=== PATIENT | female | born 1965 | race Caucasian/White ===

== ENCOUNTER 2024-08-06 11:26 | Outpatient (OUT) | payer MEDICARE, SELFPAY ==
--- NOTE | 2024-08-06 11:42 | MM_ITS ---
Patient Name: KATALINA ONTIVEROS MR#: [id number] : 1965 Exam Date: 08/06/2024 Ordering Doctor: NICK RAMIREZ FORM PRESSER-C RADIOLOGY REPORT PROCEDURE: MM TOMOSYNTHESIS SCREENING BI COMPARISON: None. INDICATIONS: Screening Calculator Name NCI Breast Cancer Risk Assessment Tool 5 Year Breast Cancer Risk 0.90% Lifetime Breast Cancer Risk 5.70% Personal Breast Cancer No Personal Ovarian Cancer No Treatments None Family Cancers None LOCATION: [facility] BREAST COMPOSITION: The breasts are almost entirely fatty. FINDINGS: DIAGNOSTIC CATEGORY 1--NEGATIVE. RIGHT BREAST: No significant suspicious finding. LEFT BREAST: No significant suspicious finding. RECOMMENDATIONS: ROUTINE MAMMOGRAM AND CLINICAL EVALUATION IN 12 MONTHS. PLEASE NOTE: A NORMAL MAMMOGRAM DOES NOT EXCLUDE THE POSSIBILITY OF BREAST CANCER. A CLINICALLY SUSPICIOUS PALPABLE LUMP SHOULD BE BIOPSIED. Dictated by: Jw Wood DO on 08/09/2024 at 15:43 Approved by: Jw Wood DO on 08/09/2024 at 15:45
[2024-08-06 12:14] LABS: Basophils Absolute Auto 0.1 10^3/uL (0.0-0.1); Basophils Percent Auto 1.7 % (0.2-2.0); Eosinophils Absolute Auto 0.4 10^3/uL (0.0-0.7); Eosinophils Percent Auto 5.2 % (0.9-7.0); Hematocrit 40.8 % (36.0-48.0); Hemoglobin 13.3 g/dL (12.0-16.0); Immature Granulocytes Abs Auto 0.01 10^3/uL (0.00-0.03); Immature Granulocytes Pct Auto 0.1 % (0.0-0.5); Lymphocytes Absolute Auto 2.1 10^3/uL (1.2-3.8); Lymphocytes Percent Auto 29.7 % (20.5-60.0); Mean Corpuscular HGB Conc 32.6 g/dL (29.9-35.2); Mean Corpuscular Hemoglobin 28.4 pg (26.7-34.0); Mean Corpuscular Volume 87.2 fL (81.0-99.0); Mean Platelet Volume 9.2 fL (9.5-13.5); Monocytes Absolute Auto 0.5 10^3/uL (0.3-0.8); Monocytes Percent Auto 6.9 % (1.7-12.0); Neutrophils Percent Auto 56.4 % (43.0-75.0); Platelet Count 318 10^3/uL (150-450); Red Blood Count 4.68 10^6/uL (4.20-5.40); Red Cell Distribution Width 13.1 % (11.0-15.0); White Blood Count 7.1 10^3/uL (4.0-11.0)
[2024-08-06 12:49] LABS: Alanine Aminotransferase 16 U/L (14-59); Albumin Globulin Ratio 1.3; Albumin Level 3.8 g/dL (3.4-5.0); Alkaline Phosphatase 88 U/L (46-116); Aspartate Amino Transferase 21 U/L (15-37); BUN Creatinine Ratio 15.5; Bilirubin Total 0.4 mg/dL (0.2-1.0); Calcium 9.1 mg/dL (8.5-10.1); Carbon Dioxide 29.4 mmol/L (21.0-32.0); Chloride 104 mmol/L (98-107); Cholesterol 222 mg/dL (<=200); Estimated GFR (African America >60 (>=60 mL/min/1.73m^2); Estimated GFR (Non-African Ame >60 (>=60 mL/min/1.73m^2); Globulin 2.9 g/dL; Glucose 92 mg/dL (74-106); HDL Cholesterol 74 mg/dL (40-60); Potassium 4.4 mmol/L (3.5-5.1); Sodium 139 mmol/L (136-145); Total Protein 6.7 g/dL (6.4-8.2); Triglycerides 59 mg/dL (<=150); VLDL CHOLESTEROL 11.8 mg/dL
== END 2024-08-06 11:27 | disposition home or self-care (01) ==
PROVIDERS: Visit Provider Nurse Practitioner Family
DX: Z12.31 Encounter for screening mammogram for malignant neoplasm of breast (principal); Z13.6 Encounter for screening for cardiovascular disorders; D86.0 Sarcoidosis of lung; Z51.81 Encounter for therapeutic drug level monitoring; Z98.84 Bariatric surgery status
CPT/HCPCS: 36415; 77063; 77067; 80053; 80061; 85025

== ENCOUNTER 2024-12-13 11:44 | Outpatient (OUT) | payer MEDICARE, SELFPAY ==
--- NOTE | 2024-12-13 | XR_ITS ---
The [place] [id number] Patient Name: KATALINA ONTIVEROS MRN: [id number] date: 1965 Sex: F Assigned Patient Location: [facility] Current Patient Location: [facility] Accession/Order Number: [id number] Exam Date: 12/13/2024 12:50 Report Date: 12/13/2024 12:51 At the request of: TERRA MARTIN DO Procedure: XR hand JAIR min 3v 3 views both hands HISTORY: Bilateral carpal tunnel syndrome Minor bilateral hand degeneration. Adequate alignment. No acute bony findings. Unremarkable soft tissues. XR/XR hand JAIR min 3v IMPRESSION: Mild bilateral hand degeneration Impression dictated by: Deni Poole M.D. 12/13/2024 12:51 PM Dictation Location: [place] [address] Electronically authenticated by: [id number] Y Date: 12/13/2024 12:51
--- OUTSIDE RECORDS SUMMARY | 2024-12-13 11:50 | XMS_ITS | CCD ---
Author Organization [facility] Care Team Providers Care Cable Swager Name Role Phone FRANKLIN CEE Admitting Unavailable JONAH ABIGAIL Referring Unavailable MIMI SMITH Primary Care Unavailable DHAVAL THOMPSON Unavailable NM Procedure Practitioner Unavailab le UNKNOWN, PROVIDER Surgeon Unavailable NM Procedure Practitioner Unavailab FRANKLIN Morrison Surgeon Unavailable Todd Rothman Unavailable Unavailable Mimi Smith Unavailable Unavailable Mimi Smith Primary Care Provider Mimi Smith MD Primary Care Provider [phone] Mimi Smith MD Primary Care Provider [phone] Mimi Smith MD Primary Care Provider [phone] REQUEST, DR NONE LISTED Primary Care Unavaila ble ABIGAIL MCKENZIE Attending Unavailable SAMSA, ABIGAIL Consulting Unavailable JONAH, ABIGAIL Admitting Unavailable Hadley Teague Attending Unavailab le Hadley Teague Admitting Unavailab Dhaval Barros Primary Care Unavailable Dhaval Farr MD Primary Care Provider Hadley Teague MD Attending Provider [phone] Sondra Salgado APRN Primary Care Provider Sondra Salgado APRN Attending Provider Keke Maria DO Attending Provider Allergies Allergy Classification Reported Allergen(s) Allergy Type Date of Onset Reaction(s) Facility Angiotensin Converting Enzyme (MAIKOL) Inhibitors (5 sources) Lisinopril Drug Allergy 8 Cough [facility] Benzodiazepines (5 sources) Midazolam Drug Allergy 1 Aggressive Behavior [facility] cow milk allergenic extract (5 sources) cow milk allergenic extract Drug Allergy 9 [facility] (6 sources) Amino Acids Drug Allergy 9 Unknown Reaction [facility] Repository (1 source) egg extract Drug Allergy 9 [facility] Repository (3 sources) Milk Drug allergy (disorder) 9 Unknown Reaction [facility] Repository Comment on above: NECK/THROAT SWELLING (9 sources) cow milk allergenic extract Drug Allergy 9 [facility] (9 sources) Lisinopril Drug Allergy 8 Cough [facility] (9 sources) Midazolam Drug Allergy 1 Aggressive Behavior [facility] (14 sources) Eggs Or Egg-Derived Products Propensity to adverse reactions to drug 9 Diarrhea [facility] (3 sources) egg extract Drug Allergy 4 Unknown Reaction [facility] Repository Comment on above: NECK/THROAT SWELLING (3 sources) egg extract Drug Allergy 4 Anaphylaxis [facility] Repository (1 source) Lisinopril Drug Allergy 4 [facility] Repository (1 source) Milk Drug allergy (disorder) 4 [facility] Repository Medications Current Medications Medication Drug Class(es) Dates Sig (Normalized) Sig (Original) albuterol 108 (90 Base) MCG/ACT Aero Soln inhaler (6 sources) take 2 puff(s) by inhalation every six hours as needed albuterol 108 (90 Base) MCG/ACT Aero Soln inhaler Inhale 2 puffs Every 6 hours as needed. 0 Active B Complex Vitamins (VITAMIN B COMPLEX PO) (13 sources) take 1 tablet by mouth once daily B Complex Vitamins (VITAMIN B COMPLEX PO) Take 1 tablet by mouth daily. 0 Active bisacodyl 5 mg delayed release oral tablet (1 source) Stimulant Laxative Start: 06-27-2020 End: 06-27-2020 take 4 tablets by mouth once bisacodyl (Dulcolax) [address] Take 4 tablets by mouth once for 1 dose. 4 tablet 0 06/27/2020 06/27/2020 Active 60 actuat budesonide 0.16 mg/actuat / formoterol fumarate 0.0045 mg/actuat metered dose inhaler (17 sources) Corticosteroid, beta2-Adrenergic Agonist Start: 05-22-2020 budesonide-formot vishnu 160-4.5 mcg/puff Aerosol inhaler INHALE 2 PUFFS TWICE DAILY*RINSE AFTER USE* 0 05/22/2020 Active Start: 09-24-2018 End: 10-03-2018 take 1 puff(s) by inhalation twice daily Budesonide-Formoterol (Symbicort) 160-4.5 mcg/actuation Hfa Aerosol Inhaler Discontinued 2 PUFF INHALATION Twice daily September 24, 2018 12:00am October 03, 2018 12:07pm Symbicort 160-4. 5 MCG/ACT Inhalation Aerosol Refills: 0 DO Active cholecalciferol 1.25 mg oral capsule (1 source) Vitamin D Start: 09-11-2020 take 1 capsule by mouth every week Cholecalciferol 1.25 MG (01690 UT) capsule Take 1 capsule by mouth once a week. 4 capsule 0 09/11/2020 Active 24 hr desvenlafaxine succinate 50 mg extended release oral tablet (2 sources) Serotonin and Norepinephrine Reuptake Inhibitor Start: 04-16-2024 take 1 tablet by mouth once daily HERBAL PRODUCT (11 sources) take 2 drop(s) by mouth once daily HERBAL PRODUCT Take 2 drops by mouth daily. Lanie Liver. A liquid added to water for liver support and function. 0 Active hydrOXYzine hydrochloride 25 mg oral tablet (20 sources) Antihistamine Start: 06-15-2020 End: 12-12-2020 take 1 tablet by mouth once daily at bedtime hydrOXYzine HCl 25 MG tablet TAKE 1 TABLET BY MOUTH EVERYDAY AT BEDTIME 0 06/15/2020 Active Start: 10-03-2018 take 1 capsule by mo [facility] three times daily Start: 10-03-2018 End: 04-16-2024 take 1 capsule by mouth once daily at bedtime Hydroxyzine Pamoate 50 mg Capsule Discontinued 50 MG PO Daily at bedtime October 03, 2018 12:00am April 16, 2024 11:36am Start: 09-24-2018 End: 10-03-2018 take 1 tablet by mouth three times daily Hydroxyzine Hcl 25 mg Tablet Discontinued 25 MG PO TID@08,14,1700 September 24, 2018 12:00am October 03, 2018 12:07pm Start: 09-24-2018 End: 10-03-2018 take 1 tablet by mouth once daily at bedtime Hydroxyzine Hcl 50 mg Tablet Discontinued 50 MG PO Daily at bedtime September 24, 2018 12:00am October 03, 2018 12:07pm hydrOXYzine HCl - 25 MG Oral Tablet Refills: 0 DO Active lamoTRIgine 200 mg oral tablet (2 sources) Mood Stabilizer, Anti-epileptic Agent Start: 04-16-2024 take 1 tablet by mouth once daily lumateperone 42 mg oral capsule (2 sources) Start: 04-16-2024 magnesium citrate 58.2 mg/ml oral solution (1 source) Start: 06-27-2020 End: 06-27-2020 magnesium citrate Solution Take 296 mL by mouth once for 1 dose. Drink one bottle in the morning on the day before your colonoscopy and follow with a glass of water. 1 Bottle 0 06/27/2020 06/27/2020 Active magnesium sulfate 0.0277 meq/ml / potassium sulfate 0.0374 meq/ml / sodium sulfate 0.257 meq/ml oral solution (1 source) Start: 06-27-2020 End: 06-29-2020 sodium sulfate-potassium sulfate (Suprep Bowel Prep Kit) 17.5-3.13-1.6 GM/177ML Solution oral solution Take 177 mL by mouth once as directed for up to 2 days. Use as directed 2 Bottle 0 06/27/2020 06/29/2020 Active Multiple Vitamins-Minerals (Multi For Her 50+) tablet (2 sources) Multiple Vitamins-Minerals (Multi For Her 50+) tablet 1 tablet 0 Active omeprazole 20 mg delayed release oral capsule (4 sources) Proton Pump Inhibitor Start: 10-03-2018 take 1 capsule by mouth once daily Completed/Discontinued Medications Medication Drug Class(es) Dates Sig (Normalized) Sig (Original) acetaminophen 32 mg/ml oral solution (9 sources) Start: 12-11-2020 End: 12-12-2020 take 650 mg by mouth every six hours 650 mg, Oral, EVERY 6 HOURS NON-STANDARD, First dose on Fri12/11/20 at 1300, Until Discontinued Post-op/Post-Proc Start: 12-11-2020 acetaminophen (OFIRMEV) IVPB 1,000 mg Start: 12-11-2020 acetaminophen (TYLENOL) tablet 1,000 mg Start: 11-17-2020 take 640 mg by mouth every six hours as needed acetaminophen 160 MG/5ML Suspension Take 20 mL by mouth every 6 hours as needed for Pain. 500 mL 1 11/17/2020 Active Start: 10-03-2018 End: 04-16-2024 take 2 tablets by mouth every four hours as needed for pain Acetaminophen 325 mg Tablet Discontinued 650 MG PO Q4H as needed for Pain 0 October 03, 2018 12:00am April 16, 2024 11:35am Start: 10-03-2018 End: 04-16-2024 take 1 tablet by mouth every four hours as needed for pain Acetaminophen 325 mg Tablet Discontinued 325 MG PO Q4H as needed for Pain 100 October 03, 2018 12:00am April 16, 2024 11:35am [id number] 200 actuat albuterol 0.09 mg/actuat metered dose inhaler (10 sources) beta2-Adrenergic Agonist Start: 12-11-2020 End: 12-12-2020 take 2 puff(s) by inhalation every six hours as needed for wheezing 2 puff, Inhalation, EVERY 6 HOURS NEEDED, Starting on Fri12/11/20 at 1221, Until Fri12/12/20 at 1750, Shortness of Breath, Wheezing Wait at least one(1) full minute between inhalations Post-op/Post-Proc Start: 10-03-2018 take 2.5 mg by inhal ation three times daily as needed for congestion albuterol 0.833 mg/ml / ipratropium bromide 0.167 mg/ml inhalation solution (2 sources) Anticholinergic, beta2-Adrenergic Agonist Start: 09-24-2018 End: 10-03-2018 take 1 mL by inhalation every six hours Ipratropium-Albuterol 0.5 mg-3 mg(2.5 mg base)/3 mL Solution For Nebulization Discontinued 3 ML INHALATION Q6H September 24, 2018 12:00am October 03, 2018 12:07pm [place] ALPRAZolam 0.25 mg oral tablet (4 sources) Benzodiazepine Start: 10-03-2018 End: 04-16-2024 take 1 tablet by mouth three times daily as needed for anxiety Alprazolam 0.25 mg Tablet Discontinued 0.25 MG PO Three times daily as needed for Anxiety 30 15 October 03, 2018 12:00am April 16, 2024 11:35am Start: 09-24-2018 End: 10-03-2018 take 1 tablet by mouth once daily as needed for anxiety Alprazolam (Xanax) 0.25 mg Tablet Discontinued 0.25 MG PO Daily as needed for Anxiety September 24, 2018 12:00am October 03, 2018 12:07pm aspirin 81 mg delayed release oral tablet (2 sources) Platelet Aggregation Inhibitor, Nonsteroidal Anti-inflammatory Drug Start: 10-03-2018 End: 04-16-2024 take 1 tablet by mouth once daily Aspirin 81 mg Tablet,Delayed Release (Dr/Ec) Discontinued 81 MG PO Daily October 03, 2018 12:00am April 16, 2024 11:35am bupivacaine (MARCAINE) 30 mL, bupivacaine LIPOSOME (EXPAREL) 20 mL in sodium chloride 0.9% 200 mL (1 source) Start: 12-11-2020 End: 12-11-2020 bupivacaine (MARCAINE) 30 mL, bupivacaine LIPOSOME (EXPAREL) 20 mL in sodium chloride 0.9% 200 mL busPIRone hydrochloride 5 mg oral tablet (20 sources) Start: 12-12-2020 End: 12-12-2020 take 30 mg by mouth twice daily 30 mg, Oral, 2 TIMES DAILY, First dose on Fri12/12/20 at 0900, Until Discontinued Start: 06-10-2020 take 1 tablet by jorge th twice daily busPIRone HCl 30 MG tablet Take 30 mg by mouth 2 times daily. 0 06/10/2020 Active Start: 09-24-2018 End: 10-03-2018 take 1 tablet by mouth twice daily BuSpar TABS Refi lls: 0 DO Active BuSpar TABS Refi lls: 0 Active calcium chloride 0.0014 meq/ ml / potassium chloride 0.004 meq/ml / sodium chloride 0.103 meq/ml / sodium lactate 0.028 meq/ml injectable solution (2 sources) Start: 12-11-2020 End: 12-11-2020 lactated ringers IV solution Start: 08-14-2020 End: 08-14-2020 lactated ringers IV solution celecoxib 200 mg oral capsule (1 source) Nonsteroidal Anti-inflammatory Drug Start: 12-11-2020 End: 12-11-2020 celecoxib (CELEBREX) capsule 400 mg 2 ml enalaprilat 1.25 mg/ml injection (1 source) Angiotensin Converting Enzyme Inhibitor Start: 12-11-2020 End: 12-12-2020 1.25 mg, Intravenous, EVERY 6 HOURS NEEDED, Starting on Fri12/11/20 at 1221, Until Fri12/12/20 at 1750, for SBP greater than 150 mm/Hg, Post-op/Post-Pr oc 0.4 ml enoxaparin sodium 100 mg/ml prefilled syringe (1 source) Low Molecular Weight Heparin Start: 12-11-2020 End: 12-12-2020 inject 40 mg by subcutaneous injection every twelve hours 40 mg, Subcutaneous, EVERY 12 HOURS NON-STANDARD, First dose on Fri12/11/20 at 1800, Until Discontinued, Indications: DVT/PE prophylaxis, Post-op/Post-Pr oc fentaNYL (2 sources) Opioid Agonist fentaNYL PT72 Refills: 0 DO Active fentaNYL PT72 Re fills: 0 Active FLUoxetine 20 mg oral capsule (4 sources) Serotonin Reuptake Inhibitor Start: 10-03-2018 End: 04-16-2024 take 3 capsules by mouth once daily Fluoxetine 20 mg Capsule Discontinued 60 MG PO Daily October 03, 2018 12:00am April 16, 2024 11:36am Start: 09-24-2018 End: 10-03-2018 Fluoxetine (Prozac) 40 mg Ca psule Discontinued 60 MG PO Daily September 24, 2018 12:00am October 03, 2018 12:07pm 120 actuat fluticasone propionate 0.115 mg/actuat / salmeterol 0.021 mg/actuat metered dose inhaler (3 sources) Corticosteroid, beta2-Adrenergic Agonist Start: 12-11-2020 End: 12-12-2020 take 2 puff(s) by inhalation twice daily 2 puff, Inhalation, 2 TIMES DAILY, First dose on Fri12/11/20 at 1700, Until Discontinued, Post-op/Post-Proc Start: 10-03-2018 take 1 puff(s) by in halation twice daily Start: 10-03-2018 take 1 puff(s) by in halation twice daily Fluticasone Propion-Salmeterol (Advair Hfa) 115-21 mcg/actuation Hfa Aerosol Inhaler Active 2 PUFF INHALATION Twice daily October 03, 2018 12:00am Complies with drug therapy gabapentin 300 mg oral capsule (1 source) Anti-epileptic Agent Start: 12-11-2020 End: 12-11-2020 gabapentin (NEURONTIN) capsule 600 mg 1 ml heparin sodium, porcine 5000 unt/ml prefilled syringe (1 source) Unfractionated Heparin, Anti-coagulant Start: 12-11-2020 End: 12-11-2020 heparin injection 5,000 Units 1 ml HYDROmorphone hydrochloride 1 mg/ml cartridge (1 source) Opioid Agonist Start: 12-11-2020 End: 12-12-2020 0.5 mg, Intravenous, EVERY 4 HOURS NEEDED, Starting on Fri12/11/20 at 1044, Until Fri12/12/20 at 1750, Other, Increase in reported pain to moderate or severe between available doses of PO oxycodone, Post-op/Post-Proc ibuprofen 600 mg oral tablet (12 sources) Nonsteroidal Anti-inflammatory Drug End: 12-12-2020 take 1 tablet by mouth every six hours as needed ibuprofen 600 MG tablet Take 600 mg by mouth Every 6 hours as needed. 0 12/12/2020 Discontinued (Stop Taking at Discharge) ipratropium bromide 0.2 mg/ml inhalation solution (2 sources) Anticholinergic Start: 10-03-2018 End: 04-16-2024 take 0.5 mg by inhalation three times daily as needed for congestion Ipratropium Vidal 0.02 % Solution Discontinued 0.5 MG INHALATION Three times daily as needed for lung congestion October 03, 2018 12:00am April 16, 2024 11:36am 1 ml ketorolac tromethamine 15 mg/ml cartridge (1 source) Nonsteroidal Anti-inflammatory Drug, Cyclooxygenase Inhibitor Start: 12-11-2020 End: 12-12-2020 15 mg, Intravenous, EVERY 6 HOURS, 8 doses, First dose on Fri12/11/20 at 1900, Last dose on Fri12/13/20 at 1200, Post-op/Post-Proc lactated ringers 1,000 mL with potassium chloride 20 mEq IV solution (1 source) Start: 12-11-2020 End: 12-12-2020 Intravenous, CONTINUOUS, Starting on Fri12/11/20 at 1230, Until Fri12/12/20 at 0828, Post-op/Post-Proc magnesium oxide 400 mg oral tablet (1 source) Start: 12-12-2020 End: 12-12-2020 magnesium oxide (MAX-OX) tablet 800 mg 2 ml ondansetron 2 mg/ml injection (3 sources) Serotonin-3 Receptor Antagonist Start: 12-11-2020 End: 12-12-2020 4 mg, Intravenous, EVERY 6 HOURS NON-STANDARD, First dose on Fri12/11/20 at 1530, Until Discontinued, Post-op/Post-Proc Start: 11-17-2020 take 1 tablet by jorge th every six hours as needed ondansetron 4 MG Tab Dispersible tablet Take 1 tablet by mouth every 6 hours as needed. 15 tablet 1 11/17/2020 Active oxyCODONE hydrochloride 1 mg/ml oral solution (4 sources) Opioid Agonist Start: 12-11-2020 End: 12-12-2020 take 10 mg by mouth every four hours as needed for pain 10 mg, Oral, EVERY 4 HOURS NEEDED, Starting on Fri12/11/20 at 1221, Until Fri12/12/20 at 1750, Severe Pain, Post-op/Post-Proc Start: 12-11-2020 End: 12-12-2020 take 5 mg by mouth every four hours as needed for pain 5 mg, Oral, EVERY 4 HOURS NEEDED, Starting on Fri12/11/20 at 1221, Until Fri12/12/20 at 1750, Moderate Pain, Post-op/Post-Proc Start: 11-17-2020 take 5 mL by mouth e very six hours as needed for pain oxyCODONE 5 MG/5ML Solution oral solution Indications: S/P laparoscopic sleeve gastrectomy Take 5 mL by mouth every 6 hours as needed for Moderate Pain or Severe Pain for up to 6 days. 120 mL 0 11/17/2020 Active pantoprazole 40 mg injection (1 source) Proton Pump Inhibitor Start: 12-11-2020 End: 12-12-2020 40 mg, Intravenous, DAILY, First dose on Fri12/11/20 at 1230, Until Discontinued Dilute each 40 mg vial with 10 mL of NS. All bolus doses, whether 40 mg or 80 mg, should be administered over at least two minutes. Indications: Inpt Stress Ulcer Prophylaxis, Post-op/Post-Proc predniSONE 10 mg oral tablet (2 sources) Start: 10-03-2018 End: 04-16-2024 take 3 tablets by mouth once daily Prednisone 10 mg Tablet Discontinued 30 MG PO Daily Taper: Start: September 25, 2018 9:00am End: September 27, 2018 8:59am Frequency: DAILY Days: 2 Hours: 0 Dose: 40 Start: September 27, 2018 9:00am End: October 04, 2018 8:59am Frequency: DAILY Days: 7 Hours: 0 Dose: 30 Start: October 04, 2018 9:00am End: October 11, 2018 8:59am Frequency: DAILY Days: 7 Hours: 0 Dose: 20 Start: October 11, 2018 9:00am End: October 18, 2018 8:59am Frequency: DAILY Days: 7 Hours: 0 Dose: 10 0 October 03, 2018 12:00am April 16, 2024 11:36am Please contact the information source for Taper Schedule details. promethazine (PHENERGAN) 12.5 mg in sodium chloride 0.9%, with overfill 60.5 mL (total volume) IVPB (1 source) Start: 12-11-2020 End: 12-12-2020 12.5 mg, Intravenous, at 121-242 mL/hr, Administer over 15-30 Minutes, EVERY 6 HOURS NEEDED, Starting on Fri12/11/20 at 1044, Until Fri12/12/20 at 1750, Other, Nausea/Vomiting (2nd Line) Extravasation Risk Post-op/Post-Proc 72 hr scopolamine 0.0139 mg/hr transdermal system (1 source) Anticholinergic Start: 12-11-2020 End: 12-11-2020 scopolamine (TRANSDERM-SCOP) patch 1 patch sertraline 50 mg oral tablet (16 sources) Serotonin Reuptake Inhibitor Start: 12-12-2020 End: 12-12-2020 take 100 mg by mouth once daily 100 mg, Oral, DAILY, First dose on Fri12/12/20 at 0900, Until Discontinued, Post-op/Post-Proc Start: 06-15-2020 take 1 tablet by jorge th once daily sertraline 100 MG tablet Take 100 mg by mouth daily. 0 06/15/2020 Active Sertraline HCl - 20 MG/ML Oral Concentrate Refills: 0 DO Active simethicone 80 mg chewable tablet (1 source) Start: 12-11-2020 End: 12-12-2020 80 mg, Oral, EVERY 4 HOURS A S NEEDED, Starting on Fri12/11/20 at 1221, Until Fri12/12/20 at 1750, Gas, Post-op/Post-Proc 1000 ml sodium chloride 9 mg/ml injection (2 sources) Start: 12-12-2020 End: 12-12-2020 sodium chloride 0.9% IV solu tion Start: 08-14-2020 End: 08-14-2020 sodium chloride (PF) 0.9 % i njection 5 mL Problems Active Problems Problem Classification Problem Date Documented Da te Episodic/Chronic Administrative/social admission (9 sources) Patient encounter status; Translations: [Dietary counseling and surveillance] Episodic Anxiety disorders (20 sources) Mixed anxiety and depressive disorder; Translations: [Generalized anxiety disorder] Onset: 1 06-27-2020 Chronic Asthma (20 sources) Uncomplicated moderate persistent asthma; Translations: [Moderate persistent asthma, uncomplicated] Onset: 1 06-27-2020 Chronic Deficiency and other anemia (1 source) Anemia; Translations: [Anemia, unspecified type] Episodic Esophageal disorders (19 sources) Gastroesophageal reflux disease; Translations: [Gastro-esophageal reflux disease without esophagitis] Onset: 1 06-27-2020 Chronic Immunity disorders (20 sources) Sarcoidosis; Translations: [Sarcoidosis, unspecified] Onset: 1 06-27-2020 Chronic Malaise and fatigue (4 sources) Asthenia; Translations: [Weakness] 09-25-2018 Episodic Miscellaneous mental health disorders (2 sources) Binge eating disorder; Translations: [Binge eating disorder] Chronic Mood disorders (4 sources) Recurrent major depression in partial remission; Translations: [Recurrent major depression in full remission] Chronic Nutritional deficiencies (1 source) Vitamin D deficiency; Translations: [Vitamin D deficiency] Chronic Other circulatory disease (2 sources) Orthostatic hypotension; Translations: [Orthostatic hypotension] 10-01-2018 Episodic Other connective tissue disease (2 sources) Pain of bilateral hands; Translations: [Pain in right hand] 11-11-2024 Episodic Other connective tissue disease (2 sources) Ganglion cyst of left volar wrist; Translations: [Ganglion, left wrist] 11-11-2024 Episodic Other eye disorders (4 sources) Drusen of optic disc, bilateral; Translations: [Drusen of optic disc, bilateral] Chronic Other gastrointestinal disorders (1 source) Malabsorption syndrome; Translations: [Other intestinal malabsorption] Chronic Other lower respiratory disease (1 source) Wheezing; Translations: [WHEEZING] Onset: 2 Episodic Other nervous system disorders (2 sources) Paresthesia of skin; Translations: [Paresthesia of both hands] 11-11-2024 Episodic Other nutritional; endocrine; and metabolic disorders (20 sources) Morbid obesity; Translations: [Morbid (severe) obesity due to excess calories] Onset: 1 06-27-2020 Chronic Other screening for suspected conditions (not mental disorders or infectious disease) (12 sources) Viral screening status; Translations: [Patient encounter status] Onset: 1 Episodic Pneumonia (except that caused by tuberculosis or sexually transmitted disease) (2 sources) Pneumonia; Translations: [Pneumonia, unspecified organism] 09-25-2018 Episodic Residual codes; unclassified (18 sources) Obstructive sleep apnea syndrome; Translations: [Obstructive sleep apnea (adult) (pediatric)] Onset: 1 06-27-2020 Chronic Respiratory failure; insufficiency; arrest (adult) (2 sources) Respiratory failure; Translations: [Respiratory failure, unspecified, unspecified whether with hypoxia or hypercapnia] 09-25-2018 Episodic Spondylosis; intervertebral disc disorders; other back problems (2 sources) Low back pain; Translations: [Radiculopathy, lumbar region] 04-16-2024 Episodic Unclassified (10 sources) Patient encounter status; Translations: [Nutritional counseling] Onset: 1 07-03-2020 Unclassified (3 sources) CONTACT W/AND (SUSP) EXPOS COVID-19; Translations: [CONTACT W/AND (SUSP) EXPOS COVID-19] Onset: 2 Unclassified (1 source) M79.641 - Pain in right hand,M79.642 - Pain in left hand,R20.2 - Paresthesia of skin Unclassified (1 source) M67.432 - Ganglion, left wrist,R20.2 - Paresthesia of skin,M79.641 - Pain in right hand,M79.642 - Pain in left hand Unclassified (1 source) D86.0 - Sarcoidosis of lung Past or Other Problems Problem Classification Problem Date Documented Da te Episodic/Chronic Cardiac dysrhythmias (17 sources) Palpitations; Translations: [Palpitations] Onset: 06-27-2020 06-27-2020 Episodic Essential hypertension (16 sources) Essential hypertension; Translations: [Essential (primary) hypertension] Onset: 06-27-2020 Resolved: 08-09-2020 06-27-2020 Chronic Other gastrointestinal disorders (2 sources) History of sleeve gastrectomy; Translations: [Bariatric surgery status] Episodic Other lower respiratory disease (2 sources) H/O: asthma; Translations: [History of asthma] Episodic Other skin disorders (4 sources) Swelling of structure of eye; Translations: [Optic nerve edema] Episodic Residual codes; unclassified (2 sources) H/O: Disorder; Translations: [History of sarcoidosis] Episodic Screening and history of mental health and substance abuse codes (2 sources) H/O: depression; Translations: [History of depression] Episodic Unclassified (1 source) CONTACT W/AND (SUSP) EXPOS COVID-19; Translations: [CONTACT W/AND (SUSP) EXPOS COVID-19] Onset: 12-25-2021 NEGATED: Highlighted row has not occurred!Residual codes; unclassified (2 sources) Disease Episodic Results Test Name Value Interpretation Reference Range Facility Covid-19 PCR (CVDTB)on 11-28 SARS-CoV-2 (COVID-19) RNA BOZENA+probe Ql (Unsp spec) Not detected Normal NOT DETECTED [facility] Comment on above: Result Comment: This test is not yet approved or cleared by the [place] FDA. When there are no FDA-approved or cleared tests available, and other criteria are met, FDA can make tests available under an emergency access mechanism called an Emergency Use Authorization (EUA). The EUA for this test is supported by the [place] of Health and Human Service's (HHS's) declaration that circumstances exist to justify the emergency use of in vitro diagnostics for the detection and/or diagnosis of the virus that causes COVID-19. This EUA will remain in effect (meaning this test can be used) for the duration of the COVID-19 declaration justifying emergency of IVDs, unless it is terminated or revoked by FDA (after which the test may no longer be used). When diagnostic testing is negative, the possibility of a false negative should be considered in the context of a patient's recent exposures and the presence of clinical signs and symptoms consistent with SARS-CoV-2. Performed By: #### C [facility] #### [facility] [address] [address] [address] Emory Mason BASIC METABOLIC PANELon 11-26 Anion gap [Moles/Vol] 8 mmol/L [facility] Calcium [Mass/Vol] 9.3 mg/dL [facility] Chloride [Moles/Vol] 102 mmol/L [facility] Comment on above: Please note: Triglyc eride levels of 600mg/dL or higher may positively bias chloride results by approximately 2.1 mmol CO2 [Moles/Vol] 27 mmol/L [facility] Creatinine [Mass/Vol] 0.71 mg/dL [facility] GFR COMMENT Average GFR for 50-59 years old = 93. [facility] Comment on above: Chronic Kidney disea se, GFR = <60. Kidney failure, GFR = <15. The GFR estimate is not adjusted for extreme body surface area or acute process, nor has it been validated for women or ethnic groups other than and . GFR/1.73 sq M.predicted among blacks MDRD (S/P/Bld) [Vol rate/Area] mL/min/{1.73_m2} ml/min/1.73sq. m [facility] GFR/1.73 sq M.predicted among non-blacks MDRD (S/P/Bld) [Vol rate/Area] mL/min/{1.73_m2} ml/min/1.73sq. m [facility] Glucose post fast [Mass/Vol] 135 mg/dL High [facility] Comment on above: NORMAL <100 mg/dL PREDIABETES 101-126 mg/dL DIABETES 126 mg/dL or higher Interpretation and review of laboratory results Abnormal [facility] Potassium [Moles/Vol] 4.5 mmol/L [facility] Sodium [Moles/Vol] 137 mmol/L [facility] Urea nitrogen [Mass/Vol] 9 mg/dL [facility] BMP FASTINGon 12-12-2020 Anion gap [Moles/Vol] 8 mmol/L Normal 8-16 [facility] Calcium [Mass/Vol] 9.3 mg/dL Normal 8.4-10.2 [facility] Chloride [Moles/Vol] 102 mmol/L Normal 98-107 [facility] Comment on above: Result Comment: Lucio luong note: Triglyceride levels of 600mg/dL or higher may positively bias chloride results by approximately 2.1 mmol CO2 [Moles/Vol] 27 mmol/L Normal 22-30 [facility] Creatinine [Mass/Vol] 0.71 mg/dL Normal 0.7-1.2 [facility] EST. GFR, >60 Normal [facility] EST. GFR,Non >60 Normal [facility] GFR Information Average GFR for 50-59 years old = 93. Normal [facility] Comment on above: Result Comment: [employer] chris Kidney disease, GFR = <60. Kidney failure, GFR = <15. The GFR estimate is not adjusted for extreme body surface area or acute process, nor has it been validated for women or ethnic groups other than and . Glucose [Mass/Vol] 135 mg/dL High 70-100 [facility] Comment on above: Result Comment: NORMAL <100 mg/dL PREDIABETES 101-126 mg/dL DIABETES 126 mg/dL or higher Potassium [Moles/Vol] 4.5 mmol/L Normal 3.5-5.1 [facility] Sodium [Moles/Vol] 137 mmol/L Normal 137-145 [facility] Urea nitrogen [Mass/Vol] 9 mg/dL Normal 7-20 [facility] CBC(NO DIFF)on 12-12-2020 Erythrocyte distribution width (RBC) [Ratio] 14.7 % High 11.5-14.5 [facility] Hematocrit (Bld) [Volume fraction] 39.2 % Normal 36.0-48.0 [facility] Hemoglobin (Bld) [Mass/Vol] 13.1 g/dL Normal 12.0-16.0 [facility] MCH (RBC) [Entitic mass] 28.7 pg Normal 26.0-35.0 [facility] MCHC (RBC) [Mass/Vol] 33.4 g/dL Normal 27.0-37.0 [facility] MCV (RBC) [Entitic vol] 86.0 fL Normal 80.0-100.0 [facility] Platelet mean volume (Bld) [Entitic vol] 8.1 fL Normal 7.4-11.0 [facility] Platelets (Bld) [#/Vol] 335 10*3/uL Normal 130.0-400.0 [facility] RBC (Bld) [#/Vol] 4.56 10*6/uL Normal 4.0-5.4 [facility] WBC (Bld) [#/Vol] 16.6 10*3/uL High 3.6-11.0 [facility] CBC,PLATELETSon 12-12-2020 Erythrocyte distribution width (RBC) [Ratio] 14.7 % High 11.5 - 14.5 % [facility] Hematocrit (Bld) [Volume fraction] 39.2 % 36.0 - 48.0 % [facility] Hemoglobin (Bld) [Mass/Vol] 13.1 g/dL [facility] Interpretation and review of laboratory results Abnormal [facility] MCH (RBC) [Entitic mass] 28.7 pg 26.0 - 35.0 PG [facility] MCHC (RBC) [Mass/Vol] 33.4 g/dL [facility] MCV (RBC) [Entitic vol] 86.0 fL [facility] Platelet mean volume (Bld) [Entitic vol] 8.1 fL [facility] Platelets (Bld) [#/Vol] 335 10*3/uL 130.0 - 400.0 10*3/uL [facility] RBC (Bld) [#/Vol] 4.56 10*6/uL 4.0 - 5.4 10*6/uL [facility] WBC (Bld) [#/Vol] 16.6 10*3/uL High 3.6 - 11.0 10*3/uL [facility] MAGNESIUMon 12-12-2020 Magnesium [Mass/Vol] 1.8 mg/dL Normal 1.6-2.3 [facility] Magnesium [Mass/Vol] 1.8 mg/dL [facility] MRSA SCREENon 12-12-2020 MRSA DNA BOZENA+probe Ql (Unsp spec) Not detected Normal NOT DETECTED [facility] Comment on above: Performed By: #### M RSAST #### Testing performed at [facility] [address] [place] [address] STAPH AUREUS SCREEN Not detected Normal NOT DETECTED [facility] Comment on above: Result Comment: Test ing performed at [address] [address] Performed By: #### M RSAST #### Testing performed at [facility] [address] [place] [address] No Panel Informationon 12-12 [facility] PHOSPHATE, INORGANICon 12-12 Phosphate [Mass/Vol] 4.2 mg/dL [facility] PHOSPHOROUSon 12-12-2020 PHOSPHOROUS 4.2 MG/DL Normal 2.5-4.5 [facility] GLUCOSE RANDOMon 12-11-2020 Glucose [Mass/Vol] 225 mg/dL High 65-200 [facility] GLUCOSE (POC DEVICE)on 12-11 [facility] GLUCOSE, POINT OF CARE 225 High [facility] Interpretation and review of laboratory results Abnormal [facility] Operator [id number] [facility] GLUCOSE RANDOMon 12-11-2020 Glucose [Mass/Vol] 225 mg/dL High [facility] Interpretation and review of laboratory results Abnormal [facility] HCG ( test) Ql (U)o n 12-11-2020 [facility] HCG QUALITATIVE, URINEon HCG ( test) Ql (U) Negative [facility] POCT GLUCOSEon 12-11-2020 Glucose [Mass/Vol] 225 mg/dL High 70-100 [facility] EARTH BURNER [id number] Normal [facility] REPEAT ABO/RHon 12-11-2020 REPEAT ABO/RH Positive Normal [facility] REPEAT ABO/RH (D) TYPINGon 0 12-11-2020 ABO and Rh group Nom (Bld ) Positive [facility] SCREEN: MRSA ONLY, NARES (IS OLATION SCREEN)on 12-11-2020 MRSA isol Org specific cx Ql (Nose) Not detected NOT DETECTED [facility] STAPHYOCOCCUS AUREUS BY PCR Not detected NOT DETECTED [facility] Comment on above: Testing performed at [place], [place] [address] [facility] URINE HCG QUALon 12-11-2020 Beta HCG ( test) Ql (U) Negative Normal [facility] NOVEL CORONAVIRUSon 12-09-19 21 NARRATIVE This test was performed using isothermal BOZENA and has been approved as Emergency Use Authorization (EUA) for the qualitative detection [id number] nucleic acid. Normal [facility] Comment on above: Performed By: #### C OVID #### Testing performed at [address] [address] SARS-CoV-2 (COVID-19) RNA BOZENA+probe Ql (Unsp spec) Not detected Normal NOT DETECTED [facility] Comment on above: Result Comment: Nega tive results do not preclude SARS-CoV-2 infection and should not be used as the sole basis for treatment or other patient management decisions. Optimum specimen types and timing for peak viral levels during infections caused by SARS-CoV-2 has not been determined. The possibility of a false negative result should especially be considered if the patient's recent exposures or clinical presentation suggest that SARS-CoV-2 infection is probable, and diagnostic tests for other causes of illness (e.g., other respiratory illness) are negative. Collection of a new specimen and re-testing may be necessary if the patient is critically ill or clinically deteriorating. Performed By: #### C OVID #### Testing performed at [address] [address] TYPE AND SCREEN CROSSMATCH C ONVERTIBLEon 11-18-2020 TYPE AND SCREEN CROSSMATCH CONVERTIBLE WORKUP EXPIRES 12/14/2020,2359 ABO/RH(D) O POSITIVE ANTIBODY SCREEN NEGATIVE ARM BAND NUMBER [id number] [facility] Comment on above: Performed By: #### T SCC ####Testing performed at [address] [address] BMP FASTINGon 11-17-2020 Anion gap [Moles/Vol] 10 mmol/L Normal 8-16 [facility] Comment on above: Performed By: #### P TT, PT, HEMOG, BMPF #### Testing performed at [address] [address] Calcium [Mass/Vol] 9.7 mg/dL Normal 8.4-10.2 [facility] Comment on above: Performed By: #### P TT, PT, HEMOG, BMPF #### Testing performed at [place] [id number] Chloride [Moles/Vol] 100 mmol/L Normal 98-107 [facility] Comment on above: Performed By: #### P TT, PT, HEMOG, BMPF #### [place] [address] CO2 [Moles/Vol] 26 mmol/L Normal 22-30 [facility] Comment on above: Performed By: #### P TT, PT, HEMOG, BMPF #### Testing performed at [address] [place] [id number] Creatinine [Mass/Vol] 0.69 mg/dL Normal 0.52-1.04 [facility] Comment on above: Performed By: #### P TT, PT, HEMOG, BMPF #### Testing performed at [address] [address] EST. GFR, >60 Normal [facility] Comment on above: Performed By: #### P TT, PT, HEMOG, BMPF #### Testing performed at [address] [address] EST. GFR,Non >60 Normal [facility] Comment on above: Performed By: #### P TT, PT, HEMOG, BMPF #### [place] [address] GFR Information Average GFR for 50-59 years old = 93. Normal [facility] Comment on above: Result Comment: [employer] Cle[employer] Agent chris Kidney disease, GFR = <60. Kidney failure, GFR = <15. The GFR estimate is not adjusted for extreme body surface area or acute process, nor has it been validated for women or ethnic groups other than and . Performed By: #### P TT, PT, HEMOG, BMPF #### Testing performed at [address] [address] Glucose [Mass/Vol] 120 mg/dL High 70-100 [facility] Comment on above: Result Comment: NORMAL <100 mg/dL PREDIABETES 101-126 mg/dL DIABETES 126 mg/dL or higher Performed By: #### P TT, PT, HEMOG, BMPF #### Testing performed at [address] [address] Potassium [Moles/Vol] 4.3 mmol/L Normal 3.5-5.1 [facility] Comment on above: Performed By: #### P TT, PT, HEMOG, BMPF #### Testing performed at [address] [address] Sodium [Moles/Vol] 136 mmol/L Normal 136-145 [facility] Comment on above: Performed By: #### P TT, PT, HEMOG, BMPF #### Testing performed at [address] [address] Urea nitrogen [Mass/Vol] 9 mg/dL Normal 7-20 [facility] Comment on above: Performed By: #### P TT, PT, HEMOG, BMPF #### Testing performed at [address] [address] CBC(NO DIFF)on 11-17-2020 Erythrocyte distribution width (RBC) [Ratio] 14.4 % Normal 11.5-14.5 [facility] Comment on above: Performed By: #### P TT, PT, HEMOG, BMPF #### Testing performed at [address] [address] Hematocrit (Bld) [Volume fraction] 45.9 % Normal 36.0-48.0 [facility] Comment on above: Performed By: #### P TT, PT, HEMOG, BMPF #### Testing performed at [address] [address] Hemoglobin (Bld) [Mass/Vol] 15.3 g/dL Normal 12.0-16.0 [facility] Comment on above: Performed By: #### P TT, PT, HEMOG, BMPF #### Testing performed at [address] [address] MCH (RBC) [Entitic mass] 28.2 pg Normal 26.0-35.0 [facility] Comment on above: Performed By: #### P TT, PT, HEMOG, BMPF #### Testing performed at [address] [address] MCHC (RBC) [Mass/Vol] 33.3 g/dL Normal 27.0-37.0 [facility] Comment on above: Performed By: #### P TT, PT, HEMOG, BMPF #### Testing performed at [address] [address] MCV (RBC) [Entitic vol] 84.6 fL Normal 80.0-100.0 [facility] Comment on above: Performed By: #### P TT, PT, HEMOG, BMPF #### Testing performed at [address] [address] Platelet mean volume (Bld) [Entitic vol] 8.1 fL Normal 7.4-11.0 [facility] Comment on above: Performed By: #### P TT, PT, HEMOG, BMPF #### Testing performed at [address] [address] Platelets (Bld) [#/Vol] 339 10*3/uL Normal 130.0-400.0 [facility] Comment on above: Performed By: #### P TT, PT, HEMOG, BMPF #### Testing performed at [address] [address] RBC (Bld) [#/Vol] 5.42 10*6/uL High 4.0-5.4 [facility] Comment on above: Performed By: #### P TT, PT, HEMOG, BMPF #### Testing performed at [address] [address] WBC (Bld) [#/Vol] 11.1 10*3/uL High 3.6-11.0 [facility] Comment on above: Performed By: #### P TT, PT, HEMOG, BMPF #### Testing performed at [address] [address] PROTIMEon 11-17-2020 INR Coag (PPP) [Relative time] 0.97 {INR} Normal 0.85-1.10 [facility] Comment on above: Result Comment: 2.0-3.0 THERAPEUTIC RANGE 2.5-3.5 MECHANICAL VALVE RANGE Performed By: #### P TT, PT, HEMOG, BMPF #### Testing performed at [address] [address] PT Coag (PPP) [Time] 13.1 s Normal 11.8-14.4 [facility] Comment on above: Performed By: #### P TT, PT, HEMOG, BMPF #### Testing performed at [address] [address] PTTon 11-17-2020 aPTT Coag (Bld) [Time] 29.8 s Normal 22.4-34.7 [facility] Comment on above: Result Comment: CARDIAC AND PE/DVT THERAPUTIC RANGE 69-97 SEC VASCULAR/THREATENED LIMB THERAPUTIC RANGE 80-112 SEC Performed By: #### P TT, PT, HEMOG, BMPF #### Testing performed at [address] [address] NICOTINE QUANT, SERUMon 09-26 COTININE 4.3 Normal [facility] Comment on above: Result Comment: Unit : ng/mL (NOTE) This test was developed and its performance characteristics determined by [facility]. It has not been cleared or approved by the Food and Drug Administration. Cotinine levels greater than 20.0 are consistent with the use of tobacco or tobacco cessation products. PERFORMED AT [facility] Performed By: #### L NICB #### Testing performed at [facility] NICOTINE <1.0 Normal [facility] Comment on above: Result Comment: Unit : ng/mL (NOTE) This test was developed and its performance characteristics determined by [facility] It has not been cleared or approved by the Food and Drug Administration. Nicotine levels greater than 2.0 are consistent with the use of tobacco or tobacco cessation products. Performed By: #### L NICB #### Testing performed at [facility] RAPID TOX SCREEN,URINEon AMPHETAMINE Negative Normal NEGATIVE [facility] Comment on above: Result Comment: <500 ng/ml CUTOFF Performed By: #### C OVID #### Testing performed at [address] [place] [address] BARBITURATES Negative Normal NEGATIVE [facility] Comment on above: Result Comment: <200 ng/ml CUTOFF Performed By: #### C OVID #### Testing performed at [address] [place] [address] BENZODIAZEPINES Negative Normal NEGATIVE [facility] Comment on above: Result Comment: <150 ng/ml CUTOFF Performed By: #### C OVID #### Testing performed at [address] [place] [address] BUPRENORPHINE Negative Normal NEGATIVE [facility] Comment on above: Result Comment: <10 ng/ml CUTOFF Performed By: #### C OVID #### Testing performed at [address] [place] [address] CANNABINOIDS Negative Normal NEGATIVE [facility] Comment on above: Result Comment: <50 ng/ml CUTOFF Performed By: #### C OVID #### Testing performed at [address] [place] [address] COCAINE Negative Normal NEGATIVE [facility] Comment on above: Result Comment: <150 ng/ml CUTOFF Performed By: #### C OVID #### Testing performed at [address] [place] [address] METHADONE Negative Normal NEGATIVE [facility] Comment on above: Result Comment: <200 ng/ml CUTOFF Performed By: #### C OVID #### Testing performed at [address] [place] [address] METHAMPHETAMINE Negative Normal NEGATIVE [facility] Comment on above: Result Comment: <500 ng/ml CUTOFF Performed By: #### C OVID #### Testing performed at [address] [place] [address] OPIATES Negative Normal NEGATIVE [facility] Comment on above: Result Comment: <100 ng/ml CUTOFF Performed By: #### C OVID #### Testing performed at [address] [place] [address] OXYCODONE Negative Normal NEGATIVE [facility] Comment on above: Result Comment: <100 ng/ml CUTOFF Performed By: #### C OVID #### Testing performed at [address] [address] PHENCYCLIDINE Negative Normal NEGATIVE [facility] Comment on above: Result Comment: <25 ng/ml CUTOFF Performed By: #### C OVID #### Testing performed at [address] [address] PROPOXYPHENE Negative Normal NEGATIVE [facility] Comment on above: Result Comment: <300 ng/ml CUTOFF Performed By: #### C OVID #### Testing performed at [address] [address] TRICYCLIC ANTIDEPRESSANTS Negative Normal NEGATIVE [facility] Comment on above: Result Comment: <300 ng/ml CUTOFF Performed By: #### C OVID #### Testing performed at [address] [address] VIT.B1 THIAMINE-BLDon 2020 VIT.B1 THIAMINE-BLD 211.2 High [facility] Comment on above: Result Comment: Refe rence range: 66.5 to 200.0 Unit: nmol/L (NOTE) This test was developed and its performance characteristics determined by [facility]. It has not been cleared or approved by the Food and Drug Administration. PERFORMED AT [facility] Performed By: #### L VB1 #### Testing performed at [facility] [place] PLASMA ZINCon 09-13-2020 PLASMA ZINC 89 Normal [facility] Comment on above: Result Comment: Refe rence range: 44 to 115 Unit: ug/dL (NOTE) This test was developed and its performance characteristics determined by [facility] It has not been cleared or approved by the Food and Drug Administration. Detection Limit = 5 Please note reference interval change PERFORMED AT [facility] Performed By: #### C OVID #### Testing performed at [address] [address] 25 0H VITAMIN D LEVELon 05- 25 0H VITAMIN D LEVEL 27.1 NG/ML Low >30 [facility] Comment on above: Result Comment: DEFICIENT <20 NG/ML INSUFFICIENT 20-<30 NG/ML SUFFICIENT 30-100 NG/ML POTENTIAL TOXICITY >100 NG/ML Performed By: #### C OVID #### [place] [address] B12 FOLATEon 09-11-2020 Cobalamin (Vitamin B12) [Mass/Vol] 542 pg/mL Normal 180-914 [facility] Comment on above: Performed By: #### C OVID #### [place] [address] FOLATE 12.1 NG/ML Normal >5.9 [facility] Comment on above: Performed By: #### C OVID #### [place] [address] CBCon 09-11-2020 ABSOLUTE BAS 0.1 10*3/uL Normal 0.0-0.2 [facility] Comment on above: Performed By: #### A CBC, LIP2, FEPRO, CMPF #### [place] [address] #### LZN #### Testing performed at [facility] [place] ABSOLUTE EOS 0.50 10*3/uL Normal 0.0-0.7 [facility] Comment on above: Performed By: #### A CBC, LIP2, FEPRO, CMPF #### [place] [address] #### LZN #### Testing performed at [facility] ABSOLUTE NEUTROPHIL COUNT 6.5 10*3/uL Normal 1.4-6.5 [facility] Comment on above: Performed By: #### A CBC, LIP2, FEPRO, CMPF #### [place] [address] #### LZN #### Testing performed at [facility] Basophils/100 WBC (Bld) 1.0 % Normal 0.0-2.0 [facility] Comment on above: Performed By: #### A CBC, LIP2, FEPRO, CMPF #### [place] [address] #### LZN #### Testing performed at [facility] DTYPE AUTO DIFF Normal [facility] Comment on above: Performed By: #### A CBC, LIP2, FEPRO, CMPF #### [place] [address] #### LZN #### Testing performed at [facility] Eosinophils/100 WBC (Bld) 5.1 % Normal 0.0-11.0 [facility] Comment on above: Performed By: #### A CBC, LIP2, FEPRO, CMPF #### [place] [address] #### LZN #### Testing performed at [facility] Lymphocytes (Bld) [#/Vol] 2.50 10*3/uL Normal 1.2-3.4 [facility] Comment on above: Performed By: #### A CBC, LIP2, FEPRO, CMPF #### [place] [address] #### LZN #### Testing performed at [facility] Lymphocytes/100 WBC (Bld) 23.6 % Normal 20.0-55.0 [facility] Comment on above: Performed By: #### A CBC, LIP2, FEPRO, CMPF #### [place] [address] #### LZN #### Testing performed at [facility] [place] Monocytes (Bld) [#/Vol] 0.9 10*3/uL High 0.0-0.7 [facility] Comment on above: Performed By: #### A CBC, LIP2, FEPRO, CMPF #### [place] [address] #### LZN #### Testing performed at [facility] Monocytes/100 WBC (Bld) 8.2 % Normal 0.0-10.0 [facility] Comment on above: Performed By: #### A CBC, LIP2, FEPRO, CMPF #### [place] [address] #### LZN #### Testing performed at [facility] Neutrophils/100 WBC (Bld) 62.1 % Normal 37.0-75.0 [facility] Comment on above: Performed By: #### A CBC, LIP2, FEPRO, CMPF #### [place] [address] #### LZN #### Testing performed at [facility] Erythrocyte distribution width (RBC) [Ratio] 14.3 % Normal 11.5-14.5 [facility] Comment on above: Performed By: #### A CBC, LIP2, FEPRO, CMPF #### [place] [address] #### LZN #### Testing performed at [facility] Hematocrit (Bld) [Volume fraction] 45.2 % Normal 36.0-48.0 [facility] Comment on above: Performed By: #### A CBC, LIP2, FEPRO, CMPF #### [place] [address] #### LZN #### Testing performed at [facility] Hemoglobin (Bld) [Mass/Vol] 15.0 g/dL Normal 12.0-16.0 [facility] Comment on above: Performed By: #### A CBC, LIP2, FEPRO, CMPF #### [place] [address] #### LZN #### Testing performed at [facility] MCH (RBC) [Entitic mass] 28.6 pg Normal 26.0-35.0 [facility] Comment on above: Performed By: #### A CBC, LIP2, FEPRO, CMPF #### [place] [address] #### LZN #### Testing performed at [facility] MCHC (RBC) [Mass/Vol] 33.1 g/dL Normal 27.0-37.0 [facility] Comment on above: Performed By: #### A CBC, LIP2, FEPRO, CMPF #### [place] [address] #### LZN #### Testing performed at [facility] [place] MCV (RBC) [Entitic vol] 86.3 fL Normal 80.0-100.0 [facility] Comment on above: Performed By: #### A CBC, LIP2, FEPRO, CMPF #### [place] [address] #### LZN #### Testing performed at [facility] [place] Platelet mean volume (Bld) [Entitic vol] 8.2 fL Normal 7.4-11.0 [facility] Comment on above: Performed By: #### A CBC, LIP2, FEPRO, CMPF #### [place] [address] #### LZN #### Testing performed at [facility] [place] Platelets (Bld) [#/Vol] 334 10*3/uL Normal 130.0-400.0 [facility] Comment on above: Performed By: #### A CBC, LIP2, FEPRO, CMPF #### [place] [address] #### LZN #### Testing performed at [facility] [place] RBC (Bld) [#/Vol] 5.23 10*6/uL Normal 4.0-5.4 [facility] Comment on above: Performed By: #### A CBC, LIP2, FEPRO, CMPF #### [place] [address] #### LZN #### Testing performed at [facility] [place] WBC (Bld) [#/Vol] 10.5 10*3/uL Normal 3.6-11.0 [facility] Comment on above: Performed By: #### A CBC, LIP2, FEPRO, CMPF #### [place] [address] #### LZN #### Testing performed at [facility] FASTINGon 09-11-2020 A:G RATIO 1.3 RATIO Normal 1.3-2.2 [facility] Comment on above: Performed By: #### C OVID #### Testing performed at [address] [address] ALBUMIN 4.5 G/dl Normal 3.5-5.0 [facility] Comment on above: Performed By: #### C OVID #### Testing performed at [address] [address] ALP [Catalytic activity/Vol] 82 U/L Normal 38-126 [facility] Comment on above: Performed By: #### C OVID #### Testing performed at [address] [address] ALT [Catalytic activity/Vol] 39 U/L Normal 14-54 [facility] Comment on above: Performed By: #### C OVID #### Testing performed at [address] [address] AST [Catalytic activity/Vol] 27 U/L Normal 15-41 [facility] Comment on above: Performed By: #### C OVID #### Testing performed at [address] [address] Bilirubin [Mass/Vol] 0.5 mg/dL Normal 0.2-1.2 [facility] Comment on above: Performed By: #### C OVID #### Testing performed at [address] [address] Creatinine [Mass/Vol] 0.66 mg/dL Normal 0.52-1.04 [facility] Comment on above: Performed By: #### C OVID #### Testing performed at [address] [address] EST. GFR, >60 Normal [facility] Comment on above: Performed By: #### C OVID #### Testing performed at [address] [address] EST. GFR,Non >60 Normal [facility] Comment on above: Performed By: #### C OVID #### Testing performed at [address] [address] GFR Information Average GFR for 50-59 years old = 93. Normal [facility] Comment on above: Result Comment: [employer] Clearing Agent chris Kidney disease, GFR = <60. Kidney failure, GFR = <15. The GFR estimate is not adjusted for extreme body surface area or acute process, nor has it been validated for women or ethnic groups other than and . Performed By: #### C OVID #### Testing performed at [address] [address] Protein [Mass/Vol] 7.9 g/dL Normal 6.3-8.2 [facility] Comment on above: Performed By: #### C OVID #### Testing performed at [address] [address] Urea nitrogen [Mass/Vol] 10 mg/dL Normal 7-20 [facility] Comment on above: Performed By: #### C OVID #### Testing performed at [address] [address] Calcium [Mass/Vol] 9.7 mg/dL Normal 8.4-10.2 [facility] Comment on above: Performed By: #### C OVID #### Testing performed at [address] [address] Chloride [Moles/Vol] 100 mmol/L Normal 98-107 [facility] Comment on above: Performed By: #### C OVID #### Testing performed at [address] [address] CO2 [Moles/Vol] 23 mmol/L Normal 22-30 [facility] Comment on above: Performed By: #### C OVID #### Testing performed at [address] [place] [address] Glucose [Mass/Vol] 148 mg/dL High 70-100 [facility] Comment on above: Result Comment: NORMAL <100 mg/dL PREDIABETES 101-126 mg/dL DIABETES 126 mg/dL or higher Performed By: #### C OVID #### Testing performed at [address] [address] Potassium [Moles/Vol] 4.2 mmol/L Normal 3.5-5.1 [facility] Comment on above: Performed By: #### C OVID #### Testing performed at [address] [place] [address] Sodium [Moles/Vol] 135 mmol/L Low 136-145 [facility] Comment on above: Performed By: #### C OVID #### Testing performed at [address] [place] [address] IRON PROFILEon 09-11-2020 Iron [Mass/Vol] 65 ug/dL Normal 37-170 [facility] Comment on above: Performed By: #### C OVID #### Testing performed at [address] [place] [address] IRON BINDING 449 UG/DL Normal 250-450 [facility] Comment on above: Performed By: #### C OVID #### Testing performed at [address] [address] TRANSFERRIN SATURATION,CALCULATED 14 % Normal [facility] Comment on above: Performed By: #### C OVID #### Testing performed at [address] [address] LIPID PROFILEon 09-11-2020 Cholesterol [Mass/Vol] 238 mg/dL High 100-199 [facility] Comment on above: Performed By: #### C OVID #### Testing performed at [address] [address] Cholesterol in HDL [Mass/Vol] 49 mg/dL Normal 40-60 [facility] Comment on above: Performed By: #### C OVID #### Testing performed at [address] [address] Cholesterol in LDL [Mass/Vol] 161 mg/dL High 0-100 [facility] Comment on above: Performed By: #### C OVID #### Testing performed at [address] [address] Cholesterol in VLDL [Mass/Vol] 28 mg/dL High 5.0-25.0 [facility] Comment on above: Performed By: #### C OVID #### Testing performed at [address] [address] Cholesterol.total/Chol esterol in HDL [Mass ratio] 4.86 {ratio} Normal [facility] Comment on above: Result Comment: RISK TOTAL/HDL RATIO MEN WOMEN 1/2 AVERAGE 3.43 3.27 AVERAGE 4.97 4.44 2X AVERAGE 9.55 7.05 3X AVERAGE 23.99 11.04 Performed By: #### C OVID #### Testing performed at [address] [address] Triglyceride [Mass/Vol] 139 mg/dL Normal <150 [facility] Comment on above: Performed By: #### C OVID #### Testing performed at [address] [address] TSHon 09-11-2020 TSH 5.267 uIU/ML Normal 0.45-5.33 [facility] Comment on above: Performed By: #### C OVID #### Testing performed at [address] [address] XR CHEST PA AND LATERALon XR CHEST PA AND LATERAL EXAMINATION: XR CHEST PA AND LATERAL HISTORY: preop COMPARISON: Chest CT 08/01/2020, chest x-ray 07/03/2019. FINDINGS: Two views are submitted. The lungs and pleural spaces are clear. Pulmonary vascular markings are normal. The cardiomediastinal silhouette is within normal limits. No bony lesions are shown. IMPRESSION: No acute cardiopulmonary abnormality. Normal [facility] XR CHEST PA AND LATERALOrder ed By: Emmett Montero on 09-11-2020 IMPRESSION: No acute cardiopulmonary abnormality. [facility] EXAMINATION: XR CHEST PA AND LATERAL HISTORY: preop COMPARISON: Chest CT 08/01/2020, chest x-ray 07/03/2019. FINDINGS: Two views are submitted. The lungs and pleural spaces are clear. Pulmonary vascular markings are normal. The cardiomediastinal silhouette is within normal limits. No bony lesions are shown. [facility] User, Interfaces - 09/11/2020 12:31 PM EDT EXAMINATION: XR CHEST PA AND LATERAL HISTORY: preop COMPARISON: Chest CT 08/01/2020, chest x-ray 07/03/2019. FINDINGS: Two views are submitted. The lungs and pleural spaces are clear. Pulmonary vascular markings are normal. The cardiomediastinal silhouette is within normal limits. No bony lesions are shown. IMPRESSION IMPRESSION: No acute cardiopulmonary abnormality. [facility] VIT.B1 THIAMINE-BLDon 2020 VIT.B1 THIAMINE-BLD 221.4 High [facility] Comment on above: Result Comment: Refchioma canas range: 66.5 to 200.0 Unit: nmol/L (NOTE) This test was developed and its performance characteristics determined by [facility]. It has not been cleared or approved by the Food and Drug Administration. PERFORMED AT [facility] Performed By: #### L VB1 #### Testing performed at [facility] [place] POCT GLUCOSEon 08-15-2020 Glucose [Mass/Vol] 153 mg/dL High 70-100 [facility] E[place]TH [employer]URNER [id number] Normal [facility] 25 0H VITAMIN D LEVELon 07-27 25 0H VITAMIN D LEVEL 28.3 NG/ML Normal [facility] Comment on above: Result Comment: DEFICIENT <20 NG/ML INSUFFICIENT 20-<30 NG/ML SUFFICIENT 30-100 NG/ML POTENTIAL TOXICITY >100 NG/ML CBCon 08-14-2020 ABSOLUTE BAS 0.1 10*3/uL Normal 0.0-0.2 [facility] ABSOLUTE EOS 0.40 10*3/uL Normal 0.0-0.7 [facility] ABSOLUTE NEUTROPHIL COUNT 9.8 10*3/uL High 1.4-6.5 [facility] Basophils/100 WBC (Bld) 0.4 % Normal 0.0-2.0 [facility] DTYPE AUTO DIFF Normal [facility] Eosinophils/100 WBC (Bld) 3.2 % Normal 0.0-11.0 [facility] Lymphocytes (Bld) [#/Vol] 2.60 10*3/uL Normal 1.2-3.4 [facility] Lymphocytes/100 WBC (Bld) 19.0 % Low 20.0-55.0 [facility] Monocytes (Bld) [#/Vol] 0.9 10*3/uL High 0.0-0.7 [facility] Monocytes/100 WBC (Bld) 6.3 % Normal 0.0-10.0 [facility] Neutrophils/100 WBC (Bld) 71.1 % Normal 37.0-75.0 [facility] Erythrocyte distribution width (RBC) [Ratio] 14.6 % High 11.5-14.5 [facility] Hematocrit (Bld) [Volume fraction] 48.4 % High 36.0-48.0 [facility] Hemoglobin (Bld) [Mass/Vol] 16.6 g/dL High 12.0-16.0 [facility] MCH (RBC) [Entitic mass] 29.1 pg Normal 26.0-35.0 [facility] MCHC (RBC) [Mass/Vol] 34.4 g/dL Normal 27.0-37.0 [facility] MCV (RBC) [Entitic vol] 84.7 fL Normal 80.0-100.0 [facility] Platelet mean volume (Bld) [Entitic vol] 7.7 fL Normal 7.4-11.0 [facility] Platelets (Bld) [#/Vol] 384 10*3/uL Normal 130.0-400.0 [facility] RBC (Bld) [#/Vol] 5.71 10*6/uL High 4.0-5.4 [facility] WBC (Bld) [#/Vol] 13.8 10*3/uL High 3.6-11.0 [facility] CBC, EDIF, PLATELETOrdered B y: Emmett Montero on 08-14-2020 ABSOLUTE BASOPHIL COUNT 0.1 10*3/uL 0.0 - 0.2 10*3/uL [facility] Basophils/100 WBC (Bld) 0.4 % 0.0 - 2.0 % [facility] Differential cell count method Nom (Bld) AUTO DIFF % [facility] Eosinophils (Bld) [#/Vol] 0.40 10*3/uL 0.0 - 0.7 10*3/uL [facility] Eosinophils/100 WBC (Bld) 3.2 % 0.0 - 11.0 % [facility] Erythrocyte distribution width (RBC) [Ratio] 14.6 % High 11.5 - 14.5 % [facility] Hematocrit (Bld) [Volume fraction] 48.4 % High 36.0 - 48.0 % [facility] Hemoglobin (Bld) [Mass/Vol] 16.6 g/dL High [facility] Interpretation and review of laboratory results Abnormal [facility] Lymphocytes (Bld) [#/Vol] 2.60 10*3/uL 1.2 - 3.4 10*3/uL [facility] Lymphocytes/100 WBC (Bld) 19.0 % Low 20.0 - 55.0 % [facility] MCH (RBC) [Entitic mass] 29.1 pg 26.0 - 35.0 PG [facility] MCHC (RBC) [Mass/Vol] 34.4 g/dL [facility] MCV (RBC) [Entitic vol] 84.7 fL [facility] Monocytes (Bld) [#/Vol] 0.9 10*3/uL High 0.0 - 0.7 10*3/uL [facility] Monocytes/100 WBC (Bld) 6.3 % 0.0 - 10.0 % [facility] Neutrophils (Bld) [#/Vol] 9.8 10*3/uL High 1.4 - 6.5 10*3/uL [facility] Neutrophils/100 WBC (Bld) 71.1 % 37.0 - 75.0 % [facility] Platelet mean volume (Bld) [Entitic vol] 7.7 fL [facility] Platelets (Bld) [#/Vol] 384 10*3/uL 130.0 - 400.0 10*3/uL [facility] RBC (Bld) [#/Vol] 5.71 10*6/uL High 4.0 - 5.4 10*6/uL [facility] WBC (Bld) [#/Vol] 13.8 10*3/uL High 3.6 - 11.0 10*3/uL [facility] ColonoscopyOrdered By: Yovana Montero on 08-14-2020 [facility] Patient Name: Katalina Tapia Procedure Date: 08/14/2020 8:46 AM Date of : 1965 Admit Type: Outpatient Age: 55 Room: OR3 Gender: Female Note Status: Finalized Attending MD: EMMETT MONTERO MD Instrument Name: [id number] Procedure: Colonoscopy Indications: Screening for colorectal malignant neoplasm Providers: EMMETT MONTERO MD, Justo James RN, Tam Gonzalez, Group Contract Analyst, Kwasi Otero CRNA (Anesthesia Staff) Complications: No immediate complications. Estimated blood loss: Minimal. Procedure: After I obtained informed consent, the scope was passed under direct vision. Throughout the procedure, the patient's blood pressure, pulse, and oxygen saturations were monitored continuously. The [id number] S/N [id number] colonoscope was introduced through the anus and advanced to the cecum, identified by the appendiceal orifice. The colonoscopy was performed with ease. The patient tolerated the procedure well. The quality of the bowel preparation was good. Findings: The perianal and digital rectal examinations were normal. Pertinent negatives include no palpable rectal lesions. Five semi-pedunculated polyps were found in the rectum, transverse colon and hepatic flexure. The polyps were small in size. These polyps were removed with a cold snare. Resection and retrieval were complete. Estimated blood loss was minimal. The exam was otherwise without abnormality on direct and retroflexion views. Impression: - Five small polyps in the rectum, in the transverse colon and at the hepatic flexure, removed with a cold snare. Resected and retrieved. - The examination was otherwise normal on direct and retroflexion views. Recommendation: - Discharge patient to home (ambulatory). - Patient has a contact number available for emergencies. The signs and symptoms of potential delayed complications were discussed with the patient. Return to normal activities tomorrow. Written discharge instructions were provided to the patient. - Resume previous diet. - Continue present medications. - Await pathology results. - Repeat colonoscopy date to be determined after pending pathology results are reviewed for screening purposes. Procedure Code(s): --- Professional --- 74750, Colonoscopy, flexible; with removal of tumor(s), polyp(s), or other lesion(s) by snare technique Diagnosis Code(s): --- Professional --- Z12.11, Encounter for screening for malignant neoplasm of colon K62.1, Rectal polyp K63.5, Polyp of colon CPT copyright 2020 [employer]. All rights reserved. The codes documented in this report are preliminary and upon assembler 1st shift review may be revised to meet current compliance requirements. MD EMMETT Burr MD 08/14/2020 9:55:55 AM This report has been signed electronically. Number of Addenda: 0 Note Initiated On: 08/14/2020 8:46 AM [facility] LIPID PANEL W CALCULATED LDL Ordered By: Emmett Montero on 08-14-2020 Cholesterol [Mass/Vol] 234 mg/dL High [facility] Cholesterol in HDL [Mass/Vol] 44 mg/dL [facility] Cholesterol in LDL [Mass/Vol] 154 mg/dL MG/DL [facility] Cholesterol in VLDL [Mass/Vol] 36 mg/dL High [facility] Cholesterol.total/Chol esterol in HDL [Mass ratio] 5.32 {ratio} RATIO [facility] Comment on above: RISK TOTAL/HDL RATIO MEN WOMEN 1/2 AVERAGE 3.43 3.27 AVERAGE 4.97 4.44 2X AVERAGE 9.55 7.05 3X AVERAGE 23.99 11.04 Interpretation and review of laboratory results Abnormal [facility] Triglyceride [Mass/Vol] 180 mg/dL High [facility] LIPID PROFILEon 08-14-2020 Cholesterol [Mass/Vol] 234 mg/dL High 107-217 [facility] Cholesterol in HDL [Mass/Vol] 44 mg/dL Normal 33-75 [facility] Cholesterol in LDL [Mass/Vol] 154 mg/dL Normal [facility] Cholesterol in VLDL [Mass/Vol] 36 mg/dL High 5.0-25 [facility] Cholesterol.total/Chol esterol in HDL [Mass ratio] 5.32 {ratio} Normal [facility] Comment on above: Result Comment: RISK TOTAL/HDL RATIO MEN WOMEN 1/2 AVERAGE 3.43 3.27 AVERAGE 4.97 4.44 2X AVERAGE 9.55 7.05 3X AVERAGE 23.99 11.04 Triglyceride [Mass/Vol] 180 mg/dL High 0-150 [facility] UPPER ENDOSCOPYOrdered By: Carmelo Montero on 08-14-2020 [facility] Patient Name: Katalina Tapia Procedure Date: 08/14/2020 8:46 AM Date of : 1965 Admit Type: Outpatient Age: 55 Room: OR3 Gender: Female Note Status: Finalized Attending MD: EMMETT MONTERO MD Instrument Name: [id number] Procedure: Upper GI endoscopy Indications: Gastro-esophageal reflux disease Providers: EMMETT MONTERO MD, Justo James RN, Tam Gonzalez, Group Contract Analyst, Kwasi Otero CRNA (Anesthesia Staff) Complications: No immediate complications. Estimated blood loss: Minimal. Procedure: After obtaining informed consent, the endoscope was passed under direct vision. Throughout the procedure, the patient's blood pressure, pulse, and oxygen saturations were monitored continuously. The [id number] S/N [id number] endscope was introduced through the mouth, and advanced to the second part of duodenum. The upper GI endoscopy was accomplished with ease. The patient tolerated the procedure well. Findings: The examined esophagus was normal. The entire examined stomach was normal. Biopsies were taken with a cold forceps for Helicobacter pylori testing. Estimated blood loss was minimal. The examined duodenum was normal. The cardia and gastric fundus were normal on retroflexion. Impression: - Normal esophagus. - Normal stomach. Biopsied. - Normal examined duodenum. Recommendation: - Discharge patient to home (ambulatory). - Patient has a contact number available for emergencies. The signs and symptoms of potential delayed complications were discussed with the patient. Return to normal activities tomorrow. Written discharge instructions were provided to the patient. - Resume previous diet. - Continue present medications. - Await pathology results. - Repeat upper endoscopy is not recommended. Procedure Code(s): --- Professional --- 29627, Esophagogastroduoden oscopy, flexible, transoral; with biopsy, single or multiple Diagnosis Code(s): --- Professional --- K21.9, Gastro-esophageal reflux disease without esophagitis CPT copyright 2020 [employer]. All rights reserved. The codes documented in this report are preliminary and upon assembler 1st shift review may be revised to meet current compliance requirements. MD EMMETT Burr MD 08/14/2020 9:51:55 AM This report has been signed electronically. Number of Addenda: 0 Note Initiated On: 08/14/2020 8:46 AM [facility] VITAMIN D (25-HYDROXY,TOTAL) Ordered By: Emmett Montero on 08-14-2020 25-hydroxyvitamin D [Mass/Vol] 28.3 NG/ML [facility] Comment on above: DEFICIENT <20 NG/ML INSUFFICIENT 20-<30 NG/ML SUFFICIENT 30-100 NG/ML POTENTIAL TOXICITY >100 NG/ML [facility] NOVEL CORONAVIRUSon 08-12-19 21 NARRATIVE This test was performed using isothermal OBZENA and has been approved as Emergency Use Authorization (EUA) for the qualitative detection mdEVQA-YnH-0 nucleic acid. Normal [facility] Comment on above: Performed By: #### C OVID #### Testing performed at [address] [address] SARS-CoV-2 (COVID-19) RNA BOZENA+probe Ql (Unsp spec) Not detected Normal NOT DETECTED [facility] Comment on above: Result Comment: Nega tive results do not preclude SARS-CoV-2 infection and should not be used as the sole basis for treatment or other patient management decisions. Optimum specimen types and timing for peak viral levels during infections caused by SARS-CoV-2 has not been determined. The possibility of a false negative result should especially be considered if the patient's recent exposures or clinical presentation suggest that SARS-CoV-2 infection is probable, and diagnostic tests for other causes of illness (e.g., other respiratory illness) are negative. Collection of a new specimen and re-testing may be necessary if the patient is critically ill or clinically deteriorating. Performed By: #### C OVID #### Testing performed at [address] [address] Ophthalmic Eye [place] 2019 Ophthalmic Eye Exam DOCUMENT REVIEWED BY: Todd Rothman MD DOCUMENT SIGNED ELECTRONICALLY BY Todd Rothman MD ON 02/15/2020 04:59:31 PM [place] [address] [place], [address] [phone] THIS DOCUMENT WAS CREATED ON: 02/15/2020 04:59:25 PM BY: Todd Kerr performed [id number] Exam Date: Saturday, February 15, 2020 PATIENT NAME: KATALINA TAPIA DATE: 1965 AGE: 54 GENDER: Female RACE: REFERRING DOCTOR: mat PRIMARY CARE PHYSICIAN: Mimi Smith History Chief Complaint/Reason For Visit: fEP 3 months FV (Optic nerve edema/ optic nerve drusen/ Uvieitis)- Problem-Pt is here for FV. Pt states that she has not had any changes in her vision. Pt feels HUSAIN`s is about the same as well, has not had any more then usual. Denies any diplopia., -- Attending history below -- This 54 year old woman with a history of multiple episodes of uveitis, possible sarcoidosis, cataract extraction status post YAG OU, status post pars plana vitrectomy OS, asthma, acid reflux, depression / anxiety presents in follow up for evaluation of bilateral decreased vision. 09/19/[address] Savana Joe reported bilateral diffuse uveitis consistent with sarcoidosis with consideration of high intraocular pressure after Kenalog injection and consideration of evaluation for granulomatous inflammation ow CT chest and possible treatment with immunosuppression. She had multiple kenalog injections from 06/17/1999 to 10/18/2006. She also had pulsed PO prednisone at some points. Dr. George Carrillo 05/20/2006 dictated for PPV, membrane stripping and retinal cryotherapy along with fluid gas exchange and sub-Tenon injection. She notes great flucutations in vision, but overall, vision has not been much different. Headaches are all the time. The patient reports the following regarding associated symptoms: headaches: yes, pulsatile tinnitus: no, transient visual obscurations: no, AND diplopia: no. HISTORY OF PRESENT ILLNESS: PROBLEM: Pt is here for FV. Pt states that she has not had any changes in her vision. Pt feels HUSAIN's is about the same as well, has not had any more then usual. Denies any diplopia. HPI was performed by Dr. 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 PROCEDURES : Cataract extraction OU Intravitrous injections OCULAR SIGNIFICANT: Hypertension,Sarcoid osis ILLNESSES: History of sarcoidosis; History of asthma; History of depression; Drusen of optic disc, bilateral; Optic nerve edema SURGERIES: History of Cataract surgery; History of Vitrectomy; History of Intravitreal injection; HEAD/OCULAR TRAUMA: No ocular trauma SOCIAL HISTORY: SMOKING: Former smoker (V15.82 Z87.891); FAMILY HISTORY: Brother:Family history of retinal detachment CURRENT MEDICATIONS: BuSpar TABS (No longer available) - Tablet, [Reported] fentaNYL PT72 - Patch 72 Hour, [Reported] hydrOXYzine HCl - 25 MG Oral Tablet - Tablet, [Reported] Sertraline HCl - 20 MG/ML Oral Concentrate - Concentrate, [Reported] Symbicort 160-4.5 MCG/ACT Inhalation Aerosol - Aerosol, [Reported] ALLERGIES: lisinopril REVIEW OF SYSTEMS: All other Review Of Systems negative Exam ORIENTATION, MOOD AND AFFECT: Alert AND oriented x3 RIGHT EYE LEFT EYE UNCORRECTED VA 20/500 20/500 PINHOLE No improvement No improvement PRESSURE METHOD: Goldmann Goldmann PRESSURES: 20 21 DATE-TIME: 03:42 PM 03:42 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: jose a naranjo CONFRONTATION VF full to count fingers, see full to count fingers, see HVF HVF EXTERNAL EYE EXAM: LID: Good Position Good Position PUPIL: 4 to 2 mm, no RAPD 4 to 2 mm, no RAPD ADNEXA: Normal Normal MUSCLE BALANCE: Ortho OCULAR MOTILITY: Full COLOR VA ISHIHARA OUT OF 11 OD: 01 COLOR VA ISHIHARA OUT OF 11 OS: 01 ANTERIOR SEGMENT EXAM: TEARFILM: Good Good CONJUNCTIVA: White and quiet White and quiet CORNEA: Clear Clear ANTERIOR CHAMBER: Deep and quiet Deep and quiet IRIS: Round and reactive Round and reactive LENS: PCIOL, open capsule PCIOL, open capsule ANTERIOR VITREOUS: Clear Clear FUNDUS EXAM: CUP TO DISC: 0.1 .15 OPTIC DISC: nasal elevation Pateros and sharp VITREOUS: Clear Clear MACULA: Normal reflex, mottled RPE Normal reflex VESSELS: Normal Normal PERIPHERY: atrophic AND spiculated areas atrophic AND spiculated areas nasal, inferior AND temporal inferior Impression 1 H47.323 Drusen of optic disc, bilateral-Stable Discussion Letter prepared by:Todd Rothman MD Plan TODAY (OU) - OCT RNFL By:Todd Rothman MD TODAY (OU) - Visual Field 24-2 ANAMARIA STD By:Todd Rothman MD 07/13/2019 ultrasound B scan, which I performed, shows hyperechoic bodies at the optic nerve heads consistent with optic nerve drusen. 11/12/2019 MRI orbits with contrast, by report, shows changes of cataract extraction. 10/02/2018 MRI brain without contrast, which I personally reviewed, shows minimal bihemispheric non-specific white matter changes on FLAIR. 10/01/2018 CT head without contrast, which I personally reviewed, shows no lesion. 10/02/2018 MRI brain without contrast, which I personally reviewed previously, shows mild scattered bihemispheric white matter changes on FLAIR that are non-specific. 10/01/2018 CT head without contrast, which I personally reviewed previously, shows no lesion. 11/02/2019 B12 552. Folate, thiamine, syphilis antibody, T-SPOT AND MAIKOL negative/wnl. 09/03/1999 RA, toxoplasma abs, KEYON, FTA negative/NR. MAIKOL wnl. 02/15/2020 OCT RNFL OD 124 AND OS 104. (stable) 11/02/2019 OCT RNFL OD 129 (inferior thickening) AND OS 104. (stable) 07/13/2019 OCT RNFL OD 124 (inferior thickening) AND OS 106. OCT OD normal foveal contour, outer RPE AND ellipsoid disruptiogn 181 AND OS normal foveal contour 02/15/2020 HVF 24-2 OD fovea 23, generalized MD -28.03 AND OS fovea 6, generalized depression MD -27.82. 11/02/2019 HVF 24-2 OD fovea 25, generalized MD -24.89 AND OS fovea 8, generalized depression MD -26.95. 07/13/2019 HVF 24-2 OD fovea 19, FL 1/15, FP 3%, FN 0%, generalized depression MD -21.90 AND OS fovea 6, FL 1/15, FP 0%, FN N/A, generalized depression MD -24.44. 02/03/2019 HVF 24-2 OD generalized depression MD -16.89 AND OS generalized depression MD illegible. (best interpretation given not completely legible) 06/04/2016 HVF 24-2 OD generalize depression MD -17.00 AND OS generalized depression MD illegible. (best interpretation given not completely legible) This 54 year old woman with a history of multiple episodes of uveitis, possible sarcoidosis, cataract extraction status post YAG OU, status post pars plana vitrectomy OS, asthma, acid reflux, depression / anxiety presents in follow up for evaluation of bilateral decreased vision. She continues to have poor vision with optic nerve elevation that I think are attributable to optic disc drusen given the stability over time. I do NOT think there is optic disc edema. I think she has drusen in addition to the known long history of uveitis, including posterior and intermediate uveitis. Plan Obtain images from MRI brain and orbits with and without contrast. Follow up in 1 year with HVF AND OCT with physician dilation. created by:Todd Rothman MD Todd Rothman MD DOCUMENT CREATE DATE: 02/15/2020 04:59:25 PM Received for:Todd Rothman MD,PhD Feb 15 2020 4:59PM Eastern Standard Time Normal Touchworks Ophthalmic Letteron 02-15-20 Ophthalmic Letter DOCUMENT REVIEWED BY: Todd Rothman MD DOCUMENT SIGNED ELECTRONICALLY BY Todd Rothman MD ON 02/15/2020 04:59:18 PM 02/15/2020 Patient Name: KATALINA TAPIA Birthdate: 1965 Gender: female Dear Dr. Abhay Everett: I am writing to share my findings regarding our mutual patient KATALINA TAPIA from her visit with me 02/15/2020. The full visit note with complete findings follows on subsequent pages. History of Present Illness fEP 3 months FV (Optic nerve edema/ optic nerve drusen/ Uvieitis)- Problem-Pt is here for FV. Pt states that she has not had any changes in her vision. Pt feels HUSAIN`s is about the same as well, has not had any more then usual. Denies any diplopia., -- Attending history below -- This 54 year old woman with a history of multiple episodes of uveitis, possible sarcoidosis, cataract extraction status post YAG OU, status post pars plana vitrectomy OS, asthma, acid reflux, depression / anxiety presents in follow up for evaluation of bilateral decreased vision. 09/19/[address] Savana Joe reported bilateral diffuse uveitis consistent with sarcoidosis with consideration of high intraocular pressure after Kenalog injection and consideration of evaluation for granulomatous inflammation ow CT chest and possible treatment with immunosuppression. She had multiple kenalog injections from 06/17/1999 to 10/18/2006. She also had pulsed PO prednisone at some points. Dr. George Carrillo 05/20/2006 dictated for PPV, membrane stripping and retinal cryotherapy along with fluid gas exchange and sub-Tenon injection. She notes great flucutations in vision, but overall, vision has not been much different. Headaches are all the time. The patient reports the following regarding associated symptoms: headaches: yes, pulsatile tinnitus: no, transient visual obscurations: no, AND diplopia: no. Diagnoses 01 377.21 Drusen of optic disc, bilateral Impression AND Plan 07/13/2019 ultrasound B scan, which I performed, shows hyperechoic bodies at the optic nerve heads consistent with optic nerve drusen. 11/12/2019 MRI orbits with contrast, by report, shows changes of cataract extraction. 10/02/2018 MRI brain without contrast, which I personally reviewed, shows minimal bihemispheric non-specific white matter changes on FLAIR. 10/01/2018 CT head without contrast, which I personally reviewed, shows no lesion. 10/02/2018 MRI brain without contrast, which I personally reviewed previously, shows mild scattered bihemispheric white matter changes on FLAIR that are non-specific. 10/01/2018 CT head without contrast, which I personally reviewed previously, shows no lesion. 11/02/2019 B12 552. Folate, thiamine, syphilis antibody, T-SPOT AND MAIKOL negative/wnl. 09/03/1999 RA, toxoplasma abs, KEYON, FTA negative/NR. MAIKOL wnl. 02/15/2020 OCT RNFL OD 124 AND OS 104. (stable) 11/02/2019 OCT RNFL OD 129 (inferior thickening) AND OS 104. (stable) 07/13/2019 OCT RNFL OD 124 (inferior thickening) AND OS 106. OCT OD normal foveal contour, outer RPE AND ellipsoid disruptiogn 181 AND OS normal foveal contour 02/15/2020 HVF 24-2 OD fovea 23, generalized MD -28.03 AND OS fovea 6, generalized depression MD -27.82. 11/02/2019 HVF 24-2 OD fovea 25, generalized MD -24.89 AND OS fovea 8, generalized depression MD -26.95. 07/13/2019 HVF 24-2 OD fovea 19, FL /, FP 3%, FN 0%, generalized depression MD -21.90 AND OS fovea 6, FL /, FP 0%, FN N/A, generalized depression MD -24.44. 02/03/2019 HVF 24-2 OD generalized depression MD -16.89 AND OS generalized depression MD illegible. (best interpretation given not completely legible) 06/04/2016 HVF 24-2 OD generalize depression MD -17.00 AND OS generalized depression MD illegible. (best interpretation given not completely legible) This 54 year old woman with a history of multiple episodes of uveitis, possible sarcoidosis, cataract extraction status post YAG OU, status post pars plana vitrectomy OS, asthma, acid reflux, depression / anxiety presents in follow up for evaluation of bilateral decreased vision. She continues to have poor vision with optic nerve elevation that I think are attributable to optic disc drusen given the stability over time. I do NOT think there is optic disc edema. I think she has drusen in addition to the known long history of uveitis, including posterior and intermediate uveitis. Plan Obtain images from MRI brain and orbits with and without contrast. Follow up in 1 year with HVF AND OCT with physician dilation. I appreciate the opportunity to see KATALINA TAPIA today and to share in her care with you. Please do not hesitate to contact me with any questions regarding this patient, nor to consult me whenever I can be of help to another of your patients with neuro-ophthalmologic al problems. Sincerely, Todd Rothman M.D., Ph.D. Neuro-Ophthalmology Service [facility] [place] [address] Email: [email or web address] Received for:Todd Rothman MD,PhD Feb 15 2020 4:59PM Eastern Standard Time Normal Touchworks VIT B1-THIAMINE WHOLE BLDon 11-06-2019 VIT B1-THIAMINE WHOLE BLD 294 nmol/L High 70-180 [facility] Comment on above: Result Comment: INTE RPRETIVE INFORMATION: Vitamin B1, Whole Blood This assay measures the concentration of thiamine diphosphate (TDP), the primary active form of vitamin B1. Approximately 90 percent of vitamin B1 present in whole blood is TDP. Thiamine and thiamine monophosphate, which comprise the remaining 10 percent, are not measured. Test developed and characteristics determined by [facility]. See Compliance Statement B: [email or web address] Performed By: [facility] [address] [place] [address] Demolitionist: Rodolfo Slaazar MD, MS Performed By: #### V TB1W #### [facility] [address] [place] [address] ANGIOTENSIN CONV ENZYMEon ANGIOTENSIN CONV ENZYME 54 U/L Normal 14-82 [facility] Comment on above: Performed By: #### A CE #### [facility] [address] [place], [place] [id number] T-SPOT TBon 11-04-2019 NIL[NEG]CONTROL SPOT COUNT Passed Normal [facility] Comment on above: Performed By: #### T SPOT #### [facility] [address] [place] [address] PANEL A SPOT COUNT [address] [facility] Comment on above: Performed By: #### T SPOT #### [facility] [address] [place] [address] PANEL B SPOT COUNT [address] [facility] Comment on above: Performed By: #### T SPOT #### [facility] [address] [place] [address] POS CONTROL SPOT COUNT Passed Normal [facility] Comment on above: Performed By: #### T SPOT #### [facility] [address] [place] [address] T-SPOT.TB INTERP Negative Normal Normal Valu e: Negative [facility] Comment on above: Result Comment: A ne gative test result does not exclude the possibility of exposure to or infection with Mycobacterium tuberculosis (M. tuberculosis). Patients with recent exposure to TB infected individuals exhibiting a negative T-SPOT.TB result should be considered for retesting within 6 weeks or if other relevant clinical symptoms indicate. Results from T-SPOT.TB testing must be used in conjunction with each individual's epidemiological history, current medical status, and results of other diagnostic evaluations. The T-SPOT.TB test is qualitative and results are reported as positive, borderline or negative, given that the test controls perform as expected. In line with the Centers for Disease Control and Prevention's 2010 recommendation to report quantitative measurements alongside the qualitative result, the laboratory provides spot counts for informational purposes only. The T-SPOT.TB test should not be interpreted as a quantitative test. Performed By: #### T SPOT #### [facility] [address] [place] [address] CREATININEon 11-03-2019 Creatinine [Mass/Vol] mg/dL Normal >60 [facility] Comment on above: Performed By: #### C REAT #### [facility] [address] [place] [address] Result Comment: CALC ULATIONS OF ESTIMATED GFR ARE PERFORMED USING THE MDRD STUDY EQUATION FOR THE IDMS-TRACEABLE CREATININE METHODS. CLIN CHEM 2007;53:766-72 Creatinine [Mass/Vol] 0.72 mg/dL Normal 0.50 - 1.05 [facility] Comment on above: Performed By: #### C REAT #### [facility] [address] [place], [place] FOLATE, SERUMon 11-03-2019 Folate [Mass/Vol] 15.2 ng/mL Normal >5.0 [facility] [place] Comment on above: Result Comment: Low <3.4 Borderline 3.4-5.0 Normal >5.0 . Biotin interference may cause falsely elevated results. Patients taking a Biotin dose of up to 5 mg/day should refrain from taking Biotin for 24 hours before sample collection. Providers may contact their local laboratory for further information. Performed By: #### F OLA2 #### [facility] [address] [place], [place] SYPHILIS SCREENING WITH REFL EXon 11-03-2019 SYPHILIS TOTAL AB NONREACTIVE Normal NONREACTIVE [facility] Comment on above: Result Comment: No s ignificant level of Treponema pallidum antibody detected. Repeat testing in 2 to 4 weeks may be considered if early infection or incubating syphilis infection is suspected. Performed By: #### S YPHR #### [facility] [address] [place], [place] UREA NITROGENon 11-03-2019 Urea nitrogen [Mass/Vol] 8 mg/dL Normal 6 - 23 [facility] Comment on above: Performed By: #### U VERA #### [facility] [address] [place], [place] VITAMIN B12on 11-03-2019 Cobalamin (Vitamin B12) [Mass/Vol] 552 pg/mL Normal 211 - 911 [facility] Comment on above: Performed By: #### V TB12 #### [facility] [address] [place], [place] Blood Urea Nitrogen, Serumon 11-02-2019 Urea nitrogen [Mass/Vol] 8 mg/dL 6 - 23 [facility] [place] Work Phone: Creatinine, Serumon 11-02-19 20 Creatinine [Mass/Vol] 0.72 mg/dL See Below [facility] [place] Work Phone: Comment on above: Reference Range: 0.5 0 - 1.05 Creatinine [Mass/Vol] mg/dL >60 [facility] [place] Work Phone: Comment on above: CALCULATIONS OF ARUN MATED GFR ARE PERFORMED USING THE MDRD STUDY EQUATION FOR THE IDMS-TRACEABLE CREATININE METHODS. CLIN CHEM 2007;53:766-72 Folate, Serumon 11-02-2019 Folate [Mass/Vol] 15.2 ng/mL >5.0 [facility] Work Phone: Comment on above: Low <3.4Borderline 3 .4-5.0Normal >5.0. Biotin interference may cause falsely elevated results. Patients taking a Biotin dose of up to 5 mg/day should refrain from taking Biotin for 24 hours before sample collection. Providers may contact their local laboratory for further information. Ophthalmic Eye Examon 2019 Ophthalmic Eye Exam DOCUMENT REVIEWED BY: Todd Rothman MD DOCUMENT SIGNED ELECTRONICALLY BY Todd Rothman MD ON 11/02/2019 04:27:56 PM [place] [facility] [address] [place], [address] [phone] THIS DOCUMENT WAS CREATED ON: 11/02/2019 04:27:50 PM BY: Todd Alva performed CTIKY-Bfks-ut VIKTOR Sanabria performed [facility] Exam Date: Saturday, November 02, 2019 PATIENT NAME: KATALINA TAPIA DATE: 1965 AGE: 54 GENDER: Female RACE: REFERRING DOCTOR: mat PRIMARY CARE PHYSICIAN: george Carrillo History Chief Complaint/Reason For Visit: Here for FUV ( Optic nerve edema/ optic nerve drusen/ Uvieitis ) Pt sts vision has been decreased x 20 years and has received many retinal injections OU and 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 She reports that vision continues to fluctuate from day to day. She had a black spot in her vision this morning. She brought notes from [facility] retina specialist Dr. George Carrillo. 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 Other notes over the years were similar. HISTORY OF PRESENT ILLNESS: HPI was performed by Dr. 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 PROCEDURES : Cataract extraction OU Intravitrous injections OCULAR SIGNIFICANT: Hypertension,Sarcoid osis ILLNESSES: History of sarcoidosis; History of asthma; History of depression SURGERIES: History of Cataract surgery; History of Vitrectomy; History of Intravitreal injection HEAD/OCULAR TRAUMA: No ocular trauma FAMILY HISTORY: Brother:Family history of retinal detachment CURRENT MEDICATIONS: BuSpar TABS (No longer available) - Tablet, [Reported] fentaNYL PT72 - Patch 72 Hour, [Reported] hydrOXYzine HCl - 25 MG Oral Tablet - Tablet, [Reported] Sertraline HCl - 20 MG/ML Oral Concentrate - Concentrate, [Reported] Symbicort 160-4.5 MCG/ACT Inhalation Aerosol - Aerosol, [Reported] ALLERGIES: lisinopril Exam ORIENTATION, MOOD AND AFFECT: Appropriate for age RIGHT EYE LEFT EYE UNCORRECTED VA 20/300 20/400 PRESSURES: 19 19 DATE-TIME: 03:07 PM 03:07 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: Agustin Velez CONFRONTATION VF Full to count fingers Full to count fingers EXTERNAL EYE EXAM: LID: Good Position Good Position PUPIL: 4 to 2 mm, no RAPD 4 to 2 mm, no RAPD ADNEXA: Normal Normal MUSCLE BALANCE: Ortho OCULAR MOTILITY: Full COLOR VA ISHIHARA OUT OF 11 OD: 0 COLOR VA ISHIHARA OUT OF 11 OS: 0 ANTERIOR SEGMENT EXAM: TEARFILM: Good Good CONJUNCTIVA: White and quiet White and quiet CORNEA: Clear Clear ANTERIOR CHAMBER: Deep and quiet Deep and quiet IRIS: Round and reactive Round and reactive LENS: PCIOL, open capsule PCIOL, open capsule ANTERIOR VITREOUS: Clear Clear FUNDUS EXAM: DILATION and NUMBING DROPS: Mydriacyl 1% AND Scooby 2 1/2% OU 11/02/2019 04:17:44 PM CUP TO DISC: 0.1 .15 OPTIC DISC: nasal elevation Pateros and sharp VITREOUS: Clear Clear MACULA: Normal reflex, mottled RPE Normal reflex VESSELS: Normal Normal PERIPHERY: atrophic AND spiculated areas atrophic AND spiculated areas nasal, inferior AND temporal inferior Impression 1 H47.323 Drusen of optic disc, bilateral-Stable 2 H47.10 Optic nerve edema-Stable Discussion Letter prepared by:Todd Rothman MD Plan TODAY (OU) - OCT RNFL By:Todd Rothman MD TODAY (OU) - Visual Field 24-2 ANAMARIA STD By:Todd Rothman MD 07/13/2019 ultrasound B scan, which I performed, shows hyperechoic bodies at the optic nerve heads consistent with optic nerve drusen. 10/02/2018 MRI brain without contrast, which I personally reviewed, shows mild scattered bihemispheric white matter changes on FLAIR that are non-specific. 10/01/2018 CT head without contrast, which I personally reviewed, shows no lesion. 11/02/2019 OCT RNFL OD 129 (inferior thickening) AND OS 104. (stable) 07/13/2019 OCT RNFL OD 124 (inferior thickening) AND OS 106. OCT OD normal foveal contour, outer RPE AND ellipsoid disruptiogn 181 AND OS normal foveal contour 11/02/2019 HVF 24-2 OD fovea 25, generalized MD -24.89 AND OS fovea 8, generalized depression MD -26.95. 07/13/2019 HVF 24-2 OD fovea 19, FL 1/15, FP 3%, FN 0%, generalized depression MD -21.90 AND OS fovea 6, FL 1/15, FP 0%, FN N/A, generalized depression MD -24.44. 02/03/2019 HVF 24-2 OD generalized depression MD -16.89 AND OS generalized depression MD illegible. (best interpretation given not completely legible) 06/04/2016 HVF 24-2 OD generalize depression MD -17.00 AND OS generalized depression MD illegible. (best interpretation given not completely legible) This 54 year old woman with a history of multiple episodes of uveitis, possible sarcoidosis, cataract extraction status post YAG OU, status post pars plana vitrectomy OS, asthma, acid reflux, depression / anxiety presents in follow up for evaluation of bilateral decreased vision. Examination shows stable poor vision and optic nerve elevation with drusen, but possibly also optic disc edema. As before, there is a possibilty of other optic disc edema with concern for a retrobulbar compressive or inflammatory lesion given her history of possible sarcoidosis, and neuro-imaging will help determine. Prior uveitis and retina damage are the main alternative. Plan Check MRI brain AND orbits with contrast if not done. Check B12, folate, thiamine, syphilis antibody, T-SPOT AND MAIKOL. Obtain records from landfill gas collection operator. Follow up in 3 months with HVF AND OCT. created by:Todd Rothman MD Todd Rothman MD DOCUMENT CREATE DATE: 11/02/2019 04:27:50 PM Received for:Todd Rothman Nov 02 2019 4:27PM [place] Standard Time Normal [facility] Ophthalmic Letteron 11-02-19 Ophthalmic Letter DOCUMENT REVIEWED BY: Todd Rothman MD DOCUMENT SIGNED ELECTRONICALLY BY Todd Rothman MD ON 11/02/2019 04:27:44 PM 11/02/2019 Patient Name: KATALINA TAPIA Birthdate: 1965 Gender: female Dear Dr. Abhay Everett: I am writing to share my findings regarding our mutual patient KATALINA TAPIA from her visit with me 11/02/2019. The full visit note with complete findings follows on subsequent pages. 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 She reports that vision continues to fluctuate from day to day. She had a black spot in her vision this morning. She brought notes from [facility] retina specialist Dr. George Carrillo. 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 Other notes over the years were similar. 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 10/02/2018 MRI brain without contrast, which I personally reviewed, shows mild scattered bihemispheric white matter changes on FLAIR that are non-specific. 10/01/2018 CT head without contrast, which I personally reviewed, shows no lesion. 11/02/2019 OCT RNFL OD 129 (inferior thickening) AND OS 104. (stable) 07/13/2019 OCT RNFL OD 124 (inferior thickening) AND OS 106. OCT OD normal foveal contour, outer RPE AND ellipsoid disruptiogn 181 AND OS normal foveal contour 11/02/2019 HVF 24-2 OD fovea 25, generalized MD -24.89 AND OS fovea 8, generalized depression MD -26.95. 07/13/2019 HVF 24-2 OD fovea 19, FL 1/15, FP 3%, FN 0%, generalized depression MD -21.90 AND OS fovea 6, FL 1/15, FP 0%, FN N/A, generalized depression MD -24.44. 02/03/2019 HVF 24-2 OD generalized depression MD -16.89 AND OS generalized depression MD illegible. (best interpretation given not completely legible) 06/04/2016 HVF 24-2 OD generalize depression MD -17.00 AND OS generalized depression MD illegible. (best interpretation given not completely legible) This 54 year old woman with a history of multiple episodes of uveitis, possible sarcoidosis, cataract extraction status post YAG OU, status post pars plana vitrectomy OS, asthma, acid reflux, depression / anxiety presents in follow up for evaluation of bilateral decreased vision. Examination shows stable poor vision and optic nerve elevation with drusen, but possibly also optic disc edema. As before, there is a possibilty of other optic disc edema with concern for a retrobulbar compressive or inflammatory lesion given her history of possible sarcoidosis, and neuro-imaging will help determine. Prior uveitis and retina damage are the main alternative. Plan Check MRI brain AND orbits with contrast if not done. Check B12, folate, thiamine, syphilis antibody, T-SPOT AND MAIKOL. Obtain records from landfill gas collection operator. Follow up in 3 months with HVF AND OCT. I appreciate the opportunity to see KATALINA TAPIA today and to share in her care with you. Please do not hesitate to contact me with any questions regarding this patient, nor to consult me whenever I can be of help to another of your patients with neuro-ophthalmologic al problems. Sincerely, Todd Rothman M.D., Ph.D. Neuro-Ophthalmology Service [facility] [address], [place] [address] Email: [email or web address] Received for:Todd Rothman Nov 02 2019 4:27PM Eastern Standard Time Normal Touchworks SYPHILIS SCREENING WITH REFL EXon 11-02-2019 Lab Specimen Source Normal [facility] Comment on above: Performed By: #### S YPHR #### [address] [place] [address] T. pallidum IgG+IgM IA Ql (S) NONREACTIVE See Below MG-Ophthalmol ogy-Admin [employer] Work Phone: Comment on above: SOURCE: Reference Ra nge: NONREACTIVENo significant level of Treponema pallidum antibody detected. Repeat testing in 2 to 4 weeks may be considered if early infection or incubating syphilis infection is suspected. Vitamin B12, Serumon 020 Cobalamin (Vitamin B12) [Mass/Vol] 552 pg/mL 211 - 911 MG-Ophthalmol ogy-Admin [place] Work Phone: Ophthalmic Eye [facility] 2019 Ophthalmic Eye Exam DOCUMENT SIGNED ELECTRONICALLY BY Todd Rothman MD ON 07/13/2019 10:25:36 [place] [id number] [address] [place], [address] [phone] THIS DOCUMENT WAS CREATED ON: 07/13/2019 10:25:30 AM BY: VIKTOR Nevarez MD [id number] Exam Date: Saturday, July 13, 2019 PATIENT NAME: KATALINA TAPIA DATE: 1965 AGE: 54 GENDER: Female RACE: REFERRING DOCTOR: mat PRIMARY CARE PHYSICIAN: marcie History Chief Complaint/Reason For Visit: Problem-Referring doctor requests examination Pt sts vision has been decreased x 20 years and has received many retinal injections OU and pt sts Kenalog and Uveitis Pt sts here for optic nerve evaluation for 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 In 1998, she had bright red eyes with decreased vision and pain worse at night. After 9 months, she sought care that she reports was diagnosed with uveitis with referral to Dr. Everett and then to retina Dr. George Carrillo. SHe reports some control by 2002. She had kenalog injections and topical treatments. She reports at last evaluation with Dr. Carrillo that her eyes were quite. The last change was in the last few years. She reports that the vision has worsened. There are pixels in her vision. She also reports seeing flashlights turning on and off with her eyes closed, and then it began happening about a year ago even with her eyes open. She does not know which eye has the flashing. She denies any time of sudden decline in her vision. She reports some left eye stinging. She reports last August with severe pneumonia requiring a ventilator. She reports biopsies in the past with conflicting opinions on whether she has sarcoidosis. SHe reports a few days of corticosteroids. She denies any prolonged treatment with corticosteroids. She denies prior rheumatolotgy evaluation. She has been seeing a landfill gas collection operator Dr. Abigail Mckenzie. 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 Savana Joe. 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 Todd Rothman MD and scribed by Sachi Rothman MD PAST MEDICAL HISTORY: OCULAR: Pseudophakia Retinal Swelling OU uvieits PROCEDURES : Cataract extraction OU Intravitrous injections OCULAR SIGNIFICANT: Hypertension,Sarcoid osis ILLNESSES: History of sarcoidosis; History of asthma; History of depression SURGERIES: History of Cataract surgery; History of Vitrectomy; History of Intravitreal injection HEAD/OCULAR TRAUMA: No ocular trauma SOCIAL HISTORY: SMOKING: Former smoker (V15.82 Z87.891) CURRENT MEDICATIONS: BuSpar TABS (No longer av Tablet, [Reported] fentaNYL PT72 Patch 72 Hour, [Reported] hydrOXYzine HCl - 25 MG O Tablet, [Reported] Sertraline HCl - 20 MG/ML Concentrate, [Reported] Symbicort 160-4.5 MCG/ACT Aerosol, [Reported] ALLERGIES: lisinopril REVIEW OF SYSTEMS: All other Review Of Systems negative Exam ORIENTATION, MOOD AND AFFECT: Appropriate for age RIGHT EYE LEFT EYE UNCORRECTED VA 20/400 20/400 PRESSURE METHOD: Goldmann Goldmann PRESSURES: 18 19 DATE-TIME: 09:04 AM 09:04 AM MILL ATTENDANT: Agustin Velez CONFRONTATION VF see HVF, superior temporal see HVF, full to restriction to confrontation confrontation EXTERNAL EYE EXAM: LID: Good Position Good Position PUPIL: 4 to 2 mm, no RAPD 4 to 2 mm, no RAPD ADNEXA: Normal Normal MUSCLE BALANCE: Ortho OCULAR MOTILITY: Full STEREO ONE-THIRD METER: +Fly 0/3 0/9 COLOR VA ISHIHARA OUT OF 11 OD: 1 COLOR VA ISHIHARA OUT OF 11 OS: 1 ANTERIOR SEGMENT EXAM: TEARFILM: Good Good CONJUNCTIVA: White and quiet White and quiet CORNEA: Clear Clear ANTERIOR CHAMBER: Deep and quiet Deep and quiet IRIS: Round and reactive Round and reactive LENS: PCIOL, open capsule PCIOL, open capsule ANTERIOR VITREOUS: Clear Clear FUNDUS EXAM: DILATION and NUMBING DROPS: Mydriacyl 1% AND Scooby 2 1/2% OU 07/13/2019 09:49:37 AM CUP TO DISC: 0.1 .15 OPTIC DISC: nasal elevation Pateros and sharp VITREOUS: Clear Clear MACULA: Normal reflex, mottled RPE Normal reflex VESSELS: Normal Normal PERIPHERY: atrophic AND spiculated areas atrophic AND spiculated areas nasal, inferior AND temporal inferior Impression 01 H47.323 Drusen of optic disc, bilateral-New 02 H47.10 Optic nerve edema-New Discussion Letter prepared for by:Todd Rothman MD Letter prepared for by:Todd Rothman MD Letter prepared for by:Todd Rothman MD Plan TODAY (OU) - OCT RNFL By:Todd Rothman MD TODAY (OU) - OCT Macula By:Todd Rothman MD TODAY (OU) - Visual Field 24-2 ANAMARIA STD By:Todd Rothman MD 07/13/2019 ultrasound B scan, which I performed, shows hyperechoic bodies at the optic nerve heads consistent with optic nerve drusen. 07/13/2019 OCT RNFL OD 124 (inferior thickening) AND OS 106. OCT OD normal foveal contour, outer RPE AND ellipsoid disruption 181 AND OS normal foveal contour 07/13/2019 HVF 24-2 OD fovea 19, FL 1/15, FP 3%, FN 0%, generalized depression MD -21.90 AND OS fovea 6, FL 1/15, FP 0%, FN N/A, generalized depression MD -24.44. 02/03/2019 HVF 24-2 OD generalized depression MD -16.89 AND OS generalized depression MD illegible. (best interpretation given not completely legible) 06/04/2016 HVF 24-2 OD generalize depression MD -17.00 AND OS generalized depression MD illegible. (best interpretation given not completely legible) This 54 year old woman with a history of multiple episodes of uveitis, possible sarcoidosis, cataract extraction status post YAG OU, status post pars plana vitrectomy OS, asthma, acid reflux, depression / anxiety presents for evaluation of bilateral decreased vision. Examination shows poor vision bilaterally along with some optic nerve elevation with some evidence of druse, but with poor vision and elevation, there is a possibilty of other optic disc edema with concern for a retrobulbar compressive or inflammatory lesion given her history of possible sarcoidosis. Neuro-imaging will help determine. The other main possibility is that all findings are related to prior uveitis and retina damage. Records will be helpful in determining her history of possible sarocoidosis. Obtain prior head imaging. Check MRI brain AND orbits with contrast if not done. Obtain records from retina specialist and landfill gas collection operator. Follow up in 2-3 months with HVF AND OCT. created by:Todd Rothman MD Todd Rothman MD DOCUMENT CREATE DATE: 07/13/2019 10:25:32 AM Received for:Todd Rothman Jul 13 2019 10:25AM Eastern Standard Time Normal [facility] Ophthalmic Letteron 07-13-19 Ophthalmic Letter DOCUMENT SIGNED ELECTRONICALLY BY Todd Rothman MD ON 07/13/2019 10:24:38 07/13/2019 Patient Name: KATALINA TAPIA Birthdate: 1965 Gender: female Dear Dr. Abigail Mckenzie: I am writing to share my findings regarding our mutual patient KATALINA TAPIA from her visit with id 07/13/2019. The full visit note with complete findings follows on subsequent pages. History of Present Illness Problem-Referring doctor requests examination Pt sts vision has been decreased x 20 years and has received many retinal injections OU and pt sts Kenalog and Uveitis Pt sts here for optic nerve evaluation for 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 In 1998, she had bright red eyes with decreased vision and pain worse at night. After 9 months, she sought care that she reports was diagnosed with uveitis with referral to Dr. Everett and then to retina Dr. George Carrillo. SHe reports some control by 2002. She had kenalog injections and topical treatments. She reports at last evaluation with Dr. Carrillo that her eyes were quite. The last change was in the last few years. She reports that the vision has worsened. There are pixels in her vision. She also reports seeing flashlights turning on and off with her eyes closed, and then it began happening about a year ago even with her eyes open. She does not know which eye has the flashing. She denies any time of sudden decline in her vision. She reports some left eye stinging. She reports last August with severe pneumonia requiring a ventilator. She reports biopsies in the past with conflicting opinions on whether she has sarcoidosis. SHe reports a few days of corticosteroids. She denies any prolonged treatment with corticosteroids. She denies prior rheumatolotgy evaluation. She has been seeing a landfill gas collection operator Dr. Abigail Mckenzie. 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 Savana Joe. Diagnoses 377.21 Drusen of optic disc, bilateral 02 377.00 Optic nerve edema Impression AND Plan 07/13/2019 ultrasound B scan, which I performed, shows hyperechoic bodies at the optic nerve heads consistent with optic nerve drusen. 07/13/2019 OCT RNFL OD 124 (inferior thickening) AND OS 106. OCT OD normal foveal contour, outer RPE AND ellipsoid disruption 181 AND OS normal foveal contour 07/13/2019 HVF 24-2 OD fovea 19, FL 1/15, FP 3%, FN 0%, generalized depression MD -21.90 AND OS fovea 6, FL 1/15, FP 0%, FN N/A, generalized depression MD -24.44. 02/03/2019 HVF 24-2 OD generalized depression MD -16.89 AND OS generalized depression MD illegible. (best interpretation given not completely legible) 06/04/2016 HVF 24-2 OD generalize depression MD -17.00 AND OS generalized depression MD illegible. (best interpretation given not completely legible) This 54 year old woman with a history of multiple episodes of uveitis, possible sarcoidosis, cataract extraction status post YAG OU, status post pars plana vitrectomy OS, asthma, acid reflux, depression / anxiety presents for evaluation of bilateral decreased vision. Examination shows poor vision bilaterally along with some optic nerve elevation with some evidence of druse, but with poor vision and elevation, there is a possibilty of other optic disc edema with concern for a retrobulbar compressive or inflammatory lesion given her history of possible sarcoidosis. Neuro-imaging will help determine. The other main possibility is that all findings are related to prior uveitis and retina damage. Records will be helpful in determining her history of possible sarocoidosis. Obtain prior head imaging. Check MRI brain AND orbits with contrast if not done. Obtain records from retina specialist and landfill gas collection operator. Follow up in 2-3 months with HVF AND OCT. I appreciate the opportunity to see KATALINA TAPIA today and to share in her care with you. Please do not hesitate to contact me with any questions regarding this patient, nor to consult me whenever I can be of help to another of your patients with neuro-ophthalmologic al problems. PLEASE NOTE. I particularly would appreciate information about recent visits with you and the precise nature of this possible sarcoidosis diagnosis and whether there has been tissue confirmation. Sincerely, Todd Rothman M.D., Ph.D. Neuro-Ophthalmology Service [facility] [place] [address] Email: [email or web address] Received for:Todd Rothman Jul 13 2019 10:24AM Eastern Standard Time Normal [facility]works Ophthalmic Letter DOCUMENT SIGNED ELECTRONICALLY BY Todd Rothman MD ON 07/13/2019 10:23:42 07/13/2019 Patient Name: KATALINA TAPIA Birthdate: 1965 Gender: female Dear Dr. Abhay Everett: I am writing to share my findings regarding our mutual patient KATALINA TAPIA from her visit with me 07/13/2019. The full visit note with complete findings follows on subsequent pages. History of Present Illness Problem-Referring doctor requests examination Pt sts vision has been decreased x 20 years and has received many retinal injections OU and pt sts Kenalog and Uveitis Pt sts here for optic nerve evaluation for 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 In 1998, she had bright red eyes with decreased vision and pain worse at night. After 9 months, she sought care that she reports was diagnosed with uveitis with referral to Dr. Everett and then to retina Dr. George Carrillo. SHe reports some control by 2002. She had kenalog injections and topical treatments. She reports at last evaluation with Dr. Carrillo that her eyes were quite. The last change was in the last few years. She reports that the vision has worsened. There are pixels in her vision. She also reports seeing flashlights turning on and off with her eyes closed, and then it began happening about a year ago even with her eyes open. She does not know which eye has the flashing. She denies any time of sudden decline in her vision. She reports some left eye stinging. She reports last August with severe pneumonia requiring a ventilator. She reports biopsies in the past with conflicting opinions on whether she has sarcoidosis. SHe reports a few days of corticosteroids. She denies any prolonged treatment with corticosteroids. She denies prior rheumatolotgy evaluation. She has been seeing a landfill gas collection operator Dr. Abigail Mckenzie. 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 Savana Joe. 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 07/13/2019 OCT RNFL OD 124 (inferior thickening) AND OS 106. OCT OD normal foveal contour, outer RPE AND ellipsoid disruption 181 AND OS normal foveal contour 07/13/2019 HVF 24-2 OD fovea 19, FL 1/15, FP 3%, FN 0%, generalized depression MD -21.90 AND OS fovea 6, FL 1/15, FP 0%, FN N/A, generalized depression MD -24.44. 02/03/2019 HVF 24-2 OD generalized depression MD -16.89 AND OS generalized depression MD illegible. (best interpretation given not completely legible) 06/04/2016 HVF 24-2 OD generalize depression MD -17.00 AND OS generalized depression MD illegible. (best interpretation given not completely legible) This 54 year old woman with a history of multiple episodes of uveitis, possible sarcoidosis, cataract extraction status post YAG OU, status post pars plana vitrectomy OS, asthma, acid reflux, depression / anxiety presents for evaluation of bilateral decreased vision. Examination shows poor vision bilaterally along with some optic nerve elevation with some evidence of druse, but with poor vision and elevation, there is a possibilty of other optic disc edema with concern for a retrobulbar compressive or inflammatory lesion given her history of possible sarcoidosis. Neuro-imaging will help determine. The other main possibility is that all findings are related to prior uveitis and retina damage. Records will be helpful in determining her history of possible sarocoidosis. Obtain prior head imaging. Check MRI brain AND orbits with contrast if not done. Obtain records from retina specialist and landfill gas collection operator. Follow up in 2-3 months with HVF AND OCT. I appreciate the opportunity to see KATALINA TAPIA today and to share in her care with you. Please do not hesitate to contact me with any questions regarding this patient, nor to consult me whenever I can be of help to another of your patients with neuro-ophthalmologic al problems. Sincerely, Todd Rothman M.D., Ph.D. Neuro-Ophthalmology Service [facility] [place] [address] [place] [address] Email: [email or web address] Received for:Todd Rothman Jul 13 2019 10:23AM Eastern Standard Time Normal [facility] Ophthalmic Letter DOCUMENT SIGNED ELECTRONICALLY BY Todd Rothman MD ON 07/13/2019 10:25:22 07/13/2019 Patient Name: KATALINA TAPIA Birthdate: 1965 Gender: female Dear Dr. George Carrillo: I am writing to share my findings regarding our mutual patient KATALINA TAPIA from her visit with me 07/13/2019. The full visit note with complete findings follows on subsequent pages. History of Present Illness Problem-Referring doctor requests examination Pt sts vision has been decreased x 20 years and has received many retinal injections OU and pt sts Kenalog and Uveitis Pt sts here for optic nerve evaluation for 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 In 1998, she had bright red eyes with decreased vision and pain worse at night. After 9 months, she sought care that she reports was diagnosed with uveitis with referral to Dr. Everett and then to retina Dr. George Carrillo. SHe reports some control by 2002. She had kenalog injections and topical treatments. She reports at last evaluation with Dr. Carrillo that her eyes were quite. The last change was in the last few years. She reports that the vision has worsened. There are pixels in her vision. She also reports seeing flashlights turning on and off with her eyes closed, and then it began happening about a year ago even with her eyes open. She does not know which eye has the flashing. She denies any time of sudden decline in her vision. She reports some left eye stinging. She reports last August with severe pneumonia requiring a ventilator. She reports biopsies in the past with conflicting opinions on whether she has sarcoidosis. SHe reports a few days of corticosteroids. She denies any prolonged treatment with corticosteroids. She denies prior rheumatolotgy evaluation. She has been seeing a landfill gas collection operator Dr. Abigail Mckenzie. 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 Savana Joe. 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 07/13/2019 OCT RNFL OD 124 (inferior thickening) AND OS 106. OCT OD normal foveal contour, outer RPE AND ellipsoid disruption 181 AND OS normal foveal contour 07/13/2019 HVF 24-2 OD fovea 19, FL 1/15, FP 3%, FN 0%, generalized depression MD -21.90 AND OS fovea 6, FL 1/15, FP 0%, FN N/A, generalized depression MD -24.44. 02/03/2019 HVF 24-2 OD generalized depression MD -16.89 AND OS generalized depression MD illegible. (best interpretation given not completely legible) 06/04/2016 HVF 24-2 OD generalize depression MD -17.00 AND OS generalized depression MD illegible. (best interpretation given not completely legible) This 54 year old woman with a history of multiple episodes of uveitis, possible sarcoidosis, cataract extraction status post YAG OU, status post pars plana vitrectomy OS, asthma, acid reflux, depression / anxiety presents for evaluation of bilateral decreased vision. Examination shows poor vision bilaterally along with some optic nerve elevation with some evidence of druse, but with poor vision and elevation, there is a possibilty of other optic disc edema with concern for a retrobulbar compressive or inflammatory lesion given her history of possible sarcoidosis. Neuro-imaging will help determine. The other main possibility is that all findings are related to prior uveitis and retina damage. Records will be helpful in determining her history of possible sarocoidosis. Obtain prior head imaging. Check MRI brain AND orbits with contrast if not done. Obtain records from retina specialist and landfill gas collection operator. Follow up in 2-3 months with HVF AND OCT. I appreciate the opportunity to see KATALINA TAPIA today and to share in her care with you. Please do not hesitate to contact me with any questions regarding this patient, nor to consult me whenever I can be of help to another of your patients with neuro-ophthalmologic al problems. PLEASE NOTE. I particularly would appreciate information about prior appearance of her optic nerves and whether these findings have been present for a long time as well as the nature of prior uveitis attacks. Sincerely, Todd Rothman M.D., Ph.D. Neuro-Ophthalmology Service [facility] [place] [address] Email: [email or web address] Received for:Todd Rothman Jul 13 2019 10:25AM Eastern Standard Time Normal [employer] BASIC METABOLIC PANELon 05-3 Calcium [Mass/Vol] 8.7 mg/dL Normal 8.6-10.3 [facility] Comment on above: Order Comment: No: D o not add to previous draw Performed By: #### 3 6901, 45042, 79483, 82963, 05383, 80018, 52685, 14437 #### [facility] [address] [place] [address], [place] Chloride [Moles/Vol] 102 mmol/L Normal 98-107 [facility] Comment on above: Order Comment: No: D o not add to previous draw Performed By: #### 3 6901, 42064, 22028, 31553, 77015, 99012, 36489, 39642 #### [facility] [address] [place] [address], [place] CO2 [Moles/Vol] 27 mmol/L Normal 21-31 [facility] Comment on above: Order Comment: No: D o not add to previous draw Performed By: #### 3 6901, 59876, 55936, 49090, 68706, 09203, 63457, 27343 #### [facility] [address] [place] [address], [place] Creatinine [Mass/Vol] 0.49 mg/dL Low 0.60-1.20 [facility] Comment on above: Order Comment: No: D o not add to previous draw Performed By: #### 3 6901, 35954, 07831, 98998, 66554, 23992, 17586, 85926 #### [facility] [address] [place] [address], [place] GFR/1.73 sq M predicted among blacks MDRD (S/P/Bld) [Vol rate/Area] mL/min/{1.73_m2} Normal >60 [facility] Comment on above: Order Comment: No: D o not add to previous draw Performed By: #### 3 6901, 02422, 09372, 04883, 54925, 87652, 06743, 63728 #### [facility] [address] [place] [address], [place] GFR/1.73 sq M predicted among non-blacks MDRD (S/P/Bld) [Vol rate/Area] mL/min/{1.73_m2} Normal >60 [facility] Comment on above: Order Comment: No: D o not add to previous draw Performed By: #### 3 6901, 34425, 90774, 30639, 82130, 40154, 92627, 88974 #### [facility] [address] [place] [address], [facility] Glucose [Mass/Vol] 84 mg/dL Normal 70-100 [facility] Comment on above: Order Comment: No: D o not add to previous draw Performed By: #### 3 6901, 59512, 53046, 77497, 53514, 23042, 88416, 53548 #### [facility] [address] [place] [address], [facility] Potassium [Moles/Vol] 3.4 mmol/L Low 3.5-5.1 [facility] Comment on above: Order Comment: No: D o not add to previous draw Performed By: #### 3 6901, 38576, 15340, 88618, 86420, 90264, 25455, 95506 #### [facility] [address] [place] [address], [facility] Sodium [Moles/Vol] 137 mmol/L Normal 136-145 [facility] Comment on above: Order Comment: No: D o not add to previous draw Performed By: #### 3 6901, 35467, 90345, 79741, 58088, 68329, 51061, 99954 #### [facility] [address] [place] [address], [facility] Urea nitrogen [Mass/Vol] 12 mg/dL Normal 7-25 [facility] Comment on above: Order Comment: No: D o not add to previous draw Performed By: #### 3 6901, 20861, 61321, 03895, 17859, 04555, 29553, 29161 #### [facility] [address] [place] [address], [place] CBC W/DIFFon 09-24-2018 ABS BASOPHILS 0.0 10*3/uL Normal 0.0-0.2 [facility] Comment on above: Order Comment: No: D o not add to previous draw Performed By: #### 3 6901, 57653, 93677, 88542, 57694, 64856, 40942, 62119 #### [facility] [address] [place] [address], [facility] ABS IMM GRANS 0.2 10*3/uL Normal 0.0-0.2 [facility] Comment on above: Order Comment: No: D o not add to previous draw Performed By: #### 3 6901, 70989, 42120, 69394, 60831, 64167, 59512, 15900 #### [facility] [address] [facility] [place] [address], [facility] ABS NEUTROPHILS 5.7 10*3/uL Normal 1.6-7.6 [facility] Comment on above: Order Comment: No: D o not add to previous draw Performed By: #### 3 6901, 92093, 13517, 49998, 39029, 08832, 13989, 41679 #### [facility] [address] [place] [address], [facility] Basophils/100 WBC (Bld) 0.3 % Normal 0.0-1.0 [facility] Comment on above: Order Comment: No: D o not add to previous draw Performed By: #### 3 6901, 00694, 26009, 48670, 99588, 53932, 15874, 32599 #### [facility] [address] [facility] [address], [facility] Eosinophils (Bld) [#/Vol] 0.1 10*3/uL Normal 0.0-0.5 [facility] Comment on above: Order Comment: No: D o not add to previous draw Performed By: #### 3 6901, 15747, 48810, 74895, 49825, 11506, 58267, 49071 #### [facility] [address] [facility] [address], [facility] Eosinophils/100 WBC (Bld) 1.1 % Normal 0.0-6.0 [facility] Comment on above: Order Comment: No: D o not add to previous draw Performed By: #### 3 6901, 92731, 48296, 25742, 61231, 72445, 31918, 24926 #### [facility] [address] [place] [address], [facility] Erythrocyte distribution width (RBC) [Ratio] 14.3 % Normal 11.5-15.0 [facility] Comment on above: Order Comment: No: D o not add to previous draw Performed By: #### 3 6901, 66609, 05015, 07812, 04029, 06382, 28140, 68595 #### [facility] [address] [place] [address], [facility] Hematocrit (Bld) [Volume fraction] 39.0 % Normal 36.0-45.0 [facility] Comment on above: Order Comment: No: D o not add to previous draw Performed By: #### 3 6901, 29572, 83009, 50809, 44809, 07657, 65789, 94092 #### [facility] [address] [facility] [place] [address], [facility] Hemoglobin (Bld) [Mass/Vol] 12.4 g/dL Normal 12.0-15.0 [facility] Comment on above: Order Comment: No: D o not add to previous draw Performed By: #### 3 6901, 12038, 57847, 97905, 93256, 03161, 91693, 84933 #### [facility] [address] [place] [address], [facility] IMMATURE GRANS 1.7 % High 0.0-1.0 [facility] Comment on above: Order Comment: No: D o not add to previous draw Performed By: #### 3 6901, 45513, 75032, 84866, 59172, 19142, 73075, 50565 #### [facility] [address] Lymphocytes (Bld) [#/Vol] 2.2 10*3/uL Normal 1.2-4.0 [facility] Comment on above: Order Comment: No: D o not add to previous draw Performed By: #### 3 6901, 77301, 02202, 24103, 25508, 62128, 68479, 54322 #### [facility] [address] [place] [address], [facility] Lymphocytes/100 WBC (Bld) 24.5 % Normal 20.0-45.0 [facility] Comment on above: Order Comment: No: D o not add to previous draw Performed By: #### 3 6901, 69048, 05916, 54572, 72727, 03935, 14395, 39411 #### [facility] [address] [place] [address], [facility] MCH (RBC) [Entitic mass] 27.9 pg Normal 27.0-33.0 [facility] Comment on above: Order Comment: No: D o not add to previous draw Performed By: #### 3 6901, 32979, 15558, 03069, 46421, 12277, 66094, 09822 #### [facility] [address] [place] [address], [facility] MCHC (RBC) [Mass/Vol] 31.8 g/dL Low 32.0-35.0 [facility] Comment on above: Order Comment: No: D o not add to previous draw Performed By: #### 3 6901, 63168, 14856, 45960, 46887, 32216, 96460, 84287 #### [facility] [address] [place] [address], [facility] MCV (RBC) [Entitic vol] 87.6 fL Normal 82.0-98.0 [facility] Comment on above: Order Comment: No: D o not add to previous draw Performed By: #### 3 6901, 17868, 62212, 13854, 15071, 93785, 79659, 30449 #### [facility] [address] [facility] [place] [address], [facility] Monocytes (Bld) [#/Vol] 0.8 10*3/uL Normal 0.1-1.0 [facility] Comment on above: Order Comment: No: D o not add to previous draw Performed By: #### 3 6901, 15404, 82023, 66812, 33111, 82961, 24350, 89743 #### [facility] [address] [place] [address], [facility] MONOS 9.2 % Normal 5.0-12.0 [facility] Comment on above: Order Comment: No: D o not add to previous draw Performed By: #### 3 6901, 99808, 21199, 84416, 92434, 18776, 11326, 43942 #### [facility] [address] [place] [address], [facility] Neutrophils/100 WBC (Bld) 63.2 % Normal 40.0-72.0 [facility] Comment on above: Order Comment: No: D o not add to previous draw Performed By: #### 3 6901, 00011, 29900, 11244, 11846, 21200, 61236, 10003 #### [facility] [address] [place] [address], [facility] Nucleated RBC/100 WBC (Bld) [Ratio] 0 % Normal 0-0 [facility] Comment on above: Order Comment: No: D o not add to previous draw Performed By: #### 3 6901, 79483, 29578, 70185, 47082, 29590, 44271, 29869 #### [facility] [address] [place] [address], [facility] PLAT CNT 165 10*3/uL Normal 150-400 [facility] Comment on above: Order Comment: No: D o not add to previous draw Performed By: #### 3 6901, 96512, 89588, 61145, 86323, 13555, 62500, 46764 #### [facility] [address] [place] [address], [facility] RBC (Bld) [#/Vol] 4.45 10*6/uL Normal 3.80-5.00 [facility] Comment on above: Order Comment: No: D o not add to previous draw Performed By: #### 3 6901, 15760, 71448, 82495, 97134, 40662, 37452, 14901 #### [facility] [address] [place] [address], [facility] WBC (Bld) [#/Vol] 8.94 10*3/uL Normal 4.00-10.60 [facility] Comment on above: Order Comment: No: D o not add to previous draw Performed By: #### 3 6901, 94141, 00793, 36377, 29197, 78409, 20862, 23730 #### [facility] [address] BASIC METABOLIC PANELon 05-2 Calcium [Mass/Vol] 8.8 mg/dL Normal 8.6-10.3 [facility] Comment on above: Order Comment: No: D o not add to previous draw Performed By: #### 3 6901, 47037, 33186, 78965, 53685, 57598, 84213, 88598 #### [facility] [address] [place] [address], [facility] Chloride [Moles/Vol] 102 mmol/L Normal 98-107 [facility] Comment on above: Order Comment: No: D o not add to previous draw Performed By: #### 3 6901, 31243, 51531, 82994, 93663, 63914, 74083, 28648 #### [facility] [address] [place] [address], [facility] CO2 [Moles/Vol] 27 mmol/L Normal 21-31 [facility] Comment on above: Order Comment: No: D o not add to previous draw Performed By: #### 3 6901, 07959, 04892, 11390, 59052, 07190, 93223, 27535 #### [facility] [address] [place] [address], [place] Creatinine [Mass/Vol] 0.54 mg/dL Low 0.60-1.20 [facility] Comment on above: Order Comment: No: D o not add to previous draw Performed By: #### 3 6901, 97638, 64285, 51506, 42850, 22705, 96768, 59401 #### [facility] [address] [place] [address], [place] GFR/1.73 sq M predicted among blacks MDRD (S/P/Bld) [Vol rate/Area] mL/min/{1.73_m2} Normal >60 [facility] Comment on above: Order Comment: No: D o not add to previous draw Performed By: #### 3 6901, 82248, 42462, 75152, 59830, 47883, 02159, 30233 #### [facility] [address] [place] [address], [place] GFR/1.73 sq M predicted among non-blacks MDRD (S/P/Bld) [Vol rate/Area] mL/min/{1.73_m2} Normal >60 [facility] Comment on above: Order Comment: No: D o not add to previous draw Performed By: #### 3 6901, 40397, 58086, 62692, 56661, 07154, 84863, 46693 #### [facility] [address] [place] [address], [place] Glucose [Mass/Vol] 71 mg/dL Normal 70-100 [facility] Comment on above: Order Comment: No: D o not add to previous draw Performed By: #### 3 6901, 44672, 50367, 74237, 64786, 24952, 73740, 51997 #### [facility] [address] [place] [address], [place] Potassium [Moles/Vol] 3.6 mmol/L Normal 3.5-5.1 [facility] Comment on above: Order Comment: No: D o not add to previous draw Performed By: #### 3 6901, 85962, 98052, 86165, 23874, 99326, 33601, 09307 #### [facility] [address] Sodium [Moles/Vol] 137 mmol/L Normal 136-145 [facility] Comment on above: Order Comment: No: D o not add to previous draw Performed By: #### 3 6901, 42256, 93760, 22251, 04098, 14158, 56854, 59266 #### [facility] [address] [facility] Urea nitrogen [Mass/Vol] 14 mg/dL Normal 7-25 [facility] Comment on above: Order Comment: No: D o not add to previous draw Performed By: #### 3 6901, 49196, 93211, 65329, 51313, 32078, 04892, 34087 #### [facility] [address] CBC W/DIFFon 09-23-2018 ABS BASOPHILS 0.1 10*3/uL Normal 0.0-0.2 [facility] Comment on above: Order Comment: No: D o not add to previous draw Performed By: #### 3 6901, 66239, 89066, 54306, 91341, 02811, 42415, 26301 #### [facility] [address] ABS IMM GRANS 0.3 10*3/uL High 0.0-0.2 [facility] Comment on above: Order Comment: No: D o not add to previous draw Performed By: #### 3 6901, 47171, 77414, 68534, 88071, 88378, 47882, 86257 #### [facility] [address] [place] [address], [facility] ABS NEUTROPHILS 8.0 10*3/uL High 1.6-7.6 [facility] Comment on above: Order Comment: No: D o not add to previous draw Performed By: #### 3 6901, 04166, 60260, 51105, 02101, 36071, 43151, 98217 #### [facility] [address] [facility] [place] [address], [facility] Basophils/100 WBC (Bld) 0.5 % Normal 0.0-1.0 [facility] Comment on above: Order Comment: No: D o not add to previous draw Performed By: #### 3 6901, 30965, 65969, 85697, 30858, 51834, 25483, 80083 #### [facility] [address] [place] [address], [facility] Eosinophils (Bld) [#/Vol] 0.1 10*3/uL Normal 0.0-0.5 [facility] Comment on above: Order Comment: No: D o not add to previous draw Performed By: #### 3 6901, 17941, 56586, 71266, 75986, 67759, 77987, 07215 #### [facility] [address] [place] [address], [facility] Eosinophils/100 WBC (Bld) 0.6 % Normal 0.0-6.0 [facility] Comment on above: Order Comment: No: D o not add to previous draw Performed By: #### 3 6901, 33382, 44535, 93967, 32774, 87941, 67715, 22974 #### [facility] [address] [place] [address], [facility] Erythrocyte distribution width (RBC) [Ratio] 14.3 % Normal 11.5-15.0 [facility] Comment on above: Order Comment: No: D o not add to previous draw Performed By: #### 3 6901, 61493, 95822, 74473, 56606, 50942, 84570, 37082 #### [facility] [address] Hematocrit (Bld) [Volume fraction] 39.9 % Normal 36.0-45.0 [facility] Comment on above: Order Comment: No: D o not add to previous draw Performed By: #### 3 6901, 23688, 45864, 79461, 68403, 34595, 99597, 27114 #### [facility] [address] [facility] [place] [address], [facility] Hemoglobin (Bld) [Mass/Vol] 12.7 g/dL Normal 12.0-15.0 [facility] Comment on above: Order Comment: No: D o not add to previous draw Performed By: #### 3 6901, 67629, 63663, 61065, 38458, 84076, 71736, 42313 #### [facility] [address] IMMATURE GRANS 2.8 % High 0.0-1.0 [facility] Comment on above: Order Comment: No: D o not add to previous draw Performed By: #### 3 6901, 67748, 53425, 72090, 88323, 69294, 89680, 02838 #### [facility] [address] [place] [address], [facility] Lymphocytes (Bld) [#/Vol] 2.5 10*3/uL Normal 1.2-4.0 [facility] Comment on above: Order Comment: No: D o not add to previous draw Performed By: #### 3 6901, 80635, 47004, 24973, 52327, 76761, 80355, 00444 #### [facility] [address] [place] [address], [facility] Lymphocytes/100 WBC (Bld) 20.4 % Normal 20.0-45.0 [facility] Comment on above: Order Comment: No: D o not add to previous draw Performed By: #### 3 6901, 76340, 55589, 39550, 67812, 20250, 75882, 60931 #### [facility] [address] [facility] [place] [address], [facility] MCH (RBC) [Entitic mass] 27.4 pg Normal 27.0-33.0 [facility] Comment on above: Order Comment: No: D o not add to previous draw Performed By: #### 3 6901, 18982, 25467, 75430, 45625, 37250, 20780, 64275 #### [facility] [address] MCHC (RBC) [Mass/Vol] 31.8 g/dL Low 32.0-35.0 [facility] Comment on above: Order Comment: No: D o not add to previous draw Performed By: #### 3 6901, 52499, 65128, 33058, 62389, 51973, 03189, 02460 #### [facility] [address] [place] [address], [facility] MCV (RBC) [Entitic vol] 86.0 fL Normal 82.0-98.0 [facility] Comment on above: Order Comment: No: D o not add to previous draw Performed By: #### 3 6901, 23598, 54549, 78627, 62298, 73470, 49070, 04376 #### [facility] [address] Monocytes (Bld) [#/Vol] 1.1 10*3/uL High 0.1-1.0 [facility] Comment on above: Order Comment: No: D o not add to previous draw Performed By: #### 3 6901, 26660, 54926, 17335, 00676, 80496, 22390, 14583 #### [facility] [address] MONOS 9.4 % Normal 5.0-12.0 [facility] Comment on above: Order Comment: No: D o not add to previous draw Performed By: #### 3 6901, 75415, 62833, 60238, 48565, 70307, 88367, 56005 #### [facility] [address] [place] [address], [facility] Neutrophils/100 WBC (Bld) 66.3 % Normal 40.0-72.0 [facility] Comment on above: Order Comment: No: D o not add to previous draw Performed By: #### 3 6901, 72233, 29225, 31071, 31839, 88094, 16092, 09566 #### [facility] [address] [place] [address], [facility] Nucleated RBC/100 WBC (Bld) [Ratio] 0 % Normal 0-0 [facility] Comment on above: Order Comment: No: D o not add to previous draw Performed By: #### 3 6901, 21263, 30229, 36257, 68018, 30383, 38850, 08086 #### [facility] [address] [place] [address], [facility] PLAT CNT 195 10*3/uL Normal 150-400 [facility] Comment on above: Order Comment: No: D o not add to previous draw Performed By: #### 3 6901, 20601, 59055, 70745, 49889, 07663, 72418, 59639 #### [facility] [address] [facility] [address], [facility] RBC (Bld) [#/Vol] 4.64 10*6/uL Normal 3.80-5.00 [facility] Comment on above: Order Comment: No: D o not add to previous draw Performed By: #### 3 6901, 62381, 71797, 93282, 97727, 45843, 24272, 14439 #### [facility] [address] [place] [id number], [facility] WBC (Bld) [#/Vol] 12.12 10*3/uL High 4.00-10.60 [facility] Comment on above: Order Comment: No: D o not add to previous draw Performed By: #### 3 6901, 93094, 53576, 44970, 52953, 97548, 78984, 70317 #### [facility] [address] [place] [address], [facility] BASIC METABOLIC PANELon 05-2 Calcium [Mass/Vol] 8.8 mg/dL Normal 8.6-10.3 [facility] Comment on above: Order Comment: No: D o not add to previous draw Performed By: #### 3 6901, 55432, 67175, 21851, 43528, 62107, 23476, 01639 #### [facility] [address] [place] [address], [facility] Chloride [Moles/Vol] 102 mmol/L Normal 98-107 [facility] Comment on above: Order Comment: No: D o not add to previous draw Performed By: #### 3 6901, 59749, 35044, 80674, 37338, 00493, 69482, 88683 #### [facility] [address] [place] [address], [facility] CO2 [Moles/Vol] 28 mmol/L Normal 21-31 [facility] Comment on above: Order Comment: No: D o not add to previous draw Performed By: #### 3 6901, 03026, 24153, 66224, 28038, 88846, 70511, 35902 #### [facility] [address] [place] [address], [place] Creatinine [Mass/Vol] 0.48 mg/dL Low 0.60-1.20 [facility] Comment on above: Order Comment: No: D o not add to previous draw Performed By: #### 3 6901, 51235, 26773, 78264, 09063, 14479, 39816, 96855 #### [facility] [address] [place] [address], [place] GFR/1.73 sq M predicted among blacks MDRD (S/P/Bld) [Vol rate/Area] mL/min/{1.73_m2} Normal >60 [facility] Comment on above: Order Comment: No: D o not add to previous draw Performed By: #### 3 6901, 89901, 78282, 04720, 47485, 60489, 95048, 19701 #### [facility] [address] [place] [address], [place] GFR/1.73 sq M predicted among non-blacks MDRD (S/P/Bld) [Vol rate/Area] mL/min/{1.73_m2} Normal >60 [facility] Comment on above: Order Comment: No: D o not add to previous draw Performed By: #### 3 6901, 54649, 87692, 85045, 01957, 26829, 14594, 23984 #### [facility] [address] [place] [address], [place] Glucose [Mass/Vol] 85 mg/dL Normal 70-100 [facility] Comment on above: Order Comment: No: D o not add to previous draw Performed By: #### 3 6901, 20372, 23355, 04444, 76740, 44548, 82166, 48301 #### [facility] [address] [place] [address], [place] Potassium [Moles/Vol] 3.6 mmol/L Normal 3.5-5.1 [facility] Comment on above: Order Comment: No: D o not add to previous draw Performed By: #### 3 6901, 09809, 15541, 14757, 81146, 21616, 43232, 66857 #### [facility] [address] [place] [address], [place] Sodium [Moles/Vol] 135 mmol/L Low 136-145 [facility] Comment on above: Order Comment: No: D o not add to previous draw Performed By: #### 3 6901, 55540, 71306, 57654, 82964, 49556, 27725, 15548 #### [facility] [address] Urea nitrogen [Mass/Vol] 16 mg/dL Normal 7-25 [facility] Comment on above: Order Comment: No: D o not add to previous draw Performed By: #### 3 6901, 25465, 10800, 23603, 78003, 79612, 65347, 05910 #### [facility] [address] CBC W/DIFFon 09-22-2018 ABS BASOPHILS 0.0 10*3/uL Normal 0.0-0.2 [facility] Comment on above: Order Comment: No: D o not add to previous draw Performed By: #### 3 6901, 38331, 14214, 82445, 09651, 74637, 23397, 89009 #### [facility] [address] ABS NEUTROPHILS 14.2 10*3/uL High 1.6-7.6 [facility] Comment on above: Order Comment: No: D o not add to previous draw Performed By: #### 3 6901, 23660, 85226, 76731, 72739, 72326, 26776, 16282 #### [facility] [address] Basophils/100 WBC (Bld) 0.0 % Normal 0.0-1.0 [facility] Comment on above: Order Comment: No: D o not add to previous draw Performed By: #### 3 6901, 17407, 70200, 83521, 37521, 90720, 74207, 27026 #### [facility] [address] [place] [address], [facility] Eosinophils (Bld) [#/Vol] 0.3 10*3/uL Normal 0.0-0.5 [facility] Comment on above: Order Comment: No: D o not add to previous draw Performed By: #### 3 6901, 95193, 01207, 53557, 70923, 68625, 08667, 04615 #### [facility] [address] [place] [address], [facility] Eosinophils/100 WBC (Bld) 1.8 % Normal 0.0-6.0 [facility] Comment on above: Order Comment: No: D o not add to previous draw Performed By: #### 3 6901, 24461, 47788, 02334, 14405, 54493, 35172, 20720 #### [facility] [address] [place] [address], [facility] Erythrocyte distribution width (RBC) [Ratio] 14.0 % Normal 11.5-15.0 [facility] Comment on above: Order Comment: No: D o not add to previous draw Performed By: #### 3 6901, 93993, 30606, 28209, 25279, 43694, 03666, 31040 #### [facility] [address] [place] [address], [facility] GIANT PLATELETS Present Normal [facility] Comment on above: Order Comment: No: D o not add to previous draw Performed By: #### 3 6901, 25381, 41560, 25223, 56207, 90569, 21566, 44079 #### [facility] [address] [place] [address], [facility] Hematocrit (Bld) [Volume fraction] 40.5 % Normal 36.0-45.0 [facility] Comment on above: Order Comment: No: D o not add to previous draw Performed By: #### 3 6901, 69392, 49177, 92936, 82235, 50580, 11793, 22179 #### [facility] [address] [place] [id number], [facility] Hemoglobin (Bld) [Mass/Vol] 12.6 g/dL Normal 12.0-15.0 [facility] Comment on above: Order Comment: No: D o not add to previous draw Performed By: #### 3 6901, 07423, 13368, 10263, 41727, 99662, 73015, 70991 #### [facility] [address] [place] [address], [facility] Lymphocytes (Bld) [#/Vol] 3.5 10*3/uL Normal 1.2-4.0 [facility] Comment on above: Order Comment: No: D o not add to previous draw Performed By: #### 3 6901, 02023, 49968, 10894, 45658, 55243, 41428, 36355 #### [facility] [address] [place] [address], [facility] Lymphocytes/100 WBC (Bld) 18.5 % Low 20.0-45.0 [facility] Comment on above: Order Comment: No: D o not add to previous draw Performed By: #### 3 6901, 24287, 71725, 14903, 53973, 68097, 56383, 05739 #### [facility] [address] [place] [address], [facility] MCH (RBC) [Entitic mass] 27.3 pg Normal 27.0-33.0 [facility] Comment on above: Order Comment: No: D o not add to previous draw Performed By: #### 3 6901, 33259, 73244, 66487, 18219, 51818, 90254, 44050 #### [facility] [address] [place] [id number], [facility] MCHC (RBC) [Mass/Vol] 31.1 g/dL Low 32.0-35.0 [facility] Comment on above: Order Comment: No: D o not add to previous draw Performed By: #### 3 6901, 04929, 60793, 04857, 23164, 34947, 82466, 49365 #### [facility] [address] [place] [address], [facility] MCV (RBC) [Entitic vol] 87.7 fL Normal 82.0-98.0 [facility] Comment on above: Order Comment: No: D o not add to previous draw Performed By: #### 3 6901, 80667, 87611, 73911, 93450, 72908, 99258, 86206 #### [facility] [address] [facility] [place] [address], [facility] Monocytes (Bld) [#/Vol] 1.1 10*3/uL High 0.1-1.0 [facility] Comment on above: Order Comment: No: D o not add to previous draw Performed By: #### 3 6901, 57574, 65697, 95923, 92877, 86612, 80599, 21807 #### [facility] [address] [facility] [place] [address], [facility] MONOS 5.6 % Normal 5.0-12.0 [facility] Comment on above: Order Comment: No: D o not add to previous draw Performed By: #### 3 6901, 58772, 37995, 85741, 71863, 03155, 10985, 72868 #### [facility] [address] [facility] [place] [address], [facility] Neutrophils/100 WBC (Bld) 74.1 % High 40.0-72.0 [facility] Comment on above: Order Comment: No: D o not add to previous draw Performed By: #### 3 6901, 32171, 25824, 46592, 42179, 52626, 59495, 47134 #### [facility] [address] [facility] [place] [address], [facility] Nucleated RBC/100 WBC (Bld) [Ratio] 0 % Normal 0-0 [facility] Comment on above: Order Comment: No: D o not add to previous draw Performed By: #### 3 6901, 56356, 66256, 10802, 84112, 13731, 81155, 78337 #### [facility] [address] [facility] [place] [address], [facility] PLAT CNT 195 10*3/uL Normal 150-400 [facility] Comment on above: Order Comment: No: D o not add to previous draw Performed By: #### 3 6901, 20841, 79500, 28690, 77617, 89212, 70787, 01812 #### [facility] [address] [place] [address], [facility] RBC (Bld) [#/Vol] 4.62 10*6/uL Normal 3.80-5.00 [facility] Comment on above: Order Comment: No: D o not add to previous draw Performed By: #### 3 6901, 47063, 49882, 39324, 72412, 56332, 68145, 60665 #### [facility] [address] [place] [address], [facility] WBC (Bld) [#/Vol] 19.16 10*3/uL High 4.00-10.60 [facility] Comment on above: Order Comment: No: D o not add to previous draw Performed By: #### 3 6901, 79336, 69856, 37522, 01107, 22139, 03921, 86409 #### [facility] [address] [facility] [place] [address], [facility] MAGNESIUM BLOODon 09-22-2018 Magnesium [Mass/Vol] 2.1 mg/dL Normal 1.9-2.7 [facility] Comment on above: Order Comment: No: D o not add to previous draw Performed By: #### 3 6901, 74763, 48000, 61192, 70617, 89657, 94198, 37411 #### [facility] [address] [place] [address], [facility] PHOSPHORUS BLOODon 9 Phosphate [Mass/Vol] 3.3 mg/dL Normal 2.5-5.0 [facility] Comment on above: Order Comment: No: D o not add to previous draw Performed By: #### 3 6901, 32851, 43977, 91653, 44810, 30518, 69555, 47024 #### [facility] [address] [place] [address], [facility] CBC W/DIFFon 09-21-2018 ABS BASOPHILS 0.0 10*3/uL Normal 0.0-0.2 [facility] Comment on above: Order Comment: No: D o not add to previous draw Performed By: #### 3 6901, 18273, 12794, 50121, 46982, 49001, 99040, 98679 #### [facility] [address] [place] [address], [facility] ABS NEUTROPHILS 18.5 10*3/uL High 1.6-7.6 [facility] Comment on above: Order Comment: No: D o not add to previous draw Performed By: #### 3 6901, 20517, 11064, 13744, 59056, 95195, 10362, 39252 #### [facility] [address] [facility] [address], [facility] Basophils/100 WBC (Bld) 0.0 % Normal 0.0-1.0 [facility] Comment on above: Order Comment: No: D o not add to previous draw Performed By: #### 3 6901, 03936, 23513, 65562, 88521, 44269, 43068, 90534 #### [facility] [address] [facility] [place] [address], [facility] Eosinophils (Bld) [#/Vol] 0.0 10*3/uL Normal 0.0-0.5 [facility] Comment on above: Order Comment: No: D o not add to previous draw Performed By: #### 3 6901, 89735, 83396, 89072, 67936, 46189, 09605, 16353 #### [facility] [address] [place] [address], [facility] Eosinophils/100 WBC (Bld) 0.0 % Normal 0.0-6.0 [facility] Comment on above: Order Comment: No: D o not add to previous draw Performed By: #### 3 6901, 92015, 30830, 99916, 12168, 74987, 45582, 17243 #### [facility] [address] Erythrocyte distribution width (RBC) [Ratio] 13.7 % Normal 11.5-15.0 [facility] Comment on above: Order Comment: No: D o not add to previous draw Performed By: #### 3 6901, 45539, 99162, 68729, 92154, 21680, 73343, 40608 #### [facility] [address] [place] [address], [facility] GIANT PLATELETS Present Normal [facility] Comment on above: Order Comment: No: D o not add to previous draw Performed By: #### 3 6901, 40554, 35752, 52479, 42473, 90924, 26856, 95383 #### [facility] [address] [place] [address], [facility] Hematocrit (Bld) [Volume fraction] 37.8 % Normal 36.0-45.0 [facility] Comment on above: Order Comment: No: D o not add to previous draw Performed By: #### 3 6901, 28428, 55612, 15573, 98158, 67679, 41533, 73442 #### [facility] [address] [place] [address], [facility] Hemoglobin (Bld) [Mass/Vol] 12.2 g/dL Normal 12.0-15.0 [facility] Comment on above: Order Comment: No: D o not add to previous draw Performed By: #### 3 6901, 96238, 65942, 90831, 64161, 67622, 18900, 62683 #### [facility] [address] [place] [address], [facility] Lymphocytes (Bld) [#/Vol] 0.4 10*3/uL Low 1.2-4.0 [facility] Comment on above: Order Comment: No: D o not add to previous draw Performed By: #### 3 6901, 63730, 96105, 58319, 51431, 66460, 17154, 60375 #### [facility] [address] [place] [address], [facility] Lymphocytes/100 WBC (Bld) 1.8 % Low 20.0-45.0 [facility] Comment on above: Order Comment: No: D o not add to previous draw Performed By: #### 3 6901, 28057, 83391, 19007, 88795, 24107, 76927, 54746 #### [facility] [address] [facility] [place] [place] [id number], [facility] MCH (RBC) [Entitic mass] 27.4 pg Normal 27.0-33.0 [facility] Comment on above: Order Comment: No: D o not add to previous draw Performed By: #### 3 6901, 44112, 11915, 17734, 52292, 49666, 01010, 52280 #### [facility] [address] [place] [address], [facility] MCHC (RBC) [Mass/Vol] 32.3 g/dL Normal 32.0-35.0 [facility] Comment on above: Order Comment: No: D o not add to previous draw Performed By: #### 3 6901, 04737, 93443, 97222, 61064, 89920, 03741, 35248 #### [facility] [address] [place] [address], [facility] MCV (RBC) [Entitic vol] 84.9 fL Normal 82.0-98.0 [facility] Comment on above: Order Comment: No: D o not add to previous draw Performed By: #### 3 6901, 93147, 96227, 41064, 58618, 59783, 15842, 62233 #### [facility] [address] [place] [address], [facility] Monocytes (Bld) [#/Vol] 0.9 10*3/uL Normal 0.1-1.0 [facility] Comment on above: Order Comment: No: D o not add to previous draw Performed By: #### 3 6901, 16530, 40555, 19584, 41524, 49360, 30317, 69017 #### [facility] [address] [place] [address], [facility] MONOS 4.6 % Low 5.0-12.0 [facility] Comment on above: Order Comment: No: D o not add to previous draw Performed By: #### 3 6901, 40105, 13093, 90099, 92786, 02036, 38387, 44590 #### [facility] [address] [place] [address], [facility] MYELOS 1.8 % High .0-.0 [facility] Comment on above: Order Comment: No: D o not add to previous draw Performed By: #### 3 6901, 72413, 60708, 36453, 80873, 71069, 37581, 43751 #### [facility] [address] [place] [address], [facility] Neutrophils/100 WBC (Bld) 91.8 % High 40.0-72.0 [facility] Comment on above: Order Comment: No: D o not add to previous draw Performed By: #### 3 6901, 14724, 62683, 11397, 86295, 86088, 33740, 28395 #### [facility] [address] [place] [address], [facility] Nucleated RBC/100 WBC (Bld) [Ratio] 0 % Normal 0-0 [facility] Comment on above: Order Comment: No: D o not add to previous draw Performed By: #### 3 6901, 73560, 51668, 59139, 93049, 69316, 02530, 26697 #### [facility] [address] [facility] [place] [address], [facility] PLAT CNT 199 10*3/uL Normal 150-400 [facility] Comment on above: Order Comment: No: D o not add to previous draw Performed By: #### 3 6901, 08917, 20537, 02159, 67622, 59510, 95609, 78125 #### [facility] [address] [place] [address], [facility] RBC (Bld) [#/Vol] 4.45 10*6/uL Normal 3.80-5.00 [facility] Comment on above: Order Comment: No: D o not add to previous draw Performed By: #### 3 6901, 07611, 19525, 12095, 35267, 80675, 75997, 17837 #### [facility] [address] [place] [address], [facility] WBC (Bld) [#/Vol] 20.14 10*3/uL High 4.00-10.60 [facility] Comment on above: Order Comment: No: D o not add to previous draw Performed By: #### 3 6901, 30742, 04668, 51594, 38035, 90664, 68804, 88681 #### [facility] [address] COMP METABOLIC PANELon 09-21 Albumin [Mass/Vol] 3.3 g/dL Low 3.5-5.7 [facility] Comment on above: Order Comment: No: D o not add to previous draw Performed By: #### 3 6901, 39620, 56930, 54224, 68164, 15977, 59376, 37624 #### [facility] [address] [place] [address], [facility] ALKALINE PHOSPH 56 IU/L Normal 34-104 [facility] Comment on above: Order Comment: No: D o not add to previous draw Performed By: #### 3 6901, 90270, 63874, 25924, 82467, 91984, 92853, 39528 #### [facility] [address] [place] [address], [facility] ALT [Catalytic activity/Vol] 38 U/L Normal 7-52 [facility] Comment on above: Order Comment: No: D o not add to previous draw Performed By: #### 3 6901, 62994, 83003, 71623, 57007, 43878, 41013, 91820 #### [facility] [address] [place] [address], [place] AST [Catalytic activity/Vol] 17 U/L Normal 13-39 [facility] Comment on above: Order Comment: No: D o not add to previous draw Performed By: #### 3 6901, 85476, 32802, 70389, 21446, 96201, 83717, 92993 #### [facility] [address] [place] [address], [place] Bilirubin [Mass/Vol] 0.5 mg/dL Normal 0.3-1.0 [facility] Comment on above: Order Comment: No: D o not add to previous draw Performed By: #### 3 6901, 92313, 51007, 91019, 34411, 25899, 32329, 41239 #### [facility] [address] [place] [address], [place] Calcium [Mass/Vol] 8.6 mg/dL Normal 8.6-10.3 [facility] Comment on above: Order Comment: No: D o not add to previous draw Performed By: #### 3 6901, 62090, 91885, 44921, 62847, 51690, 49168, 43760 #### [facility] [address] [place] [address], [place] Chloride [Moles/Vol] 102 mmol/L Normal 98-107 [facility] Comment on above: Order Comment: No: D o not add to previous draw Performed By: #### 3 6901, 70940, 93930, 61712, 01253, 72060, 39404, 97634 #### [facility] [address] [place] [address], [place] CO2 [Moles/Vol] 31 mmol/L Normal 21-31 [facility] Comment on above: Order Comment: No: D o not add to previous draw Performed By: #### 3 6901, 44920, 01518, 66359, 35144, 84958, 47531, 08214 #### [facility] [address] [place] [address], [place] Creatinine [Mass/Vol] 0.38 mg/dL Low 0.60-1.20 [facility] Comment on above: Order Comment: No: D o not add to previous draw Performed By: #### 3 6901, 94182, 41386, 54023, 64007, 42530, 63925, 28424 #### [facility] [address] [place] [address], [place] GFR/1.73 sq M predicted among blacks MDRD (S/P/Bld) [Vol rate/Area] mL/min/{1.73_m2} Normal >60 [facility] Comment on above: Order Comment: No: D o not add to previous draw Performed By: #### 3 6901, 65669, 77597, 28688, 66220, 66201, 25447, 37971 #### [facility] [address] [place] [address], [place] GFR/1.73 sq M predicted among non-blacks MDRD (S/P/Bld) [Vol rate/Area] mL/min/{1.73_m2} Normal >60 [facility] Comment on above: Order Comment: No: D o not add to previous draw Performed By: #### 3 6901, 04978, 28925, 83280, 43828, 30155, 84623, 64994 #### [facility] [address] [place] [address], [place] Glucose [Mass/Vol] 126 mg/dL High 70-100 [facility] Comment on above: Order Comment: No: D o not add to previous draw Performed By: #### 3 6901, 50647, 18131, 93501, 78150, 59547, 41217, 29029 #### [facility] [address] [place] [address], [place] Potassium [Moles/Vol] 3.9 mmol/L Normal 3.5-5.1 [facility] Comment on above: Order Comment: No: D o not add to previous draw Performed By: #### 3 6901, 09172, 27794, 53666, 66454, 41416, 71458, 07548 #### [facility] [address] [place] [address], [facility] Protein [Mass/Vol] 5.7 g/dL Low 6.0-8.3 [facility] Comment on above: Order Comment: No: D o not add to previous draw Performed By: #### 3 6901, 28999, 58285, 40852, 22852, 00167, 58703, 02419 #### [facility] [address] [place] [address], [facility] Sodium [Moles/Vol] 136 mmol/L Normal 136-145 [facility] Comment on above: Order Comment: No: D o not add to previous draw Performed By: #### 3 6901, 87719, 71798, 48531, 22991, 31357, 83969, 41685 #### [facility] [address] [place] [address], [place] Urea nitrogen [Mass/Vol] 13 mg/dL Normal 7-25 [facility] Comment on above: Order Comment: No: D o not add to previous draw Performed By: #### 3 6901, 92904, 68716, 31504, 93726, 49827, 72487, 94831 #### [facility] [address] [place] [address], [place] MAGNESIUM BLOODon 09-21-2018 Magnesium [Mass/Vol] 2.1 mg/dL Normal 1.9-2.7 [facility] Comment on above: Order Comment: No: D o not add to previous draw Performed By: #### 3 6901, 21752, 30604, 67709, 25455, 60745, 46485, 34811 #### [facility] [address] [place] [address], [place] PHOSPHORUS BLOODon 9 Phosphate [Mass/Vol] 3.6 mg/dL Normal 2.5-5.0 [facility] Comment on above: Order Comment: No: D o not add to previous draw Performed By: #### 3 6901, 31663, 00535, 95899, 23340, 15948, 37613, 55030 #### [facility] [address] [place] [address], [facility] POC GLUCOSE LABon 09-21-2018 Glucose [Mass/Vol] 193 mg/dL High 70-100 [facility] Comment on above: Performed By: #### 3 6901, 42653, 78525, 16745, 03122, 69833, 97844, 07351 #### [facility] [address] [place] [address], [facility] PORTABLE CHEST 1 VIEWon 08-27 PORTABLE CHEST 1 VIEW [facility] Department of Radiology [address] [place] [id number] Patient Name: KATALINA TAPIA : 1965 Sex: F Age: Race: White Pt. Location: [place] [address] Patient Status: I Ordered Date: 09/21/2018 6:00:00 AM Completed Date: 09/21/2018 08:37 AM Requesting Provider: BIENVENIDO LOZADA Attending Provider: FRANKLIN CEE Report Copy To: Signs & Symptoms: Acute Respiratory Distress History: Patient history not available Comments: R/O Atelectasis Exam: PORTABLE CHEST 1 VIEW PORTABLE CHEST 1 VIEW 09/21/2018 8:37 AM EDT SIGNS AND SYMPTOMS: Acute Respiratory Distress TECHNOLOGIST COMMENTS: shortness of breath QUESTION FOR THE RADIOLOGIST: R/O Atelectasis PROTOCOL: AP(PA) view was obtained. COMPARISON: 09/20/2018. FINDINGS: Right-sided PICC line, unchanged. Trachea is midline. Cardiomegaly as before. Mild perihilar vascular congestion with interstitial pulmonary edema is again seen. Right lower lobe airspace opacity demonstrates improvement. No pleural effusion. No pneumothorax. IMPRESSION: 1. Cardiomegaly with interstitial edema, no significant change and compatible with decompensated CHF. 2. Near-complete resolution of the right lower lobe airspace opacity. Approved by:Bela Limon on 09/21/2018 12:12 PM EDT. I, Duke Holm, have reviewed the images and report and concur with these findings. Electronically signed by:Duke Holm. Transcribed by: [email or web address], User Resident: BELA LIMON Electronically Signed by: DUKE HOLM @ 09/22/2018 07:34 PM I personally read this/these film(s) with this resident Normal [facility] Comment on above: Order Comment: No: D o not add to previous draw AMMONIA BLOODon 09-20-2018 Ammonia (P) [Mass/Vol] 50 umol/L Normal 16-53 [facility] Comment on above: Order Comment: No: D o not add to previous draw Performed By: #### 3 6901, 27762, 46365, 66178, 44858, 92539, 75503, 20039 #### [facility] [address] BASIC METABOLIC PANELon 08-27 Calcium [Mass/Vol] 8.3 mg/dL Low 8.6-10.3 [facility] Comment on above: Order Comment: No: D o not add to previous draw Performed By: #### 3 6901, 97348, 30336, 48828, 74489, 23320, 76601, 85259 #### [facility] [address] [place] [address], [facility] Chloride [Moles/Vol] 104 mmol/L Normal 98-107 [facility] Comment on above: Order Comment: No: D o not add to previous draw Performed By: #### 3 6901, 27827, 34202, 41418, 33404, 10847, 59237, 75166 #### [facility] [address] [place] [address], [facility] CO2 [Moles/Vol] 27 mmol/L Normal 21-31 [facility] Comment on above: Order Comment: No: D o not add to previous draw Performed By: #### 3 6901, 57148, 60359, 93554, 59211, 29517, 63213, 92749 #### [facility] [address] [place] [address], [facility] Creatinine [Mass/Vol] 0.39 mg/dL Low 0.60-1.20 [facility] Comment on above: Order Comment: No: D o not add to previous draw Performed By: #### 3 6901, 04711, 75061, 81575, 65677, 47740, 46185, 19875 #### [facility] [address] [place] [address], [facility] GFR/1.73 sq M predicted among blacks MDRD (S/P/Bld) [Vol rate/Area] mL/min/{1.73_m2} Normal >60 [facility] Comment on above: Order Comment: No: D o not add to previous draw Performed By: #### 3 6901, 34684, 17864, 12850, 33470, 02156, 78106, 16997 #### [facility] [address] [place] [address], [facility] GFR/1.73 sq M predicted among non-blacks MDRD (S/P/Bld) [Vol rate/Area] mL/min/{1.73_m2} Normal >60 [facility] Comment on above: Order Comment: No: D o not add to previous draw Performed By: #### 3 6901, 11323, 25867, 00332, 81182, 25914, 78988, 40363 #### [facility] [address] [place] [address], [facility] Glucose [Mass/Vol] 80 mg/dL Normal 70-100 [facility] Comment on above: Order Comment: No: D o not add to previous draw Performed By: #### 3 6901, 64381, 02403, 55252, 41718, 85384, 39899, 23089 #### [facility] [address] [place] [address], [facility] Potassium [Moles/Vol] 3.5 mmol/L Normal 3.5-5.1 [facility] Comment on above: Order Comment: No: D o not add to previous draw Performed By: #### 3 6901, 21704, 09497, 96526, 29873, 45333, 68194, 61741 #### [facility] [address] [place] [address], [facility] Sodium [Moles/Vol] 137 mmol/L Normal 136-145 [facility] Comment on above: Order Comment: No: D o not add to previous draw Performed By: #### 3 6901, 56876, 23506, 11566, 75502, 66340, 35737, 85777 #### [facility] [address] [place] [address], [facility] Urea nitrogen [Mass/Vol] 15 mg/dL Normal 7-25 [facility] Comment on above: Order Comment: No: D o not add to previous draw Performed By: #### 3 6901, 63437, 04120, 23029, 40365, 14846, 08849, 64663 #### [facility] [address] [place] [address], [facility] CBC W/DIFFon 09-20-2018 ABS BASOPHILS 0.0 10*3/uL Normal 0.0-0.2 [facility] Comment on above: Order Comment: No: D o not add to previous draw Performed By: #### 3 6901, 11423, 43786, 76965, 75847, 43756, 45312, 08713 #### [facility] [address] [place] [address], [facility] ABS NEUTROPHILS 16.2 10*3/uL High 1.6-7.6 [facility] Comment on above: Order Comment: No: D o not add to previous draw Performed By: #### 3 6901, 38359, 81353, 40054, 51476, 63612, 16960, 42383 #### [facility] [address] [place] [address], [facility] Basophils/100 WBC (Bld) 0.0 % Normal 0.0-1.0 [facility] Comment on above: Order Comment: No: D o not add to previous draw Performed By: #### 3 6901, 84501, 09629, 15239, 13438, 71183, 51095, 87685 #### [facility] [address] [place] [address], [facility] Eosinophils (Bld) [#/Vol] 0.0 10*3/uL Normal 0.0-0.5 [facility] Comment on above: Order Comment: No: D o not add to previous draw Performed By: #### 3 6901, 79920, 40106, 14484, 86087, 76935, 56392, 94813 #### [facility] [address] [place] [address], [facility] Eosinophils/100 WBC (Bld) 0.0 % Normal 0.0-6.0 [facility] Comment on above: Order Comment: No: D o not add to previous draw Performed By: #### 3 6901, 40661, 95837, 53849, 16298, 29140, 39280, 54628 #### [facility] [address] [place] [address], [facility] Erythrocyte distribution width (RBC) [Ratio] 13.8 % Normal 11.5-15.0 [facility] Comment on above: Order Comment: No: D o not add to previous draw Performed By: #### 3 6901, 19358, 89684, 93932, 96375, 92944, 47869, 88496 #### [facility] [address] [place] [address], [facility] GIANT PLATELETS Present Normal [facility] Comment on above: Order Comment: No: D o not add to previous draw Performed By: #### 3 6901, 36745, 38741, 46066, 31866, 75137, 50503, 20522 #### [facility] [address] [place] [address], [facility] Hematocrit (Bld) [Volume fraction] 36.9 % Normal 36.0-45.0 [facility] Comment on above: Order Comment: No: D o not add to previous draw Performed By: #### 3 6901, 60603, 75591, 26619, 86431, 03558, 01007, 36590 #### [facility] [address] [place] [address], [facility] Hemoglobin (Bld) [Mass/Vol] 11.9 g/dL Low 12.0-15.0 [facility] Comment on above: Order Comment: No: D o not add to previous draw Performed By: #### 3 6901, 38940, 69125, 54111, 43049, 11200, 42708, 50943 #### [facility] [address] [place] [address], [facility] Lymphocytes (Bld) [#/Vol] 1.8 10*3/uL Normal 1.2-4.0 [facility] Comment on above: Order Comment: No: D o not add to previous draw Performed By: #### 3 6901, 15279, 24463, 52452, 15201, 10268, 73646, 83730 #### [facility] [address] [place] [address], [place] Lymphocytes/100 WBC (Bld) 9.1 % Low 20.0-45.0 [facility] Comment on above: Order Comment: No: D o not add to previous draw Performed By: #### 3 6901, 58681, 47867, 06671, 48720, 67708, 82084, 52734 #### [facility] [address] [place] [address], [facility] MCH (RBC) [Entitic mass] 27.7 pg Normal 27.0-33.0 [facility] Comment on above: Order Comment: No: D o not add to previous draw Performed By: #### 3 6901, 27692, 91961, 93292, 66279, 24402, 70213, 63353 #### [facility] [address] [place] [address], [facility] MCHC (RBC) [Mass/Vol] 32.2 g/dL Normal 32.0-35.0 [facility] Comment on above: Order Comment: No: D o not add to previous draw Performed By: #### 3 6901, 48435, 10441, 88318, 11295, 92402, 96894, 66869 #### [facility] [address] [place] [address], [facility] MCV (RBC) [Entitic vol] 85.8 fL Normal 82.0-98.0 [facility] Comment on above: Order Comment: No: D o not add to previous draw Performed By: #### 3 6901, 26560, 38339, 84888, 93203, 89760, 73709, 99368 #### [facility] [address] [place] [address], [facility] METAMYELO 1.8 % High 0.0-0.0 [facility] Comment on above: Order Comment: No: D o not add to previous draw Performed By: #### 3 6901, 67969, 05702, 15764, 99283, 69008, 65649, 78156 #### [facility] [address] [place] [id number], [facility] Monocytes (Bld) [#/Vol] 0.7 10*3/uL Normal 0.1-1.0 [facility] Comment on above: Order Comment: No: D o not add to previous draw Performed By: #### 3 6901, 59815, 11213, 94338, 26023, 63541, 33208, 83505 #### [facility] [address] [place] [address], [facility] MONOS 3.6 % Low 5.0-12.0 [facility] Comment on above: Order Comment: No: D o not add to previous draw Performed By: #### 3 6901, 40363, 01187, 07244, 14017, 35611, 86433, 66553 #### [facility] [address] [place] [address], [facility] MYELOS 1.8 % High .0-.0 [facility] Comment on above: Order Comment: No: D o not add to previous draw Performed By: #### 3 6901, 41857, 12877, 23810, 51952, 76673, 11366, 63171 #### [facility] [address] [place] [address], [facility] Neutrophils/100 WBC (Bld) 83.7 % High 40.0-72.0 [facility] Comment on above: Order Comment: No: D o not add to previous draw Performed By: #### 3 6901, 72684, 14644, 59554, 40825, 30299, 34038, 36995 #### [facility] [address] [place] [address], [facility] Nucleated RBC/100 WBC (Bld) [Ratio] 0 % Normal 0-0 [facility] Comment on above: Order Comment: No: D o not add to previous draw Performed By: #### 3 6901, 47804, 72475, 72862, 15682, 68268, 15057, 26339 #### [facility] [address] [place] [address], [facility] PLAT CNT 198 10*3/uL Normal 150-400 [facility] Comment on above: Order Comment: No: D o not add to previous draw Performed By: #### 3 6901, 64403, 54322, 49683, 10749, 09473, 08725, 73891 #### [facility] [address] [place] [address], [facility] RBC (Bld) [#/Vol] 4.30 10*6/uL Normal 3.80-5.00 [facility] Comment on above: Order Comment: No: D o not add to previous draw Performed By: #### 3 6901, 70728, 53777, 22097, 77513, 67045, 09734, 65641 #### [facility] [address] [place] [address], [facility] WBC (Bld) [#/Vol] 19.41 10*3/uL High 4.00-10.60 [facility] Comment on above: Order Comment: No: D o not add to previous draw Performed By: #### 3 6901, 72222, 94991, 11428, 68979, 81586, 26404, 86178 #### [facility] [address] [place] [address], [facility] MAGNESIUM BLOODon 09-20-2018 Magnesium [Mass/Vol] 2.0 mg/dL Normal 1.9-2.7 [facility] Comment on above: Order Comment: No: D o not add to previous draw Performed By: #### 3 6901, 65896, 87790, 65920, 46910, 39246, 07442, 09512 #### [facility] [address] [place] [address], [facility] PHOSPHORUS BLOODon 9 Phosphate [Mass/Vol] 2.6 mg/dL Normal 2.5-5.0 [facility] Comment on above: Order Comment: No: D o not add to previous draw Performed By: #### 3 6901, 23692, 22953, 11895, 74447, 86102, 14060, 98599 #### [facility] [address] [address], [facility] PORTABLE CHEST 1 VIEWon 08-27 PORTABLE CHEST 1 VIEW [facility] Department of Radiology [address] [place] [id number] Patient Name: KATALINA TAPIA : 1965 Sex: F Age: Race: White Pt. Location: [place] [address] Patient Status: I Ordered Date: 09/20/2018 6:00:00 AM Completed Date: 09/20/2018 07:54 AM Requesting Provider: BIENVENIDO LOZADA Attending Provider: FRANKLIN CEE Report Copy To: Signs & Symptoms: Acute Respiratory Distress History: Patient history not available Comments: R/O Aspiration Exam: PORTABLE CHEST 1 VIEW PORTABLE CHEST 1 VIEW 09/20/2018 7:54 AM EDT SIGNS AND SYMPTOMS: Acute Respiratory Distress TECHNOLOGIST COMMENTS: short of breath QUESTION FOR THE RADIOLOGIST: R/O Aspiration PROTOCOL: AP(PA) view was obtained. COMPARISON: Chest x-ray September 18, 2018. FINDINGS: Cardiac silhouette mildly enlarged. Perihilar vascular congestion with interstitial pulmonary edema. Right-sided PICC line in place. Improving patchy airspace consolidations bilaterally. No pleural effusion or pneumothorax. IMPRESSION: 1. Mild improvement of multifocal patchy airspace consolidations. 2. Mild cardiomegaly with pulmonary vascular congestion. Approved by:Dilma Acharya on 09/20/2018 7:59 AM EDT. IDuke, have reviewed the images and report and concur with these findings. Electronically signed by:Duke Holm. Transcribed by: [email or web address], User Resident: DILMA ACHARYA Electronically Signed by: DUKE HOLM @ 09/20/2018 12:42 PM I personally read this/these film(s) with this resident Normal [facility] Comment on above: Order Comment: No: D o not add to previous draw ARTERIAL BLOOD GAS WITH ICAo n 09-19-2018 BASE EXCESS 6 mmol/L High -2-3 [facility] Comment on above: Performed By: #### 3 6901, 93474, 55037, 49346, 10047, 34193, 73096, 22572 #### [facility] [address] [place] [address], [facility] [employer] MV Normal [facility] Comment on above: Performed By: #### 3 6901, 42765, 42591, 61927, 54349, 71037, 85115, 26531 #### [facility] [address] [place] [address], [place] FIO2 40 % Normal [facility] Comment on above: Performed By: #### 3 6901, 37919, 07297, 33677, 27736, 09796, 07624, 92568 #### [facility] [address] [place] [address], [place] HCO3 (Bld) [Moles/Vol] 31 mmol/L Critically high 21-28 [facility] Comment on above: Performed By: #### 3 6901, 20634, 44713, 40327, 55304, 97122, 72621, 21629 #### [facility] [address] [place] [address], [place] IONIZED CALCIUM 1.14 mmol/L Normal 1.13-1.32 [facility] Comment on above: Performed By: #### 3 6901, 47409, 29470, 56950, 07590, 08168, 63473, 81456 #### [facility] [address] [place] [address], [place] MIN VOLUME 9.5 Normal [facility] Comment on above: Performed By: #### 3 6901, 49454, 67058, 44805, 14744, 95151, 07601, 88565 #### [facility] [address] [place] [address], [place] MODALITY AC Normal [facility] Comment on above: Performed By: #### 3 6901, 90608, 59677, 37345, 47696, 36430, 96419, 72302 #### [facility] [address] [place] [address], [place] Oxygen (Bld) [Partial pressure] 142 mm[Hg] Critically high 83-108 [facility] Comment on above: Performed By: #### 3 6901, 44748, 66219, 49828, 84627, 80442, 79884, 03570 #### [facility] [address] [place] [address], [place] Oxygen saturation in Blood 96.0 % Normal 94.0-97.0 [facility] Comment on above: Performed By: #### 3 6901, 54915, 89398, 03354, 23584, 17385, 40868, 27246 #### [facility] [address] [place] [address], [place] PCO2 46 mmHg High 35-45 [facility] Comment on above: Performed By: #### 3 6901, 93731, 45696, 36383, 67415, 99398, 09777, 18677 #### [facility] [address] [place] [address], [place] PEEP 8.0 CMH20 Normal [facility] Comment on above: Performed By: #### 3 6901, 23842, 77072, 65498, 97063, 45911, 45693, 80741 #### [facility] [address] [place] [address], [place] pH (Bld) 7.44 [pH] Normal 7.35-7.45 [facility] Comment on above: Result Comment: LUCIO LUONG NOTE: Effective 06/30/18, reference ranges for Respiratory GEM analyzers running arterial blood have been updated to reflect the redevelopment manager's published reference ranges. Performed By: #### 3 6901, 42760, 36790, 17145, 51707, 04267, 87005, 65178 #### [facility] [address] [place] [address], [place] TIDAL VOLUME (VT) CC 500 cc Normal [facility] Comment on above: Performed By: #### 3 6901, 15529, 59611, 29108, 35594, 99232, 11818, 83641 #### [facility] [address] [place] [address], [place] BASIC METABOLIC PANELon 05-2 Calcium [Mass/Vol] 8.2 mg/dL Low 8.6-10.3 [facility] Comment on above: Order Comment: No: D o not add to previous draw Performed By: #### 3 6901, 39353, 87773, 39162, 24435, 88057, 58285, 62365 #### [facility] [address] [place] [address], [place] Chloride [Moles/Vol] 105 mmol/L Normal 98-107 [facility] Comment on above: Order Comment: No: D o not add to previous draw Performed By: #### 3 6901, 46434, 51072, 05136, 31999, 43307, 60812, 54592 #### [facility] [address] [place] [address], [place] CO2 [Moles/Vol] 28 mmol/L Normal 21-31 [facility] Comment on above: Order Comment: No: D o not add to previous draw Performed By: #### 3 6901, 32108, 51790, 91081, 47129, 24468, 92938, 19489 #### [facility] [address] [place] [address], [place] Creatinine [Mass/Vol] 0.44 mg/dL Low 0.60-1.20 [facility] Comment on above: Order Comment: No: D o not add to previous draw Performed By: #### 3 6901, 31002, 42625, 63890, 74428, 08524, 59980, 07267 #### [facility] [address] [place] [address], [facility] GFR/1.73 sq M predicted among blacks MDRD (S/P/Bld) [Vol rate/Area] mL/min/{1.73_m2} Normal >60 [facility] Comment on above: Order Comment: No: D o not add to previous draw Performed By: #### 3 6901, 40576, 32993, 16349, 62750, 20199, 31807, 40844 #### [facility] [address] [place] [address], [facility] GFR/1.73 sq M predicted among non-blacks MDRD (S/P/Bld) [Vol rate/Area] mL/min/{1.73_m2} Normal >60 [facility] Comment on above: Order Comment: No: D o not add to previous draw Performed By: #### 3 6901, 15167, 56338, 57723, 27206, 31168, 42158, 91408 #### [facility] [address] [place] [address], [facility] Glucose [Mass/Vol] 137 mg/dL High 70-100 [facility] Comment on above: Order Comment: No: D o not add to previous draw Performed By: #### 3 6901, 34626, 02271, 91475, 94308, 84434, 56340, 96176 #### [facility] [address] [place] [address], [place] Potassium [Moles/Vol] 4.0 mmol/L Normal 3.5-5.1 [facility] Comment on above: Order Comment: No: D o not add to previous draw Performed By: #### 3 6901, 18567, 87531, 03493, 05875, 72579, 81668, 11120 #### [facility] [address] Sodium [Moles/Vol] 141 mmol/L Normal 136-145 [facility] Comment on above: Order Comment: No: D o not add to previous draw Performed By: #### 3 6901, 12640, 32832, 95054, 23823, 42038, 03909, 25355 #### [facility] [address] Urea nitrogen [Mass/Vol] 19 mg/dL Normal 7-25 [facility] Comment on above: Order Comment: No: D o not add to previous draw Performed By: #### 3 6901, 14949, 05251, 42765, 12515, 73429, 07558, 43535 #### [facility] [address] [facility]. [address] CBC W/DIFFon 09-19-2018 ABS BASOPHILS 0.0 10*3/uL Normal 0.0-0.2 [facility] Comment on above: Order Comment: No: D o not add to previous draw Performed By: #### 3 6901, 52965, 01848, 73159, 08491, 36988, 64934, 90183 #### [facility] [address] ABS NEUTROPHILS 12.0 10*3/uL High 1.6-7.6 [facility] Comment on above: Order Comment: No: D o not add to previous draw Performed By: #### 3 6901, 43614, 30821, 61905, 42352, 46742, 42941, 68372 #### [facility] [address] Basophils/100 WBC (Bld) 0.0 % Normal 0.0-1.0 [facility] Comment on above: Order Comment: No: D o not add to previous draw Performed By: #### 3 6901, 92268, 02731, 72214, 47276, 16132, 94577, 60060 #### [facility] [address] [place] [address], [facility] Eosinophils (Bld) [#/Vol] 0.1 10*3/uL Normal 0.0-0.5 [facility] Comment on above: Order Comment: No: D o not add to previous draw Performed By: #### 3 6901, 75581, 08693, 14769, 48527, 93603, 99088, 64393 #### [facility] [address] [place] [address], [facility] Eosinophils/100 WBC (Bld) 0.9 % Normal 0.0-6.0 [facility] Comment on above: Order Comment: No: D o not add to previous draw Performed By: #### 3 6901, 68374, 99951, 97896, 34490, 65763, 17939, 61048 #### [facility] [address] [facility] Erythrocyte distribution width (RBC) [Ratio] 14.0 % Normal 11.5-15.0 [facility] Comment on above: Order Comment: No: D o not add to previous draw Performed By: #### 3 6901, 43138, 72324, 95515, 92103, 43802, 82733, 51592 #### [facility] [address] [place] [address], [facility] GIANT PLATELETS Present Normal [facility] Comment on above: Order Comment: No: D o not add to previous draw Performed By: #### 3 6901, 55225, 86705, 13295, 08106, 96646, 72343, 93436 #### [facility] [address] [place] [id number], [facility] Hematocrit (Bld) [Volume fraction] 38.6 % Normal 36.0-45.0 [facility] Comment on above: Order Comment: No: D o not add to previous draw Performed By: #### 3 6901, 15165, 31550, 91984, 86922, 08103, 37621, 32566 #### [facility] [address] [place] [id number], [facility] Hemoglobin (Bld) [Mass/Vol] 11.9 g/dL Low 12.0-15.0 [facility] Comment on above: Order Comment: No: D o not add to previous draw Performed By: #### 3 6901, 64043, 26089, 96722, 74112, 81461, 76618, 81700 #### [facility] [address] [place] [address], [facility] Lymphocytes (Bld) [#/Vol] 0.5 10*3/uL Low 1.2-4.0 [facility] Comment on above: Order Comment: No: D o not add to previous draw Performed By: #### 3 6901, 49502, 81285, 84075, 87782, 31571, 67411, 03200 #### [facility] [address] [place] [id number], [facility] Lymphocytes/100 WBC (Bld) 3.7 % Low 20.0-45.0 [facility] Comment on above: Order Comment: No: D o not add to previous draw Performed By: #### 3 6901, 43826, 73165, 68612, 66330, 54819, 11654, 49256 #### [facility] [address] [place] [address], [facility] MCH (RBC) [Entitic mass] 27.5 pg Normal 27.0-33.0 [facility] Comment on above: Order Comment: No: D o not add to previous draw Performed By: #### 3 6901, 79850, 53062, 35067, 13352, 01181, 42914, 85618 #### [facility] [address] [place] [address], [facility] MCHC (RBC) [Mass/Vol] 30.8 g/dL Low 32.0-35.0 [facility] Comment on above: Order Comment: No: D o not add to previous draw Performed By: #### 3 6901, 94734, 31704, 18104, 01035, 34863, 76383, 88697 #### [facility] [address] [place] [address], [facility] MCV (RBC) [Entitic vol] 89.1 fL Normal 82.0-98.0 [facility] Comment on above: Order Comment: No: D o not add to previous draw Performed By: #### 3 6901, 29568, 37851, 71977, 17292, 24203, 68661, 50888 #### [facility] [address] [place] [address], [facility] METAMYELO 2.7 % High 0.0-0.0 [facility] Comment on above: Order Comment: No: D o not add to previous draw Performed By: #### 3 6901, 95352, 41512, 19798, 17231, 93846, 97209, 49213 #### [facility] [address] [place] [address], [facility] Monocytes (Bld) [#/Vol] 0.7 10*3/uL Normal 0.1-1.0 [facility] Comment on above: Order Comment: No: D o not add to previous draw Performed By: #### 3 6901, 24442, 88502, 59200, 11026, 00272, 87136, 60981 #### [facility] [address] [place] [address], [facility] MONOS 4.6 % Low 5.0-12.0 [facility] Comment on above: Order Comment: No: D o not add to previous draw Performed By: #### 3 6901, 93377, 04293, 25010, 84524, 57134, 93628, 60847 #### [facility] [address] [place] [address], [facility] MYELOS 3.7 % High .0-.0 [facility] Comment on above: Order Comment: No: D o not add to previous draw Performed By: #### 3 6901, 06893, 10993, 80712, 76600, 81253, 40153, 82975 #### [facility] [address] [place] [address], [facility] Neutrophils/100 WBC (Bld) 84.4 % High 40.0-72.0 [facility] Comment on above: Order Comment: No: D o not add to previous draw Performed By: #### 3 6901, 74315, 31127, 09207, 25425, 52760, 63783, 66358 #### [facility] [address] [place] [address], [facility] Nucleated RBC/100 WBC (Bld) [Ratio] 0 % Normal 0-0 [facility] Comment on above: Order Comment: No: D o not add to previous draw Performed By: #### 3 6901, 12352, 98952, 84792, 64037, 34031, 79643, 94150 #### [facility] [address] [place] [address], [place] PLAT CNT 223 10*3/uL Normal 150-400 [facility] Comment on above: Order Comment: No: D o not add to previous draw Performed By: #### 3 6901, 54436, 37875, 13784, 59894, 34178, 76090, 38027 #### [facility] [address] [place] [address], [facility] RBC (Bld) [#/Vol] 4.33 10*6/uL Normal 3.80-5.00 [facility] Comment on above: Order Comment: No: D o not add to previous draw Performed By: #### 3 6901, 35981, 76655, 66086, 47033, 24865, 51703, 43153 #### [facility] [address] [place] [address], [place] WBC (Bld) [#/Vol] 14.24 10*3/uL High 4.00-10.60 [facility] Comment on above: Order Comment: No: D o not add to previous draw Performed By: #### 3 6901, 91353, 31182, 46548, 00730, 61535, 01569, 50565 #### [facility] [address] [place], [place] [id number] [place] [address] HIV COMBO 4Gon 09-19-2018 HIV COMBO Negative Normal NEGATIVE [facility] Comment on above: Performed By: #### 3 6901, 69277, 01755, 80077, 33312, 79672, 06152, 48415 #### [facility] [address] [place] [address], [facility] MAGNESIUM BLOODon 09-19-2018 Magnesium [Mass/Vol] 2.2 mg/dL Normal 1.9-2.7 [facility] Comment on above: Order Comment: No: D o not add to previous draw Performed By: #### 3 6901, 24716, 09728, 17319, 26428, 69260, 48367, 52963 #### [facility] [address] [place] [address], [facility] PHOSPHORUS BLOODon 9 Phosphate [Mass/Vol] 3.9 mg/dL Normal 2.5-5.0 [facility] Comment on above: Order Comment: No: D o not add to previous draw Performed By: #### 3 6901, 93815, 92358, 10423, 34215, 61238, 31879, 28381 #### [facility] [address] [place], [place] [id number] [place] [address] *AFB CULTUREon 09-18-2018 *AFB CULTURE Clinical Report: (D) Specimen/Source: RESPIRATORY/BRONCHEA L ALVEOLAR LAVAGE Collected: 09/18/2018 13:35 Status: Final Last Updated: 11/02/2018 15:55 AFB (Final) No Acid Fast Bacilli Seen CULT RES (Final) No growth after 42 days of incubation Normal [facility] Comment on above: Performed By: #### 3 6901, 14184, 63495, 89807, 24663, 51190, 80550, 37538 #### [facility] [address] [facility] [address] *FUNGAL CULTUREon 09-18-2018 *FUNGAL CULTURE Clinical Report: (D) Specimen/Source: RESPIRATORY/BRONCHEA L ALVEOLAR LAVAGE Collected: 09/18/2018 13:35 Status: Final Last Updated: 10/19/2018 15:09 FS (Final) No Yeast or Fungal Elements Seen CULT RES (Final) Culture negative for fungus Normal [facility] Comment on above: Performed By: #### 3 6901, 07249, 58137, 97594, 36978, 25867, 66971, 43365 #### [facility] [address] [facility]. [address] *RESPIRATORY CULTUREon 09-18 *RESPIRATORY CULTURE Clinical Report: (D ) Specimen/Source: RESPIRATORY/BRONCHEA L ALVEOLAR LAVAGE Collected: 09/18/2018 13:35 Status: Final Last Updated: 09/23/2018 09:07 GRAM (Final) Polys Present No Bacteria Seen CYTOSPUN (Final) This Gram Stain was done on a cytocentrifuged specimen CULT RES (Final) No Growth Day 5 Normal [facility] Comment on above: Performed By: #### 3 6901, 16758, 42028, 91625, 96503, 36846, 38753, 68183 #### [facility] [address] [facility]. [address] AMMONIA BLOODon 09-18-2018 Ammonia (P) [Mass/Vol] 86 umol/L High 16-53 [facility] Comment on above: Order Comment: No: D o not add to previous draw Performed By: #### 3 6901, 28760, 56809, 83002, 54403, 21916, 62392, 34610 #### [facility] [address] [facility] [address] ARTERIAL BLOOD GAS WITH ICAo n 09-18-2018 BASE EXCESS 9 mmol/L High -2-3 [facility] Comment on above: Performed By: #### 3 6901, 76728, 63319, 86545, 27659, 19982, 85601, 41690 #### [facility] [address] DELIVERY SYSTEMS MV Normal [facility] Comment on above: Performed By: #### 3 6901, 47980, 87140, 96340, 44832, 76977, 32148, 32779 #### [facility] [address] [place] [address], [facility] FIO2 40 % Normal [facility] Comment on above: Performed By: #### 3 6901, 54408, 86442, 34504, 69092, 78155, 21066, 49062 #### [facility] [address] HCO3 (Bld) [Moles/Vol] 34 mmol/L Critically high 21-28 [facility] Comment on above: Performed By: #### 3 6901, 43290, 47465, 28867, 72800, 31081, 08509, 35941 #### [facility] [address] IONIZED CALCIUM 1.15 mmol/L Normal 1.13-1.32 [facility] Comment on above: Performed By: #### 3 6901, 38665, 16226, 09529, 69916, 45231, 09743, 46327 #### [facility] [address] [place] [address], [facility] MIN VOLUME 7.2 Normal [facility] Comment on above: Performed By: #### 3 6901, 81046, 43947, 30315, 45138, 67475, 13799, 86381 #### [facility] [address] [facility] [place] [address], [facility] MODALITY AC Normal [facility] Comment on above: Performed By: #### 3 6901, 37460, 30107, 45135, 58025, 35087, 94415, 57205 #### [facility] [address] [place] [address], [place] Oxygen (Bld) [Partial pressure] 116 mm[Hg] Critically high 83-108 [facility] Comment on above: Performed By: #### 3 6901, 23602, 60346, 17223, 44115, 03653, 65688, 83124 #### [facility] [address] [place] [address], [place] Oxygen saturation in Blood 95.5 % Normal 94.0-97.0 [facility] Comment on above: Performed By: #### 3 6901, 58649, 67277, 93220, 16487, 98737, 18661, 54371 #### [facility] [address] [place] [address], [place] PCO2 48 mmHg High 35-45 [facility] Comment on above: Performed By: #### 3 6901, 53786, 53890, 93085, 67546, 58221, 88583, 70115 #### [facility] [address] [place] [address], [place] PEEP 8.0 CMH20 Normal [facility] Comment on above: Performed By: #### 3 6901, 36162, 46356, 60039, 02964, 97020, 08747, 31179 #### [facility] [address] [place] [address], [place] pH (Bld) 7.46 [pH] High 7.35-7.45 [facility] Comment on above: Result Comment: LUCIO LUONG NOTE: Effective 06/30/18, reference ranges for Respiratory GEM analyzers running arterial blood have been updated to reflect the redevelopment manager's published reference ranges. Performed By: #### 3 6901, 88306, 99856, 28574, 76682, 66285, 10823, 42660 #### [facility] [address] [place] [address], [place] TIDAL VOLUME (VT) CC 500 cc Normal [facility] Comment on above: Performed By: #### 3 6901, 80572, 77398, 89417, 78836, 27773, 57593, 11455 #### [facility] [address] [facility] [place] [address], [facility] CBC W/DIFFon 09-18-2018 ABS BASOPHILS 0.0 10*3/uL Normal 0.0-0.2 [facility] Comment on above: Order Comment: No: D o not add to previous draw Performed By: #### 3 6901, 20324, 11115, 60560, 75270, 00763, 84251, 70737 #### [facility] [address] [place] [address], [facility] ABS NEUTROPHILS 9.5 10*3/uL High 1.6-7.6 [facility] Comment on above: Order Comment: No: D o not add to previous draw Performed By: #### 3 6901, 57414, 65488, 28431, 09308, 33335, 20108, 70025 #### [facility] [address] [place] [address], [facility] Basophils/100 WBC (Bld) 0.0 % Normal 0.0-1.0 [facility] Comment on above: Order Comment: No: D o not add to previous draw Performed By: #### 3 6901, 52328, 10294, 85353, 84959, 25460, 27842, 07065 #### [facility] [address] [facility] [place] [address], [facility] Eosinophils (Bld) [#/Vol] 0.1 10*3/uL Normal 0.0-0.5 [facility] Comment on above: Order Comment: No: D o not add to previous draw Performed By: #### 3 6901, 30924, 39900, 50250, 47985, 78864, 91728, 93950 #### [facility] [address] [place] [address], [facility] Eosinophils/100 WBC (Bld) 0.9 % Normal 0.0-6.0 [facility] Comment on above: Order Comment: No: D o not add to previous draw Performed By: #### 3 6901, 27030, 38493, 82895, 29788, 45031, 21054, 52622 #### [facility] [address] [place] [address], [facility] Erythrocyte distribution width (RBC) [Ratio] 14.3 % Normal 11.5-15.0 [facility] Comment on above: Order Comment: No: D o not add to previous draw Performed By: #### 3 6901, 46283, 34761, 13052, 38528, 59477, 82723, 91127 #### [facility] [address] [place] [address], [facility] GIANT PLATELETS Present Normal [facility] Comment on above: Order Comment: No: D o not add to previous draw Performed By: #### 3 6901, 79312, 00012, 57242, 72993, 67532, 98373, 23123 #### [facility] [address] [place] [address], [facility] Hematocrit (Bld) [Volume fraction] 38.5 % Normal 36.0-45.0 [facility] Comment on above: Order Comment: No: D o not add to previous draw Performed By: #### 3 6901, 35510, 30442, 24818, 40854, 59033, 21329, 79458 #### [facility] [address] [place] [address], [facility] Hemoglobin (Bld) [Mass/Vol] 11.9 g/dL Low 12.0-15.0 [facility] Comment on above: Order Comment: No: D o not add to previous draw Performed By: #### 3 6901, 34832, 39531, 02661, 21727, 41558, 93147, 78167 #### [facility] [address] [place] [address], [facility] Lymphocytes (Bld) [#/Vol] 1.8 10*3/uL Normal 1.2-4.0 [facility] Comment on above: Order Comment: No: D o not add to previous draw Performed By: #### 3 6901, 22610, 36840, 89552, 97661, 09981, 75623, 71058 #### [facility] [address] [place] [id number], [facility] Lymphocytes/100 WBC (Bld) 14.0 % Low 20.0-45.0 [facility] Comment on above: Order Comment: No: D o not add to previous draw Performed By: #### 3 6901, 52002, 15483, 73175, 24117, 77999, 05929, 27609 #### [facility] [address] [place] [address], [facility] MCH (RBC) [Entitic mass] 27.3 pg Normal 27.0-33.0 [facility] Comment on above: Order Comment: No: D o not add to previous draw Performed By: #### 3 6901, 14090, 03311, 76899, 65213, 81148, 52770, 98981 #### [facility] [address] [place] [id number], [facility] MCHC (RBC) [Mass/Vol] 30.9 g/dL Low 32.0-35.0 [facility] Comment on above: Order Comment: No: D o not add to previous draw Performed By: #### 3 6901, 60246, 87511, 36263, 30794, 61978, 28133, 74637 #### [facility] [address] [place] [address], [facility] MCV (RBC) [Entitic vol] 88.3 fL Normal 82.0-98.0 [facility] Comment on above: Order Comment: No: D o not add to previous draw Performed By: #### 3 6901, 42929, 13610, 99376, 00148, 46745, 80142, 26199 #### [facility] [address] [place] [address], [facility] METAMYELO 2.8 % High 0.0-0.0 [facility] Comment on above: Order Comment: No: D o not add to previous draw Performed By: #### 3 6901, 61229, 42799, 21202, 09720, 46139, 86434, 50247 #### [facility] [address] [place] [address], [facility] Monocytes (Bld) [#/Vol] 0.9 10*3/uL Normal 0.1-1.0 [facility] Comment on above: Order Comment: No: D o not add to previous draw Performed By: #### 3 6901, 72122, 05159, 07696, 87675, 23916, 08804, 77697 #### [facility] [address] [place] [address], [facility] MONOS 6.6 % Normal 5.0-12.0 [facility] Comment on above: Order Comment: No: D o not add to previous draw Performed By: #### 3 6901, 75446, 60393, 80995, 74921, 93451, 97694, 34101 #### [facility] [address] [facility] [place] [address], [facility] MYELOS 2.8 % High .0-.0 [facility] Comment on above: Order Comment: No: D o not add to previous draw Performed By: #### 3 6901, 01217, 82874, 72460, 37399, 15370, 31132, 00857 #### [facility] [address] [place] [address], [facility] Neutrophils/100 WBC (Bld) 72.9 % High 40.0-72.0 [facility] Comment on above: Order Comment: No: D o not add to previous draw Performed By: #### 3 6901, 95599, 85395, 24213, 65974, 57366, 64394, 71538 #### [facility] [address] [place] [address], [place] NRBC SCAN Present Normal [facility] Comment on above: Order Comment: No: D o not add to previous draw Performed By: #### 3 6901, 13500, 60566, 99585, 29396, 55488, 81397, 03260 #### [facility] [address] [place] [address], [facility] Nucleated RBC/100 WBC (Bld) [Ratio] 0 % Normal 0-0 [facility] Comment on above: Order Comment: No: D o not add to previous draw Performed By: #### 3 6901, 95494, 97377, 28075, 31795, 34342, 91702, 29841 #### [facility] [address] [place] [address], [facility] PLAT ESTIMATE Normal Normal [facility] Comment on above: Order Comment: No: D o not add to previous draw Result Comment: EDTA smear shows platelet clumping, see platelet estimate Performed By: #### 3 6901, 82909, 13990, 99378, 50655, 46581, 11694, 10457 #### [facility] [address] [place] [address], [facility] RBC (Bld) [#/Vol] 4.36 10*6/uL Normal 3.80-5.00 [facility] Comment on above: Order Comment: No: D o not add to previous draw Performed By: #### 3 6901, 39155, 03883, 71011, 62633, 22295, 47718, 18608 #### [facility] [address] [place] [address], [place] WBC (Bld) [#/Vol] 12.97 10*3/uL High 4.00-10.60 [facility] Comment on above: Order Comment: No: D o not add to previous draw Performed By: #### 3 6901, 35052, 26175, 98686, 40998, 23466, 00863, 86079 #### [facility] [address] [place] [address], [place] COMP METABOLIC PANELon 05-24 -2019 Albumin [Mass/Vol] 3.1 g/dL Low 3.5-5.7 [facility] Comment on above: Order Comment: No: D o not add to previous draw Performed By: #### 3 6901, 12454, 06281, 39692, 84892, 68303, 32755, 52825 #### [facility] [address] [place] [address], [facility] ALKALINE PHOSPH 49 IU/L Normal 34-104 [facility] Comment on above: Order Comment: No: D o not add to previous draw Performed By: #### 3 6901, 47533, 27354, 30070, 69110, 04244, 68968, 80256 #### [facility] [address] [place] [address], [facility] ALT [Catalytic activity/Vol] 33 U/L Normal 7-52 [facility] Comment on above: Order Comment: No: D o not add to previous draw Performed By: #### 3 6901, 57024, 41918, 45033, 47045, 10868, 40217, 85877 #### [facility] [address] [place] [address], [facility] AST [Catalytic activity/Vol] 17 U/L Normal 13-39 [facility] Comment on above: Order Comment: No: D o not add to previous draw Performed By: #### 3 6901, 52635, 69305, 08843, 06098, 39048, 59972, 15299 #### [facility] [address] [place] [address], [place] Bilirubin [Mass/Vol] 0.5 mg/dL Normal 0.3-1.0 [facility] Comment on above: Order Comment: No: D o not add to previous draw Performed By: #### 3 6901, 34342, 03222, 64155, 17103, 73263, 42779, 67231 #### [facility] [address] [place] [address], [place] Calcium [Mass/Vol] 8.1 mg/dL Low 8.6-10.3 [facility] Comment on above: Order Comment: No: D o not add to previous draw Performed By: #### 3 6901, 05198, 01511, 00371, 10729, 04996, 61759, 09217 #### [facility] [address] [place] [address], [place] Chloride [Moles/Vol] 108 mmol/L High 98-107 [facility] Comment on above: Order Comment: No: D o not add to previous draw Performed By: #### 3 6901, 32812, 48375, 65703, 17349, 50275, 90187, 32632 #### [facility] [address] [place] [address], [place] CO2 [Moles/Vol] 30 mmol/L Normal 21-31 [facility] Comment on above: Order Comment: No: D o not add to previous draw Performed By: #### 3 6901, 14237, 58319, 88611, 40465, 06726, 74552, 23759 #### [facility] [address] [place] [address], [place] Creatinine [Mass/Vol] 0.44 mg/dL Low 0.60-1.20 [facility] Comment on above: Order Comment: No: D o not add to previous draw Performed By: #### 3 6901, 76905, 45730, 05261, 66215, 51716, 09938, 96608 #### [facility] [address] [place] [address], [place] GFR/1.73 sq M predicted among blacks MDRD (S/P/Bld) [Vol rate/Area] mL/min/{1.73_m2} Normal >60 [facility] Comment on above: Order Comment: No: D o not add to previous draw Performed By: #### 3 6901, 87148, 21509, 92513, 82420, 08196, 34729, 77150 #### [facility] [address] [place] [address], [facility] GFR/1.73 sq M predicted among non-blacks MDRD (S/P/Bld) [Vol rate/Area] mL/min/{1.73_m2} Normal >60 [facility] Comment on above: Order Comment: No: D o not add to previous draw Performed By: #### 3 6901, 09658, 70770, 90809, 98430, 60086, 64905, 73039 #### [facility] [address] [place] [address], [place] Glucose [Mass/Vol] 136 mg/dL High 70-100 [facility] Comment on above: Order Comment: No: D o not add to previous draw Performed By: #### 3 6901, 17814, 79676, 26390, 18131, 24577, 39226, 25699 #### [facility] [address] [place] [address], [place] Potassium [Moles/Vol] 4.2 mmol/L Normal 3.5-5.1 [facility] Comment on above: Order Comment: No: D o not add to previous draw Performed By: #### 3 6901, 69506, 29673, 30459, 74682, 89085, 64395, 52192 #### [facility] [address] [place] [address], [place] Protein [Mass/Vol] 5.4 g/dL Low 6.0-8.3 [facility] Comment on above: Order Comment: No: D o not add to previous draw Performed By: #### 3 6901, 09447, 43209, 82300, 99304, 91563, 26851, 82304 #### [facility] [address] [place] [address], [place] Sodium [Moles/Vol] 144 mmol/L Normal 136-145 [facility] Comment on above: Order Comment: No: D o not add to previous draw Performed By: #### 3 6901, 71608, 41061, 68841, 99449, 47060, 61413, 60061 #### [facility] [address] [place] [address], [facility] Urea nitrogen [Mass/Vol] 19 mg/dL Normal 7-25 [facility] Comment on above: Order Comment: No: D o not add to previous draw Performed By: #### 3 6901, 50039, 32684, 24900, 58581, 83233, 66389, 28243 #### [facility] [address] [place] [address], [facility] FLUID CELL COUNTon 9 Eosinophils/100 WBC (Bld) 23 % Normal [facility] Comment on above: Order Comment: No: D o not add to previous draw Performed By: #### 3 6901, 80640, 67066, 08467, 59527, 45510, 28760, 58244 #### [facility] [address] [place] [address], [facility] Lymphocytes/100 WBC (Bld) 14 % Normal [facility] Comment on above: Order Comment: No: D o not add to previous draw Performed By: #### 3 6901, 74086, 49631, 48241, 39678, 82768, 83601, 47358 #### [facility] [address] [place] [address], [facility] MACROPHAGE 43 % Normal [facility] Comment on above: Order Comment: No: D o not add to previous draw Performed By: #### 3 6901, 54377, 35891, 34091, 73586, 82651, 50599, 12978 #### [facility] [address] [place] [address], [facility] OTHER F1 Diff done by cytospin Normal [facility] Comment on above: Order Comment: No: D o not add to previous draw Performed By: #### 3 6901, 94055, 60037, 61368, 87636, 81899, 21645, 10873 #### [facility] [address] OTHER F2 FINAL REPORT Normal [facility] Comment on above: Order Comment: No: D o not add to previous draw Result Comment: Resu lt changed by OCREEGER on 09/21/2018 13:59. The previous value was Preliminary report; verified report to follow. Performed By: #### 3 6901, 87815, 37954, 09868, 07716, 60819, 84193, 38332 #### [facility] [address] [place] [address], [facility] OTHER F3 Checked by Wilfrido Mary M.D. Normal [facility] Comment on above: Order Comment: No: D o not add to previous draw Performed By: #### 3 6901, 57577, 10490, 25781, 08275, 10387, 64340, 81769 #### [facility] [address] [place] [address], [facility] RBC (Bld) [#/Vol] 492 RBC/uL Normal [facility] Comment on above: Order Comment: No: D o not add to previous draw Performed By: #### 3 6901, 02914, 44043, 76478, 59071, 58744, 44453, 82035 #### [facility] [address] [place] [address], [facility] SEGS 20 % Normal [facility] Comment on above: Order Comment: No: D o not add to previous draw Performed By: #### 3 6901, 36311, 77365, 80845, 08279, 67507, 08371, 49128 #### [facility] [address] [place] [address], [facility] SOURCE BAL Normal [facility] Comment on above: Order Comment: No: D o not add to previous draw Performed By: #### 3 6901, 98835, 17700, 17045, 45777, 02647, 08657, 96525 #### [facility] [address] [place] [id number], [facility] TOTAL VOLUME 15 ml Normal [facility] Comment on above: Order Comment: No: D o not add to previous draw Performed By: #### 3 6901, 74343, 32010, 44974, 63978, 74874, 49642, 19308 #### [facility] [address] [facility] [address], [facility] WBC (Bld) [#/Vol] 697 WBC/uL Normal [facility] Comment on above: Order Comment: No: D o not add to previous draw Result Comment: Some reference interval(s) and other method performance specifications have not been established for analytes on this body fluid. The test result must be integrated into the clinical context for interpretation. Performed By: #### 3 6901, 21956, 49263, 66909, 35540, 84263, 34316, 36541 #### [facility] [address] [facility] [address], [facility] MAGNESIUM BLOODon 09-18-2018 Magnesium [Mass/Vol] 2.3 mg/dL Normal 1.9-2.7 [facility] Comment on above: Order Comment: No: D o not add to previous draw Performed By: #### 3 6901, 74615, 73996, 59218, 30793, 87741, 82034, 08988 #### [facility] [address] [facility] [address], [facility] PHOSPHORUS BLOODon 9 Phosphate [Mass/Vol] 3.7 mg/dL Normal 2.5-5.0 [facility] Comment on above: Order Comment: No: D o not add to previous draw Performed By: #### 3 6901, 98836, 36563, 53720, 50030, 12527, 99344, 03775 #### [facility] [address] [facility] [address], [facility] PORTABLE CHEST 1 VIEWon 08-27 PORTABLE CHEST 1 VIEW [facility] Department of Radiology [address] [place] [id number] Patient Name: KATALINA TAPIA : 1965 Sex: F Age: Race: White Pt. Location: [place] [address] Patient Status: I Ordered Date: 09/18/2018 6:00:00 AM Completed Date: 09/18/2018 06:48 AM Requesting Provider: BIENVENIDO LOZADA Attending Provider: FRANKLIN CEE Report Copy To: Signs & Symptoms: Acute Respiratory Distress History: Patient history not available Comments: R/O Atelectasis Exam: PORTABLE CHEST 1 VIEW PORTABLE CHEST 1 VIEW 09/18/2018 6:48 AM EDT SIGNS AND SYMPTOMS: Acute Respiratory Distress; respiratory distress per ordering physician; R/O Atelectasis PROTOCOL: AP(PA) view was obtained. COMPARISON: CT chest 09/16/2018 FINDINGS: ET tube with tip 3.5 cm from the safia. NG tube and right PICC unchanged in position. The cardiomediastinal silhouette is within normal limits. Bibasilar patchy airspace disease, especially in left lower lobe. This likely represents pneumonia and appears to be improving. No effusion or pneumothorax. No acute osseous abnormality appreciated. IMPRESSION: * Improving bibasilar patchy airspace disease, likely multifocal pneumonia. Approved by:Jesusita Lino on 09/18/2018 10:02 AM EDT. I, Francisco Javier Harding, have reviewed the images and report and concur with these findings. Electronically signed by:Francisco Javier Harding. Transcribed by: [email or web address], User Resident: JESUSITA LINO Electronically Signed by: FRANCISCO JAVIER HARDING @ 09/19/2018 12:06 AM I personally read this/these film(s) with this resident Normal [facility] Comment on above: Order Comment: No: D o not add to previous draw VANCOMYCIN TROUGHon 09-19-19 19 VANCOMYCIN TROU 10.2 mcg/mL Normal 5.0-20.0 [facility] Comment on above: Performed By: #### 3 6901, 43320, 82040, 19352, 20225, 24669, 89420, 51675 #### [facility] [address] t cell subset analysison CD3 % 95.83 % High 65.00-90.00 [facility] Comment on above: Order Comment: No: D o not add to previous draw Performed By: #### 3 6901, 06385, 25580, 74585, 64513, 10713, 71522, 81953 #### [facility] [address] CD3 ABSOLUTE 93 cells/mm3 Low 760-2130 [facility] Comment on above: Order Comment: No: D o not add to previous draw Performed By: #### 3 6901, 17594, 61403, 90887, 81554, 42176, 42635, 04233 #### [facility] [address] CD4 % 36.67 % Low 40.00-70.00 [facility] Comment on above: Order Comment: No: D o not add to previous draw Performed By: #### 3 6901, 45818, 52168, 27097, 05184, 97571, 67830, 65200 #### [facility] [address] CD4 ABSOLUTE 36 cells/mm3 Low 430-1185 [facility] Comment on above: Order Comment: No: D o not add to previous draw Performed By: #### 3 6901, 15389, 91288, 51158, 54607, 44347, 50625, 10467 #### [facility] [address] CD4:CD8 RATIO 0.63 Low 1.00-4.00 [facility] Comment on above: Order Comment: No: D o not add to previous draw Performed By: #### 3 6901, 99850, 54242, 98421, 67163, 41474, 82920, 34510 #### [facility] [address] CD8 % 58.33 % High 15.00-40.00 [facility] Comment on above: Order Comment: No: D o not add to previous draw Performed By: #### 3 6901, 51038, 16414, 93146, 45767, 18460, 79716, 48481 #### [facility] [address] CD8 ABSOLUTE 57 cells/mm3 Low 180-865 [facility] Comment on above: Order Comment: No: D o not add to previous draw Performed By: #### 3 6901, 03190, 59380, 33993, 64990, 61875, 11858, 13882 #### [facility] [address] *MRSA/MSSA DNA NASALon 09-17 *MRSA/MSSA DNA NASAL Clinical Report: (D ) Specimen: NASAL SWAB Collected: 09/17/2018 12:00 Status: Final Last Updated: 09/18/2018 13:07 MSSA DNA (Final) No Methicillin Susceptible Staphylococcus aureus DNA Detected MRSA DNA (Final) No Methicillin Resistant Staphylococcus aureus DNA Detected Normal [facility] Comment on above: Performed By: #### 3 6901, 30358, 63381, 14960, 17121, 82581, 63249, 67958 #### [facility] [address] ARTERIAL BLOOD GAS WITH ICAo n 09-17-2018 BASE EXCESS 10 mmol/L High -2-3 [facility] Comment on above: Performed By: #### 5 6101 #### [facility] [address] [place] [address], [facility] DELIVERY SYSTEMS MV Normal [facility] Comment on above: Performed By: #### 5 6101 #### [facility] [address] [place] [address], [place] FIO2 50 % Normal [facility] Comment on above: Performed By: #### 5 6101 #### [facility] [address] [place] [address], [facility] HCO3 (Bld) [Moles/Vol] 35 mmol/L Critically high 21-28 [facility] Comment on above: Performed By: #### 5 6101 #### [facility] [address] [place] [address], [facility] IONIZED CALCIUM 1.17 mmol/L Normal 1.13-1.32 [facility] Comment on above: Performed By: #### 5 6101 #### [facility] [address] [place] [address], [place] MIN VOLUME 7.1 Normal [facility] Comment on above: Performed By: #### 5 6101 #### [facility] [address] [place] [address], [place] MODALITY AC Normal [facility] Comment on above: Performed By: #### 5 6101 #### [facility] [address] [place] [address], [facility] Oxygen (Bld) [Partial pressure] 143 mm[Hg] Critically high 83-108 [facility] Comment on above: Performed By: #### 5 6101 #### [facility] [address] [place] [address], [facility] Oxygen saturation in Blood 94.9 % Normal 94.0-97.0 [facility] Comment on above: Performed By: #### 5 6101 #### [facility] [address] [place] [address], [facility] PCO2 52 mmHg High 35-45 [facility] Comment on above: Performed By: #### 5 6101 #### [facility] [address] [place] [address], [facility] PEEP 8.0 CMH20 Normal [facility] Comment on above: Performed By: #### 5 6101 #### [facility] [address] [place] [address], [facility] pH (Bld) 7.44 [pH] Normal 7.35-7.45 [facility] Comment on above: Result Comment: LUCIO LUONG NOTE: Effective 06/30/18, reference ranges for Respiratory GEM analyzers running arterial blood have been updated to reflect the redevelopment manager's published reference ranges. Performed By: #### 5 6101 #### [facility] [address] [place] [address], [facility] TIDAL VOLUME (VT) CC 500 cc Normal [facility] Comment on above: Performed By: #### 5 6101 #### [facility] [address] [place] [address], [facility] BASIC METABOLIC PANELon 05-2 Calcium [Mass/Vol] 8.2 mg/dL Low 8.6-10.3 [facility] Comment on above: Order Comment: No: D o not add to previous draw Performed By: #### 1 0054 #### [facility] [address] [place] [address], [facility] Chloride [Moles/Vol] 109 mmol/L High 98-107 [facility] Comment on above: Order Comment: No: D o not add to previous draw Performed By: #### 1 0054 #### [facility] [address] [place] [address], [facility] CO2 [Moles/Vol] 34 mmol/L High 21-31 [facility] Comment on above: Order Comment: No: D o not add to previous draw Performed By: #### 1 0054 #### [facility] [address] [place] [address], [place] Creatinine [Mass/Vol] 0.52 mg/dL Low 0.60-1.20 [facility] Comment on above: Order Comment: No: D o not add to previous draw Performed By: #### 1 0054 #### [facility] [address] [place] [address], [place] GFR/1.73 sq M predicted among blacks MDRD (S/P/Bld) [Vol rate/Area] mL/min/{1.73_m2} Normal >60 [facility] Comment on above: Order Comment: No: D o not add to previous draw Performed By: #### 1 0054 #### [facility] [address] [place] [address], [place] GFR/1.73 sq M predicted among non-blacks MDRD (S/P/Bld) [Vol rate/Area] mL/min/{1.73_m2} Normal >60 [facility] Comment on above: Order Comment: No: D o not add to previous draw Performed By: #### 1 0054 #### [facility] [address] [place] [address], [place] Glucose [Mass/Vol] 168 mg/dL High 70-100 [facility] Comment on above: Order Comment: No: D o not add to previous draw Performed By: #### 1 0054 #### [facility] [address] [place] [address], [place] Potassium [Moles/Vol] 4.1 mmol/L Normal 3.5-5.1 [facility] Comment on above: Order Comment: No: D o not add to previous draw Performed By: #### 1 0054 #### [facility] [address] [place] [address], [place] Sodium [Moles/Vol] 146 mmol/L High 136-145 [facility] Comment on above: Order Comment: No: D o not add to previous draw Performed By: #### 1 0054 #### [facility] [address] [facility] [place] [address], [facility] Urea nitrogen [Mass/Vol] 25 mg/dL Normal 7-25 [facility] Comment on above: Order Comment: No: D o not add to previous draw Performed By: #### 1 0054 #### [facility] [address] [facility] [place] [address], [facility] CALCIUM URINE RANDOMon 09-17 Calcium [Mass/Vol] 9.3 mg/dL Normal [facility] Comment on above: Order Comment: No: D o not add to previous draw Result Comment: Ther e are no established reference values for random urine specimens Performed By: #### 1 0054 #### [facility] [address] [facility] [place] [address], [facility] CBC W/DIFFon 09-17-2018 ABS BASOPHILS 0.0 10*3/uL Normal 0.0-0.2 [facility] Comment on above: Order Comment: No: D o not add to previous draw Performed By: #### 1 0054 #### [facility] [address] [facility]. [address] ABS NEUTROPHILS 11.6 10*3/uL High 1.6-7.6 [facility] Comment on above: Order Comment: No: D o not add to previous draw Performed By: #### 1 0054 #### [facility] [address] [place] [address], [facility] Basophils/100 WBC (Bld) 0.0 % Normal 0.0-1.0 [facility] Comment on above: Order Comment: No: D o not add to previous draw Performed By: #### 1 0054 #### [facility] [address] [place] [address], [facility] Eosinophils (Bld) [#/Vol] 0.0 10*3/uL Normal 0.0-0.5 [facility] Comment on above: Order Comment: No: D o not add to previous draw Performed By: #### 1 0054 #### [facility] [address] [place] [address], [facility] Eosinophils/100 WBC (Bld) 0.0 % Normal 0.0-6.0 [facility] Comment on above: Order Comment: No: D o not add to previous draw Performed By: #### 1 0054 #### [facility] [address] [place] [address], [facility] Erythrocyte distribution width (RBC) [Ratio] 14.7 % Normal 11.5-15.0 [facility] Comment on above: Order Comment: No: D o not add to previous draw Performed By: #### 1 0054 #### [facility] [address] [place] [address], [facility] GIANT PLATELETS Present Normal [facility] Comment on above: Order Comment: No: D o not add to previous draw Performed By: #### 1 0054 #### [facility] [address] [place] [address], [facility] Hematocrit (Bld) [Volume fraction] 38.9 % Normal 36.0-45.0 [facility] Comment on above: Order Comment: No: D o not add to previous draw Performed By: #### 1 0054 #### [facility] [address] [place] [address], [facility] Hemoglobin (Bld) [Mass/Vol] 11.5 g/dL Low 12.0-15.0 [facility] Comment on above: Order Comment: No: D o not add to previous draw Performed By: #### 1 0054 #### [facility] [address] [place] [address], [facility] Lymphocytes (Bld) [#/Vol] 0.4 10*3/uL Low 1.2-4.0 [facility] Comment on above: Order Comment: No: D o not add to previous draw Performed By: #### 1 0054 #### [facility] [address] [place] [address], [facility] Lymphocytes/100 WBC (Bld) 2.8 % Low 20.0-45.0 [facility] Comment on above: Order Comment: No: D o not add to previous draw Performed By: #### 1 0054 #### [facility] [address] [place] [address], [facility] MCH (RBC) [Entitic mass] 27.2 pg Normal 27.0-33.0 [facility] Comment on above: Order Comment: No: D o not add to previous draw Performed By: #### 1 0054 #### [facility] [address] [place] [address], [facility] MCHC (RBC) [Mass/Vol] 29.6 g/dL Low 32.0-35.0 [facility] Comment on above: Order Comment: No: D o not add to previous draw Performed By: #### 1 0054 #### [facility] [address] [place] [address], [facility] MCV (RBC) [Entitic vol] 92.0 fL Normal 82.0-98.0 [facility] Comment on above: Order Comment: No: D o not add to previous draw Performed By: #### 1 0054 #### [facility] [address] [facility] [place] [address], [facility] METAMYELO 1.8 % High 0.0-0.0 [facility] Comment on above: Order Comment: No: D o not add to previous draw Performed By: #### 1 0054 #### [facility] [address] [place] [address], [facility] Monocytes (Bld) [#/Vol] 0.9 10*3/uL Normal 0.1-1.0 [facility] Comment on above: Order Comment: No: D o not add to previous draw Performed By: #### 1 0054 #### [facility] [address] [place] [address], [place] MONOS 6.4 % Normal 5.0-12.0 [facility] Comment on above: Order Comment: No: D o not add to previous draw Performed By: #### 1 0054 #### [facility] [address] [place] [address], [place] MYELOS 5.5 % High .0-.0 [facility] Comment on above: Order Comment: No: D o not add to previous draw Performed By: #### 1 0054 #### [facility] [address] [place] [address], [place] Neutrophils/100 WBC (Bld) 83.5 % High 40.0-72.0 [facility] Comment on above: Order Comment: No: D o not add to previous draw Performed By: #### 1 0054 #### [facility] [address] [place] [address], [place] Nucleated RBC/100 WBC (Bld) [Ratio] 0 % Normal 0-0 [facility] Comment on above: Order Comment: No: D o not add to previous draw Performed By: #### 1 0054 #### [facility] [address] [place] [address], [place] PLAT CNT 274 10*3/uL Normal 150-400 [facility] Comment on above: Order Comment: No: D o not add to previous draw Performed By: #### 1 0054 #### [facility] [address] [place] [address], [place] RBC (Bld) [#/Vol] 4.23 10*6/uL Normal 3.80-5.00 [facility] Comment on above: Order Comment: No: D o not add to previous draw Performed By: #### 1 0054 #### [facility] [address] [place] [address], [place] WBC (Bld) [#/Vol] 13.93 10*3/uL High 4.00-10.60 [facility] Comment on above: Order Comment: No: D o not add to previous draw Performed By: #### 1 0054 #### [facility] [address] [place] [address], [facility] CREATININE URINE RANDOMon Creatinine [Mass/Vol] 84.0 mg/dL Normal [facility] Comment on above: Order Comment: No: D o not add to previous draw Result Comment: Ther e are no established reference values for random urine specimens Performed By: #### 1 0054 #### [facility] [address] [place] [address], [facility] MAGNESIUM BLOODon 09-17-2018 Magnesium [Mass/Vol] 2.4 mg/dL Normal 1.9-2.7 [facility] Comment on above: Order Comment: No: D o not add to previous draw Performed By: #### 1 0054 #### [facility] [address] [place] [address], [facility] PHOSPHORUS BLOODon 9 Phosphate [Mass/Vol] 3.9 mg/dL Normal 2.5-5.0 [facility] Comment on above: Order Comment: No: D o not add to previous draw Performed By: #### 1 0054 #### [facility] [address] [place] [address], [facility] T PROT UR Usha 09-17-2018 Protein [Mass/Vol] 56.0 mg/dL Normal [facility] Comment on above: Order Comment: No: D o not add to previous draw Result Comment: Ther e are no established reference values for random urine specimens Performed By: #### 3 6901, 66226, 40815, 58347, 30836, 59725, 64386, 32708 #### [facility] [address] [place] [address], [facility] US RENALon 09-17-2018 US RENAL [facility] Department of Radiology [address] [place] [id number] Patient Name: KATALINA TAPIA : 1965 Sex: F Age: Race: White Pt. Location: [place] [address] Patient Status: I Ordered Date: 09/17/2018 12:00:00 PM Completed Date: 09/17/2018 02:53 PM Requesting Provider: ADRIENNE KEYS Attending Provider: FRANKLIN CEE Report Copy To: Signs & Symptoms: Hematuria History: Patient history not available Comments: R/O Stones Exam: US RENAL US RENAL 09/17/2018 2:53 PM EDT SIGNS AND SYMPTOMS: Hematuria TECHNOLOGIST COMMENTS: hematuria QUESTION FOR THE RADIOLOGIST: R/O Stones TECHNIQUE: Limited retroperitoneal ultrasound. COMPARISON: none FINDINGS: The right kidney measures 11.1 x 5.5 x 5.2 cm and the left kidney measures 40.3 x 5.9 x 6.0 cm. Echogenic foci without twinkle artifact are noted in both kidneys. No evidence of cyst, mass or hydronephrosis IMPRESSION: Possible renal calculi. Electronically signed by:Ivonne Thurston. Transcribed by: [email or web address], User Resident: Electronically Signed by: IVONNE THURSTON @ 09/17/2018 03:16 PM Normal [facility] Comment on above: Order Comment: No: D o not add to previous draw *BLOOD CULTUREon 09-16-2018 Bacteria identified Cx Nom (Bld) Clinical Report: (D) Specimen: BLOOD CULTURE Collected: 09/16/2018 14:40 Status: Final Last Updated: 09/22/2018 08:10 (1) Left ac 1430 ss CULT RES (Final) No Growth Day 5 Normal [facility] Comment on above: Order Comment: No: D o not add to previous draw Performed By: #### 1 0054 #### [facility] [address] [facility] [address], [facility] Bacteria identified Cx Nom (Bld) Clinical Report: (D) Specimen: BLOOD CULTURE Collected: 09/16/2018 14:40 Status: Final Last Updated: 09/22/2018 08:10 (1) Left forearm 1445 ss Correction.... Left hand 1445 as CULT RES (Final) No Growth Day 5 Normal [facility] Comment on above: Order Comment: No: D o not add to previous draw Performed By: #### 1 0054 #### [facility] [address] *RAPID FLU AANDB BY MOLECULA José Miguel 09-16-2018 *RAPID FLU AANDB BY MOLECULAR Clinical Report: (D) Specimen: NASAL SWAB Collected: 09/16/2018 20:11 Status: Final Last Updated: 09/16/2018 21:13 FLUA RNA (Final) Negative FLUB RNA (Final) Negative Normal [facility] Comment on above: Performed By: #### 5 6101 #### [facility] [address] [facility] [place] [address], [facility] AMMONIA BLOODon 09-16-2018 Ammonia (P) [Mass/Vol] 94 umol/L High 16-53 Th e [facility] Comment on above: Order Comment: No: D o not add to previous draw Performed By: #### 5 6101 #### [facility] [address] [place] [address], [facility] ARTERIAL BLOOD GAS WITH ICAo n 09-16-2018 BASE EXCESS 9 mmol/L High -2-3 [facility] Comment on above: Performed By: #### 8 3361 #### [facility] [address] [place] [address], [facility] DELIVERY SYSTEMS VENTILATOR Normal [facility] Comment on above: Performed By: #### 8 4511 #### [facility] [address] [place] [address], [facility] FIO2 50 % Normal [facility] Comment on above: Performed By: #### 8 4511 #### [facility] [address] [place] [address], [facility] HCO3 (Bld) [Moles/Vol] 32 mmol/L Critically high 21-28 [facility] Comment on above: Performed By: #### 8 4511 #### [facility] [address] [place] [address], [facility] IONIZED CALCIUM 1.15 mmol/L Normal 1.13-1.32 [facility] Comment on above: Performed By: #### 8 4511 #### [facility] [address] [place] [address], [facility] MIN VOLUME 10.3 Normal [facility] Comment on above: Performed By: #### 8 4511 #### [facility] [address] [place] [address], [facility] MODALITY AC-ASSIST CONTROL Normal [facility] Comment on above: Performed By: #### 8 4511 #### [facility] [address] [place] [address], [facility] Oxygen (Bld) [Partial pressure] 109 mm[Hg] Critically high 83-108 [facility] Comment on above: Performed By: #### 8 4511 #### [facility] [address] [place] [address], [facility] Oxygen saturation in Blood 95.2 % Normal 94.0-97.0 [facility] Comment on above: Performed By: #### 8 4511 #### [facility] [address] [place] [address], [facility] PCO2 37 mmHg Normal 35-45 [facility] Comment on above: Performed By: #### 8 4511 #### [facility] [address] [place] [address], [facility] PEEP 5.0 CMH20 Normal [facility] Comment on above: Performed By: #### 8 4511 #### [facility] [address] [place] [address], [place] PF RATIO 218 mmHg Normal [facility] Comment on above: Performed By: #### 8 4511 #### [facility] [address] [place] [address], [place] pH (Bld) 7.55 [pH] High 7.35-7.45 [facility] Comment on above: Result Comment: LUCIO LUONG NOTE: Effective 06/30/18, reference ranges for Respiratory GEM analyzers running arterial blood have been updated to reflect the redevelopment manager's published reference ranges. Performed By: #### 8 4511 #### [facility] [address] [place] [address], [facility] TIDAL VOLUME (VT) CC 500 cc Normal [facility] Comment on above: Performed By: #### 8 4511 #### [facility] [address] [place] [address], [place] BLOOD STOOL GUAIACon 019 BLD STOOL GUAIAC Negative Normal NEGATIVE [facility] Comment on above: Order Comment: No: D o not add to previous draw Performed By: #### 1 0054 #### [facility] [address] [place] [address], [facility] BNP (B-TYPE NATRIURETIC PEPT GONZALO)on 09-16-2018 Natriuretic peptide B (Bld) [Mass/Vol] 78 pg/mL Normal 0-100 [facility] Comment on above: Order Comment: No: D o not add to previous draw Result Comment: Give n the appropriate clinical setting a BNP result of >100 pg/mL indicates congestive heart failure. Performed By: #### 5 6101 #### [facility] [address] [place] [address], [facility] CBC W/DIFFon 09-16-2018 ABS BASOPHILS 0.0 10*3/uL Normal 0.0-0.2 [facility] Comment on above: Order Comment: No: D o not add to previous draw Performed By: #### 5 6101 #### [facility] [address] [facility] [place] [address], [facility] ABS NEUTROPHILS 13.8 10*3/uL High 1.6-7.6 [facility] Comment on above: Order Comment: No: D o not add to previous draw Performed By: #### 5 6101 #### [facility] [address] [facility] [place] [address], [facility] Basophils/100 WBC (Bld) 0.0 % Normal 0.0-1.0 [facility] Comment on above: Order Comment: No: D o not add to previous draw Performed By: #### 5 6101 #### [facility] [address] [place] [address], [facility] Eosinophils (Bld) [#/Vol] 0.0 10*3/uL Normal 0.0-0.5 [facility] Comment on above: Order Comment: No: D o not add to previous draw Performed By: #### 5 6101 #### [facility] [address] [place] [address], [facility] Eosinophils/100 WBC (Bld) 0.0 % Normal 0.0-6.0 [facility] Comment on above: Order Comment: No: D o not add to previous draw Performed By: #### 5 6101 #### [facility] [address] [place] [address], [facility] Erythrocyte distribution width (RBC) [Ratio] 14.6 % Normal 11.5-15.0 [facility] Comment on above: Order Comment: No: D o not add to previous draw Performed By: #### 5 6101 #### [facility] [address] [place] [address], [facility] GIANT PLATELETS Present Normal [facility] Comment on above: Order Comment: No: D o not add to previous draw Performed By: #### 5 6101 #### [facility] [address] [place] [address], [facility] Hematocrit (Bld) [Volume fraction] 38.2 % Normal 36.0-45.0 [facility] Comment on above: Order Comment: No: D o not add to previous draw Performed By: #### 5 6101 #### [facility] [address] [place] [address], [facility] Hemoglobin (Bld) [Mass/Vol] 11.9 g/dL Low 12.0-15.0 [facility] Comment on above: Order Comment: No: D o not add to previous draw Performed By: #### 5 6101 #### [facility] [address] [place] [address], [facility] Lymphocytes (Bld) [#/Vol] 0.7 10*3/uL Low 1.2-4.0 [facility] Comment on above: Order Comment: No: D o not add to previous draw Performed By: #### 5 6101 #### [facility] [address] [place] [address], [facility] Lymphocytes/100 WBC (Bld) 4.6 % Low 20.0-45.0 [facility] Comment on above: Order Comment: No: D o not add to previous draw Performed By: #### 5 6101 #### [facility] [address] [place] [id number], [facility] MCH (RBC) [Entitic mass] 27.5 pg Normal 27.0-33.0 [facility] Comment on above: Order Comment: No: D o not add to previous draw Performed By: #### 5 6101 #### [facility] [address] MCHC (RBC) [Mass/Vol] 31.2 g/dL Low 32.0-35.0 [facility] Comment on above: Order Comment: No: D o not add to previous draw Performed By: #### 5 6101 #### [facility] [address] [place] [id number], [facility] MCV (RBC) [Entitic vol] 88.2 fL Normal 82.0-98.0 [facility] Comment on above: Order Comment: No: D o not add to previous draw Performed By: #### 5 6101 #### [facility] [address] [place] [address], [facility] METAMYELO 0.9 % High 0.0-0.0 [facility] Comment on above: Order Comment: No: D o not add to previous draw Performed By: #### 5 6101 #### [facility] [address] [place] [address], [facility] Monocytes (Bld) [#/Vol] 1.0 10*3/uL Normal 0.1-1.0 [facility] Comment on above: Order Comment: No: D o not add to previous draw Performed By: #### 5 6101 #### [facility] [address] [place] [address], [facility] MONOS 6.4 % Normal 5.0-12.0 [facility] Comment on above: Order Comment: No: D o not add to previous draw Performed By: #### 5 6101 #### [facility] [address] [place] [address], [facility] MYELOS 1.8 % High .0-.0 [facility] Comment on above: Order Comment: No: D o not add to previous draw Performed By: #### 5 6101 #### [facility] [address] [place] [id number], [facility] Neutrophils/100 WBC (Bld) 86.3 % High 40.0-72.0 [facility] Comment on above: Order Comment: No: D o not add to previous draw Performed By: #### 5 6101 #### [facility] [address] [place] [address], [facility] Nucleated RBC/100 WBC (Bld) [Ratio] 0 % Normal 0-0 [facility] Comment on above: Order Comment: No: D o not add to previous draw Performed By: #### 5 6101 #### [facility] [address] [place] [address], [facility] PLAT CNT 282 10*3/uL Normal 150-400 [facility] Comment on above: Order Comment: No: D o not add to previous draw Performed By: #### 5 6101 #### [facility] [address] [facility] [address], [facility] RBC (Bld) [#/Vol] 4.33 10*6/uL Normal 3.80-5.00 [facility] Comment on above: Order Comment: No: D o not add to previous draw Performed By: #### 5 6101 #### [facility] [address] [facility] [place] [address], [facility] WBC (Bld) [#/Vol] 15.95 10*3/uL High 4.00-10.60 [facility] Comment on above: Order Comment: No: D o not add to previous draw Performed By: #### 5 6101 #### [facility] [address] [facility] [address], [facility] COMP METABOLIC PANELon 09-16 Albumin [Mass/Vol] 3.1 g/dL Low 3.5-5.7 [facility] Comment on above: Order Comment: No: D o not add to previous draw Performed By: #### 3 6901, 34236, 10713, 84665, 07878, 73555, 59904, 67850 #### [facility] [address] [facility] [address], [place] ALKALINE PHOSPH 53 IU/L Normal 34-104 [facility] Comment on above: Order Comment: No: D o not add to previous draw Performed By: #### 3 6901, 36560, 28645, 57967, 13750, 61176, 60485, 08291 #### [facility] [address] [place] [address], [place] ALT [Catalytic activity/Vol] 42 U/L Normal 7-52 [facility] Comment on above: Order Comment: No: D o not add to previous draw Performed By: #### 3 6901, 12407, 40257, 41789, 08091, 16528, 79998, 65573 #### [facility] [address] [place] [address], [facility] AST [Catalytic activity/Vol] 20 U/L Normal 13-39 [facility] Comment on above: Order Comment: No: D o not add to previous draw Performed By: #### 3 6901, 64150, 19435, 55828, 42697, 94265, 32494, 78111 #### [facility] [address] [place] [address], [facility] Bilirubin [Mass/Vol] 0.5 mg/dL Normal 0.3-1.0 [facility] Comment on above: Order Comment: No: D o not add to previous draw Performed By: #### 3 6901, 46199, 16771, 62048, 86035, 99550, 87655, 52034 #### [facility] [address] [place] [address], [place] Calcium [Mass/Vol] 8.4 mg/dL Low 8.6-10.3 [facility] Comment on above: Order Comment: No: D o not add to previous draw Performed By: #### 3 6901, 96697, 19813, 88646, 14941, 36459, 04456, 48082 #### [facility] [address] [place] [address], [place] Chloride [Moles/Vol] 109 mmol/L High 98-107 [facility] Comment on above: Order Comment: No: D o not add to previous draw Performed By: #### 3 6901, 85814, 84553, 14263, 07023, 42424, 92985, 60892 #### [facility] [address] [place] [address], [place] CO2 [Moles/Vol] 32 mmol/L High 21-31 [facility] Comment on above: Order Comment: No: D o not add to previous draw Performed By: #### 3 6901, 79914, 35548, 29805, 97052, 17137, 95187, 52123 #### [facility] [address] [place] [address], [facility] Creatinine [Mass/Vol] 0.50 mg/dL Low 0.60-1.20 [facility] Comment on above: Order Comment: No: D o not add to previous draw Performed By: #### 3 6901, 18585, 12773, 93431, 87894, 62016, 16025, 32170 #### [facility] [address] [place] [address], [place] GFR/1.73 sq M predicted among blacks MDRD (S/P/Bld) [Vol rate/Area] mL/min/{1.73_m2} Normal >60 [facility] Comment on above: Order Comment: No: D o not add to previous draw Performed By: #### 3 6901, 79868, 24612, 69718, 41129, 24879, 37380, 37434 #### [facility] [address] [place] [address], [place] GFR/1.73 sq M predicted among non-blacks MDRD (S/P/Bld) [Vol rate/Area] mL/min/{1.73_m2} Normal >60 [facility] Comment on above: Order Comment: No: D o not add to previous draw Performed By: #### 3 6901, 02411, 72645, 68618, 39978, 41058, 63869, 33762 #### [facility] [address] [place] [address], [place] Glucose [Mass/Vol] 134 mg/dL High 70-100 [facility] Comment on above: Order Comment: No: D o not add to previous draw Performed By: #### 3 6901, 79979, 04091, 50302, 31208, 49570, 24652, 25620 #### [facility] [address] [place] [address], [place] Potassium [Moles/Vol] 3.8 mmol/L Normal 3.5-5.1 [facility] Comment on above: Order Comment: No: D o not add to previous draw Performed By: #### 3 6901, 98646, 30754, 87607, 12689, 67008, 17851, 13539 #### [facility] [address] [place] [address], [place] Protein [Mass/Vol] 5.4 g/dL Low 6.0-8.3 [facility] Comment on above: Order Comment: No: D o not add to previous draw Performed By: #### 3 6901, 75026, 35061, 39430, 22403, 00527, 90442, 67791 #### [facility] [address] [place] [address], [place] Sodium [Moles/Vol] 148 mmol/L High 136-145 [facility] Comment on above: Order Comment: No: D o not add to previous draw Performed By: #### 3 6901, 81088, 07025, 80701, 82360, 40772, 86343, 52674 #### [facility] [address] [place] [address], [place] Urea nitrogen [Mass/Vol] 25 mg/dL Normal 7-25 [facility] Comment on above: Order Comment: No: D o not add to previous draw Performed By: #### 3 6901, 77776, 26360, 76989, 63011, 51358, 94992, 02216 #### [place] [address], [facility] CT CHEST WO CONTRASTon 09-16 CT CHEST WO CONTRAST [facility] [place] Department of Radiology [address] [place] [id number] Patient Name: KATALINA TAPIA : 1965 Sex: F Age: Race: White Pt. Location: [place] [address] Patient Status: I Ordered Date: 09/16/2018 2:35:00 PM Completed Date: 09/16/2018 03:41 PM Requesting Provider: ADRIENNE KEYS Attending Provider: FRANKLIN CEE Report Copy To: Signs & Symptoms: Infiltrates History: Patient history not available Comments: R/O Infiltrates Exam: CT CHEST WO CONTRAST CT CHEST WO CONTRAST 09/16/2018 3:41 PM EDT SIGN AND SYMPTOMS: Infiltrates TECHNOLOGIST COMMENTS: Respiratory distress today. QUESTIONS PER RADIOLOGIST: R/O Infiltrates PROTOCOL: Axial CT images of the chest were obtained without IV contrast. TECHNIQUE: Multidetector CT axial slices of the chest were obtained without IV contrast. Multiplanar reformats were performed and viewed on a separate workstation and reviewed to further define anatomy and possible pathology.Appropriat e CT dose lowering techniques were utilized. COMPARISON: None.. FINDINGS: Lower neck: Patient is intubated endotracheal tube tip is above the safia. Nasogastric tube is present tip is in the stomach. Upper mediastinum and thyroid gland unremarkable for noncontrast CT. Vessels: Central line present in the superior vena cava. No aortic aneurysm. No atherosclerotic changes in the aorta. Mild coronary artery calcification. Mediastinum and Lynda: Small middle mediastinal lymph nodes not felt to be significant no definite hilar adenopathy Heart: Mildly enlarged No pericardial effusion. Airways: Within normal limits Lungs: Patchy airspace consolidation in both upper lobes and in the posterior lower lobes most consistent with bilateral pneumonia. Pleura: No effusion Chest Wall: Normal Upper Abdomen: Normal for noncontrast CT Bones: Degenerative changes thoracic spine IMPRESSION: Patchy airspace consolidation in both upper lobes and in the posterior lower lobes bilaterally consistent with bilateral pneumonia. Electronically signed by:Linda Tapia. Transcribed by: [id number], User Resident: Electronically Signed by: LINDA TAPIA @ 09/16/2018 04:32 PM Normal [facility] Comment on above: Order Comment: No: D o not add to previous draw DIRECT BILIon 09-16-2018 Bilirubin.direct [Mass/Vol] 0.2 mg/dL Normal 0.0-0.2 [facility] Comment on above: Order Comment: Liver Battery conflicts with Comprehensive Metabolic Panel. Liver Battery canceled and Direct Bilirubin added. Performed By: #### 3 6901, 08046, 41047, 05155, 76812, 78236, 25022, 84523 #### [facility] [address] [place] [address], [facility] LACTATE BLOODon 09-16-2018 Lactate [Moles/Vol] 0.8 mmol/L Normal 0.5-2.2 [facility] Comment on above: Order Comment: No: D o not add to previous draw Performed By: #### 1 0054 #### [facility] [address] [place] [id number], [facility] LIPASE BLOODon 09-16-2018 Lipase [Catalytic activity/Vol] 10 Units/L Low 11-82 [facility] Comment on above: Order Comment: No: D o not add to previous draw Performed By: #### 3 6901, 17393, 33586, 71331, 32744, 47517, 40412, 36084 #### [facility] [address] [place] [address], [facility] MAGNESIUM BLOODon 09-16-2018 Magnesium [Mass/Vol] 2.5 mg/dL Normal 1.9-2.7 [facility] Comment on above: Order Comment: No: D o not add to previous draw Performed By: #### 3 6901, 00671, 99079, 64918, 81792, 07530, 12882, 88126 #### [facility] [address] [place] [address], [facility] OSMOLALITY BLOODon 9 Osmolality [Osmolality] 313 mOsm/kg High 285-305 [facility] Comment on above: Order Comment: No: D o not add to previous draw Performed By: #### 5 6101 #### [facility] [address] [place] [address], [facility] PHOSPHORUS BLOODon 9 Phosphate [Mass/Vol] 1.9 mg/dL Low 2.5-5.0 [facility] Comment on above: Order Comment: No: D o not add to previous draw Performed By: #### 3 6901, 10704, 89306, 02685, 04731, 63520, 58743, 81219 #### [facility] [address] PROCALCITONINon 09-16-2018 PROCALCITONIN 0.02 ng/mL Normal 0.00-0.10 [facility] Comment on above: Order Comment: No: D o not add to previous draw Result Comment: Susp ected Lower Respiratory Tract Infection: 0.1-0.25ng/mL- Low likelihood for bacterial infection;Antibiotics discouraged.* >0.25ng/mL- Increased likelihood bacterial infection;Antibiotics encouraged. Suspected Sepsis: Strongly consider initiating antibiotics in all unstable patients. 0.1-0.5ng/mL- Low likelihood for sepsis; Antibiotics discouraged.* >0.5ng/mL- Increased likelihood sepsis; Antibiotics encouraged. >2.0ng/mL- High risk of sepsis/septic shock; Antibiotics strongly encouraged. *Recommend retesting PCT within 6-12hours if clinically indicated and initial PCT<0.5ng/mL Performed By: #### 5 6101 #### [facility] [address] [facility] [address], [facility] PROTHROMBIN TIMEon 9 INR Coag (PPP) [Relative time] 1.12 {INR} Normal 0.91-1.16 [facility] Comment on above: Order Comment: No: D o not add to previous draw Result Comment: ACCC P RECOMMENDED INR FOR WARFARIN THERAPY --------- ------- CONDITION INR PROPHYLAXIS OF VENOUS THROMBOSIS 2-3 (HIGH-RISK SURGERY) TREATMENT OF VENOUS THROMBOSIS 2-3 TREATMENT OF PULMONARY EMBOLISM 2-3 PREVENTION OF SYSTEMIC EMBOLISM: 2-3 ACUTE MYOCARDIAL INFARCTION TISSUE HEART VALVES VALVULAR HEART DISEASE ATRIAL FIBRILLATION RECURRENT SYSTEMIC EMBOLISM MECHANICAL HEART VALVE 2.5-3.5 FROM: ORAL ANTICOAGULANTS. MECHANISM OF ACTION, CLINICAL EFFECTIVENESS, AND OPTIMAL THERAPEUTIC RANGE. CHEST 1995;108:[id number]. Performed By: #### 5 6101 #### [facility] [address] PT Coag (PPP) [Time] 14.4 s Normal 12.3-14.8 [facility] Comment on above: Order Comment: No: D o not add to previous draw Result Comment: ALL RESULTS MUST BE INTERPRETED WITH RESPECT TO BLOOD DRAWING ARTIFACT OR DILUTION ERROR OF ANTICOAGULANT AT THE TIME OF SAMPLING. Performed By: #### 5 6101 #### [facility] [address] [facility]. [address] TOX PANEL URINEon 09-16-2018 50 THC Negative Normal NEGATIVE [facility] Comment on above: Order Comment: No: D o not add to previous draw Performed By: #### 5 6101 #### [facility] [address] [facility]. [address] BARBITURATES Negative Normal NEGATIVE [facility] Comment on above: Order Comment: No: D o not add to previous draw Performed By: #### 5 6101 #### [facility] [address] [facility]. [address] Benzodiazepines Ql (U) Positive Abnormal NEGATIVE Th e [facility] Comment on above: Order Comment: No: D o not add to previous draw Performed By: #### 5 6101 #### [facility] [address] [facility] [place] [address], [facility] Cocaine Ql (U) Negative Normal NEGATIVE [facility] Comment on above: Order Comment: No: D o not add to previous draw Performed By: #### 5 6101 #### [facility] [address] [facility] [place] [address], [facility] Methadone Ql (U) Negative Normal NEGATIVE [facility] Comment on above: Order Comment: No: D o not add to previous draw Performed By: #### 5 6101 #### [facility] [address] [place] [address], [facility] MONO AMPHET Negative Normal NEGATIVE [facility] Comment on above: Order Comment: No: D o not add to previous draw Performed By: #### 5 6101 #### [facility] [address] [place] [address], [facility] Opiates Ql (U) Positive Abnormal NEGATIVE [facility] Comment on above: Order Comment: No: D o not add to previous draw Performed By: #### 5 6101 #### [facility] [address] [place] [address], [facility] Phencyclidine Ql (U) Negative Normal NEGATIVE [facility] Comment on above: Order Comment: No: D o not add to previous draw Performed By: #### 5 6101 #### [facility] [address] [place] [address], [facility] PROPOXYPHENE Negative Normal NEGATIVE [facility] Comment on above: Order Comment: No: D o not add to previous draw Performed By: #### 5 6101 #### [facility] [address] [place] [address], [facility] TRICYCLICS Negative Normal NEGATIVE [facility] Comment on above: Order Comment: No: D o not add to previous draw Performed By: #### 5 6101 #### [facility] [address] [place] [address], [facility] TSH3on 09-16-2018 TSH 3RD GENERATION 0.50 uIU/mL Normal 0.34-5.60 [facility] Comment on above: Order Comment: No: D o not add to previous draw Performed By: #### 3 6901, 53852, 53456, 44259, 29355, 47836, 11280, 38563 #### [facility] [address] [place] [address], [facility] URINALYSIS REFLEXon 09-17-19 19 Appearance (U) TURBID Abnormal CLEAR [facility] Comment on above: Order Comment: No: D o not add to previous draw Performed By: #### 5 6101 #### [facility] [address] [place] [address], [facility] Bilirubin [Mass/Vol] Negative Normal NEGATIVE [facility] Comment on above: Order Comment: No: D o not add to previous draw Performed By: #### 5 6101 #### [facility] [address] [place] [address], [place] BLOOD LARGE Abnormal NEGATIVE [facility] Comment on above: Order Comment: No: D o not add to previous draw Performed By: #### 5 6101 #### [facility] [address] [place] [address], [place] Color (U) DK YELLOW Abnormal YELLOW [facility] Comment on above: Order Comment: No: D o not add to previous draw Performed By: #### 5 6101 #### [facility] [address] [place] [address], [place] EPIS NONE SEEN Normal FEW,OCC,NONE SEEN [facility] Comment on above: Order Comment: No: D o not add to previous draw Performed By: #### 5 6101 #### [facility] [address] [place] [address], [place] Glucose [Mass/Vol] Negative Normal NEGATIVE [facility] Comment on above: Order Comment: No: D o not add to previous draw Performed By: #### 5 6101 #### [facility] [address] [place] [address], [place] KETONE TRACE Abnormal NEGATIVE [facility] Comment on above: Order Comment: No: D o not add to previous draw Performed By: #### 5 6101 #### [facility] [address] [place] [address], [place] LEUK SANTO TRACE Abnormal NEGATIVE [facility] Comment on above: Order Comment: No: D o not add to previous draw Performed By: #### 5 6101 #### [facility] [address] [place] [address], [place] Nitrite Ql (U) Positive Abnormal NEGATIVE [facility] Comment on above: Order Comment: No: D o not add to previous draw Performed By: #### 5 6101 #### [facility] [address] [place] [address], [facility] pH (Bld) 7.0 Normal 5.0-8.0 [facility] Comment on above: Order Comment: No: D o not add to previous draw Performed By: #### 5 6101 #### [facility] [address] [place] [address], [facility] Protein (U) [Mass/Vol] 100 mg/dL Abnormal NEGATIVE Th e [facility] Comment on above: Order Comment: No: D o not add to previous draw Performed By: #### 5 6101 #### [facility] [address] [facility] [place] [address], [facility] RBC (U) [#/Vol] /uL Abnormal NONE SEEN [facility] Comment on above: Order Comment: No: D o not add to previous draw Performed By: #### 5 6101 #### [facility] [address] [facility] [place] [address], [facility] SPEC GRAV 1.025 High 1.015-1.020 [facility] Comment on above: Order Comment: No: D o not add to previous draw Performed By: #### 5 6101 #### [facility] [address] [facility] [place] [address], [facility] UA COMMENT 2 MICROSCOPIC UNCENTRIFUGED; LESS THAN 3ML RECEIVED Normal [facility] Comment on above: Order Comment: No: D o not add to previous draw Performed By: #### [id number] #### [facility] [address] [facility] [place] [address], [facility] WBC UA 6-10 Abnormal NONE SEEN [facility] Comment on above: Order Comment: No: D o not add to previous draw Performed By: #### 5 [id number] #### [facility] [address] [place] [address], [facility] VANCOMYCIN TIMEDon 9 VANCOMYCIN TIMED 13.0 mcg/mL Normal [facility] Comment on above: Performed By: #### 3 [id number], [id number], [id number], 73262, 39438, 62032, 31192, 70698 #### [facility] [address] Vital Signs Date Time Vital Sign Value Performing Clinician Facility 11-11-2024 10:26-0400 Body height 157.48 cm Dhaval Farr MD Work Phone: [facility] 11-11-2024 10:26-0400 Body mass index (BMI) [Ratio] 27.1 kg/m2 Dhaval Farr MD Work Phone: [facility] 11-11-2024 10:26-0400 Body temperature 96.8 [degF] Dhaval Farr MD Work Phone: [facility] 11-11-2024 10:26-0400 Body weight 67.13 kg Dhaval Farr MD Work Phone: [facility] 11-11-2024 10:26-0400 Diastolic blood pressure 84 mm[Hg] Dhaval Farr MD Work Phone: [facility] 11-11-2024 10:26-0400 Heart rate 73 /min Dhaval Farr MD Work Phone: [facility] 11-11-2024 10:26-0400 SaO2% (BldA) [Mass fraction] 96 % Dhaval Farr MD Work Phone: [facility] 11-11-2024 10:26-0400 Systolic blood pressure 134 mm[Hg] Dhaval Farr MD Work Phone: [facility] 12-21-2020 08:51-0400 Body height 154.9 cm Tiffany Lopez NETWORK CONTROL OPERATOR Work Phone: [facility] 12-21-2020 08:51-0400 Body mass index (BMI) [Ratio] 46.55 kg/m2 Tiffany Lopez NETWORK CONTROL OPERATOR Work Phone: [facility] 12-21-2020 08:51-0400 Body temperature 97 [degF] Tiffany Lopez NETWORK CONTROL OPERATOR Work Phone: [employer] [facility] 12-21-2020 08:51-0400 Body weight 111.75 kg Tiffany Lopez NETWORK CONTROL OPERATOR Work Phone: [employer] [facility] 12-21-2020 08:51-0400 Diastolic blood pressure 65 mm[Hg] Tiffany Lopez NETWORK CONTROL OPERATOR Work Phone: [employer] [facility] 12-21-2020 08:51-0400 Heart rate 92 /min Tiffany Lopez NETWORK CONTROL OPERATOR Work Phone: [employer] [facility] 12-21-2020 08:51-0400 SaO2% (BldA) [Mass fraction] 94 % Tiffany Lopez NETWORK CONTROL OPERATOR Work Phone: [employer] [facility] 12-21-2020 08:51-0400 Systolic blood pressure 136 mm[Hg] Tiffany Lopez NETWORK CONTROL OPERATOR Work Phone: [employer] [facility] 12-12-2020 11:00-0400 Body temperature 98.49 [degF] Emmett Montero MD Work Phone: [employer] [facility] 12-12-2020 11:00-0400 Diastolic blood pressure 72 mm[Hg] Emmett Montero MD Work Phone: [employer] [facility] 12-12-2020 11:00-0400 Heart rate 78 /min Emmett Montero MD Work Phone: [employer] [facility] 12-12-2020 11:00-0400 Respiratory rate 20 /min Emmett Montero MD Work Phone: [employer] [facility] 12-12-2020 11:00-0400 SaO2% (BldA) [Mass fraction] 95 % Emmett Montero MD Work Phone: [employer] [facility] 12-12-2020 11:00-0400 Systolic blood pressure 111 mm[Hg] Emmett Montero MD Work Phone: [employer] [facility] 12-11-2020 12:14-0400 Body height 154.9 cm Emmett Montero MD Work Phone: [employer] [facility] 12-11-2020 12:14-0400 Body mass index (BMI) [Ratio] 48.75 kg/m2 Emmett Montero MD Work Phone: [employer] [facility] 12-11-2020 12:14-0400 Body weight 117.03 kg Emmett Montero MD Work Phone: [facility] 08-25-2020 16:08-0400 Body mass index (BMI) [Ratio] 48.48 kg/m2 Sowmya Bee RD Work Phone: [employer] [facility] 08-25-2020 16:08-0400 Body weight 116.[address] Work Phone: [facility] [facility] 08-21-2020 14:49-0400 Body mass index (BMI) [Ratio] 48.69 kg/m2 Shelia Sanchez RD Work Phone: [facility] [facility] 08-21-2020 14:49-0400 Body weight 116.[address] Work Phone: [facility] [facility] 08-14-2020 10:54-0400 Diastolic blood pressure 72 mm[Hg] Emmett Montero MD [facility] Phone: [facility] 08-14-2020 10:54-0400 Heart rate 86 /min Emmett Montero MD Work Phone: [employer] [facility] 08-14-2020 10:54-0400 Respiratory rate 18 /min Emmett Montero MD Work Phone: [employer] [facility] 08-14-2020 10:54-0400 SaO2% (BldA) [Mass fraction] 94 % Emmett Montero MD Work Phone: [employer] [facility] 08-14-2020 10:54-0400 Systolic blood pressure 116 mm[Hg] Emmett Montero MD Work Phone: [facility] 08-14-2020 09:51-0400 Body temperature 97 [degF] Emmett Montero MD Work Phone: [facility] 08-14-2020 07:20-0400 Body height 154.9 cm Emmett Montero MD Work Phone: [facility] 08-14-2020 07:20-0400 Body mass index (BMI) [Ratio] 48.56 kg/m2 Emmett Montero MD Work Phone: [facility] 08-14-2020 07:20-0400 Body weight 116.57 kg Emmett Montero MD Work Phone: [facility] 08-07-2020 16:06-0400 BMI (Body Mass Index) 48.92 kg/m2 [facility] 08-07-2020 16:06-0400 Body weight 117.44 kg [facility] 07-28-2020 16:16-0400 BMI (Body Mass Index) 48.92 kg/m2 [facility] 07-28-2020 16:16-0400 Body weight 117.44 kg [facility] 07-21-2020 16:09-0400 BMI (Body Mass Index) 49.39 kg/m2 [facility] 07-21-2020 16:09-0400 Body weight 118.57 kg [facility] 06-27-2020 14:43-0500 BMI (Body Mass Index) 48.6 kg/m2 [facility] 06-27-2020 14:43-0500 Body weight 116.67 kg [facility] 06-27-2020 14:43-0500 Height 154.9 cm [facility] 06-27-2020 13:45-0500 BMI (Body Mass Index) 48.6 kg/m2 Emmett [facility] 06-27-2020 13:45-0500 Body weight 116.67 kg Emmett [facility] 06-27-2020 13:45-0500 BP Diastolic 85 mm[Hg] [facility] 06-27-2020 13:45-0500 BP Systolic 148 mm[Hg] [facility] 06-27-2020 13:45-0500 Height 154.9 cm [facility] 06-27-2020 13:45-0500 Pulse (Heart Rate) 93 /min [facility] 06-27-2020 13:45-0500 Pulse Oximetry 93 % [facility] 09-19-2018 05:55-0400 Respiratory rate 14 /min RAGHEB ASSALY [facility] Comment on above: Performed By: #### [id number], [id number], 78195, 06797, 41517, 22603, 72883, 94561 #### [facility] [address] [place] [address], [facility] 09-18-2018 06:27-0400 Respiratory rate 14 /min RAGHEB ASSALY [facility] Comment on above: Performed By: #### [id number], 27050, 77449, 79730, 13467, 98656, 68416, 80153 #### [facility] [address] [place] [address], [facility] 09-17-2018 06:05-0400 Respiratory rate 14 /min RAGHEB ASSALY [facility] Comment on above: Performed By: #### [id number] #### [facility] [address] [place] [address], [facility] 09-16-2018 16:55-0400 Respiratory rate 20 /min RAGHEB ASSALY [facility] Comment on above: Performed By: #### [id number] #### [facility] [address] [place] [address], [facility] Encounters Encounter Date Encounter Type Care Provider Facility Start: 11-29-2024 End: 11-29-2024 ambulatory Dhaval Farr MD Work Phone: [facility] Work Phone: Start: 11-29-2024 End: 11-29-2024 Patient encounter procedure Keke Maria DO -[facility] Work Phone: Start: 11-11-2024 End: 11-11-2024 ambulatory Dhaval Farr MD Work Phone: [facility] Work Phone: Start: 11-11-2024 End: 11-11-2024 Patient encounter procedure Sondra Naomi MANAGER [employer] NETWORK CONTROL OPERATOR -[facility] Work Phone: Start: 09-07-2024 Registered Recurring Neil Teague MD [facility] Start: 09-07-2024 ambulatory Hadley Prasad acility:[facility] Start: 04-16-2024 Patient encounter status Dhaval Farr MD Work Phone: [facility] Start: 12-25-2021 End: 12-25-[address] NONE LISTED REQUEST Facility: Start: 12-21-2020 End: 12-21-2020 Postop follow up visit related to original px Tiffany Morrissey John NETWORK CONTROL OPERATOR Work Phone: [facility] Comment on above: Other intestinal mal absorption (Primary Dx); S/P laparoscopic sleeve gastrectomy; FARZANEH (obstructive sleep apnea); Uncomplicated asthma, unspecified asthma severity, unspecified whether persistent; Sarcoidosis Start: 12-11-2020 End: 12-12-2020 Evaluation and management of inpatient Emmett Montero MD Work Phone: [facility] Med Surg Comment on above: Obesity, morbid, BMI 40.0-49.9 Start: 09-11-2020 End: 09-11-2020 Subsequent hospital visit by physician Emmett Montero MD Work Phone: [facility] Comment on above: Arrived Start: 09-11-2020 End: 09-11-2020 Patient encounter procedure Clifford Cobian PsyD Work Phone: [facility] Psychology Comment on above: Binge-eating disorde r, in full remission, mild (Primary Dx); Recurrent major depressive disorder, in full remission Start: 08-25-2020 End: 08-25-2020 Subsequent hospital visit by physician Sowmya Bee RD Work Phone: [facility] Comment on above: Arrived Start: 08-21-2020 End: 08-21-2020 Subsequent hospital visit by physician Shelia Sanchez RD Work Phone: [facility] Comment on above: Arrived Start: 08-14-2020 End: 08-14-2020 Subsequent hospital visit by physician Emmett Montero MD Work Phone: [facility] Comment on above: GERD (gastroesophage al reflux disease) Start: 08-09-2020 Patient encounter status Yovana Montero MD Work Phone: [facility] Work Phone: Start: 08-07-2020 End: 08-07-2020 Subsequent hospital visit by physician Sowmya Bee Work Phone: [facility] Comment on above: Arrived Start: 07-31-2020 End: 07-31-2020 Telephone encounter Becca Christensen [facility] Comment on above: Other (Suprep Sample for COLO on 08/14/2020) Start: 07-28-2020 End: 07-28-2020 Subsequent hospital visit by physician Sowmya Bee Work Phone: [facility] Comment on above: Arrived Start: 07-21-2020 End: 07-21-2020 Subsequent hospital visit by physician Sowmya Bee Work Phone: [facility] Comment on above: Arrived Start: 06-27-2020 End: 06-27-2020 Office outpatient new 45 minutes Emmett Montero Work Phone: [facility] Comment on above: body mass index of 4 0.0-49.9 (Primary Dx); FARZANEH (obstructive sleep apnea); Moderate persistent asthma without complication; Essential hypertension; Sarcoidosis; Heart palpitations; Gastroesophageal reflux disease, unspecified whether esophagitis present; Anxiety and depression; Anemia, unspecified type; Vitamin D deficiency; Screening for viral disease Start: 06-27-2020 End: 06-27-2020 Subsequent hospital visit by physician Nasir Hickman Work Phone: [facility] Start: 11-02-2019 Patient encounter procedure Mimi Smith VE-Opgmyffqwglyc-Atjl n [place] Work Phone: Start: 07-13-2019 Patient encounter procedure Mimi Smith RY-Yrgjcesswmtbm-Ueuz n [place] Work Phone: Start: 09-16-2018 End: 09-24-2018 Evaluation and management of inpatient FRANKLIN ASSALY Facility:[facility] Procedures Date Procedure Procedure Detail Performing Clinician Start: 12-12-2020 Basic metabolic panel calcium total Tiffany Lopez NETWORK CONTROL OPERATOR Work Phone: Start: 12-11-2020 Cultyp nuc acid amp prb cult/isolate ea orgnism Emmett Montero MD Work Phone: Start: 12-11-2020 End: 12-11-2020 Laps gstrc rstrictiv px longitudinal gastrectomy Emmett Montero MD Work Phone: Start: 12-11-2020 Blood group typing, RH phenotyping Yovana Montero MD Work Phone: Start: 12-11-2020 End: 12-11-2020 Glucose quantitative blood xcpt reagent strip Emmett Montero MD Work Phone: Start: 12-11-2020 Urine test visual color cmprsn meths Emmett Montero MD Work Phone: Start: 09-11-2020 Radiologic exam chest 2 views Emmett ventura MD Work Phone: Start: 09-11-2020 Lipid 1996 panel - Serum or Plasma Clifford Cobian PsyD Work Phone: Start: 08-14-2020 Esophagogastroduodenoscopy transoral diagnostic Emmett Montero MD Work Phone: Start: 08-14-2020 Colonoscopy Emmett Montero MD Work Phone: Start: 08-14-2020 Assay of thiamine-vitamin b-1 Emmett ventura MD Work Phone: Start: 08-14-2020 Complete blood count with white cell differential, automated Emmett Montero MD Work Phone: Start: 08-14-2020 Lipid panel Emmett Montero MD Work Phone: Start: 08-14-2020 Lipid 1996 panel - Serum or Plasma Yovana Montero MD Work Phone: Start: 07-24-2020 End: 07-24-2020 Psychiatric diagnostic evaluation Binge-eating disorder, mild Clifford Jennings Mango Work Phone: Comment on above: Binge-eating disorder, mild (Primary Dx) ; Recurrent major depressive disorder, in partial remission; SUZANNA (generalized anxiety disorder) Start: 11-02-2019 Angiotensin i-converting enzyme Todd Rothman Start: 11-02-2019 Assay of folic acid serum Todd handy Start: 11-02-2019 Assay of urea nitrogen quantitative Todd Rothman Start: 11-02-2019 Creatinine blood Todd Rothman Start: 11-02-2019 Cyanocobalamin vitamin b-12 Todd guevara Start: 11-02-2019 Mri brain brain stem w/o w/contrast material Todd Rothman Start: 11-02-2019 Mri orbit face & neck w/o & w/contrast matrl Todd Rothman Start: 11-02-2019 Mycobacterium tuberculosis stimulated gamma interferon [Interpretation] in Blood Qualitative Todd Rothman Start: 11-02-2019 SYPHILIS SCREENING WITH REFLEX Todd Rothman Start: 11-02-2019 Vitamin B1 - Thiamine, Whole Blood Sukhjinder odalis Rothman Start: 09-21-2018 TRANSFUSE OF NONAUT GLOBULIN INTO PERIPH VEIN, PERC APPROACH MADY WARNER Start: 09-18-2018 RESPIRATORY VENTILATION, 24-96 CONSECUTIVE HOURS RAGHEB ASSALY Start: 09-18-2018 DRAINAGE OF LEFT UPPER LUNG LOBE, ENDO, DIAGN RAGHEB ASSALY Start: 09-16-2018 MEASURE OF ARTERIAL SATURATION, PERIPHERAL, PERC APPROACH RAGHEB ASSALY Cataract surgery Todd L M organ H/O: surgery History of gastr ic restrictive surgery Dhaval Farr MD Work Phone: Injection of drug into vitreous Todd sandhu Plan of Treatment Date Care Activity Detail Author Start: 09-11-2025 Fasting lipid profile LIPID SCREENIN G [facility] Start: 08-14-2025 Fasting lipid profile LIPID SCREENIN G [facility] Start: 11-11-2024 Patient referral [facility] Work Phone: Start: 08-14-2021 Colonoscopy COLORECTAL CAN CER SCREENING DISCUSSION [facility] Start: 01-16-2021 End: 01-16-2021 Patient encounter procedure 01/16/2021 Office Visit General Surgery Emmett Montero MD [address] [place] [id number] [facility] Start: 01-11-2021 End: 01-11-2021 Patient encounter procedure 01/11/2021 Appointment Nutrition and Dietetics Nasir Hickman, CARISSA [address] [place] [phone] [facility] Start: 12-27-[address] [facility] Start: 12-19-2020 End: 12-19-2020 Patient encounter procedure 12/19/2020 Office Visit General Surgery Tiffany Lopez, NETWORK CONTROL OPERATOR [address] [place] [address] [facility] Start: 09-11-2020 End: 09-11-2020 Office Visit 09/11/2020 Office Visit Psychology Clifford Cobian, PsyD [address] [place] [phone] [facility] Start: 08-30-2020 End: 08-30-2020 Patient encounter procedure 08/30/2020 Appointment Nutrition and Dietetics Sowmya Bee, CARISSA [address] [place] [phone] [facility] Start: 08-25-2020 End: 08-25-2020 Patient encounter procedure 08/25/2020 Appointment Nutrition and Dietetics Sowmya Bee, CARISSA [address] [place] [phone] [facility] Start: 08-21-2020 End: 08-21-2020 Appointment 08/21/2020 Appointment Nutrition and Dietetics Sowmya Bee, CARISSA [address] [place] [phone] [place] [address] [facility] Start: 08-16-2020 End: 08-16-2020 Appointment 08/16/2020 Appointment Nutrition and Dietetics Sowmya Bee, CARISSA [address] [place] [phone] [place] [address] [facility] Start: 08-14-2020 End: 08-14-2020 Hospital Encounter [facility] Comment on above: GERD (gastroesophage al reflux disease) EGD W/ BX Start: 08-09-2020 End: 08-09-2020 Office Visit 08/09/2020 Office Visit Cardiovascular Medicine Jose Max MD [address] [place] [address] [phone] [facility] Start: 08-07-2020 End: 08-07-2020 Appointment 08/07/2020 Appointment Nutrition and Dietetics Sowmya Bee, CARISSA [address] [place] [phone] [facility] Start: 08-04-2020 End: 08-04-2020 Appointment 08/04/2020 Appointment Nutrition and Dietetics Sowmya Bee RD [address] [place] [phone] [facility] Start: 07-28-2020 End: 07-28-2020 Appointment 07/28/2020 Appointment Nutrition and Dietetics Sowmya Bee, RD [address] [place] [phone] [facility] Start: 07-24-2020 End: 07-24-2020 Office Visit 07/24/2020 Office Visit Psychology Clifford Cobian, PsyD [address] [facility] [place] [phone] [facility] Start: 07-21-2020 End: 07-21-2020 Appointment 07/21/2020 Appointment Nutrition and Dietetics Sowmya Bee, CARISSA [address] [place] [phone] [facility] Start: 07-14-2020 End: 07-14-2020 Appointment 07/14/2020 Appointment Nutrition and Dietetics Sowmya Bee, RD [address] [place] [phone] [facility] Start: 06-27-2020 End: 06-27-2021 B12/folate level B12 & FOLATE Lab Routine FARZANEH (obstructive sleep apnea) Moderate persistent asthma without complication Essential hypertension body mass index of 40.0-49.9 Sarcoidosis Heart palpitations Gastroesophageal reflux disease, unspecified whether esophagitis present Anxiety and depression Expected: 06/27/2020, Expires: 06/27/2021 [facility] Comment on above: Expected: 06/27/2020 , Expires: 06/27/2021 Start: 06-27-2020 End: 06-27-2021 Complete blood count with white cell differential, automated CBC, EDIF, PLATELET Lab Routine FARZANEH (obstructive sleep apnea) Moderate persistent asthma without complication Essential hypertension body mass index of 40.0-49.9 Sarcoidosis Heart palpitations Gastroesophageal reflux disease, unspecified whether esophagitis present Anxiety and depression Expected: 06/27/2020, Expires: 06/27/2021 [facility] Comment on above: Expected: 06/27/2020 , Expires: 06/27/2021 Start: 06-27-2020 End: 06-27-2021 Comprehensive metabolic 2000 panel COMPREHENSIVE METABOLIC PANEL Lab Routine FARZANEH (obstructive sleep apnea) Moderate persistent asthma without complication Essential hypertension body mass index of 40.0-49.9 Sarcoidosis Heart palpitations Gastroesophageal reflux disease, unspecified whether esophagitis present Anxiety and depression Expected: 06/27/2020, Expires: 06/27/2021 [facility] Comment on above: Expected: 06/27/2020 , Expires: 06/27/2021 Start: 06-27-2020 End: 06-27-2021 Diagnostic radiography of chest, combined PA and lateral XR CHEST PA AND LATERAL Imaging Routine FARZANEH (obstructive sleep apnea) Moderate persistent asthma without complication Essential hypertension body mass index of 40.0-49.9 Sarcoidosis Heart palpitations Gastroesophageal reflux disease, unspecified whether esophagitis present Anxiety and depression Expected: 06/27/2020, Expires: 06/27/2021 [facility] Comment on above: Expected: 06/27/2020 , Expires: 06/27/2021 Start: 06-27-2020 End: 06-27-2021 IRON/IRON BINDING/TRANSFERRIN IRON/IRON BINDING/TRANSFERRIN Lab Routine FARZANEH (obstructive sleep apnea) Moderate persistent asthma without complication Essential hypertension body mass index of 40.0-49.9 Sarcoidosis Heart palpitations Gastroesophageal reflux disease, unspecified whether esophagitis present Anxiety and depression Anemia, unspecified type Expected: 06/27/2020, Expires: 06/27/2021 [facility] Comment on above: Expected: 06/27/2020 , Expires: 06/27/2021 Start: 06-27-2020 End: 06-27-2021 LIPID PANEL W CALCULATED LDL LIPID PANEL W CALCULATED LDL Lab Routine FARZANEH (obstructive sleep apnea) Moderate persistent asthma without complication Essential hypertension body mass index of 40.0-49.9 Sarcoidosis Heart palpitations Gastroesophageal reflux disease, unspecified whether esophagitis present Anxiety and depression Expected: 06/27/2020, Expires: 06/27/2021 [facility] Comment on above: Expected: 06/27/2020 , Expires: 06/27/2021 Start: 06-27-2020 End: 06-27-2021 NOVEL CORONAVIRUS LAB 1 - NASOPHARYNGEAL NOVEL CORONAVIRUS LAB 1 - NASOPHARYNGEAL Microbiology STAT Screening for viral disease Expected: 06/27/2020, Expires: 06/27/2021 [facility] Comment on above: Expected: 06/27/2020 , Expires: 06/27/2021 Start: 06-27-2020 End: 06-27-2021 Standard ECG ECG ECG Routine FARZANEH (obstructive sleep apnea) Moderate persistent asthma without complication Essential hypertension body mass index of 40.0-49.9 Sarcoidosis Heart palpitations Gastroesophageal reflux disease, unspecified whether esophagitis present Anxiety and depression Expected: 06/27/2020, Expires: 06/27/2021 [facility] Comment on above: Expected: 06/27/2020 , Expires: 06/27/2021 Start: 06-27-2020 End: 06-27-2021 TSH Qn TSH Lab Routine FARZANEH (obstructive sleep apnea) Moderate persistent asthma without complication Essential hypertension body mass index of 40.0-49.9 Sarcoidosis Heart palpitations Gastroesophageal reflux disease, unspecified whether esophagitis present Anxiety and depression Expected: 06/27/2020, Expires: 06/27/2021 [facility] Comment on above: Expected: 06/27/2020 , Expires: 06/27/2021 Start: 06-27-2020 End: 06-27-2021 VITAMIN B1 VITAMIN B1 Lab Routine FARZANEH (obstructive sleep apnea) Moderate persistent asthma without complication Essential hypertension body mass index of 40.0-49.9 Sarcoidosis Heart palpitations Gastroesophageal reflux disease, unspecified whether esophagitis present Anxiety and depression Expected: 06/27/2020, Expires: 06/27/2021 [facility] Comment on above: Expected: 06/27/2020 , Expires: 06/27/2021 Start: 06-27-2020 End: 06-27-2021 VITAMIN D (25-HYDROXY,TOTAL) VITAMIN D (25-HYDROXY,TOTAL) Lab Routine FARZANEH (obstructive sleep apnea) Moderate persistent asthma without complication Essential hypertension body mass index of 40.0-49.9 Sarcoidosis Heart palpitations Gastroesophageal reflux disease, unspecified whether esophagitis present Anxiety and depression Vitamin D deficiency Expected: 06/27/2020, Expires: 06/27/2021 [facility] Comment on above: Expected: 06/27/2020 , Expires: 06/27/2021 Start: 06-27-2020 End: 06-27-2021 ZINC, SERUM ZINC, SERUM Lab Routine FARZANEH (obstructive sleep apnea) Moderate persistent asthma without complication Essential hypertension body mass index of 40.0-49.9 Sarcoidosis Heart palpitations Gastroesophageal reflux disease, unspecified whether esophagitis present Anxiety and depression Expected: 06/27/2020, Expires: 06/27/2021 [facility] Comment on above: Expected: 06/27/2020 , Expires: 06/27/2021 Start: 12-28-2019 Influenza vaccination INFLUENZA VACC INE (#1) [facility] Start: 11-02-2019 Mri brain brain stem w/o w/contrast material MRI Brain w/wo Contrast XH-Jabvoaksadfpi-U [place] [facility] Work Phone: Start: 11-02-2019 Mri orbit face & nec k w/o & w/contrast matrl MRI Orbits w/wo Contrast MJ-Glkoadpllpdnt-W [place] [facility] Work Phone: Start: 2017 Colonoscopy COLORECTAL CAN CER SCREENING DISCUSSION [facility] Start: 2017 Zoster vaccine hzv l sun for subcutaneous use ZOSTER (SHINGLES) VACCINE (1 of 2) [facility] Start: 2007 Fasting lipid profile LIPID SCREENIN G [facility] Start: 2007 Screening mammography MAMMOGRA M SCREENING DISCUSSION [facility] Start: 1988 Screening for malign ant neoplasm of cervix CERVICAL CANCER SCREENING DISCUSSION [facility] Start: 1986 Third diphtheria, tetanus and acellular pertussis (DTaP) vaccination TDAP (ADULT) [facility] Start: 1985 Tetanus vaccination TETANUS [facility] Start: 1983 COVID-19 VACCINE (1) COVID-19 VACCIN E (1) [facility] Start: 1982 HIV screening HIV SCREENING DISCUSSI ON [facility] Start: 1980 HIV screening HIV SCREENING DISCUSSI ON [facility] Start: 1979 COVID-19 VACCINE (1) COVID-19 VACCIN E (1) [facility] Start: 1967 Hepatitis C antibody , confirmatory test HEPATITIS C VIRUS SCREENING [facility] Patient referral [facility] Work Phone: End: 07-21-2020 Standard ECG ECG ECG Routine body mass index of 40.0-49.9 1 Occurrences starting 07/21/2020 until 07/21/2020 [facility] Comment on above: 1 Occurrences starti ng 07/21/2020 until 07/21/2020 SURGICAL PATHOLOGY REQUEST SURGICAL PATHOLOGY REQUEST Surg Path Routine GERD (gastroesophageal reflux disease) Screening for malignant neoplasm of colon Release Upon Ordering for 1 Occurrences starting 08/14/2020 [facility] Comment on above: Release Upon Orderin g for 1 Occurrences starting 08/14/2020 SURGICAL PATHOLOGY REQUEST SURGICAL PATHOLOGY REQUEST Surg Path Routine Morbid obesity FARZANEH (obstructive sleep apnea) Asthma GERD (gastroesophageal reflux disease) Anxiety and depression Release Upon Ordering for 1 Occurrences starting 12/11/2020 [facility] [employer] Work Phone: Comment on above: Release Upon Orderin g for 1 Occurrences starting 12/11/2020 VITAMIN B1 VITAMIN B1 Lab T trell 08/14/2020 7:20 AM EDT [facility] XR Chest 2 Views [facility] ZINC, SERUM ZINC, SERUM Lab Today 08/14/2020 7:20 AM EDT [employer] [facility] MG-Ophthalmolog y-W [place] [facility] Work Phone: [facility] NEGATED: Highlighted row has been ruled out! Planned Goals not documented VY-Fpplhpuahayko-A [place] [facility] Work Phone: Payers Date Payer Category Payer Self-pay 2020 Medicare [id number] 1965 Unknown [id number] 1965 Unknown [id number] 1957 Medicaid [id number] 1957 Medicare [id number] Unknown [id number] Unknown HCAP/HFA/FAP Active [id number] Social History Date Type Detail Facility Start: 06-27-2020 End: 08-15-2020 Tobacco smoking status NHIS Former smoker [facility] End: 07-24-2020 History of tobacco use Current smoker [facility] End: 07-24-2020 History of tobacco use Cigarette Smoker [facility] Start: 06-27-2020 End: 08-15-2020 Tobacco use and exposure Never used [facility] Start: 06-27-2020 End: 12-21-2020 Alcohol intake Ex-drinker (finding) [facility] Start: 06-27-2020 Tobacco Comment Pt will smoke 1-2 cigarettes with extreme stress [facility] Start: 1965 Sex Assigned At Not on file [facility] Exposure to SARS-CoV-2 (event) Not sure [facility] Start: 06-27-2020 Tobacco Comment Pt will smoke 1-2 cigarettes with extreme stress [facility] Start: 04-16-2024 End: 11-12-2024 Tobacco smoking status NHIS Never smoked tobacco (finding) [facility] Sex Female (finding) [facility] Start: 1965 Sex Assigned At Female [facility] NEGATED: Highlighted row - - BC-[facility]olh[facility] [place] Work Phone: Medical Equipment Procedure Code Equipment Code Equipment Origin al Text Equipment Identifier Dates [place] [employer] Staple [id number] Start: 12-11-2020 Functional Status Date Assessment Result Facility NEGATED: Highlighted row Functional performance Functional status health issues are not documented Disease ZL-Vhjjrnzpkxvog-To [place] [facility] Work Phone: Mental Status Date Assessment Result Facility NEGATED: Highlighted row Cognitive function [Interpretation] Cognitive status health issues are not documented Disease TP-Hjnktxpapsylc-Mb [place] [facility] Work Phone: Clinical Notes 08-14-2020 to 11-11-2024 Note Date & Type Note Facility 11-11-2024 Evaluation note Diagnosis Onset Date Resolution Bilateral hand pain acute November 11, 2024 10:24am Ganglion cyst of volar aspect of left wrist acute November 11, 2024 10:24am Paresthesia of hand, bilateral acute November 11, 2024 10:24am Pulmonary sarcoidosis acute Oct 10:24am [facility] Work Phone: [phone] 675-230608-26-2021 History of Present illness Narrative* Tiffany Lopez, NNEKA - 12/21/2020 9:00 AM EDT BARIATRIC SURGERY CLINIC FOLLOW UP NOTE Clinic Date: 12/21/2020 Katalina Tapia, 55 y.o. [address] [place] [address] Index Surgery Date of Surgery: 12/11/2020 Surgeon Attending: Emmett Montero MD Surgical Procedure: LSG Pre-surgical weight: 258 Other Bariatric Surgeries none Time Since Surgery: 1 weeks Extra Procedures: None COMPLICATIONS DURING ADMISSION: None COMPLICATIONS SINCE DISCHARGE?: she is doing well. Not taking any pain meds since Friday night. Sheis feeling pretty good other than she has some allergies that is causing a cough. She states that she suffers from allergies around this time of year every November - Dec. HISTORY: Fever/Chills: Denies Abdominal Pain: none to minimal Back Pain: Denies Increased Heart Rate: Denies Bloating / Hiccups: Denies Shortness of Breath: Denies Cough / Wheezing: Denies Calf/Thigh pain or swelling: Denies Decreased Urine Output: Denies Nausea/Vomiting: none Diarrhea: Yes, she had this before surgery Bowel function: yes Current Diet: Phase II (Full Liquids) Daily approximate Fluid intake: 96 fl oz per 24hrs Protein intake: 69 grams Present Activity level: household activities, walking around house and outside. Have you attended any Support Group? No attendance Current Medications: Current Outpatient Medications Medication Sig Dispense Refill acetaminophen 160 MG/5ML Suspension Take 20 mL by mouth every 6 hours as needed for Pain. 500 mL 1 albuterol 108 (90 Base) MCG/ACT Aero Soln inhaler Inhale 2 puffs Every 6 hours as needed. budesonide-formoterol 160-4.5 mcg/puff Aerosol inhaler INHALE 2 PUFFS TWICE DAILY*RINSE AFTER USE* busPIRone HCl 30 MG tablet Take 30 mg by mouth 2 times daily. hydrOXYzine HCl 25 MG tablet TAKE 1 TABLET BY MOUTH EVERYDAY AT BEDTIME omeprazole [address] capsule Take 1 capsule by mouth daily. 90 capsule 1 ondansetron 4 MG Tab Dispersible tablet Take 1 tablet by mouth every 6 hours as needed. 15 tablet 1 sertraline 100 MG tablet Take 100 mg by mouth daily. B Complex Vitamins (VITAMIN B COMPLEX PO) Take 1 tablet by mouth daily. Multiple Vitamins-Minerals (Multi For Her 50+) tablet 1 tablet (Patient not taking: Reported on 12/21/2020) oxyCODONE 5 MG/5ML Solution oral solution Take 5 mL by mouth every 6 hours as needed for Moderate Pain or Severe Pain for up to 6 days. 120 mL 0 No current facility-administered medications for this visit. Medications with dosage changes this visit: Told to start Vitamins, Omeprazole and Actigall REVIEW OF SYSTEMS: CONSTITUTIONAL: Patient denies fevers, chills, sweats and weight changes. EYES: Patient denies any visual symptoms. EARS, NOSE, AND THROAT: No difficulties with hearing. No symptoms of rhinitis or sore throat. CARDIOVASCULAR: Patient denies chest pains, palpitations, orthopnea and paroxysmal nocturnal dyspnea. RESPIRATORY: No dyspnea on exertion, no wheezing or cough. GI: No nausea, vomiting, diarrhea, constipation, abdominal pain, hematochezia or melena. : No urinary hesitancy or dribbling. No nocturia or urinary frequency. No abnormal urethral discharge. MUSCULOSKELETAL: No myalgias or arthralgias. NEUROLOGIC: No chronic headaches, no seizures. Patient denies numbness, tingling or weakness. PSYCHIATRIC: Patient denies problems with mood disturbance. No problems with anxiety. ENDOCRINE: No excessive urination or excessive thirst. DERMATOLOGIC: Patient denies any rashes or skin changes. PHYSICAL EXAM: PHYSICAL EXAMINATION: Visit Vitals BP 136/65 (BP Location: Left arm, BP Position: Sitting) Pulse 92 Temp 97 F (36.1 C) (Temporal) Ht 1.549 m (5' 1 ) Wt 111.8 kg (246 lb 6 oz) SpO2 94% BMI 46.55 kg/m GENERAL: No apparent distress. Pt is alert and oriented x3. VITAL SIGNS: HR, BP, Temp; Normal HEENT: Head is normocephalic and atraumatic. Extraocular muscles are intact. Pupils are equal, round, and reactive to light and accommodation. Nares appeared normal. Mouth is well hydrated and without lesions. Mucous membranes are moist. Posterior pharynx clear of any exudate or lesions. NECK: Supple. No carotid bruits. No lymphadenopathy or thyromegaly. LUNGS: Clear to auscultation lower lobes. She has some expiratory wheezes that clear with cough. Breathing unlabored. HEART: Regular rate and rhythm without murmur. ABDOMEN: Soft, appropriately mildly tender to palpation, and nondistended. Positive bowel sounds. No hepatosplenomegaly was noted. Incisions CDI. EXTREMITIES: Without any cyanosis, clubbing, rash, lesions or edema. NEUROLOGIC: Cranial nerves II through XII are grossly intact. PSYCHIATRIC: Flat affect, but denies suicidal or homicidal ideations. SKIN: No ulceration or induration present. IMPRESSION: Normal post-OP course PLAN: Activity: OK to start exercise program in next 1-2 weeks. Return to work: N/A Diet: Advance diet per Handbook, Education on Pureed (Phase 3) diet and appropriate diet progression provided. Counseling: Start Vitamins, and Omeprazole if you haven t already. Start exercise program but no heavy lifting (>10 lbs) until next visit. Disposition: Return 1 month to Post-op follow up/ individual office visit Labs on return: No Tiffany Lopez CNP Bariatric and Minimally Invasive General Surgery 15 minutes spent with patient on [id number] interaction, history/documentation, education, and coordination of care. [facility] Miscellaneous Notes* Nursing Notes - Domonique Allen RN - 12/12/2020 3:10 PM EDT Discharge orders reviewed with pt, verbalized understanding. IV removed intact per protocol. Pt escorted to hospital entrance by hospital by hospital employee, discharges home in car with family. * Plan of Care - Domonique Allen RN - 12/12/2020 3:00 PM EDT Adequate for discharge * Nursing Notes - Domonique Allen RN - 12/12/2020 9:46 AM EDT WBC 16.6 [address] am. Reported to Dr. Montero. No orders received. * Certification - Emmett Montero MD - 12/12/2020 8:26 AM EDT I certify that this patient requires inpatient services at this time. I anticipate the expected length of stay will include at least two midnights. Inpatient services are due to the following medicalconcerns morbid obesity. Plans for post hospitalization care will be discharge to home with home health. * Nursing Notes - Khushbu Nixon RN - 12/12/2020 4:30 AM EDT Assessment unchanged from previous. Patient states her pain is being controlled from the scheduled pain medications. Denies any nausea. Sleeping with CPAP in- between care. Denies other needs. * Op Note - Emmett Montero MD - 12/11/2020 12:58 PM EDT Operative Report DATE PERFORMED: 12/11/20 SURGEON: Emmett Montero MD TELEPHONE ANSWERER: Tiffany Lopez CNP PREOPERATIVE DIAGNOSES: Morbid obesity, BMI 48.8, hypertension, obstructive sleep apnea, asthma, sarcoidosis, depression and anxiety. POSTOPERATIVE DIAGNOSES: Morbid obesity, BMI 48.8, hypertension, obstructive sleep apnea, asthma, sarcoidosis, depression and anxiety. PROCEDURES PERFORMED: 1. Laparoscopic sleeve gastrectomy, 2. intraoperative endoscopy, 3. transversus abdominis plane block. COMPLICATIONS: None. ESTIMATED BLOOD LOSS: Minimal. DRAINS: None. ANESTHESIA: General endotracheal. SPECIMENS: Greater curvature of the stomach. BRIEF HISTORY: Katalina Tapia is a 55 y.o. female, morbidly obese with a BMI of 48.8. she has obesity-related comorbidities including hypertension, obstructive sleep apnea, asthma, sarcoidosis, depression and anxiety. she has attempted and failed multiple diet and exercise regimens in the past. she was thoroughly evaluated in a multidisciplinary fashion at the [facility] and found to be an appropriate candidate for laparoscopic sleeve gastrectomy. she was informed of the risks and benefits of the procedure and expressed understanding and consent. PROCEDURE IN DETAIL: On the day of the operation, Katalina Tapia was properly identified in the holding area. she was taken to the operating room, placed in a supine position on the operating room table. she was given appropriate perioperative IV antibiotics and heparin subcu. SCDs were placed. Anesthesia was induced following endotracheal intubation. An appropriate OR time-out was performed. she was prepped and draped in normal sterile fashion. A shahid was made in the left upper quadrant and a Veress needle was inserted. The abdomen was insufflated with CO2 and a 5 mm Optiview trocar was inserted under direct visualization just to the right and above the umbilicus. The upper abdomen was surveilled and no scar tissue was found. A bilateral transversus abdominis plane block was performed with a mixture of Exparel, 0.5% bupivacaine, and saline by myself and the technical services assistant. This mixture was also used to numb the locations of our trocar placements. The following trocars were then placed under direct visualization with the laparoscope by myself and the technical services assistant. A 5 mm trocar was placed in the left upper quadrant anterior axillary line. A 5 mm trocar was placed in the right upper quadrant anterior axillary line. A 5 mm trocar was placed in the right upper quadrant midclavicular line subcostally and finally, a 15 mm trocar was placed in the right upper quadrant midclavicular line above the level of the umbilicus. The camera was controlled by the technical services assistant for the entire case. We then placed the patient in reverse Trendelenburg position and a snake liver retractor was inserted and retracted the left lobe of the liver away from the hiatus. We began the procedure by grasping the greater curvature of the stomach at the level of the incisura and created a defect in the gastrocolic ligament with the Harmonic Scalpel. We then proceeded to excise the omentum off the greater curvature of the stomach using the Harmonic Scalpel, moving proximally until we reached the angle of His. The technical services assistant provided critical retraction during this portion of the procedure. We were careful to dissect away any posterior attachments both to the floppy fundus and we used funmi on some thin attachments on the posterior body of the stomach. The technical services assistant mobilized the distal portion of the greater curvature to a level 5 cm proximal to the pylorus. We then placed a green load Endo stapler with a SeamGuard taking a small bite from the greater curvature of the stomach to begin creating our sleeve. With the help of the technical services assistant, the stomach was tented up and anesthesia placed a 36-Tajik bougie along the lesser curvature of the stomach. The bougie was used as a sizer and we proceeded to fire several more loads of the green load, gold load and blue loads of Endo stapler with a SeamGuard moving proximally, hugging the bougie, to create a tight sleeve. Our final load was a blue load of the stapler, completely transecting off the gastric fundus. The technical services assistant provided necessary retraction during this process. We placed several clips on the distal staple line for hemostasis. We then placed a bowel clamp across the distal stomach and the technical services assistant instilled sterile saline into the upper quadrant around our new sleeve. The endoscope was inserted through the oropharynx into the sleeve. We were able to visualize a straight staple line with no bleeding. Air was instilled into the stomach and submerged underneath the sterile saline in the abdominal cavity. There were no bubbles and thus the leak test was negative. The technical services assistant then suctioned the air out of the stomach, removed the endoscope and suctioned the saline out of the abdominal cavity and removed the bowel clamp. We then placed a patch of omental fat over our newly constructed sleeve using a running 2-0 Stratafix suture. We also tacked the distal portion of the sleeve to the hanging gastrocolic ligament to prevent curling. We removed the gastric remnant through the 15 mm trocar site. The liver retractor was removed. Satisfied with our hemostasis on throughout the Abdomen, the technical services assistant helped to close the 15 mm trocar site with 0 Vicryl sutures using the Lorenzo-Ana device. We then desufflated the abdomen of CO2, removed the camera and the trocars. The 15 mm trocar site was copiously irrigated with sterile saline and then all the skin incisions were closed with 4-0 Monocryl subcuticular sutures and Dermabond by the technical services assistant. The patient tolerated the procedure without difficulty, was extubated immediately postoperatively and was transferred to the PACU in good condition. This operation could not have been safely performed (without compromising the technical results or length of the procedure) without the assistance of a skilled surgical consultant. A surgical consultant was medically necessary for positioning, retraction and instrumentation. Emmett Montero MD * Nursing Notes - Domonique Allen RN - 12/11/2020 12:16 PM EDT Pt to floor from surgery. Pt alert and oriented x4, states that she has some pain in upper stomach area. Reassured pt that is normal will begin to subside with increased ambulation and that there arepain medications if needed. Pt denies nausea, shortness of breath, difficult breathing. Pt family is at bedside. Education given to pt and family regarding oral intake and reporting nausea/increased pain. Pt has some sips of water with no adverse reaction. * Brief Op Note - Emmett Montero MD - 12/11/2020 10:53 AM EDT POST OPERATIVE/PROCEDURE NOTE Katalina Tapia ([id number]) SURGEON Surgeon(s) and Role: * Emmett Montero MD - Primary TELEPHONE ANSWERER Tiffany Lopez CNP ANESTHESIOLOGIST PROSTHETIC AIDE: Francisco Maldonado APRN-PROSTHETIC AIDE SURGICAL STAFF Technology Adoption Manager: Justo James RN Scrub Person: Sondra Tyson PROCEDURE PERFORMED Procedure(s) (LRB): GASTRECTOMY LONGITUDINAL (SLEEVE) LAPAROSCOPIC (N/A) EGD DIAGNOSTIC (N/A) PRIMARY CLOSURE Yes ANESTHESIA (type of) General ESTIMATED BLOOD LOSS Minimal DRAINS None BLOOD PRODUCTS None FLUIDS Intake/Output Summary (Last 24 hours) at 12/11/2020 1053 Last data filed at 12/11/2020 1001 Gross per 24 hour Intake 2125 ml Output Net 2125 ml PRE OPERATIVE DIAGNOSIS Morbid obesity [E66.01] FARZANEH (obstructive sleep apnea) [G47.33] Asthma [J45.909] GERD (gastroesophageal reflux disease) [K21.9] Anxiety and depression [F41.9, F32.9] POST OPERATIVE DIAGNOSIS Post-Op Diagnosis Codes: * Morbid obesity [E66.01] * FARZANEH (obstructive sleep apnea) [G47.33] * Asthma [J45.909] * GERD (gastroesophageal reflux disease) [K21.9] * Anxiety and depression [F41.9, F32.9] FINDINGS 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 Montero * Additional Instructions* Emmett Montero MD - 12/12/2020 Katalina Tapia 1965 Date of admission: 12/11/20 Date of discharge: 12/12/20 DISPOSITION: Home PRINCIPAL DIAGNOSIS: Morbid Obesity OTHER DIAGNOSES: Active Problems: FARZANEH (obstructive sleep apnea) body mass index of 40.0-49.9 GERD (gastroesophageal reflux disease) Anxiety and depression Asthma Morbid obesity Primary Care: Mimi Smith Other Providers: Procedures while hospitalized: Laparoscopic sleeve gastrectomy PENDING RESULTS: Pathology results from surgery. Wound care: You may shower and wash your abdomen with mild soap and water. Pat incisions to dry. Donot soak in a bath or pool for at least 2 weeks. Your incisions are closed with dissolvable stitches and skin glue. The glue will peel off on its own after about 1 week. Activity: You may walk and climb stairs as tolerated. You should not lie or sit down for more than 1 hour at a time except for when sleeping at night. Activity is important to prevent blood clots. Noheavy lifting of objects greater than 10 lbs (or a gallon of milk). No driving or returning to work until you no longer require narcotic pain medications (Roxicodone). Diet: You will be on a Phase 2 diet for the next 7-10 days. This includes sugar- free, non-carbonated clear liquids, thick liquids (like strained cream soups, sugar-free pudding, and protein shakes). After about one week or when cleared by your surgeon, you may begin the Phase 3 pureed diet (as per your Bariatric Guidebook). Remember to drink at least 64 oz of liquids per day and try to take in 40-60 grams of protein. Avoid straws and carbonated beverages. Take small sips every couple of minutes. Your water bottle is your best friend and you shouldn t go anywhere without it! Warning: If you experience severe pain, fever over 101 F, redness or drainage from incisions, nausea/vomiting that lasts more than 12 hours, rapid heart rate or shortness of breath, call your surgeonimmediately. Medication List CONTINUE taking these medications acetaminophen 160 MG/5ML SUSP Commonly known as: TYLENOL Take 20 mL by mouth every 6 hours as needed for Pain. albuterol 108 (90 Base) MCG/ACT AERS inhaler Commonly known as: VENTOLIN HFA budesonide-formoterol 160-4.5 mcg/puff AERO inhaler Commonly known as: SYMBICORT busPIRone HCl 30 MG TABS hydrOXYzine HCl 25 MG TABS Commonly known as: ATARAX Multi For Her 50+ TABS omeprazole [address] capsule Commonly known as: PRILOSEC Take 1 capsule by mouth daily. ondansetron 4 MG ODT tablet Commonly known as: ZOFRAN-ODT Take 1 tablet by mouth every 6 hours as needed. oxyCODONE 5 MG/5ML SOLN oral solution Commonly known as: ROXICODONE Take 5 mL by mouth every 6 hours as needed for Moderate Pain or Severe Pain for up to 6 days. sertraline 100 MG TABS Commonly known as: ZOLOFT VITAMIN B COMPLEX PO STOP taking these medications ibuprofen 600 MG TABS Commonly known as: MOTRIN Do not take ibuprofen after surgery. You do not need to begin taking your vitamins until instructed by your surgeon at your first follow-up visit. Please consult your medical doctor regarding adjusting your medications after surgery (particularlydiabetic and blood pressure medications). Follow up with Tiffany Lopez CNP in her [facility] office on 12/19/20 at 9:30 am. documented in this encounterMem[facility] Hospital course Narrative* Emmett Montero MD - 12/12/2020 1:00 PM EDT Discharge Summary Name: Katalina Tapia Age: 55 y.o. Birthday: 1965 Admit Date: 12/11/2020 6:22 AM Discharge Date: 12/12/20 Discharge Time: 1:00 PM Discharge Unit: Med surg Admission Information Admitting Physician: Emmett Montero MD Discharge Information Discharge Physician: Emmett Montero MD Problem List Active Hospital Problems Diagnosis Morbid obesity Asthma body mass index of 40.0-49.9 FARZANEH (obstructive sleep apnea) GERD (gastroesophageal reflux disease) Anxiety and depression Resolved Hospital Problems No resolved problems to display. Brief Summary of Hospital Course for Discharge Summary: Katalina Tapia underwent an uncomplicated laparoscopic sleeve gastrectomy by Dr Montero on 12/11/20. she recovered on the regular nursing floor. she was started on a clear liquid diet and then advanced to afull liquid diet on POD#1. On discharge, her pain was controlled on oral pain medications, ambulating and voiding without difficulty, and she was tolerating an adequate amount of liquids by mouth. she was discharged in good condition on POD#1. Brief Summary of Consults for Discharge Summary: none Brief Summary of Procedures and Imaging for Discharge Summary: as above Summary of last selected lab results and date obtained: Lab Results Component Value Date WBC 16.6 (H) 12/12/2020 HGB 13.1 12/12/2020 HCT 39.2 12/12/2020 PLATELET 335 12/12/2020 MCV 86.0 12/12/2020 Lab Results Component Value Date SODIUM 137 12/12/2020 POTASSIUM 4.5 12/12/2020 CHLORIDE 102 12/12/2020 CO2 27 12/12/2020 BUN 9 12/12/2020 CREATSERUM 0.71 12/12/2020 GLUCOSE 135 (H) 12/12/2020 Lab Results Component Value Date ALT 39 09/11/2020 AST 27 09/11/2020 ALKPHOS 82 09/11/2020 BILITOTAL 0.5 09/11/2020 Brief Summary of Labs for Discharge Summary: Discharge Orders AMB REFERRAL TO HOME HEALTH - INPATIENT DISCHARGE XAVIER Current Outpatient Meds: Medication List for when you go home CONTINUE taking these medications acetaminophen 160 MG/5ML SUSP Take 20 mL by mouth every 6 hours as needed for Pain. Commonly known as: TYLENOL albuterol 108 (90 Base) MCG/ACT AERS inhaler Inhale 2 puffs Every 6 hours as needed. Commonly known as: VENTOLIN HFA budesonide-formoterol 160-4.5 mcg/puff AERO inhaler INHALE 2 PUFFS TWICE DAILY*RINSE AFTER USE* Commonly known as: SYMBICORT busPIRone HCl 30 MG TABS Take 30 mg by mouth 2 times daily. hydrOXYzine HCl 25 MG TABS TAKE 1 TABLET BY MOUTH EVERYDAY AT BEDTIME Commonly known as: ATARAX Multi For Her 50+ TABS 1 tablet omeprazole [address] capsule Take 1 capsule by mouth daily. Commonly known as: PRILOSEC ondansetron 4 MG ODT tablet Take 1 tablet by mouth every 6 hours as needed. Commonly known as: ZOFRAN-ODT oxyCODONE 5 MG/5ML SOLN oral solution Take 5 mL by mouth every 6 hours as needed for Moderate Pain or Severe Pain for up to 6 days. Commonly known as: ROXICODONE For diagnoses: S/P laparoscopic sleeve gastrectomy sertraline 100 MG TABS Take 100 mg by mouth daily. Commonly known as: ZOLOFT VITAMIN B COMPLEX PO Take 1 tablet by mouth daily. STOP taking these medications ibuprofen 600 MG TABS Commonly known as: MOTRIN Follow-up: No follow-up provider specified. Upcoming Appointments (up to five)-Some appointments for Medical Center outpatient clinics or diagnostic testing locations are not displayed below Provider Department Dept Phone 12/19/2020 9:30 AM Tiffany Lopez [facility] [phone] 01/11/2021 10:00 AM Nasir Hickman [facility] [phone] 01/16/2021 2:30 PM Emmett Montero [facility] [phone] documented in this encounterMemorial [facility] Consult note* Shelia Sanchez RD - 12/12/2020 12:41 PM EDT Consults: Consult for post-op nutrition education INPATIENT POST BARIATRIC SX NUTRITION ASSESSMENT Nutrition Assessment: Anthropometrics: Ht Readings from Last 1 Encounters: 12/11/20 1.549 m (5' 1 ) Wt Readings from Last 3 Encounters: 12/11/20 117 kg (258 lb) 11/17/20 117.1 kg (258 lb 1.6 oz) 08/30/20 116.1 kg (256 lb) [place] body weight: 47.8 kg (105 lb 6.1 oz) Adjusted ideal body weight: 75.5 kg (166 lb 6.8 oz) % IBW: 245.7% Body mass index is 48.75 kg/m . Calorie needs: 1200 kcal/day (25 kcal/kg IBW) Protein needs: 53-72 gm/day (1.1-1.5 gm/kg IBW) Fluid needs: 1968 mL/day Current Diet Orders Procedures DIET BARIATRIC FULL LIQUID Standing Status: Standing Number of Occurrences: 1 Nutrition-Related Hx: Appetite: good Nausea: No Vomiting: No Diarrhea: No Ms. Katalina Tapia is a 55 y.o. female was admitted to [facility] for: 1. FARZANEH (obstructive sleep apnea) 2. Moderate persistent asthma without complication 3. Heart palpitations 4. body mass index of 40.0-49.9 5. Gastroesophageal reflux disease without esophagitis 6. Sarcoidosis 7. Anxiety and depression 8. Morbid obesity 9. Asthma 10. GERD (gastroesophageal reflux disease) Ms. Katalina Tapia is 1 day post-op from bariatric surgery: sleeve gastrectomy. Pt presents as moderately nutritionally compromised. Pt is tolerating Phase 2 of the bariatric diet well. Pt is tracking fluid intake on provided form. Pt has had 47 oz of fluid so far and tolerated well. Pt was advised of what is acceptable on Phases I and II of the bariatric diet. Encouraged fluid intake as tolerated: 1oz q hour initially, then gradually increase to 1-1 1/2 oz q 15 minutes with goal of 64 oz/day. Advised to not drink juice or other sugary drinks. Pt verbalized understanding of fluid recommendations. Provided pt with handout: RYNG and Sleeve Gastrectomy Discharge Nutrition Therapy. PMH: has a past medical history of Asthma, Depression, Essential hypertension, benign, Fatty liver,GERD (gastroesophageal reflux disease), and FARZANEH (obstructive sleep apnea). PSH: has a past surgical history that includes section (1986); breast lumpectomy (Bilateral, 2009); removal cataract (pem) (Bilateral); vitrectomy (2005); lap cholecystectomy (2017); egd w/ bx (2017); egd w/ bx (N/A, 08/14/2020); and colonoscopy for colorectal cancer screening low/average risk individual (N/A, 08/14/2020). Nutrition-Related Labs: Lab Results Component Value Date CHOLESTEROL 238 (H) 09/11/2020 TRIG 139 09/11/2020 HDL 49 09/11/2020 LDLCALC 161 (H) 09/11/2020 No results found for: CRP No results found for: HGBA1C Lab Results Component Value Date ALBUMIN 4.5 09/11/2020 Lab Results Component Value Date CREATSERUM 0.71 12/12/2020 BUN 9 12/12/2020 SODIUM 137 12/12/2020 POTASSIUM 4.5 12/12/2020 CHLORIDE 102 12/12/2020 CO2 27 12/12/2020 BP Readings from Last 3 Encounters: 12/12/20 111/72 11/17/20 146/81 08/14/20 116/72 Nutrition Diagnosis: NI-1.4 Inadequate Energy Intake related to recent bariatric sx as evidenced by bariatric full liquid diet. NC-1.4 Altered GI function related to alteration to structure of GI track as evidenced by recent bariatric sx: sleeve gastrectomy with Dr. Montero on 12/11/20. Nutrition Intervention: 1. Reviewed the all 5 phases of the bariatric diet. 2. Reviewed fluid and protein guidelines. 3. 1 month post-op appointment is scheduled with a RD. Monitoring and Evaluation: 1. Monitor patient weight, labs, PO intake and tolerance to diet. Time spent with pt: 5-10 minutes Shelia Sanchez RDN, LDN Registered Dietitian Senior Abap Developer, Licensed Dietitian Senior Abap Developer 12/12/20 documented in this [facility]08-17-2021 History of Present illness Narrative* Tulio Rascon, PT - 12/12/2020 11:21 AM EDTSummary: PT Eval 12/12/20 1121 Time In/Out Time In 1121 Time Out 1135 Total Visit Time 14 minutes Total Treatment Time 14 minutes Initial Evaluation/Screen Completed? yes General Information Patient Safety Communication Prior to Visit Nursing Existing Precautions/Restrictions abdominal;fall Current brace/orthoses Abdominal binder (PRN; 63 - 74 fit with proper fit achieved with eval) Left Upper Extremity full weight bearing Right Upper Extremity full weight bearing Left Lower Extremity full weight bearing Right Lower Extremity full weight bearing Home Setting Residence House;Other (Comments) (1 story home with basement) Lives With spouse First floor setup bedroom;tub shower;other (see comments) (standard commode; grab bars ) Number of stairs to enter home 2 Number of stairs in home 9 (to basment; pt does not access ) Stair Railings at Home entry - present on left side (ascending);interior - no rail Mobility Equipment Available none used ADL Equipment Available grab bars Previous Level of Function Prior level ADL Overview Independent with all ADLs Bed Mobility/Transfers independent Ambulation status WFL Ambulation Skills independent Assistive Device none used Level of Ambulation community General Pain Documentation (Adult, OB, Peds) Presence of Pain denies pain/discomfort Select Pain Scale DVPRS (Defense and Veterans Pain Rating Scale) (Adult- Cognitively Intact) DVPRS (Defense and Veterans Pain Rating Scale) DVPRS: Rest 0- no pain DVPRS: Activity 0- no pain Cognition Overall Cognitive Status WFL Arousal/Alertness Appropriate responses to stimuli Orientation Level Oriented X4 Following Commands Follows all commands and directions without difficulty Safety Judgment Good awareness of safety precautions Awareness of Errors Good awareness of errors made Deficits Fully aware of deficits Attention Span Appears intact Memory Appears intact Problem Solving Able to problem solve independently Vision Screen Currently wearing corrective lenses No Vision History Reports pressure in eyes which lead to scar development; has limited visions and black spots in depth of field; reports she has to move her eyes constantly to see Clinical Observations nystagmus noted Speech Speech no gross deficits noted Hearing Hearing no gross deficits noted RUE Assessment RUE Assessment WFL LUE Assessment LUE Assessment WFL RLE Assessment RLE Assessment WFL LLE Assessment LLE Assessment WFL Sensation Overall Sensation Intact Sensation Comments Light touch; reports numbness to B hands however this is a chronic issue Proprioception Proprioception intact Skin Integrity Skin integrity impaired Skin Integrity Description Surgical Incision;Other (Comment) (covered with bandage) Edema Edema present Location Abdomen Measures Observation/touch Sitting Balance Static Sitting-Level of Assistance Supervision Dynamic Sitting-Level of Assistance Supervision Standing Balance Static Standing-Level of Assistance Stand-by assist Dynamic Standing-Level of Assistance Stand-by assist Standing Balance Skilled Intervention/Details Gait belt Rolling/Turning Mobility [place] Level: Rolling/Turning not tested (DNT; pt sitting in chair) Scooting Bridging Mobility [place] Level: Scooting/Bridging not tested (DNT; pt sitting in chair) Supine to Sit Mobility [place] Level: Supine->Sit not tested (DNT; pt sitting in chair) Sit to Supine Mobility [place] Level: Sit->Supine not tested (DNT; pt sitting in chair) Sit to Stand Transfer [place] Level: Sit->Stand supervision Physical Assist: Sit->Stand other (see comments) (1 person assist) Assistive Device: Sit->Stand armed chair Stand to Sit Transfer [place] Level: Stand->Sit supervision Physical Assist: Stand->Sit other (see comments) (1 person assist ) Assistive Device: Stand->Sit armed chair Gait Assessment [place] Level: Gait stand-by assist Physical Assist: Gait other (see comments) (1 person assist ) Assistive Device: Gait gait belt Gait Distance (feet) 390' Gait Deviations Identified decreased ken;decreased gait speed Gait Skilled Rationale verbal;increase step length;increase step width Stairs Assessment [place] Level: Stair Negotiation stand-by assist Physical Assist: Stair Negotiation other (see comments) (1 person assist ) Assistive Device: Stair Negotiation left rail (ascending) Number of stairs 2 PRIOR LEVEL AM-PAC Basic Mobility Inpatient Short Form Turning over in bed 4 - No Assistance Sitting/standing from chair 4 - No Assistance Moving from lying on back to sitting 4 - No Assistance Moving to and from bed to chair 4 - No Assistance Walk in hospital room 4 - No Assistance Climbing 3-5 steps with a railing 4 - No Assistance PRIOR LEVEL AM-PAC Mobility Raw Score 24 PRIOR LEVEL [facility] Mobility Functional Limitation/Modifier 0.00% Prior Functional Impairment in Basic Mobility CURRENT [facility] Basic Mobility Inpatient Short Form Turning over in bed 1 - Total Assistance (DNT) Sitting/standing from chair 4 - No Assistance (SUP x 1 ) Moving from lying on back to sitting 1 - Total Assistance (DNT ) Moving to and from bed to chair 4 - No Assistance (SBA x 1 ) Walk in hospital room 4 - No Assistance (SBA x 1 ) Climbing 3-5 steps with a railing 1 - Total Assistance (DNT) CURRENT [facility] Mobility Raw Score 15 CURRENT [facility] Mobility Functional Limitation/Modifier 57.70% Currently Impaired in Basic Mobility - CK Assessment VTE Prevention/Management On - SCD Eval Complexity Assessment History Components Moderate (1-2 personal factors and/or comorbidities) Examination of Body System(s) Components Low (Addressing 1-2 elements) Clinical Presentation Stable - unchanging or predictable (Low) Clinical Decision Making (complexity) Low Plan of Care Interventions Planned Therapy Interventions balance training;bed mobility training;gait training;endurance;neuromuscular re-education;postural re-education;orthotic fitting/training;strengthening;transfer training Clinical Impression Continue care plan yes Co-evaluation/co-treatment performed? No simultaneous treatment performed Criteria for Skilled Therapeutic Interventions Met (PT Eval) yes, treatment indicated Impairments Found (PT Eval) aerobic capacity/endurance;cranial and peripheral nerve integrity;gait,locomotion, and balance;joint integrity and mobility;motor function;muscle performance Global Functional Limitations Decreased ambulation distance/endurance;Difficulty stair climbing/descent;Increased fall risk;Difficulty ambulating on uneven/dynamic surfaces;Limited ability to complete rice farmer/maintenance;Limited standing tolerance;Limited ability to participate in Leisure/hobby pursuits;Difficulty with transfers;Difficulty getting off the floor;Difficulty driving;Decreased functional mobility Barriers to Treatment (Co-Morbidities and/or Personal Factors) Fatigue; deconditioning Rehab Potential (PT Eval) good Therapy Frequency other (see comments) (1x/day x 5-7 days/wk ) Discharge Destination Recommendation Home Discharge Barriers None Anticipated Equipment Needs at Discharge (PT Eval) none Plan Plan for next session Pt to be seen by PT services daily for 5-7 days a week until discharged to address the impairments as found above. Diagnosis: ICD-10-CM 1. S/P laparoscopic sleeve gastrectomy Z98.84 2. FARZANEH (obstructive sleep apnea) G47.33 3. Moderate persistent asthma without complication J45.40 4. Heart palpitations R00.2 5. body mass index of 40.0-49.9 E66.01 6. Gastroesophageal reflux disease without esophagitis K21.9 7. Sarcoidosis D86.9 8. Anxiety and depression F41.9 F32.9 9. Morbid obesity E66.01 10. Asthma J45.909 11. GERD (gastroesophageal reflux disease) K21.9 Surgical Procedure: PERIOPERATIVE SURGICAL HISTORY AND PHYSICAL UPDATE Pre-op Diagnoses: Morbid obesity [E66.01] FARZANEH (obstructive sleep apnea) [G47.33] Asthma [J45.909] GERD (gastroesophageal reflux disease) [K21.9] Anxiety and depression [F41.9, F32.9] Procedure(s): GASTRECTOMY LONGITUDINAL (SLEEVE) LAPAROSCOPIC Surgeon(s): Surgeon(s) and Role: * Emmett Montero MD - Primary PMH: Past Medical History: Diagnosis Date Asthma Depression Essential hypertension, benign Fatty liver GERD (gastroesophageal reflux disease) FARZANEH (obstructive sleep apnea) PSH: Past Surgical History: Procedure Laterality Date GASTRECTOMY LONGITUDINAL (SLEEVE) LAPAROSCOPIC N/A 12/11/2020 Laterality: N/A; Surgeon: Emmett Montero MD; Location: [facility] OR EGD W/ BX N/A 08/14/2020 Laterality: N/A; Surgeon: Emmett Montero MD; Location: [facility] OR COLONOSCOPY FOR COLORECTAL CANCER SCREENING LOW/AVERAGE RISK INDIVIDUAL N/A 08/14/2020 Laterality: N/A; Surgeon: Emmett Montero MD; Location: [facility] OR LAP CHOLECYSTECTOMY 2018 EGD W/ BX 2018 BREAST LUMPECTOMY Bilateral 2010 x 3 VITRECTOMY 2006 SECTION 1987 REMOVAL CATARACT (PEM) Bilateral 2000, 2002 PT Assessment: Pt is a pleasant 55 year old female who presents with signs and symptoms consistent with the diagnosis. Prior to admission pt reports that they resided in a single home with 2 steps to enter. Prior to admission pt reports that they utilized no AD for mobility and reports 0 falls. At home pt reportsthat they were relatively Independent with daily tasks and mobility and denied functional concerns.Currently on examination pt is functional and presents with BLE strength and ROM WFL. Pt was not assessed for bed mobility 2nd to siting in chair, required SUP x 1 for transfers, and SBA x 1 for gait/stairs. Pt demoed good balance overall placing them at a low fall risk with mobility. Sensation found to be intact. Binder was fit and applied with proper fit achieved this date. At this time acute care PT services are warranted to address the above and maximize functional activity tolerance/safetyfor return home. No additional PT services expected at discharge. PT Goals: Patient will demonstrate bed mobility with [place] to maximize independence and minimize caregiver burden for discharge home/ the next level of care. Patient will perform transfers with [place] and use of the LRAD/no AD to minimize risk of falling and maximize independence for return to home/advancing to the next level of care. Patient will ambulate at least 500' with SUP x 1 and use of the LRAD/no AD to promote independence for return to home/the next level of care. Patient will ascend and descend 2 stairs with no HR and assist of 1 for entry/exit into the home/community. Patient will perform car transfer with SUP x 1 and proper form for community re- entry at discharge. Patient will perform written HEP with SUP x 1 and proper form in order to continue the gains of thephysical therapy program this stay. Patient will DON/DOFF abdominal binder with [place] for optimal use at home. Pt will sit in bedside chair at least 1 x a day to improve strength and activity tolerance for return to PLOF. Tulio Rascon, PT, DPT 12/12/2020 * JASON Alvarez - 12/12/2020 10:43 AM EDTSgregory: Home Health Referral for sent to [facility]. Spoke with Rolanda with intake. Reports that they will not be able to accept as they are not comfortable with the HH orders as it does not qualify for home health. Spoke with Radha at [facility]. Out of service area. Call made to Sondra at [facility]. Reports that they will not be able to accept as they are not comfortable with the HH orders as it is not a qualifying diagnosis for home health. Notified Rozina Griffith with Dr. Montero office that HH will not be secured prior to discharge today. * Emmett Montero MD - 12/12/2020 8:26 AM EDT BARIATRIC SURGERY PROGRESS NOTE PATIENT NAME: Katalina Tapia DATE: 12/12/2020 SUMMARY OF CURRENT STATUS - POD # 1 s/p Sleeve Gastrectomy - denies any major abdominal pain, nausea, SOB, chest pain, leg pain TODAY'S ASSESSMENT: - New complications over the past 24 hours: No - No concerns overnight - Pain controlled: Yes - DVT prophylaxis: Yes - Lovenox and SCDs - Midline/PICC present: No - Diet is currently: Phase 1 - Nausea: No - Emesis: No - Pt has sat in the chair / ambulated ON EXAMINATION: BP 128/72 (BP Location: Right arm, BP Position: Lying) Pulse 97 Temp 98.2 F (36.8 C) (Temporal) Resp 19 Ht 1.549 m (5' 1 ) Wt 117 kg (258 lb) SpO2 95% BMI 48.75 kg/m Smoking Status Former Smoker APPEARANCE: NAD, looks well. ABDOMEN: Soft, darryl-incisional tenderness, nondistended WOUND(S): Incisions Clean / Dry / Intact INS/OUTS: Intake/Output Summary (Last 24 hours) at 12/12/2020 0826 Last data filed at 12/12/2020 0800 Gross per 24 hour Intake 5459 ml Output 1250 ml Net 4209 ml Date 12/12/20 0700 - 12/13/20 0659 Shift 0333-4853 8861-9472 9087-0345 24 Hour Total INTAKE P.O. 387 387 Shift Total(mL/kg) 387(3.3) 387(3.3) OUTPUT Shift Total(mL/kg) Weight (kg) 117 117 117 117 BLOOD WORK: CBC, Coags, BMP, Mg, Phos Recent Labs 12/12/20 0535 WBC 16.6* HCT 39.2 CO2 27 BUN 9 IMPRESSION: - Pt is doing well / as expected s/p Bariatric Surgery - No new issues/concerns PLAN POD1: - Bariatric Phase 2 diet, goal 40 oz prior to discharge home, 64 oz daily - change IVF to NSS - replace Mg - Multimodal pain regimen: scheduled tylenol, scheduled toradol, PRN oxycodone - Encourage Ambulation / use of incentive spirometry - VTE prophylaxis - Continue with SCDs and Lovenox - Disposition - Likely home later today versus tomorrow Emmett Montero MD Bariatric and Minimally Invasive General Surgery * Dalton Serra RPh,PharmD - 12/09/2020 1:00 PM EDT AOP Patient Education on Meds to Beds Scripts AOP received prescriptions for Katalina Tapia for bedside delivery at discharge Prescriptions filled and ready Medication Copay Oxycodone 5mg/5ml solution 33.77 Ondansetron ODT 4mg 18.92 APAP 160mg/5ml solution 8.99 Omeprazole 20mg 10 Total $ 71.68 Patient Education Counseled patient on appropriate use and side effects of medications. COUNSELED PT TO TAKE OXYCODONE WITH FOOD, VERIFIED NOT ALLERGIC, COUNSELED TAKE OMEPRAZOLE WHEN VERY HUNGRY FOR MAX EFFECT Dalton Serra RPh, PharmD [facility] [phone] documented in this encounterMemorial [facility]08-16-2021 Nurse Note* Justo James RN - 12/11/2020 10:30 AM EDT Patient transported to PACU per bed. Monitors attached. Report given to Yuliet Lopez RN. * Justo James RN - 12/11/2020 7:54 AM EDT OR 1 room temp 61.5 degrees F and humidity 48.5%. documented in this encounterMemorial [facility]05-17-2021 History of Present illness Narrative* Clifford Cobian, PsyD - 09/11/2020 9:30 AM EDT Bariatric Feedback Session Name: Katalina Tapia Date: 09/11/2020 Time in: 923 Time out: 954 Length of session: 31 minutes This psychological testing feedback session is correlated to DOS 07/24/2020, the date of the original evaluation and testing. Note: Met with Katalina Tapia to discuss psychological testing, the bariatric evaluation and recommendations. Pt has been cleared by nutrition. Pt and daughter are working together on planning, food prep, and packaging. Pt has not had a cigarette since was last in our office. Pt still using coping skills and taking medications as prescribed. Emotions are stable. Feeling good about herself and her future. Pt states she would return to counseling if needed. Denies any additional episodes of binge eating. Plan: Katalina Tapia is cleared for bariatric surgery from a psychological perspective. Clifford Cobian PsyD documented in this [facility]04-30-2021 History of Present illness Narrative* Sowmya Bee, RD - 08/25/2020 4:00 PM EDT OUTPATIENT BARIATRIC NUTRITION: PRE-OP Referring Provider: Emmett Montero MD Nutrition Assessment: Anthropometrics: Ht Readings from Last 1 Encounters: 08/14/20 1.549 m (5' 1 ) Wt Readings from Last 3 Encounters: 08/25/20 116.4 kg (256 lb 9.6 oz) 08/21/20 116.9 kg (257 lb 11.2 oz) 08/14/20 116.6 kg (257 lb) [place] body weight: 47.8 kg (105 lb 6.1 oz) Adjusted ideal body weight: 75.2 kg (165 lb 13.9 oz) Body mass index is 48.48 kg/m . Current exercise: Pt exercising 7 days/week for 1/4 mile ~10-20 minutes. If weather is unable to support walking pt will use hand weights and stabilizer. Diet Recall: Meal What Time Breakfast 1 cup of coffee no sugar with cream 1 hard boiled egg or protein drink 11:00 AM Snack Lunch Arbys 1/2 (chicken salad sandwich) 3:00 PM Snack Dinner [place]bys 1/2 (chicken salad sandwich) 6:00 PM Snack Fluids Water (24-32 oz)or Green Tea (unsweet decaf) 2 24-32 oz (homebrew) Pt usually gets up around 10:30 AM and bed time 1:00 AM. Ms. Katalina Tapia is a 55 y.o. female here in preparation for weight loss surgery, Gastric Sleeve. This is visit # 6. Pt has completed bariatric nutrition education classes 1-4. Today's visit is to evaluate pt's readiness for surgery from a nutrition standpoint, to individualize an 800 calorie meal plan and answer any nutrition related questions the pt may have. Nutrition Goals: 1. Eat breakfast: MET 2. Eat 5-6 small meals/day: NOT MET 3. Consume adequate protein: MET 4. Limit sugar to no more than 10 gm per meal/snack: MET, pt has a vision problem but daughter willhelp read labels for patient. 5. Drink at least 64 ounces of no-calorie fluids daily: MET 6. Eliminate carbonated beverages: MET 7. Eliminate caffeine: MET, pt only drinks 1 cup of caffeine (coffee) 8. Eliminate alcohol: MET 9. Engage in regular physical activity: MET Patient is able to verbalize: Pre-sx low calorie diet protein goals fluid goals exercise goals the 5 phases of the bariatric diet use of protein shakes for meal replacement and for 2-week full liquid diet phase recommendations for vitamin/minerals. The patient has been thoroughly evaluated and educated on good dietary practices. Patient is able to demonstrate post op diet advancement/portion control using food models. Patient is capable of following these guidelines pre- and post-surgically. I do anticipate post op compliance. From a nutrition standpoint, the patient is NOT cleared for weight loss surgery at this time. Pt very knowledgable however pt is not eating 5-6x a day. Pt comfortable with a phone call next week to check in. If pt iseating 5-6x a day RD will clear for surgery otherwise RD will continue to reschedule. PMH: has a past medical history of Asthma, Essential hypertension, benign, GERD (gastroesophageal reflux disease), and FARZANEH (obstructive sleep apnea). PSH: has a past surgical history that includes section (1986); breast lumpectomy (Bilateral, 2009); removal cataract (pem) (Bilateral); vitrectomy (2005); lap cholecystectomy (2017); egd w/ bx (2018); egd w/ bx (N/A, 08/14/2020); and colonoscopy for colorectal cancer screening low/average risk individual (N/A, 08/14/2020). Nutrition-Related Labs: Lab Results Component Value Date CHOLESTEROL 234 (H) 08/14/2020 TRIG 180 (H) 08/14/2020 HDL 44 08/14/2020 LDLCALC 154 08/14/2020 No results found for: CRP No results found for: HGBA1C BP Readings from Last 3 Encounters: 08/14/20 116/72 08/09/20 122/79 06/27/20 148/85 Nutrition Diagnosis: NB-1.1 Food and nutrition-related knowledge deficit related to pre-bariatric sx diet as evidenced by scheduled for bariatric sx. Nutrition Intervention: Nutrition Goals: 1. Eat 5-6 small meals per day, including breakfast 2. Consume adequate protein daily. 3. Limit sugar to 10 grams per meal/snack. 4. Drink at least 64 ounces of no-calorie fluids daily 5. Engage in regular physical activity: Goal is 30 minutes/day, 5x/week. 6. Start 800 calorie diet 2 weeks prior to surgery. Monitoring and Evaluation: 1. 1 month post-op appointment to be scheduled with a Registered Dietitian. 2. Pt is weighed monthly. Time spent with pt: 40 minutes Sowmya Bee RDN, LDN Registered Dietitian Senior Abap Developer, Licensed Dietitian Senior [employer] Developer 08/25/20 documented in this [facility] History of Present illness Narrative* Shelia Sanchez RD - 08/21/2020 2:00 PM EDT OUTPATIENT BARIATRIC NUTRITION EDUCATION: LESSON 4 Referring Provider: Emmett Montero MD Nutrition Assessment: Anthropometrics: Ht Readings from Last 1 Encounters: 08/14/20 1.549 m (5' 1 ) Wt Readings from Last 3 Encounters: 08/21/20 116.9 kg (257 lb 11.2 oz) 08/14/20 116.6 kg (257 lb) 08/09/20 117.8 kg (259 lb 9.6 oz) [place] body weight: 47.8 kg (105 lb 6.1 oz) Adjusted ideal body weight: 75.4 kg (166 lb 4.9 oz) Body mass index is 48.69 kg/m . Ms. Katalina Tapia is a 55 y.o. female here in preparation for weight loss surgery. Diet Recall: (Obtained from questionnaire) Meal Time Food/Drink Breakfast Coffee with cream (no sugar) [place] Protein shake Snack Lunch Green tea (32 oz) caffeine Snack Dinner 1/2 burger (1 slice espinosa, lettuce, onion, pickles, cheese and a burbon ketchup sauce) 6 upper sorbian fries Snack Piece of cheesecake with strawberries on top Current exercise: Pt is exercising walking 7 days/week for 1/4 mile. Water intake: Pt is drinking 32 oz of water/day. Nutrition Goals: 1. Eat breakfast: MET 2. Eat 5-6 small meals/day: not MET 3. Consume adequate protein: not MET 4. Limit sugar to no more than 10 gm per meal/snack: not MET 5. Eating off smaller plates: MET 6. Chew your food 20 times per bite: MET 7. Meals should last 30 minutes: MET 8. Eat in this order: protein first, vegetables and fruit second, whole grains last: MET 9. Put your fork down between bites: MET 10. Begin regular physical activity: MET Today pt attended a group nutrition class for bariatric patients. Pt was educated on the following topics: Post-Surgery Diet and Momence to Successful Weight Loss and Maintenance. Discussed: The 5 phases of the bariatric diet after sx and progression What foods/fluids are appropriate on each phase Factors that play a role in successful weight loss maintenance Sleep requirements How to meet fluid, protein and kcal goals The importance of physical activity to keep weight off Educated pt what to expect for final nutrition appointment and goals needing to be met for nutrition clearance. Nutrition Diagnosis: NB-1.1 Food and nutrition related knowledge deficit related to post-bariatric surgery diet and how to successfully lose and keep weight off as it relates to bariatric surgery as evidenced by pt new to bariatric program. Nutrition Intervention: Nutrition Goals: 1. Eat 5-6x/day. 2. Consume adequate protein per day. 3. Limit sugar to no more than 10 gm per meal/snack. 4. Drink at least 64 ounces of caffeine free fluid/day. 5. Eliminate: carbonation, caffeine, alcohol. 6. Eat in this order: protein first, vegetable and fruit second and whole grain carbohydrates last. 7. Chew your food 20-30x per bite. 8. Meals should last 20-30 minutes. 9. Don t drink 30 minutes after eating. 10. Put your fork down between bites. 11. Stop eating when no longer hungry Monitoring and Evaluation: 1. Pt will complete all 4 nutrition education classes. 2. Progress is tracked via goal questionnaire at each nutrition class. 3. Pt is weighed monthly. 4. Pre-op appointment scheduled with a Registered Dietitian. Time spent with pt: 40 minutes Shelia Sanchez RDN, LDN Registered Dietitian Senior [employer]ap Developer, Licensed Dietitian Senior Abap Developer 08/21/20 documented in this [facility]-19-2021 Miscellaneous Notes* Nursing Notes - Margaret Maravilla RN - 08/14/2020 11:00 AM EDT Pt up and ambulated to bathroom and back to bed. Denies complaints of pain, nausea or other. Discharge instructions reviewed with pt and daughter. documented in this [facility]04-19-2021 History and physical note* Emmett Montero MD - 08/14/2020 9:08 AM EDT Bariatric/General Surgery H&P 08/14/2020 9:08 AM Katalina Tapia [phone] Katalina Tapia is a 55 y.o. year old female with morbid obesity and GERD. she presents today for endoscopic evaluation of GERD in preparation for bariatric surgery. PAST MEDICAL HISTORY: Past Medical History: Diagnosis Date Asthma Essential hypertension, benign GERD (gastroesophageal reflux disease) FARZANEH (obstructive sleep apnea) PAST SURGICAL HISTORY: Past Surgical History: Procedure Laterality Date LAP CHOLECYSTECTOMY 2018 EGD W/ BX 2018 BREAST LUMPECTOMY Bilateral 2010 x 3 VITRECTOMY 2006 SECTION 1987 REMOVAL CATARACT (PEM) Bilateral 2000, 2002 FAMILY HISTORY: History reviewed. No pertinent family history. SOCIAL HISTORY: Social History Tobacco Use Smoking status: Former Smoker Types: Cigarettes Quit date: 07/24/2020 Years since quittin.0 Smokeless tobacco: Never Used Tobacco comment: Pt will smoke 1-2 cigarettes with extreme stress Substance Use Topics Alcohol use: Not Currently Drug use: Never MEDICATIONS: Prior to Admission Medications: Current Outpatient Medications Medication Sig Last Dose Start Date End Date Authorizing Provider albuterol 108 (90 Base) MCG/ACT Aero Soln inhaler 2 puffs, Inhalation, EVERY 6 HOURS PRN 08/14/2020 at 0600 Historical Provider budesonide-formoterol 160-4.5 mcg/puff Aerosol inhaler INHALE 2 PUFFS TWICE DAILY*RINSE AFTER USE* 08/14/2020 at 0600 05/22/20 Historical Provider busPIRone HCl 30 MG tablet 30 mg, Oral, 2 TIMES DAILY 08/13/2020 at Unknown time 06/10/20 Historical Provider hydrOXYzine HCl 25 MG tablet TAKE 1 TABLET BY MOUTH EVERYDAY AT BEDTIME 08/13/2020 at Unknown time 06/15/20 Historical Provider sertraline 100 MG tablet 100 mg, Oral, DAILY 08/13/2020 at Unknown time 06/15/20 Historical Provider B Complex Vitamins (VITAMIN B COMPLEX PO) 1 tablet, Oral, DAILY 08/07/2020 Historical Provider HERBAL PRODUCT 2 drops, Oral, DAILY, Lanie Liver. A liquid added to water for liver support and function. 08/07/2020 Historical Provider ibuprofen 600 MG tablet 600 mg, Oral, EVERY 6 HOURS PRN 07/31/2020 Historical Provider ALLERGIES: Allergies Allergen Reactions Eggs Or Egg-Derived Products Diarrhea Lac Bovis Other reaction(s): Unknown Reaction Lisinopril Cough Other reaction(s): Unknown Reaction Versed [Midazolam] Aggressive Behavior REVIEW OF SYSTEMS: GENERAL: Negative for malaise, significant weight loss and fever NECK: Negative for lumps, goiter, pain and significant neck swelling RESPIRATORY: Negative for cough, wheezing or shortness of breath. CARDIOVASCULAR: Negative for chest pain, leg swelling or palpitations. GI: Negative for abdominal discomfort, blood in stools or black stools or change in bowel habits : No history of dysuria, frequency or incontinence MUSCULOSKELETAL: Negative for joint pain or swelling, back pain or muscle pain. SKIN: Negative for lesions, rash, and itching. PSYCH: Negative for sleep disturbance, mood disorder and recent psychosocial stressors. ENDOCRINE: Negative for cold or heat intolerance, polyuria, polydipsia and goiter. PHYSICAL EXAM: Visit Vitals BP 137/84 (BP Location: Left arm, BP Position: Lying) Pulse 102 Temp 97.1 F (36.2 C) (Temporal) Resp 16 Ht 1.549 m (5' 1 ) Wt 116.6 kg (257 lb) SpO2 95% BMI 48.56 kg/m General appearance: obese Skin: warm, no erythema or rashes Lungs: clear to percussion and auscultation Heart: regular rhythm and S1, S2 normal Abdomen: soft, non-tender, no masses, no organomegaly Extremities: Normal exam of the extremities. No swelling or pain. IMPRESSION: Katalina Tapia is a 55 y.o. female with morbid obesity and GERD. PLAN: Endoscopy, possible biopsy today. Screening colonoscopy. The risks of the procedure including bleeding, perforation, need for further procedure and have been explained to the patient and Katalina Tapia has expressed understanding and acceptance of them. Consent has been signed. Emmett Montero MD Bariatric and Minimally Invasive General Surgery [facility]* Diagnosis Screening for malignant neoplasm of colon Gastroesophageal reflux disease, unspecified whether esophagitis present Screening for colon cancer Special screening for malignant neoplasms, colon [facility]* Diagnosis Nutritional counseling- Primary body mass index of 40.0-49.9 [facility]* Diagnosis Nutritional counseling- Primary body mass index of 40.0-49.9 Follow up [facility]* Diagnosis Binge-eating disorder, in full remission, mild- Primary Recurrent major depressive disorder, in full remission [facility]* Diagnosis FARZANEH (obstructive sleep apnea) Obstructive sleep apnea (adult) (pediatric) Moderate persistent asthma without complication Unspecified asthma Essential hypertension Unspecified essential hypertension body mass index of 40.0-49.9 Sarcoidosis Heart palpitations Palpitations Gastroesophageal reflux disease, unspecified whether esophagitis present Anxiety and depression Dysthymic disorder [facility]* Diagnosis S/P laparoscopic sleeve gastrectomy- Primary FARZANEH (obstructive sleep apnea) Obstructive sleep apnea (adult) (pediatric) Moderate persistent asthma without complication Unspecified asthma Heart palpitations Palpitations body mass index of 40.0-49.9 Gastroesophageal reflux disease without esophagitis Esophageal reflux Sarcoidosis Anxiety and depression Dysthymic disorder Morbid obesity Asthma Unspecified asthma GERD (gastroesophageal reflux disease) Esophageal reflux [facility]* Diagnosis Other intestinal malabsorption- Primary S/P laparoscopic sleeve gastrectomy FARZANEH (obstructive sleep apnea) Obstructive sleep apnea (adult) (pediatric) Uncomplicated asthma, unspecified asthma severity, unspecified whether persistent Sarcoidosis documented in this encounter [facility] noteNo assessment information availableMercy Health Work Phone: [employer] for referral (narrative)No reason for referral information availableMercy Health Work Phone: [employer]ke[employer] for visit Narrative* Auth/Cert Specialty Diagnoses / Procedures Referred By Contac t Referred To Contact Diagnoses Morbid obesity [E66.01] FARZANEH (obstructive sleep apnea) [G47.33] Asthma [J45.909] GERD (gastroesophageal reflux disease) [K21.9] Anxiety and depression [F41.9, F32.9] Emmett Montero MD [address] [id number] Referral ID Status Reason Start Date Expiration Date Visits Re quested Visits Authorized [id number] 11/20/2020 1 1 [facility] Summary Purpose Family History Brother Name Dates Details Family history of retinal de tachment(V19.19, Z83.518) Status:Active Brother Name Dates Details Family history of retinal de tachment(V19.19, Z83.518) Status:Active Relationship Condition Age at Onset Recorded Date/T missy Not Specified [place]'s disease Unknown father Lymphoma Unknown Advance Directives Advance Directive Response Recorded Date/ Time Advance Directives No September 24 9 2:49pm Advance Directive Response Recorded Date/ Time Advance Directives No November 12 12:48pm Hospital Course Note MR#: [id number] [facility] Pt. Name: Katalina Tapia Admitted: 09/16/2018 Discharged: 09/24/2018 Date of : 1965 Physician: Dhaval Thompson MD DISCHARGE SUMMARY PRINCIPAL DISCHARGE DIAGNOSES: 1. Acute hypoxic respiratory failure. 2. Presumed pulmonary sarcoidosis. SECONDARY DISCHARGE DIAGNOSES: 1. Obstructive sleep apnea. 2. Obesity. 3. Eosinophilic asthma. 4. Anxiety disorder. HOSPITAL COURSE: The patient is a 52-year-old year old woman with a past medical history significant for asthma, obstructive sleep apnea, and obesity with concern for pulmonary sarcoidosis, who was transferred from [facility] following presentations there for abrupt onset of dyspnea with fever. At that time, her chest x-ray was concerning for a pneumonia and she was initiated on Rocephin and azithromycin. She was initially treated for an acute asthma exacerbation with steroids and bronchodilators. However, she progressively deteriorated and required intubation. She had (more content not included)... Note MR#: [id number] [facility] Pt. Name: Katalina Tapia Surgery Date: 09/18/2018 Room #: [id number] Date of : 1965 PROCEDURE NOTE ATTENDING: Franklin Cee M.D. SURGEON: Saeed Dai M.D. PROCEDURE PERFORMED: Flexible fiberoptic bronchoscopy with bronchoalveolar lavage. INDICATION FOR PROCEDURE: Bilateral infiltrates, question pneumonia. ANESTHESIA: A 1% lidocaine to the airways. SEDATION: Propofol drip. INFORMED CONSENT: Informed consent was taken from the patient's daughter by telephone prior to the procedure. DESCRIPTION OF THE PROCEDURE: After explaining the risks and benefits of undergoing bronchoscopy to the patient's daughter, verbal consent was obtained via telephone. The patient was then placed in the semirecumbent position and a time-out was called. She was correctly identified using name, date of , and medical record number as corresponding to her wrist bracelet and the medical chart. After reviewing the patient's allergies and indicat (more content not included)... Procedure Findings Note MR#: [id number] [facility] Pt. Name: Katalina Tapia Surgery Date: 09/18/2018 Room #: [id number] Date of : 1965 PROCEDURE NOTE ATTENDING: Franklin Cee M.D. SURGEON: Saeed Dai M.D. PROCEDURE PERFORMED: Flexible fiberoptic bronchoscopy with bronchoalveolar lavage. INDICATION FOR PROCEDURE: Bilateral infiltrates, question pneumonia. ANESTHESIA: A 1% lidocaine to the airways. SEDATION: Propofol drip. INFORMED CONSENT: Informed consent was taken from the patient's daughter by telephone prior to the procedure. DESCRIPTION OF THE PROCEDURE: After explaining the risks and benefits of undergoing bronchoscopy to the patient's daughter, verbal consent was obtained via telephone. The patient was then placed in the semirecumbent position and a time-out was called. She was correctly identified using name, date of , and medical record number as corresponding to her wrist bracelet and the medical chart. After reviewing the patient's allergies and indicat (more content not included)... Reason for Referral Status Reason Specialty Diagnoses / Procedures Re ferred By Contact Referred To Contact New Request Diagnoses FARZANEH (obstructive sleep apnea) Moderate persistent asthma without complication Essential hypertension Obesity, morbid, BMI 40.0-49.9 Sarcoidosis Heart palpitations Gastroesophageal reflux disease, unspecified whether esophagitis present Anxiety and depression Procedures ECG Emmett Montero MD [address] [place] [address] Status Reason Specialty Diagnoses / Procedures Re ferred By Contact Referred To Contact New Request Psychology Diagnoses FARZANEH (obstructive sleep apnea) Moderate persistent asthma without complication Essential hypertension Obesity, morbid, BMI 40.0-49.9 Sarcoidosis Heart palpitations Gastroesophageal reflux disease, unspecified whether esophagitis present Anxiety and depression Emmett Montero MD [address] [place], [place] [id number] Clifford Cobian PsyD [address] [place] [place] [id number] Status Reason Specialty Diagnoses / Procedures Re ferred By Contact Referred To Contact New Request Nutrition and Dietetics Diagnoses FARZANEH (obstructive sleep apnea) Moderate persistent asthma without complication Essential hypertension Obesity, morbid, BMI 40.0-49.9 Sarcoidosis Heart palpitations Gastroesophageal reflux disease, unspecified whether esophagitis present Anxiety and depression Emmett Montero MD [address] [place], [place] [id number] Status Reason Specialty Diagnoses / Procedures Referred By Contact Referred To Contact New Request Cardiovascular Medicine Diagnoses FARZANEH (obstructive sleep apnea) Moderate persistent asthma without complication Essential hypertension Obesity, morbid, BMI 40.0-49.9 Sarcoidosis Heart palpitations Gastroesophageal reflux disease, unspecified whether esophagitis present Anxiety and depression Emmett Montero MD [address] [place] [id number] [facility] [address] [address] Scheduling Instructions . Status Reason Specialty Diagnoses / Procedures Referred By Contact Referred To Contact New Request Diagnoses Obesity, morbid, BMI 40.0-49.9 Procedures ECG Emmett Montero MD [address] [place] [id number] Specialty Diagnoses / Procedures Referred By Contac t Referred To Contact Social Work Diagnoses S/P laparoscopic sleeve gastrectomy Emmett Montero MD [address] [place] [id number] Referral ID Status Reason Start Date Expiration Date V isits Requested Visits Authorized [id number] New Request 12/12/2020 01/06/2022 1 1 Specialty Diagnoses / Procedures Referred By Contac t Referred To Contact Tiffany Lopez CNP [address] [place] [id number] Referral ID Status Reason Start Date Expiration Date Visits Re quested Visits Authorized Assessments Diagnosis body mass index of 40.0-49.9- Primary FARZANEH (obstructive sleep apnea) Obstructive sleep apnea (adult) (pediatric) Moderate persistent asthma without complication Unspecified asthma Essential hypertension Unspecified essential hypertension Sarcoidosis Heart palpitations Palpitations Gastroesophageal reflux disease, unspecified whether esophagitis present Anxiety and depression Dysthymic disorder Anemia, unspecified type Vitamin D deficiency Unspecified vitamin D deficiency Screening for viral disease Special screening examination for unspecified viral disease Diagnosis body mass index of 40.0-49.9- Primary Nutritional counseling Diagnosis Screening for malignant neoplasm of colon GERD (gastroesophageal reflux disease) Esophageal reflux Follow up- Primary body mass index of 40.0-49.9 Diagnosis Screening for malignant neoplasm of colon GERD (gastroesophageal reflux disease) Esophageal reflux Binge-eating disorder, mild- Primary Recurrent major depressive disorder, in partial remission SUZANNA (generalized anxiety disorder) Generalized anxiety disorder Diagnosis Screening for malignant neoplasm of colon GERD (gastroesophageal reflux disease) Esophageal reflux Nutritional counseling- Primary Diagnosis Screening for malignant neoplasm of colon GERD (gastroesophageal reflux disease) Esophageal reflux body mass index of 40.0-49.9- Primary Nutritional counseling Follow up History of Present Illness * Shelia Sanchez, CARISSA - 06/27/2020 1:00 PM EST OUTPATIENT BARIATRIC INITIAL ASSESSMENT Referring Provider: Self, Self Nutrition Assessment: Anthropometrics: Ht Readings from Last 1 Encounters: 06/27/20 1.549 m (5' 1 ) Wt Readings from Last 3 Encounters: 06/27/20 116.7 kg (257 lb 3.2 oz) [place] body weight: 47.8 kg (105 lb 6.1 oz) Adjusted ideal body weight: 75.3 kg (166 lb 1.7 oz) % IBW: 244.7% Body mass index is 48.6 kg/m . Pt. Weight goal: Wants to feel healthy inside and out. Calorie goal for weight loss: 3326-3309 kcals/day (15-20 kcals/kg adj wt) Protein goal: 60-72 gm/day (1.1-1.5 gm/kg IBW) Nutrition-Related Hx: Appetite: good Allergies/Intolerances: Intolerances (milk, egg, potato, wheat, corn) - avoids milk, will eat them sometimes Current Supplements: Yes - B complex; Lanie live,r drops to clean out liver Previous Nutrition Education? No Previous methods used for weight mgmt: Starving myself aka calorie deficit Meals out: 2x/week Social Hx: Occupation: no Hours: Physical Activity: Vibration exercise plates, walks when weather is nice Current exercise regimen: Pt does engage in regularly scheduled physical activity. /Significant other: Yes Children living in the house: Yes How many: one son does (grocery shopping is pt and ) Diet Recall: Usual Intake Meal Time Food/Drink Breakfast Coffee with cream, green tea plain Snack Lunch Two poptarts (strawberry) and green tea Snack Dinner Two eggs, two pieces of thin ham, two big toast (honey oat 7 grain) - feels sick after eating this b/c of the eggs Snack Beverages: coffee (1 cup per day), water (~32 oz), green tea (~32 oz+); diet pop sometimes (1 can every other day). Has tried to stop pop Ms. Katalina Tapia is a 55 y.o. female here in preparation for weight loss surgery, undecided. This is visit 1. Diet recall reveals a consistent meal pattern. Reviewed basic nutrition: food groups and macronutrients. Emphasized intake of plant foods along with protein. Discussed and encouraged the following: ? Eat 3 meals per day, including breakfast ? Eliminate simple sugars ? Drink at least 64 ounces of no-calorie fluids daily ? Begin regular physical activity: Aim for 30 minutes of cardio, 5 days/week ? Eliminate carbonated beverages ? Eliminate caffeine ? Eliminate alcohol ? Put your fork down between bites ? Stop eating when no longer hungry Pt was provided: ? List of high protein foods ? Protein Shake Handout with Coupons ? Low Fat Low Sugar Meal Pattern ? Lets Get Physical 101 ? Goals to work on ? Zoom & Online class instructions Pt is able to verbalize kcal needs, fluid needs, meal/snack frequency, exercise goals. Pt seems motivated to make necessary changes in preparation for bariatric sx. PMH: has a past medical history of Asthma, Essential hypertension, benign, GERD (gastroesophageal reflux disease), and FARZANEH (obstructive sleep apnea). PSH: has a past surgical history that includes section (1986); breast lumpectomy (Bilateral, 2009); removal cataract (pem) (Bilateral); vitrectomy (2005); lap cholecystectomy (2018); and egdw/ bx (2018). Nutrition-Related Labs: No results found for: CHOLESTEROL, TRIG, HDL, LDLCALC, LDLDIRECT No results found for: CRP No results found for: HGBA1C BP Readings from Last 3 Encounters: 06/27/20 148/85 Nutrition Diagnosis: NC-3.3 Obesity related to excessive energy intake and physical inactivity as evidenced by diet hx and Body mass index is 48.6 kg/m . NB-1.1 Food and nutrition-related knowledge deficit related to eating a well balanced diet, knowledge of nutrient dense foods vs. empty calories and specific calorie needs as evidenced by diet recall, interview with pt. NB-2.1 Physical inactivity related to not exercising and sedentary lifestyle as evidenced by pt report. NI-1.5 Excessive Energy Intake related to food-and nutrition-related knowledge deficit concerning energy intake, lack of access to healthful food choices as evidenced by diet recall and pt interview. Nutrition Intervention: Short Term Nutrition Goals: 1. Eat 5-6x/day. 2. Consume 60 - 72 grams of protein per day. 3. Limit sugar to no more than 10 gm per meal/snack. 4. Drink at least 64 ounces of caffeine free fluid/day. Chcf Nutrition Goals: 1. Eliminate: carbonation, caffeine, alcohol. 2. Eat in this order: protein first, vegetable and fruit second and whole grain carbohydrates last. 3. Chew your food 20-30x per bite. 4. Meals should last 20-30 minutes. 5. Don t drink 30 minutes after eating. 6. Put your fork down between bites 7. Stop eating when no longer hungry Monitoring and Evaluation: 1. Follow up appointments scheduled for additional nutrition education. 2. Progress is tracked via questionnaire filled out by pt before each nutrition class. 3. Pt is weighed monthly. Time spent with pt: 40 minutes Shelia Sanchez RDN, LDN Registered Dietitian Senior Abap Developer, Licensed Dietitian Senior Abap Developer 06/27/20 documented in this encounter* Sowmya Bee RD - 07/21/2020 3:00 PM EDT OUTPATIENT BARIATRIC NUTRITION EDUCATION: LESSON 1 Referring Provider: Emmett Montero MD Nutrition Assessment: Anthropometrics: Ht Readings from Last 1 Encounters: 06/27/20 1.549 m (5' 1 ) Wt Readings from Last 3 Encounters: 07/21/20 118.6 kg (261 lb 6.4 oz) 06/27/20 116.7 kg (257 lb 3.2 oz) 06/27/20 116.7 kg (257 lb 3.2 oz) [place] body weight: 47.8 kg (105 lb 6.1 oz) Adjusted ideal body weight: 76.1 kg (167 lb 12.6 oz) Body mass index is 49.39 kg/m . Ms. Katalina Tapia is a 55 y.o. female here in preparation for weight loss surgery. Diet Recall: (Obtained from questionnaire) Meal Time Food/Drink Breakfast 10:30 AM Regular coffee (8 oz) with cream Snack Lunch Snack Dinner 5:00-6:00 PM [place] (deli meat usually ham with cheese and mustard on a flatbread) or leftovers such as a fajita from [employer] Snack 10:00 PM gets home at this time and eats with pt (double cheeseburger monroy and diet pop from [employer]) Current exercise: Pt is exercising using resistance bands with vibrating base plate for stablizing muscles 5-7 days/week for 10 minutes. Water intake: Pt is drinking 64+ oz of water/day. Nutrition Goals: 1. Eat breakfast: NOT MET 2. Eat 5-6 small meals/day: NOT MET 3. Consume adequate protein: NOT MET 4. Limit sugar to no more than 10 gm per meal/snack: MET 5. Eating off smaller plates: SOMETIMES MET 6. Chew your food 20 times per bite: MET 7. Meals should last 30 minutes: MET 8. Eat in this order: protein first, vegetables and fruit second, whole grains last: NOT MET 9. Put your fork down between bites: MET 10. Begin regular physical activity: NOT MET Today pt attended a group nutrition class for bariatric patients. Pt was educated on the following topics: Carbohydrates and Fluid. Discussed and encouraged the following: Eat 3 meals per day, including breakfast Limit snacks/nibbles to 3 per day Eliminate simple sugars Drink at least 64 ounces of no-calorie fluids daily Begin regular physical activity Eliminate carbonate beverages Eliminate caffeine Eliminate alcohol Don t drink with meals Eating protein first, then vegetables and fruit and whole grains last Put your fork down between bites Stop eating when no longer hungry Eating complex carbohydrates. Using small plates, bowls and cups. Using baby spoons an forks to encourage small bites. Nutrition Diagnosis: NB-1.1 Food and nutrition-related knowledge deficit related to carbohydrate and fluid needs after bariatric sx as evidenced by pt new to bariatric program. Nutrition Intervention: Nutrition Goals: 1. Eat 5-6x/day. 2. Limit sugar to no more than 10 gm per meal/snack. 3. Drink at least 64 ounces of caffeine free fluid/day. 4. Eliminate: carbonation, caffeine, alcohol. 5. Chew your food 20-30x per bite. 6. Meals should last 20-30 minutes. Monitoring and Evaluation: 1. Pt will complete all 4 nutrition education classes. 2. Progress is tracked via goal questionnaire at each nutrition class. 3. Pt is weighed monthly. 4. Pre-op appointment scheduled with a Registered Dietitian. Time spent with pt: 60 minutes Sowmya Bee RDN, MERCEDESN Registered Dietitian Senior Abap Developer, Licensed Dietitian Senior Abap Developer 07/21/20 documented in this encounter* Clifford Cobian PsyD - 07/24/2020 1:00 PM EDT Pre-Bariatric Surgery Psychological Evaluation Name: Katalina Tapia : 1965 Age: 55 y.o. Sex: female [address]: [address] [place] [address] Date of Evaluation: 07/24/2020 Examiner: Clifford Cobian PsyD Time of Diagnostic Evaluation: 1400 Psychological Codes Used 73854 Psychological Diagnostic Interview 52695 Test Administration and Scoring (1st 30 minutes) 33521 Test Administration and Scoring (additional 30 minutes) 59651 Psychological Testing Services (1st 60 minutes) 57972 Psychological Testing Services (additional 60 minutes) Psychological Testing Table Code Date Time Spent Units Billed 50777 07/24/2020 NA 1 73930 07/24/2020 30 1 69085 07/24/2020 184 6 94750 07/25/2020 60 1 This pt will be seen for a feedback session at a later date. That service will be billed under the code 82566 which will relate back to this psychological evaluation and testing. Reason for Referral: [facility] and Dr Montero or Dr Ambrosio have referred Katalina Tapia for psychological evaluation to determine suitability for bariatric surgery. Use of this evaluation for other than the stated purpose is not recommended. Katalina Tapia is aware of the purpose of this evaluation and that the results will be sent to Dr Monteroor Dr Ambrosio and the bariatric team. Sources of Information: * Clinical Interview with Katalina Tapia * [place] Multiphasic Personality Inventory - 2 (MMPI-2) * Binge Eating Scale History of Present Illness (Weight and Eating Behavior): Current Height: Ht Readings from Last 3 Encounters: 06/27/20 1.549 m (5' 1 ) 06/27/20 1.549 m (5' 1 ) Last 3 Documented Weights: Wt Readings from Last 3 Encounters: 07/21/20 118.6 kg (261 lb 6.4 oz) 06/27/20 116.7 kg (257 lb 3.2 oz) 06/27/20 116.7 kg (257 lb 3.2 oz) Most Recent BMI: BMI Readings from Last 3 Encounters: 07/21/20 49.39 kg/m 06/27/20 48.60 kg/m 06/27/20 48.60 kg/m Highest Adult Weight: 261 pounds Net Weight Gained or Lost in Last 6 Months: Gained 35 pounds Net Weight Gained or Lost in Last 5 Years: Gained 35 pounds First Attempt at Weight Loss: 12 years of age Percent of Adult Life Spent Dietin % Number of Times Patient Has Lost 20 Lbs. or More: 2 Most Significant Weight Loss: 75 pounds, by aysha self, 2000. Supervised Weight Loss Program at This Time: Seeing a physician for medical weight loss or weight loss medication: Yes, with our nutrition department. No Support for Surgery From Friends and Family: Yes, daughter, going through it too. , rest of her kids. Reasons for Pursuing Bariatric Surgery: To feel better. Bariatric Surgery Knowledge: Pt has met with nutrition 2 times. Pt has met with Dr Montero, 1 times. They are discussing sleeve, smoker. Has lung disease. Procedure: She will take out 75% of stomach and leave banana shaped portion in there. Identify Lifestyle Changes Needed for Success Post Surgery: Yes Eat more protein. Eat protein first. Yes Eat less sugars, bad carbohydrates and the bad fats. Yes Eat 5-6 times per day, small portions. Small plates and utensils. Yes Chew 20-30 times. Yes Drink more water. 64 oz. Yes Do more exercise. Yes Changes have to be forever. Risks: , blood clots, ulcers, infection. Food choices: Sweets in diet currently Excess consumption of starchy carbohydrates Excess consumption of high fatfoods No No No Eating Schedule: Breakfast Snacks Lunch Snacks Supper Snacks No 0 No 0 Yes 0 -eating one time per day, Binge Eating Symptoms (last 6 months): Large volume in discrete period of time Yes Loss of control over amount or choice Yes More rapid consumption than normal Yes Eating until uncomfortably full Yes Eating large amounts when not hungry Yes Embarrassed about size of meal - eats alone No Disgust, depression or guilt after overeating Yes Marked emotional distress associated with binge eating Yes Times per week 3 Most common binge food pizza Most common time of day dinner Binge Eating History Initial onset 35 years old Did dieting precede onset of binge eating? yes Emotional Eating: Sad / lonely No Anxious / stressed No Angry No Happy / celebrating Yes Bored No Estimated times per week Special occasions or holidays. Impact of eating / weight issues on relationships and work: Relationships no Work no Compensatory Behavior: Self Induced Vomitting Laxative Abuse Diuretic Abuse Compulsive Exercise Severe Calorie RestrictionComments Last 6 months never never never never never Past Hx never never never never did this for one year 2000, never since. Importance of weight/body shape with regard to self worth: severe Family history of Binge Eating: pt and daughter Background Information: * Family of Origin Pt was born and raised in [place]. Poor relationship with mom over the years, she was mean to pt father. Father since 2017. Good relationship with 2 sisters, brother not good. * Marital Family/Significiant Relationships 33 years, normal ups and downs. 4 children. All adults. One son lives with her because bipolar and does not hold a job. * Education/Employment Dropped out in 10 th grade, not getting along with other girls. Got GED in 1992. 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 Stopped because of health problems. No considered visually impaired. Is on disability for this. works [email or web address] for last 22 years. * Current Stressors Health and weight. Covid. Son without a job and lives at home. * Coping Strategies Takes medications. Has learned deep breathing. Keep busy and distract self. Try to focus on the positive. Get out and walk. * Leisure Facebook. * Consistent Exercise Not during winter. Plans to walk with daughter. History of Present Illness (Psychological): * Have you ever been diagnosed with any mental health condition? Yes Depression and anxiety diagnosed many years ago. Got bad 2018 after one son deployed. * Have you ever been in counseling or psychotherapy? Yes Most recently at [facility], slowed down with covid when stopped doing face to face. * Have you ever been prescribed any psychotropic medications? Yes * Current psychotropic medications: Buspirone 30 mg bid Sertraline 100 mg every day Hydroxyzine 25 mg hs. This combination works well for her. Prescribed by her psychiatrist at [facility], Dr Carrillo. * Past psychotropic medications: prozac stopped working. * Any known family history of Psychological diagnosis? Yes Son bipolar Mom anxiety and depression * Have you ever been admitted to an Inpatient Psychiatric Unit? No Major Depression Current mood: is good. Last depressive episode about one year ago. Has been stable on meds and previous counseling,. Depressed Mood No Anhedonia No Weight loss, gain, or decreased appetite Yes Insomnia or hypersomnia every day Yes Psychomotor agitation or retardation Yes Fatigue or lost of energy Yes Feelings of worthlessness or inappropriate guilt No Poor concentration or indecisiveness No Recurrent thoughts of No 5 or more symptoms in a 2 week period with either depressed mood or anhedonia No Mdd, rec, partial remission. Anxiety Symptoms: Details Panic Disorder Yes Had one in Nov after uti and diagnosed with covid. None since and none before for a year. Generalized Anxiety Yes Obsessive Compulsive Disorder No Phobia No Panic Disorder: Recurrent abrupt surges of intense fear or intense discomfort that peaks in minutes. No Generalized Anxiety Disorder: Excessive anxiety and worry, occurring more days than not, for at least 6 months, about multiple events or activities Yes It is difficult to control the worry Yes Restlessness or feeling keyed up or on edge Yes Easily fatigued Yes Difficulty concentrating or mind going blank Yes Irritability Yes Muscle tension No Sleep disturbance No 3 or more of the above 6 symptoms are present more days than not for the past 6 months Yes Psychosis Symptoms: Hallucinations No Delusions No Thought disorder No Catatonia No Substance Use: Caffeine One cup of coffee per day. Tobacco Will smoke 1-3 per day, depending on stress level. Alcohol 0 Marijuana 0 Cocaine 0 Heroin / Opioids 0 Other Drugs 0 Have you ever been in drug or alcohol treatment. No Any history of abuse of prescriptions medications. No Clinical Observations and Mental Status: Appearance: appropriate Mood: normal Affect: appropriate Motor Activity: decreased Speech: normal and soft Attention: normal Orientation: person, place, time and situation Eye Contact: fair Thought Process: normal Cognitive Impairment: none Suicidal Ideation: denied by patient Homicidal Ideation:denied by patient Hallucination: none Delusion: none Memory: intact Insight: fair Judgment: poor Impulse Control: poor Interview Behavior: cooperative Test Results: * [place] Multiphasic Personality Inventory - 2 (MMPI-2) Validity Scales T-Scores VRIN 46 KENDELL 58f F 79 FB 58 FP 57 FBS 75 L 52 K 39 S 41 Clinical Scales T-Scores Hs 67 D 81 Hy 51 Pd 76 Mf 50 P 56 Pt 75 Sc 67 Ma 49 Si 79 Valid profile. Pt likely to be impulsive and to have conflicts with family or trouble with the law. Has difficulty delaying gratification of her impulses. Family conflicts likely to have involved alcohol. Is frustrated with her lack of accomplishment and resentful of demands placed on her by other people. If not in trouble may seem energetic, sociable and outgoing. Creates a favorable first impression but tendencies to manipulate others produce feelings of resentment in snf relationships. She is reporting anxiety, tension and may be seen as high strung and jumpy. Tends to anticipate problems before they occur then overreacts to minor stress. Is socially introverted feels uncomfortable in social situations. * Binge Eating Scale Raw Score 13 The patient's responses to this scale are lower than would be expected considering her self report of binge eating behavior. . ICD 10 Diagnosis: ICD-10-CM 1. Binge-eating disorder, mild F50.81 2. Recurrent major depressive disorder, in partial remission F33.41 3. SUZANNA (generalized anxiety disorder) F41.1 Conclusions and Recommendations: aKtalina Tapia was referred by [facility] for psychological evaluation to determine suitability for bariatric surgery. 1. Only eating one time per day, 5pm. Will binge several times per week. Needs to work on implementing diet and behaviors as taught by nutrition. Is doing this at same time as her daughter, who attends nutrition classes with her. She and daughter have plans to meet weekly to meal prep. This pairing of resources and support is likely very important to her success in the program. 2. Pt reports she is still smoking cigarettes. smokes 3 packs per day. Pt needs a referral to smoking cessation. 3. Is able to report healthy coping she has learned in previous counseling. Reports she is taking psychotropic medications as prescribed and sees psychiatrist every three months. 4. Testing result indicative of more significant emotional and psychological distress than reported during clinical interview. I need to review at feedback if symptoms or current or more indicative of past episodes. 5. I will review this patient's progress on the above at feedback. Prognosis for clearance at feedback is fair. Clifford Cobian PsyD documented in this encounter* Sowmya Bee, RD - 07/28/2020 3:00 PM EDT OUTPATIENT BARIATRIC NUTRITION EDUCATION: LESSON 2 Referring Provider: Emmett Montero MD Nutrition Assessment: Anthropometrics: Ht Readings from Last 1 Encounters: 06/27/20 1.549 m (5' 1 ) Wt Readings from Last 3 Encounters: 07/28/20 117.4 kg (258 lb 14.4 oz) 07/21/20 118.6 kg (261 lb 6.4 oz) 06/27/20 116.7 kg (257 lb 3.2 oz) [place] body weight: 47.8 kg (105 lb 6.1 oz) Adjusted ideal body weight: 75.7 kg (166 lb 12.6 oz) Body mass index is 48.92 kg/m . Ms. Katalina Tapia is a 55 y.o. female here in preparation for weight loss surgery. Diet Recall: (Obtained from questionnaire) Meal Time Food/Drink Breakfast Coffee (regular) with protein shake (slimfast) Snack Lunch Snack Dinner 4:00 PM [place] burrito from [employer] with diet hudson pepsi and tortilla chips (10) with salsa Snack 6:00-7:00 PM 1 cup of vegetables with 1-2 pieces/bites of steak Current exercise: Pt is exercising by walking 5-7 days/week for 10-20 minutes. Water intake: Pt is drinking 64 oz of water/day. 60-120 oz of green tea no sugar Nutrition Goals: 1. Eat breakfast: MET 2. Eat 5-6 small meals/day: NOT MET 3. Consume adequate protein: MET 4. Limit sugar to no more than 10 gm per meal/snack: MET 5. Eating off smaller plates: MET 6. Chew your food 20 times per bite: MET 7. Meals should last 30 minutes: MET 8. Eat in this order: protein first, vegetables and fruit second, whole grains last: MET 9. Put your fork down between bites: MET 10. Begin regular physical activity: MET Today pt attended a group nutrition class for bariatric patients. Pt was educated on the following topics: Vitamins, Minerals and Protein. Information discussed: Role of protein in the body. Protein needs for men and women. Adequate well spaced protein. Using protein shakes to ensure adequate protein. Vitamin and mineral needs after sx. Importance engaging in regularly scheduled physical activity: Nutrition Diagnosis: NB-1.1 Food and nutrition related knowledge deficit related to vitamins, minerals, and protein needs post-bariatric surgery as evidenced by pt new to bariatric program. Nutrition Intervention: Nutrition Goals: 1. Eat 5-6x/day. 2. Consume adequate protein per day. 3. Limit sugar to no more than 10 gm per meal/snack. 4. Drink at least 64 ounces of caffeine free fluid/day. 5. Eliminate: carbonation, caffeine, alcohol. 6. Eat in this order: protein first, vegetable and fruit second and whole grain carbohydrates last. 7. Chew your food 20-30x per bite. 8. Meals should last 20-30 minutes. 9. Don t drink 30 minutes after eating. 10. Put your fork down between bites. 11. Stop eating when no longer hungry Monitoring and Evaluation: 1. Pt will complete all 4 nutrition education classes. 2. Progress is tracked via goal questionnaire at each nutrition class. 3. Pt is weighed monthly. 4. Pre-op appointment scheduled with a Registered Dietitian. Time spent with pt: 60 minutes Sowmya Bee RDN, LDN Registered Dietitian Senior Abap Developer, Licensed Dietitian Senior Abap Developer 07/28/20 documented in this encounter* Sowmya Bee RD - 08/07/2020 3:00 PM EDT OUTPATIENT BARIATRIC NUTRITION EDUCATION: LESSON 3 Referring Provider: Emmett Montero MD Nutrition Assessment: Anthropometrics: Ht Readings from Last 1 Encounters: 06/27/20 1.549 m (5' 1 ) Wt Readings from Last 3 Encounters: 08/07/20 117.4 kg (258 lb 14.4 oz) 07/28/20 117.4 kg (258 lb 14.4 oz) 07/21/20 118.6 kg (261 lb 6.4 oz) [place] body weight: 47.8 kg (105 lb 6.1 oz) Adjusted ideal body weight: 75.7 kg (166 lb 12.6 oz) Body mass index is 48.92 kg/m . Ms. Katalina Tapia is a 55 y.o. female here in preparation for weight loss surgery. Diet Recall: (Obtained from questionnaire) Meal Time Food/Drink Breakfast Coffee 8 oz with scoop of protein powder (slimfast) Snack Lunch Snack Dinner 2:00-3:00 PM Cracker barrel chicken strips (3) with honey mustard with 1 cup of mac and cheese 6-7 steak fries Snack 4:00 PM 2 scoops of ice cream Current Exercise: Pt is exercising by walking 5-7 days/week for 10-20 minutes. Water intake: Pt is drinking 32-64 oz of water/day. 32-64 oz of green tea Nutrition Goals: 1. Eat breakfast: MET 2. Eat 5-6 small meals/day: NOT MET 3. Consume adequate protein: ALMOST MET 4. Limit sugar to no more than 10 gm per meal/snack: NOT MET 5. Eating off smaller plates: MET 6. Chew your food 20 times per bite: MET 7. Meals should last 30 minutes: MET 8. Eat in this order: protein first, vegetables and fruit second, whole grains last: MET 9. Put your fork down between bites: SOMETIMES MET 10. Begin regular physical activity: SOMEWHAT MET Today pt attended a group nutrition class for bariatric patients. Pt was educated on the following topics: Fats and Dining Out. Discussed: Types of fat: unsaturated, saturated and trans. Tips on making healthy choices while eating out. Continue with adequate well spaced protein. Continue with eating 5-6x/day. Continue with a inimum 64 oz water intake. Importance engaging in regularly scheduled physical activity: Nutrition Diagnosis: NB-1.1 Food and nutrition related knowledge deficit related to fats and dining out as it relates tobariatric surgery as evidenced by pt new to bariatric program. Nutrition Intervention: Nutrition Goals: 1. Eat 5-6x/day. 2. Consume adequate protein per day. 3. Limit sugar to no more than 10 gm per meal/snack. 4. Drink at least 64 ounces of caffeine free fluid/day. 5. Eliminate: carbonation, caffeine, alcohol. 6. Eat in this order: protein first, vegetable and fruit second and whole grain carbohydrates last. 7. Chew your food 20-30x per bite. 8. Meals should last 20-30 minutes. 9. Don t drink 30 minutes after eating. 10. Put your fork down between bites. 11. Stop eating when no longer hungry Monitoring and Evaluation: 1. Pt will complete all 4 nutrition education classes. 2. Progress is tracked via goal questionnaire at each nutrition class. 3. Pt is weighed monthly. 4. Pre-op appointment scheduled with a Registered Dietitian. Time spent with pt: 45 minutes Sowmya Canada De Los Alamos, RDN, LDN Registered Dietitian Senior Abap Developer, Licensed Dietitian Senior Abap Developer 08/07/20 documented in this encounter Instructions * Patient Instructions* Clifford Cobian PsyD - 07/24/2020 1:00 PM EDT 1. Only eating one time per day, 5pm. Will binge several times per week. Needs to work on implementing diet and behaviors as taught by nutrition. Is doing this with her daughter, who attends nutrition classes with her. She and daughter have plans to meet weekly to meal prep. 2. Pt reports she is still smoking cigarettes. Needs a referral to smoking cessation. documented in this encounter Chief Complaint and Reason for Visit Chief Complaint Admit Date September 07, 2024 9:05a m pain in hands, lump on wrist November 11, 2024 10:24am Chief Complaint Admit Date September 07, 2024 9:05a m pain in hands, lump on wrist November 11, 2024 10:24am EMG BUE per Sondra Salgado [facility] Augu [facility] 2024 3:16pm Reason for Visit Admit Date Bilateral hand pain November 11, 2024 10:2 4am Ganglion cyst of volar aspect of left wr ist November 11, 2024 10:24am Paresthesia of hand, bilateral October 10:24am Pulmonary sarcoidosis November 11, 2024 10 :24am Additional Source Comments INFORMATION SOURCE (unrecogn ized section and content) DATE CREATED AUTHOR 07/27/2019 [facility] DATE CREATED AUTHOR AUTHOR'S ORGANIZ ATION 02/15/2020 [facility] DATE CREATED AUTHOR AUTHOR'S ORGANIZ ATION 02/16/2020 [employer] DATE CREATED AUTHOR AUTHOR'S ORGANIZ ATION 01/17/2021 [facility] DATE CREATED AUTHOR AUTHOR'S ORGANIZ ATION 04/17/2021 [facility] DATE CREATED AUTHOR AUTHOR'S ORGANIZ ATION 02/27/2022 [facility] DATE CREATED AUTHOR AUTHOR'S ORGANIZ ATION 09/08/2024 [facility] Reason for Visit (unrecogniz ed section and content) Reason Comments Consult Patient interested i n bariatric surgery Status Reason Specialty Diagnoses / Procedures Referred By Contact Referred To Contact New Request Registered Dietitian / Nutrition and Dietetics Diagnoses Dr. Montero Initial Consult (medicare) Procedures NEW PATIENT - JASWANT Self, Self Nasir Hickman, RD [address] [place] [address] Reason Comments Nutrition Consultation Status Reason Specialty Diagnoses / Procedures Referred By Contact Referred To Contact New Request Diagnoses Obesity, morbid, BMI 40.0-49.9 Procedures ECG Emmett Montero MD [address] [place], [place] [id number] Reason Comments New Patient Eating Disorder Status Reason Specialty Diagnoses / Procedures Re ferred By Contact Referred To Contact Closed Psychology Diagnoses FARZANEH (obstructive sleep apnea) Moderate persistent asthma without complication Essential hypertension Obesity, morbid, BMI 40.0-49.9 Sarcoidosis Heart palpitations Gastroesophageal reflux disease, unspecified whether esophagitis present Anxiety and depression Emmett Montero MD [address] [place], [place] [id number] Clifford Cobian, PsyD [address] [place] [address] Reason Comments Nutrition Consultation Status Reason Specialty Diagnoses / Procedures Re ferred By Contact Referred To Contact New Request Nutrition and Dietetics Diagnoses FARZANEH (obstructive sleep apnea) Moderate persistent asthma without complication Essential hypertension Obesity, morbid, BMI 40.0-49.9 Sarcoidosis Heart palpitations Gastroesophageal reflux disease, unspecified whether esophagitis present Anxiety and depression Emmett Montero MD [address] [place] [id number] Reason Onset Date Comments Other 07/31/2020 Suprep Sample fo r COLO on 08/14/2020 Status Reason Specialty Diagnoses / Procedures Referre d By Contact Referred To Contact Diagnoses GERD (gastroesophageal reflux disease) Screening for malignant neoplasm of colon GERD (gastroesophageal reflux disease) [K21.9] Screening for malignant neoplasm of colon [Z12.11] Procedures NM EGD TRANSORAL BIOPSY SINGLE/MULTIPLE NM COLON CA SCRN NOT HI RSK IND EGD W/ BX COLONOSCOPY FOR COLORECTAL CANCER SCREENING LOW/AVERAGE RISK INDIVIDUAL Status Reason Specialty Diagnoses / Procedures Re ferred By Contact Referred To Contact New Request Nutrition and Dietetics Diagnoses FARZANEH (obstructive sleep apnea) Moderate persistent asthma without complication Essential hypertension Obesity, morbid, BMI 40.0-49.9 Sarcoidosis Heart palpitations Gastroesophageal reflux disease, unspecified whether esophagitis present Anxiety and depression Emmett Montero MD [address] [place] [address] Reason Comments Follow-up Eating Disorder Reason Comments Post Op Visit one week Emmett Montero MD - 06/27/2020 2:00 PM EST H&P Notes (unrecognized sect ion and content) BARIATRIC SURGERY NEW PATIENT CONSULTATION HISTORY AND PHYSICAL Date: 06/27/2020 Time: 2:17 PM Name: Katalina Tapia This is a 55 y.o. female with morbid obesity (Body mass index is 48.6 kg/m .) who presents to clinic for consideration of bariatric surgery. she has attempted and failed multiple diet and exercise regimens for weight loss. PMH: HTN (she is on an off medications, it is based on her weight), FARZANEH (noncompliant with CPAP, has a sleep study scheduled), asthma on daily inhalers and sarcoidosis (has been hospitalized for asthma and sarcoid exacerbations in the past), heart palpitations, GERD (improved after cholecystectomy, not on regular meds), depression/anxiety (seeing a psychiatrist). PSH: lap ender 2018, cataracts, breast lumpectomies, vitrectomy, . Has never had a colonoscopy. Had an EGD several years ago and had food in her esophagus. She smokes tobacco with stress and her smokes a lot. Denies regular EtOH/drug use. No personal/family hx of VTE. The risks of sleeve gastrectomy, George-en-Y gastric bypass, and duodenal switch surgery including bleeding, leak, wound infection, dehydration, ulcers, internal hernia, DVT/PE, prolonged nausea/vomiting, incomplete resolution of associated medical conditions, reflux, weight regain, vitamin/mineral deficiencies, and have been explained to the patient and Katalina Tapia has expressed understanding and acceptance of them. The increased risk of substance and alcohol abuse following bariatric surgery was discussed with the patient, along with the negative consequences of substance/alcohol use after surgery including addiction, worsening of mental health disorders, and injury to the stomach. The risk of smoking and vaping (tobacco or any other substance) after bariatric surgery was explained to the patient. This includes risk of anastamotic ulcers, gastritis, bleeding, perforation, stricture, and PO intolerance. The patient expressed understanding and acceptance of these risks. The patient was advised not to become within 12-18 months following bariatric surgery. She was educated on the increased risks to mother and fetus associated with within 2 years of bariatric surgery. She is menopausal. The benefits of the above surgeries including weight loss, improvement/resolution of associated medical and mental health conditions, improved mobility, and decreased mortality have been explained the the patient and Katalina Tapia has expressed understanding and acceptance of them. PAST MEDICAL HISTORY: Past Medical History: Diagnosis Date Asthma Essential hypertension, benign GERD (gastroesophageal reflux disease) FARZANEH (obstructive sleep apnea) PAST SURGICAL HISTORY: Past Surgical History: Procedure Laterality Date LAP CHOLECYSTECTOMY 2018 EGD W/ BX 2018 BREAST LUMPECTOMY Bilateral 2010 x 3 VITRECTOMY 2006 SECTION 1987 REMOVAL CATARACT (PEM) Bilateral 2000, 2002 FAMILY HISTORY: History reviewed. No pertinent family history. SOCIAL HISTORY: Social History Tobacco Use Smoking status: Former Smoker Types: Cigarettes Quit date: 2019 Years since quittin.1 Smokeless tobacco: Never Used Tobacco comment: Pt will smoke 1-2 cigarettes with extreme stress Substance Use Topics Alcohol use: Not Currently Drug use: Never MEDICATIONS: Prior to Admission Medications: Current Outpatient Medications Medication Sig Last Dose Start Date End Date Authorizing Provider albuterol 108 (90 Base) MCG/ACT Aero Soln inhaler 2 puffs, Inhalation, EVERY 6 HOURS PRN Taking Historical Provider B Complex Vitamins (VITAMIN B COMPLEX PO) 1 tablet, Oral, DAILY Taking Historical Provider budesonide-formoterol 160-4.5 mcg/puff Aerosol inhaler INHALE 2 PUFFS TWICE DAILY*RINSE AFTER USE* Taking 05/22/20 Historical Provider busPIRone HCl 30 MG tablet 30 mg, Oral, 2 TIMES DAILY Taking 06/10/20 Historical Provider HERBAL PRODUCT 2 drops, Oral, DAILY, Lanie Liver. A liquid added to water for liver support and function. Taking Historical Provider hydrOXYzine HCl 25 MG tablet TAKE 1 TABLET BY MOUTH EVERYDAY AT BEDTIME Taking 06/15/20 Historical Provider ibuprofen 600 MG tablet 600 mg, Oral, EVERY 6 HOURS PRN Taking Historical Provider sertraline 100 MG tablet 100 mg, Oral, DAILY Taking 06/15/20 Historical Provider ALLERGIES: Allergies Allergen Reactions Eggs Or Egg-Derived Products Diarrhea Lac Bovis Other reaction(s): Unknown Reaction Lisinopril Cough Other reaction(s): Unknown Reaction Versed [Midazolam] Aggressive Behavior REVIEW OF SYSTEMS: GENERAL: Negative for malaise, significant weight loss and fever HEAD: Negative for headache, swelling. NECK: Negative for lumps, goiter, pain and significant neck swelling RESPIRATORY: Negative for cough, wheezing or shortness of breath. CARDIOVASCULAR: Negative for chest pain, leg swelling or palpitations. GI: Negative for abdominal discomfort, blood in stools or black stools or change in bowel habits : No history of dysuria, frequency or incontinence MUSCULOSKELETAL: Negative for joint pain or swelling, back pain or muscle pain. SKIN: Negative for lesions, rash, and itching. PSYCH: Negative for sleep disturbance, mood disorder and recent psychosocial stressors. ENDOCRINE: Negative for cold or heat intolerance, polyuria, polydipsia and goiter. PHYSICAL EXAM: Visit Vitals BP 148/85 (BP Location: Left arm, BP Position: Sitting) Pulse 93 Ht 1.549 m (5' 1 ) Wt 116.7 kg (257 lb 3.2 oz) SpO2 93% BMI 48.60 kg/m General appearance: obese, NAD Neuro: AOx3 Head: EOMI; no swelling or lesions of scalp or face ENT: no lumps or lymphadenopathy, thyroid normal to palpation; oropharynx clear, no swelling or erythema Skin: warm, no erythema or rashes Lungs: clear to percussion and auscultation Heart: regular rhythm and S1, S2 normal Abdomen: soft, non-tender, no masses, no organomegaly Extremities: Normal exam of the extremities. No swelling or pain. Psych: no hurried speech, no flight of ideas, normal affect IMPRESSION: Katalina Tapia is a 55 y.o. female with the following diagnosis and co-morbidities: Body mass index is 48.6 kg/m . FARZANEH Asthma HTN Heart palpitations GERD Sarcoidosis Anxiety and depression Diagnosis noted as above, no additional diagnosis at this time. This patient does meet the criteria for a surgical weight loss procedure according to NIH guidelines. PLAN: The plan of treatment for Katalina Tapia is to continue with the consultations and tests ordered today in hopes of qualifying for pre-operative clearance for bariatric surgery. This includes: Consult Nutrition for education and 0 mo SWL Consult Psychology Consult cardiology Consult pulmonology - Dr. Steward Labs/CXR/EKG ordered EGD/colonoscopy PCP for medical optimization Consult sleep medicine - concern for FARZANEH Patient is interested in: sleeve gastrectomy 45 minutes were spent with patient including history, physical exam, and education. Emmett Montero MD Bariatric and Minimally Invasive General Surgery documented in this encounter Telephone Encounter - Becca Christensen - 07/31/2020 11:39 AM EDTTelephone Encounter - Becca Christensen - 07/31/2020 11:32 AM EDT Miscellaneous Notes (unrecog nized section and content) Suprep Lot#[id number] Expires 04/2022 qty 1 Suprep Sample for COLO on 08/14/2020 Patient cannot afford prep. Setting aside a sample of Suprep for patient in the office. Patient can bead picker either 08/10 or 08/11. documented in this encounter Scheduled Active and Recently Administ ered Medications (unrecognized section and content) Medication Order 12/10/2020 12/11/2020 12/12/2020 acetaminophen (OFIRMEV) IVPB 1,000 mg (COMPLETED) 1,000 mg, Intravenous, Administer over 15 Minutes, ONCE, 1 dose, On Fri12/11/20 at 1115 1136 ($$New Bag$$ - Provider: Jadyn Lopez, GEMMA)1145 (Stopped - Provider: Jadyn Lopez RN) acetaminophen (TYLENOL) oral solution 650 mg 650 mg, Oral, EVERY 6 HOURS NON-STANDARD, First dose on Fri12/11/20 at 1300, Until Discontinued, , Post-op/Post-Proc 1351 (Given - Provider: Domonique Allen RN)1939 (Given - Provider: Khushbu Nixon RN) 0107 (Given - Provider: Khushbu Nixon RN)0632 (Given - Provider: Khushbu Nixon RN)1220 (Given - Provider: Domonique Allen RN) acetaminophen (TYLENOL) tablet 1,000 mg (COMPLETED) 1,000 mg, Oral, ONCE, 1 dose, On Fri12/11/20 at 0645, With a sip of water on arrival to holding, Pre-op/Pre-Proc 0701 (Given - Provider: Sandra Sanchez RN) bupivacaine (MARCAINE) 30 mL, bupivacaine LIPOSOME (EXPAREL) 20 mL in sodium chloride 0.9% 200 mL (COMPLETED) Injection, ONCE, 1 dose, On Fri12/11/20 at 0830, 200 mL, Intra-op/Intra-Proc 0854 ($$New Bag$$ - Provider: Emmett Montero MD) busPIRone (BUSPAR) tablet 30 mg 30 mg, Oral, 2 TIMES DAILY, First dose on Fri12/12/20 at 0900, Until Discontinued 0809 (Given - Provid er: Domonique Allen RN) ceFAZolin (ANCEF) 3 g in sodium chloride 0.9%, with overfill 125 mL (total volume) IVPB (COMPLETED) 3 g, Intravenous, Administer over 30 Minutes, ONCE, 1 dose, On Fri12/11/20 at 0645, Administer in surgical area only - do not administer on the floor, Pre-op/Pre-Proc 0818 ($$New Bag$$ - Provider: Francisco Maldonado, MANAGER COMPETITIVE INTELLIGENCE-PROSTHETIC AIDE) celecoxib (CELEBREX) capsule 400 mg (COMPLETED) 400 mg, Oral, ONCE, 1 dose, On Fri12/11/20 at 0645, With a sip of water on arrival to holding, Pre-op/Pre-Proc 0701 (Given - Provider: Sandra Sanchez RN) enOXAParin (LOVENOX) injection 40 mg 40 mg, Subcutaneous, EVERY 12 HOURS NON-STANDARD, First dose on Fri12/11/20 at 1800, Until Discontinued, Indications: DVT/PE prophylaxis, Post-op/Post-Proc 1828 (Given - Provider: Domonique Allen RN) 0520 (Given - Provider: Khushbu Nixon RN) Fluticasone-Salmeterol (ADVAIR HFA) 115-21 MCG/ACT inhaler 2 puff 2 puff, Inhalation, 2 TIMES DAILY, First dose on Fri12/11/20 at 1700, Until Discontinued, Post-op/Post-Proc 2104 (Given - Provider: Yeny Gastelum, BALER - Comment: Therapist catalina.) 0811 (Given - Provider: Vito Shah, BALER) gabapentin (NEURONTIN) capsule 600 mg (COMPLETED) 600 mg, Oral, ONCE, 1 dose, On Fri12/11/20 at 0645, With a sip of water on [facility] to [facility], Pre-op/Pre-Proc 07 (Given - Provider: Sandra Sanchez, GEMMA) heparin injection 5,000 Units (COMPLETED) 5,000 Units, Subcutaneous, ONCE, 1 dose, On Fri12/11/20 at 0645, Day of Surgery, Pre-op/Pre-Proc 700 (Given - Provider: Sandra Sanchez, GEMMA) hydrOXYzine HCl (ATARAX) tablet 25 mg 25 mg, Oral, DAILY AT BEDTIME, First dose on Fri12/11/20 at 2100, Until Discontinued, Post-op/Post-Proc 2056 (Given - Provider: Khushbu Nixon RN) ketorolac (TORADOL) injection 15 mg 15 mg, Intravenous, EVERY 6 HOURS, 8 doses, First dose on Fri12/11/20 at 1900, Last dose on Fri12/13/20 at 1200, Post-op/Post-Proc 1828 (Given - Provider: Domonique Allen RN) 0021 (Given - Provider: Khushbu Nixon RN)0520 (Given - Provider: Khushbu Nixon RN)1218 (Given - Provider: Domonique Allen, GEMMA) magnesium oxide (MAX-OX) tablet 800 mg (COMPLETED) 800 mg, Oral, ONCE, 1 dose, On Fri12/12/20 at 0900 0902 (Given - Provid er: Manuela Pham RN) ondansetron 4mg/2ml (ZOFRAN) injection 4 mg 4 mg, Intravenous, EVERY 6 HOURS NON-STANDARD, First dose on Fri12/11/20 at 1530, Until Discontinued, Post-op/Post-Proc 1547 (Given - Provider: Domonique Allen RN)2055 (Given - Provider: Khushbu Nixon RN) 0236 (Given - Provider: Khushbu Nixon RN)0809 (Given - Provider: Domonique Allen RN)1530 (Canceled Entry - Provider: System Discharge - Comment: Automatically canceled at discontinue of medication order) pantoprazole (PROTONIX) injection 40 mg 40 mg, Intravenous, DAILY, First dose on Fri12/11/20 at 1230, Until Discontinued, Dilute each 40 mg vial with 10 mL of NS. All bolus doses, whether 40 mg or 80 mg, should be administered over at least two minutes., Indications: Inpt Stress Ulcer Prophylaxis, Post-op/Post-Proc 1352 (Given - Provider: Domonique Allen RN) 0809 (Given - Provider: Domonique Allen RN) scopolamine (TRANSDERM-SCOP) patch 1 patch (CANCELED) 1 patch, Transdermal, ONCE, 1 dose, On Fri12/11/20 at 0645, Behind ear upon arrival to [facility], Pre-op/Pre-Proc 0701 (Patch Applied - Provider: Sandra Sanchez RN) sertraline (ZOLOFT) tablet 100 mg 100 mg, Oral, DAILY, First dose on Fri12/12/20 at 0900, Until Discontinued, Post-op/Post-Proc 0809 (Given - Provid er: Domonique Allen RN) Continuous Medication Order 12/10/2020 12/11/2020 12/12/2020 lactated ringers 1,000 mL with potassium chloride 20 mEq IV solution (CANCELED) Intravenous, CONTINUOUS, Starting on Fri12/11/20 at 1230, Until Fri12/12/20 at 0828, Post-op/Post-Proc 1352 ($$New Bag$$ - Provider: Domonique Allen RN) 0023 (Rate/Dose Verify - Provider: Khushbu Nixon RN)0236 ($$New Bag$$ - Provider: Khushbu Nixon RN)0810 (Rate/Dose Verify - Provider: Domonique Allen RN) lactated ringers IV solution (CANCELED) Intravenous, at 75 mL/hr, CONTINUOUS, Starting on Fri12/11/20 at 0645, Until Fri12/11/20 at 1201, Pre-op/Pre-Proc 0724 ($$New Bag$$ - Provider: Sandra Sanchez RN)0845 (Paused - Provider: KENNETH Silva - Comment: Switch to gravity)0846 ($$New Bag$$ - Provider: KENNETH Silva)1001 ($$New Bag$$ - Provider: KENNETH Silva)2052 (Stopped - Provider: Khushbu Nixon RN) sodium chloride 0.9% IV solution Intravenous, at 75 mL/hr, CONTINUOUS, Starting on Fri12/12/20 at 0830, Until Fri12/12/20 at 1750 0902 ($$New Bag$$ - Provider: Manuela Pham RN) PRN Medication Order 12/10/2020 12/11/2020 12/12/2020 albuterol (VENTOLIN HFA) inhaler 2 puff 2 puff, Inhalation, EVERY 6 HOURS NEEDED, Starting on Fri12/11/20 at 1221, Until Fri12/12/20 at 1750, Shortness of Breath, Wheezing, Wait at least one(1) full minute between inhalations, Post-op/Post-Proc enalaprilat (VASOTEC) injection 1.25 mg 1.25 mg, Intravenous, EVERY 6 HOURS NEEDED, Starting on Fri12/11/20 at 1221, Until Fri12/12/20 at 1750, for SBP greater than 150 mm/Hg, Post-op/Post-Proc HYDROmorphone (DILAUDID) injection 0.5 mg 0.5 mg, Intravenous, EVERY 4 HOURS NEEDED, Starting on Fri12/11/20 at 1044, Until Fri12/12/20 at 1750, Other, Increase in reported pain to moderate or severe between available doses of PO oxycodone, Post-op/Post-Proc Oxidized Cellulose (SURGICEL) topical pad (CANCELED) NEEDED, Starting on Fri12/11/20 at 0941, Until Fri12/11/20 at 1201, Intra-op/Intra-Proc 0941 (Given - Provider: Emmett Montero MD) oxyCODONE (ROXICODONE) oral solution 10 mg 10 mg, Oral, EVERY 4 HOURS NEEDED, Starting on Fri12/11/20 at 1221, Until Fri12/12/20 at 1750, Severe Pain, Post-op/Post-Proc oxyCODONE (ROXICODONE) oral solution 5 mg 5 mg, Oral, EVERY 4 HOURS NEEDED, Starting on Fri12/11/20 at 1221, Until Fri12/12/20 at 1750, Moderate Pain, Post-op/Post-Proc 1419 (Given - Provider: Domonique Allen RN)2216 (Given - Provider: Khushbu Nixon RN) 0808 (Given - Provider: Domonique Allen RN) promethazine (PHENERGAN) 12.5 mg in sodium chloride 0.9%, with overfill 60.5 mL (total volume) IVPB 12.5 mg, Intravenous, at 121-242 mL/hr, Administer over 15-30 Minutes, EVERY 6 HOURS NEEDED, Starting on Fri12/11/20 at 1044, Until Fri12/12/20 at 1750, Other, Nausea/Vomiting (2nd Line), Extravasation Risk, Post-op/Post-Proc 1137 ($$New Bag$$ - Provider: Jadyn Lopez, GEMMA)1140 (Stopped - Provider: Jadyn Lopez, RN) simethicone (MYLICON) chewable tablet 80 mg 80 mg, Oral, EVERY 4 HOURS NEEDED, Starting on Fri12/11/20 at 1221, Until Fri12/12/20 at 1750, Gas, Post-op/Post-Proc 1939 (Given - Provider: Khushbu Nixon RN) 0809 (Given - Provider: Domonique Allen RN)1224 (Given - Provider: Domonique Allen RN) sodium chloride 0.9 % irrigation (CANCELED) NEEDED, Starting on Fri12/11/20 at 0851, Until Fri12/11/20 at 1201, Intra-op/Intra-Proc 0851 (Given - Provider: Emmett Montero MD - Comment: on sterile field for use during case)0852 (Given - Provider: Emmett Montero MD - Comment: hanging to sterile for for use during case) sterile water irrigation (CANCELED) NEEDED, Starting on Fri12/11/20 at 0851, Until Fri12/11/20 at 1201, Intra-op/Intra-Proc 0851 (Given - Provider: Emmett Montero MD - Comment: at [facility] for use during case) Care Teams (unrecognized sec tion and content) Cable Swager Relationship Specialty Start Date End Date Mimi Smith MD [address] [place] [address] PCP - General Family [facility] 06/27/20 Cable Swager Relationship Specialty Start Date End Date Mimi Smith MD [address] [place] [address] PCP - General Family Medicine 06/27/20 Team Status: Active Member Role Status Dates Sondra Salgado APRN CREATIVE SERVICES SPECIALIST-C Primary Care Provider Active Team Status: Active Member Role Status Dates Dhaval Farr MD Primary Care Provider Active Start: September 07, 2024 Hadley Teague MD Attending Provider Active Start: September 07, 2024 Team Status: Inactive Member Role Status Dates Sondra Salgado APRN NP-Nora Primary Care Provider Active Start: November 11, 2024 End: November 11, 2024 ROSALIA Alexander Attending Provider Act sun Start: November 11, 2024 End: November 11, 2024 Team Status: Inactive Member Role Status Dates Sondra Salgado APRN CREATIVE SERVICES SPECIALIST-C Primary Care Provider Active Start: November 29, 2024 End: November 29, 2024 Keke Maria DO Attending Provider Active Sta rt: November 29, 2024 End: November 29, 2024 Goals (unrecognized section and content) Goals may be documented in a n alternate sectionGoals may be documented in an alternate section FOR RECORDS PERTAINING TO PATIENTS WHO ARE OR HAVE BEEN ENROLLED IN A CHEMICAL DEPENDENCY/SUBSTANCEABUSE PROGRAM, SOME INFORMATION MAY BE OMITTED. This clinical summary was aggregated from multiple sources. Caution should be exercised in using it in the provision of clinical care. This summary normalizes information from multiple sources, and as a consequence, information in this document may materially change the coding, format and clinical context of patient data. In addition, data may be omitted in some cases. CLINICAL DECISIONS SHOULD BE BASED ON THE PRIMARY CLINICAL RECORDS. [employer] [facility]. provides no warranty or guarantee of the accuracy or completeness of information in this document.
== END 2024-12-13 11:45 | disposition home or self-care (01) ==
LOC: RAD 11:44
PROVIDERS: Visit Provider Orthopaedic Surgery Orthopaedic Trauma
DX: M79.641 Pain in right hand (principal); M79.642 Pain in left hand; G56.03 Carpal tunnel syndrome, bilateral upper limbs
CPT/HCPCS: 73130

== ENCOUNTER 2025-02-21 08:04 | Outpatient (OUT) | payer MEDICARE, SELFPAY ==
--- OUTSIDE RECORDS SUMMARY | 2023-11-19 10:00 | XMS_ITS ---
Author Organization The [facility] in [place] Address [address] [place] [address] Care Team Providers Care Occupational Health And Safety Manager Name Role Phone Josephine AMOS, Primary Care Provider Jacinto Tejada Unavailable [phone] REASON FOR VISIT 1 YEAR-ASTHMA Encounters Encounter Location Date Provider Diagnosis Pulmonary Medicine [place] [address] [place] [address] 11/19/2023 Jacinto Sung Plan Of Treatment No Information Progress Notes * Dorie TAPIAB:1965 ([age] yo F)Acc No.[id number]:11/19/2023 UNLOCKED PROGRESS NOTE Follow Up Patient: Jenn PICKETT :?Jacinto Sung DODOB:1965???Age:58 Y ???Sex:FemaleDate:4Phone:[phone]:[place], [id number]:Shaikh Josephine MD Subjective: * Chief Complaints: * 1 . 1 YEAR-ASTHMA. * Medical History: Objective: * Vitals: Assessment: Plan: * Treatment: * * Electronic signature of Jacinto Sung DO on 02/21/2025 at 08:10 AM EDTSign off status: PendingVisit Status:?R/S (Rescheduled) * Provider: Melissa Sung DO Date: 0 11/19/2023 Generated for Printing/Faxing/eTransmitting on:?02/21/2025 08:10 AM EDT
--- OUTSIDE RECORDS SUMMARY | 2023-12-02 09:00 | XMS_ITS ---
Author Organization The [facility] in [place] Address [address] [place] [address] Care Team Providers Care Senior Contracts Manager Name Role Phone Josephine AMOS, Primary Care Provider Jacinto Tejada Unavailable [phone] REASON FOR VISIT 1 YEAR-ASTHMA Encounters Encounter Location Date Provider Diagnosis Pulmonary Medicine [place] [address] [place] [address] 12/02/2023 Jacinto Sung Plan Of Treatment No Information Progress Notes * Dorie TAPIAB:1965 ([age] yo F)Acc No.[id number]:12/02/2023 UNLOCKED PROGRESS NOTE Follow Up Patient: Jenn PICKETT :?Jacinto Sung DODOB:1965???Age:58 Y ???Sex:FemaleDate:4Phone:[phone]:[place], [place]XV-[id number]:Shaikh Josephine MD Subjective: * Chief Complaints: * 1 . 1 YEAR-ASTHMA. * Medical History: Objective: * Vitals: Assessment: Plan: * Treatment: * * Electronic signature of Jacinto Sung DO on 02/21/2025 at 08:11 AM EDTSign off status: PendingVisit Status:?R/S (Rescheduled) * Provider: Melissa Sung DO Date: 0 12/02/2023 Generated for Printing/Faxing/eTransmitting on:?02/21/2025 08:11 AM EDT
--- OUTSIDE RECORDS SUMMARY | 2024-02-17 05:00 | XMS_ITS ---
Author Organization The [facility] in [place] Address [address] [place] [address] Care Team Providers Care Authorization Nurse Name Role Phone Josephine AMOS, Primary Care Provider Jacinto Tejada Unavailable [phone] REASON FOR VISIT 1 year Asthma Encounters Encounter Location Date Provider Diagnosis Pulmonary Medicine [place] [address] [place] [address] 02/17/2024 Jacinto Sung Plan Of Treatment No Information Progress Notes * Dorie TAPIAB:1965 ([age] yo F)Acc No.[id number]:02/17/2024 UNLOCKED PROGRESS NOTE Follow Up Patient: Jenn PICKETT :?Jacinto Sung DODOB:1965???Age:58 Y ???Sex:FemaleDate:4Phone:[phone]:CHRIS LEON [id number]:Shaikh Josephine MD Subjective: * Chief Complaints: * 1 . 1 year Asthma. * Medical History: Objective: * Vitals: Assessment: Plan: * Treatment: * * Electronic signature of Jacinto Sung DO on 02/21/2025 at 08:09 AM EDTSign off status: PendingVisit Status:?R/S (Rescheduled) * Provider: Melissa Sung DO Date: Generated for Printing/Faxing/eTransmitting on:?02/21/2025 08:09 AM EDT
--- OUTSIDE RECORDS SUMMARY | 2024-05-11 05:00 | XMS_ITS ---
Author Organization The [facility] in [place] Address [address] [place] [address] Care Team Providers Care Drapery Inspector Name Role Phone Josephine AMOS, Primary Care Provider Jacinto Tejada Unavailable [phone] REASON FOR VISIT 1 year Asthma Encounters Encounter Location Date Provider Diagnosis Pulmonary Medicine [place] [address] [place] [address] 05/11/2024 Jacinto Sung Plan Of Treatment No Information Progress Notes * Dorie TAPIAB:1965 ([age] yo F)Acc No.[id number]:05/11/2024 UNLOCKED PROGRESS NOTE Follow Up Patient: Jenn PICKETT :?Jacinto Sung DODOB:1965???Age:59 Y ???Sex:FemaleDate:05/11/2024Phone:[phone]:CHRIS LEON [id number]:Shaikh Josephine MD Subjective: * Chief Complaints: * 1 . 1 year Asthma. * Medical History: Objective: * Vitals: Assessment: Plan: * Treatment: * * Electronic signature of Jacinto Sung DO on 02/21/2025 at 08:10 AM EDTSign off status: PendingVisit Status:?R/S (Rescheduled) * Provider: Melissa Sung DO Date: 0 05/11/2024 Generated for Printing/Faxing/eTransmitting on:?02/21/2025 08:10 AM EDT
--- OUTSIDE RECORDS SUMMARY | 2024-08-25 04:00 | XMS_ITS ---
Author Organization The [facility] in [place] Address [address] [place] [address] Care Team Providers Care Optical Manufacturing Technician Name Role Phone Josephine AMOS, Primary Care Provider Jacinto Tejada Unavailable [phone] REASON FOR VISIT 1 year Asthma Encounters Encounter Location Date Provider Diagnosis Pulmonary Medicine [place] [address] [place] [address] 08/25/2024 Jacinto Sung Plan Of Treatment No Information Progress Notes * Dorie TAPIAB:1965 ([age] yo F)Acc No.[id number]:08/25/2024 UNLOCKED PROGRESS NOTE Follow Up Patient: Jenn PICKETT :?Jacinto Sung DODOB:1965???Age:59 Y ???Sex:FemaleDate:08/25/2024Phone:[phone]:CHRIS LEON [id number]:Shaikh Josephine MD Subjective: * Chief Complaints: * 1 . 1 year Asthma. * Medical History: Objective: * Vitals: Assessment: Plan: * Treatment: * * Electronic signature of Jacinto Sung DO on 02/21/2025 at 08:10 AM EDTSign off status: PendingVisit Status:?CANC (Cancelled) * Provider: Melissa Sung DO Date: 0 08/25/2024 Generated for Printing/Faxing/eTransmitting on:?02/21/2025 08:10 AM EDT
--- OUTSIDE RECORDS SUMMARY | 2025-02-21 08:09 | XMS_ITS | Clinical Summary ---
Author Organization [facility] Address [address] [place] [address] Care Team Providers Care Academic Services Coordinator Name Role Phone Unavailable Primary Care Provider Unavailabl e Source Comments The following information is NOT included in Care Everywhere downloads:Psychiatric notes, ECG results, Cardiac Rehab notes, Pulmonary Function notes, data from SmartForms (includes but not limited toPregnancy data,audiograms, eye exams, pre-surgical evaluation notes, well-child exam data).[facility] Immunizations ImmunizationAdministration DatesNext DueInfluenza, injectable, quadrivalent, preservative (PPX=369)02/16/2019,04/02/2014Influenza, injectable, quadrivalent, preservative free (FZA=842)01/19/2021,03/04/2018,03/03/2017,01/26/2017Influenza, injectable, trivalent, preservative (KYN=730)02/03/2013Influenza, injectable, trivalent, preservative free (GQW=248)02/25/2015Pfizer Monovalent (12+ yrs) SARS-COV-2 (COVID-19) vaccine, mRNA, spike protein, LNP, pres. free, 30mcg/0.3mL dose (CCC=132)08/24/2020,1Pneumococcal conjugate 13 valent (PCV13) (MPE=333)03/04/2018 Social History Tobacco UseTypesPacks/DayYears UsedDateSmoking Tobacco: Never Assessed CommentsUnknownSex and Gender InformationValueDate RecordedSex Assigned at Not on fileLegal TkwCvyfnk97/22/2019 6:09 PM EDTGender IdentityNot on fileSexual OrientationNot on file Plan of Treatment Health MaintenanceDue DateLast NmpzQexlsmqnRivtymrlgiv1967HIV Test 1982Hepatitis C Yqccnjfs25/19/1985Tdap Bmrzhex8404/15/1985Hepatitis A (HAV) Vaccine (optional start 19+ years)1986Hepatitis B (HBV) Vaccine (1 of 3 - 19+ 3-dose series)1986Tetanus (Td or Tdap) Lhupqrx2104/15/1986Pap Smear 04/15/19880580Mopsivcplwg03/19/2007nnual Wellness Visit (G0438)04/28/2007CRC Jxbuwwzrd46/19/7744Dsxvwmxbtnv21/19/2012Cologuard (Stool DNA)2012FIT 2012Shingles (RZV) Vaccine (1 of 2)2017Pneumococcal Vaccine(s) (50+ yrs) (2 of 2 - PPSV23)COVID-19 Vaccine (3 - season) /, 08/03/2020Influenza Vaccine (#1)509/, 02/16/2019, 03/04/2018, Additional history exists Insurance * Guarantor: Jenn Tapia TypeRelation to PatientDate of BirthPhone Billing MvapadfPhjrdixzmgmqdQygp1965 [address] [place] [address]
--- OUTSIDE RECORDS SUMMARY | 2025-02-21 08:10 | XMS_ITS | Patient Health Record ---
Author Organization [facility] in [place] Address [address] [place] [address] Care Team Providers Care Tablet Tester Name Role Phone Josephine AMOS, [facility] Primary Care Provider Jacinto Tejada Unavailable [phone] Allergies Allergen (clinical drug ingredient) Drug/Non Drug Allergy documented on EMR Reaction Allergy Type Onset Date Status lisinopril Lisinopril Cough Drug Allergy Active Reason For Referral No Information Medications Medication SIG (Take, Route, Frequency, Duration) Notes Start Date End Date Status Ventolin HFA 108 (90 Base) MCG/ACT 2 puf f as needed for SOB Inhalation every 4 hrs; Duration: 90 days ActiveSymbicort 160-4.5 MCG/ACT2 puffs Inhalation Twice a day; Duration: 90 days ActivehydrOXYzine HCl 25 MG1 tablet at bedtime as needed Orally Once a dayActive busPIRone HCl 15 MG1 tablet Orally Twice a dayActiveARIPiprazole 5 MGOral; Duration: 30 DaysActiveSertraline HCl 100 MG1 tablet Orally Once a dayActive lamoTRIgine 25 MG1 tablet OrallyActive Immunizations Vaccine Route Administration Date Status Comme nts Flu, Fluzone (41399) 6 mos+, single-dose syringe/vial (3820-0370) Unknown 01/19/2021 Administered Pneumococcal (Prevnar 13)Ybdztih1603/04/20184568EiltwabfkcodTVMW-JOG-4 (COVID 19 Pfizer 30mcg/0.3mL)Kexcyzw3308/24/2020dministered Social History Tobacco Use: Social History Observation Description Date Details (start date - stop date) Former Smoker NA - NA Tobacco Use/Smoking Question Answer Notes Patient is a former smoker Additional Findings: Tobacco Vje-BbghDi-rbdkxbbl cigarette smoker (10-19/day) Problems Problem Type SNOMED Code ICD Code Onset Dates Problem Status W/U Status Risk Notes Problem Sarcoidosis of lung with sarcoidosis of lymph nodes (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) Sarcoidosis of lung with sarcoidosis of lymph nodes (D86.2) ActiveconfirmedProblemObesity (779664232)Obesity, unspecified (E66.9)Active confirmedProblemUncomplicated moderate persistent asthma (598848008)Moderate persistent asthma, uncomplicated (J45.40)ActiveconfirmedProblemLong-term current use of inhaled steroid (476424287)manager long term care (current) use of inhaled steroids (Z79.51)ActiveconfirmedProblemObstructive sleep apnea syndrome (10824955)FARZANEH (obstructive sleep apnea) (G47.33)ActiveconfirmedProblemAllergic rhinitis (92118745)Allergic rhinitis (J30.9)ActiveconfirmedProblemEx-tobacco user (finding) (821915490)History of tobacco abuse (Z87.891)ActiveconfirmedProblem Bruxism (808097598)Bruxism (F45.8)Activeconfirmed Encounters Encounter Location Date Provider Diagnosis Pulmonary [facility] [address] [place] [address] 05/10/2024 Jacinto Sung [facility] [address] [place] [address]/29/2025 Jacinto Sung Plan Of Treatment No Information Insurance Providers Payer Name Payer Address Payer Phone Subscriber Number Group Number Insured Name Patient Relationship to Insured Coverage Start Date Coverage End Date [place] [address] [place] [address] [id number] Gilberto Tapia - patient is the [id number] 2006MEDICAID [facility] [address] [facility] [id number], DanaSelf - patient is the insured Medical (General) History Medical History History ICD Code Moderate persistent asthma, uncomplicate d J45.40 FARZANEH (obstructive sleep apnea) G47.33 Allergic rhinitis J30.9 Sarcoidosis of lung with sarcoidosis of lymph nodes D86.2 manager long term care (current) use of inhaled stero ids Z79.51 Bruxism F45.8 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
--- OUTSIDE RECORDS SUMMARY | 2025-02-21 08:10 | XMS_ITS | Clinical Summary ---
Author Organization [facility] Address [id number] [address] [place] [address] Care Team Providers Care Back Seam Stitcher Name Role Phone Sondra Salgado Primary Care Provid er Allergies Active AllergyReactionsCriticalityNoted AdbaUhrbtpauKsvrtemxuiNwlas94/12/2018 Medications MedicationSigDispense QuantityRefillsLast FilledStart DateEnd DateStatus FLUoxetine (PROzac) 20 mg capsule Take 20 mg by mouth daily.Active FLUoxetine (PROzac) 40 MG capsule Take 40 mg by mouth daily.Active busPIRone (BUSPAR) 15 mg tablet Take 15 mg by mouth 3 (three) times a day.Active fluticasone-vilanterol (BREO ELLIPTA) 100-25 mcg/dose blister with device Inhale 1 puff daily.Active multivitamin (MULTI-DAY ORAL) Take by mouth.Active ALPRAZolam (XANAX) 0.25 mg tablet Take 0.25 mg by mouth nightly as needed for anxiety.Active albuterol (PROVENTIL HFA;VENTOLIN HFA) 90 mcg/actuation inhaler Inhale 2 puffs every 6 (six) hours as needed for wheezing.Active tiotropium (SPIRIVA) 18 mcg per inhalation capsule Place 1 capsule into inhaler and inhale once daily.Active melatonin tablet Take by mouth.Active ibuprofen (ADVIL,MOTRIN) 600 mg tablet Take 600 mg by mouth every 6 (six) hours as needed for pain.Active oxyCODONE-acetaminophen (PERCOCET) 5-325 mg per tablet Indications:Calculus of gallbladder with chronic cholecystitis without obstructionTake 1 tablet by mouth every 6 (six) hours as needed for pain for up to 15 doses. Max Daily Amount:4 tablets 15 tablet 01/20/2018Active Active Problems No known active problems Family History Medical HistoryRelationNameCommentsCancerFatherDiabetesFatherStrokeFatherMental illnessMotherRelationNameStatusCommentsFatherMother Social History Tobacco UseTypesPacks/DayYears UsedDateSmoking Tobacco: Some DaysCigarettes Smokeless Tobacco: Never Tobacco Cessation:Counseling Given: Yes Alcohol UseStandard Drinks/WeekCommentsNo0 (1 standard drink = 0.6 oz pure alcohol)AUDIT-CAnswerDate RecordedFrequency of Alcohol ConsumptionNever 01/07/2018Average Number of DrinksNot on file01/07/2018Frequency of Binge DrinkingNot on file01/07/2018ChildcareAnswerDate RecordedChildcareUnknown 10/07/2018EmploymentAnswerDate VrkwfkwxIayaxxfytbQgmdpni64/12/2019Purpose - Life AnswerDate RecordedPurpose and direction in fycgRonhrli85/11/2021 CommentsNoSex and Gender InformationValueDate RecordedSex Assigned at BirthNot on fileLegal GdeXntncx35/04/2015 11:24 PM EDTGender IdentityNot on fileSexual OrientationNot on file Last Filed Vital Signs Vital SignReadingTime TakenCommentsBlood Favfudxh084/78001/20/2018 11:00 AM EDT Qxfpg165701/20/2018 10:05 AM SDQSudksejsfry20 ??C (96.8 ??F)01/20/2018 9:15 AM EDT Respiratory Wgwq4302 10:05 AM EDTOxygen Rgzvgiogdd67%01/20/2018 11:00 AM EDTInhaled Oxygen Concentration--Aqjefo512.7 kg (233 lb)01/20/2018 6:46 AM EDT Itmifv857.9 cm (5' 0.98 )01/20/2018 6:46 AM EDTBody Mass Index44.05001/20/2018 6:46 AM EDT Plan of Treatment Health MaintenanceDue DateLast DoneCommentsDepression Pcbcchfsp04/19/1979Tobacco Bqnatultp86/19/1979Adult BMI Raoqsfwge15/19/1985DTaP,Tdap and Td Vaccines (1 - Tdap)1986Pap Smear1988Zoster (Shingles) Vaccine (1 of 2)2017 Influenza Rvvxnls7812/27/2024 Medical Devices Not on file Insurance * Guarantor: Jenn Tapia TypeRelation to PatientDate of BirthPhone Billing AddressPersonal/KsvewwOnwd1965 [facility] [place] [address] Care Teams Team MemberRelationshipSpecialtyStart DateEnd Date Sondra Salgado APRN-NP [address] [facility] [place] [address] PCP - GeneralNurse Practitioner12/11/17
--- OUTSIDE RECORDS SUMMARY | 2025-02-21 08:10 | XMS_ITS | Clinical Summary ---
Author Organization [facility] Address [address] [place], [place] [address] Care Team Providers Care Shell Mold Bonding Machine Operator Name Role Phone Unavailable Primary Care Provider Unavailabl e Social History Tobacco UseTypesPacks/DayYears UsedDateSmoking Tobacco: Never Assessed CommentsUnknownSex and Gender InformationValueDate RecordedSex Assigned at Not on fileLegal CjpCefhjn15/02/2012 7:35 AM ESTGender IdentityNot on fileSexual OrientationNot on file Plan of Treatment Not on file Insurance
--- OUTSIDE RECORDS SUMMARY | 2025-02-21 08:10 | XMS_ITS | Clinical Summary ---
Author Organization [facility] Address [address] [place] [address] Care Team Providers Care Product Development Coordinator Name Role Phone Unavailable Primary Care Provider Unavailabl e Social History Tobacco UseTypesPacks/DayYears UsedDateSmoking Tobacco: Never Assessed CommentsUnknownSex and Gender InformationValueDate RecordedSex Assigned at Not on fileLegal XrvMyyjkq88/15/2023 6:46 PM EDTGender IdentityNot on fileSexual OrientationNot on file Last Filed Vital Signs Vital SignReadingTime TakenCommentsBlood Gvwdvbko483/7602 12:00 PM EST Pulse--Temperature--Respiratory Rate--Oxygen Saturation--Inhaled Oxygen Concentration--Gxvzrj247 kg (236 lb)06/02/2018 12:00 PM USTXepvvx988.2 cm (5' 1.5 )06/02/2018 12:00 PM ESTBody Mass Index43.8706/02/2018 12:00 PM EST Plan of Treatment Not on file [place] [address]
--- NOTE | 2025-02-21 08:11 | ECG_ITS ---
[facility] Test Date: 2025-02-21 Pat Name: KATALINA ONTIVEROS Department: Room: - Gender: Female Property Adjuster: : 1965 Requested By: Order Number: [id number] Reading MD: WENDY BRUNNER M.D. Measurements Intervals Morgan Rate: 62 P: 53 AL: 178 QRS: -42 QRSD: 114 T: -3 QT: 405 QTc: 413 Interpretive Statements SINUS RHYTHM MARKED LEFT AXIS DEVIATION [QRS AXIS < -30] MODERATE INTRAVENTRICULAR CONDUCTION DELAY [110+ ms QRS DURATION] MINIMAL VOLTAGE CRITERIA FOR LVH, CONSIDER NORMAL VARIANT [MEETS CRITERIA IN ONE OF: R(aVL), S(V1), R(V5), R(V5/V6)+S(V1)] Compared to ECG 03/17/2020 17:55:29 Left-axis deviation now present Intraventricular conduction delay now present Sinus tachycardia no longer present Right bundle-branch block no longer present Left anterior fascicular block no longer present Myocardial infarct finding no longer present Electronically Signed On 02-21-2025 18:04:24 EDT by WENDY BRUNNER M.D.
--- OUTSIDE RECORDS SUMMARY | 2025-02-21 08:11 | XMS_ITS | Clinical Summary ---
Author Organization [facility] Address [address] [place] [address] Phone Care Team Providers Care Principal Solutions Architect Name Role Phone Hernán Kline MD Primary Care Provider [phone] Social History Tobacco UseTypesPacks/DayYears UsedDateSmoking Tobacco: Never Assessed CommentsUnknownSex and Gender InformationValueDate RecordedSex Assigned at Not on fileLegal AbwDouyel90/26/2022 4:12 AM ESTGender IdentityNot on fileSexual OrientationNot on file Plan of Treatment Not on file Care Teams Team MemberRelationshipSpecialtyStart DateEnd Date Hernán Kline MD [address] [facility] [place] [address] PCP - General07/12/19
--- OUTSIDE RECORDS SUMMARY | 2025-02-21 08:11 | XMS_ITS | Clinical Summary ---
[facility] Organization [facility] Address [address] [place] [address] Care Team Providers Care Machine Shorthand Reporter Name Role Phone Hernán Kline MD Primary Care Provider [phone] Allergies Active AllergyReactionsCriticalityNoted DateCommentsEggs Or Egg-Derived Products Xgjblcml12/22/2019Lac Bovis09/16/2018 MILK ExfxgntzzmWtsxq47/12/2018 Other reaction(s): Unknown Reaction MidazolamAggressive Acrmgzvi00/02/2021 Medications MedicationSigDispense QuantityRefillsLast FilledStart DateEnd DateStatus busPIRone HCl 30 MG tablet Take 30 mg by mouth 2 times daily.06/10/2020ctive sertraline 100 MG tablet Take 100 mg by mouth daily.06/15/2020ctive albuterol 108 (90 Base) MCG/ACT Aero Soln inhaler Inhale 2 puffs Every 6 hours as needed.Active hydrOXYzine HCl 25 MG tablet TAKE 1 TABLET BY MOUTH EVERYDAY AT XGYWSHO6606/15/2020ctive budesonide-formoterol 160-4.5 mcg/puff Aerosol inhaler INHALE 2 PUFFS TWICE DAILY*RINSE AFTER USE*05/22/2020ctive B Complex Vitamins (VITAMIN B COMPLEX PO) Take 1 tablet by mouth daily.Active Multiple Vitamins-Minerals (Multi For Her 50+) tablet 1 tabletActive omeprazole [address] capsule TAKE 1 CAPSULE BY MOUTH EVERY DAY 90 capsule 04/05/2021ctive Active Problems ProblemNoted DateDiagnosed DateMorbid iymemuw0812/11/20208796Woqanc67/23/2021 Overview (11/17/2020): Added automatically from request for surgery [id number] Pre-operative cardiovascular xusenbhcvvp64/14/2021creening for malignant neoplasm of colon03/11/2020 Overview (07/03/2020): Added automatically from request for surgery FARZANEH (obstructive sleep apnea)06/27/2020Moderate persistent asthma without cdxtbyqcpqst00/02/1103Rqflmmjecpo53/02/2021ody mass index of 40.0-49.9 06/27/2020Heart dmztovkiglpd18/02/2021GERD (gastroesophageal reflux disease) 06/27/2020nxiety and xseizttldy69/02/2021 Resolved Problems ProblemNoted DateDiagnosed DateResolved DateEssential unsfqmsigfez34/02/2021 08/09/2020 Social History Tobacco UseTypesPacks/DayYears UsedDateSmoking Tobacco: FormerCigarettesQuit: 07/24/2020mokeless Tobacco: Never Comments:Pt will smoke 1-2 c igarettes with extreme stress Alcohol UseStandard Drinks/WeekCommentsNot Currently0 (1 standard drink = 0.6 oz pure alcohol)CommentsNoSex and Gender InformationValueDate RecordedSex Assigned at BirthNot on fileLegal MtjTfajmq50/02/2021 8:35 AM ESTGender Identity Not on fileSexual OrientationNot on file Last Filed Vital Signs Vital SignReadingTime TakenCommentsBlood Osbxixme352/6609 2:13 PM EDT Xdlzj481301/16/2021 2:13 PM MOEXpqqoimgjms56.4 ??C (97.5 ??F)01/16/2021 2:13 PM EDTRespiratory Ejel144512/12/2020 11:00 AM EDTOxygen Tmhrpxbkzq40%01/16/2021 2:13 PM EDTInhaled Oxygen Concentration--Brxeag295.6 kg (241 lb 9.6 oz)01/16/2021 2:13 PM DADSniveb510.9 cm (5' 1 )01/16/2021 2:13 PM EDTBody Mass Index45.65 01/16/2021 2:13 PM EDT Plan of Treatment Health MaintenanceDue DateLast DoneCommentsHEPATITIS C VIRUS OZJXVZPYB1965 WRTUBSW77 1965HIV SCREENING SEMWRKTFSZ48/19/1982HEP B VACCINE (1 of 3 - 19+ 3-dose series)1986TDAP (ADULT)1986CERVICAL CANCER SCREENING LTEHRLINLF94/19/1988MAMMOGRAM SCREENING EHSLVXLSCK03/19/2007ZOSTER (SHINGLES) VACCINE (1 of 2)2017PNEUMOCOCCAL VACCINE SERIES (2 of 2 - PCV20 or PCV21) COLORECTAL CANCER SCREENING GMSCPVGKXH15/19/202204/ COVID-19 VACCINE (3 - 2024- season)504/, 08/03/2020INFLUENZA VACCINE (#1)/, 02/16/2019, 03/04/2018, Additional history existsLIPID LCFKUBLHG34, 08/14/2020NEUMOCOCCAL VACCINE SERIES Pimmdkasqdkr41/07/2018 Medical Devices ImplantedTypeAreaManufacturerDevice IdentifierShelf Expiration DateModel / Serial / LotGore Seamguard Bioabsorbable Staple Implanted:Qty: 6 on 12/11/2020 by Immanuel Bae MD at [facility] REV LOCN/A: [id number] / / [id number] Procedures Procedure NamePriorityDate/TimeAssociated DiagnosisCommentsLIPID PANEL W CALCULATED KMFMmmsbyr44/17/2021 10:07 AM EDT FARZANEH (obstructive sleep apnea) Moderate persistent asthma without complication Essential hypertension body mass index of 40.0-49.9 Sarcoidosis Heart palpitations Gastroesophageal reflux disease, unspecified whether esophagitis present Anxiety and depression STYOOQWTTAIYsgmebm04/19/2021 8:46 AM EDT from Last 3 Months or Most Recently Relevant to Health Maintenance Results * (ABNORMAL) LIPID PANEL W CALCULATED LDL (09/11/2020 10:07 AM EDT)Component ValueRef RangeTest MethodAnalysis TimePerformed AtPathologist Signature UWIBKYNHUFY432(H)100 - 199 MG/[address]TRIGLYCERIDE139<150 MG/DL[address]ETHDL VQNIEBXAHKD1669 - 60 MG/DL[address]LDL CHOLESTEROL, APETKRDYVN876(H)0 - 100 MG/DL[address]VLDL Cholesterol, Kauodhcfli84 (H)5.0 - 25.0 MG/DL[address] TCHOL/HDL RATIO, MANUAL ENTER4.86RATIOONTARIO [address]Comment: RISK ?TOTAL/HDL RATIO ?MEN ? WOMEN 1/2 AVERAGE ?3.43 ?3.27 AVERAGE ?4.97 ?4.44 2X AVERAGE ? 9.55 ?7.05 3X AVERAGE ?23.99 ? 11.04 Specimen (Source)Anatomical Location / LateralityCollection Method / Volume Collection TimeReceived MfzoWsaqc58/17/2021 10:07 AM EDT09/11/2020 10:08 AM EDT Narrative Authorizing ProviderResult TypeResult StatusImmanuel Bae MDCHEMISTRY ORDERABLES Final ResultPerforming OrganizationAddressCity/State/[facility] CodePhone Number [address] [address] * COLONOSCOPY (08/14/2020 8:46 AM EDT)Anatomical RegionLateralityModalityOther Specimen (Source)Anatomical Location / LateralityCollection Method / Volume Collection TimeReceived Time08/14/2020 8:46 AM EDT Narrative 08/14/2020 9:56 AM EDT [facility] Gastroenterology Patient Name: Jenn Tapia Procedure Date: 08/14/2020 8:46 AM Date of : 1965 Admit Type: Outpatient Age: 55 Room: OR3 Gender: Female Note Status: Finalized Attending MD: IMMANUEL BAE MD Instrument Name: [id number] Procedure: ? Colonoscopy Indications: ? Screening for colorectal malignant neoplasm Providers: ? IMMANUEL BAE MD, Justo James RN, Tam ? Siderin, Privacy Manager, Kwasi Otero, TECHNOLOGY INSTRUCTOR ? (Anesthesia Staff) Complications: ? No immediate complications. Estimated blood loss: ? Minimal. Procedure: ? After I obtained informed consent, the scope was ? passed under direct vision. Throughout the ? procedure, the patient's blood pressure, pulse, ? and oxygen saturations were monitored ? continuously. The [id number] S/N [id number] ? colonoscope was introduced through the anus and ? advanced to the cecum, identified by the ? appendiceal orifice. The colonoscopy was performed ? with ease. The patient tolerated the procedure ? well. The quality of the bowel preparation was ? good. Findings: ? The perianal and digital rectal examinations were normal. Pertinent ? negatives include no palpable rectal lesions. ? Five semi-pedunculated polyps were found in the rectum, transverse ? colon and hepatic flexure. The polyps were small in size. These ? polyps were removed with a cold snare. Resection and retrieval were ? complete. Estimated blood loss was minimal. ? The exam was otherwise without abnormality on direct and ? retroflexion views. Impression: ?- Five small polyps in the rectum, in the ? transverse colon and at the hepatic flexure, ? removed with a cold snare. Resected and retrieved. ? - The examination was otherwise normal on direct ? and retroflexion views. Recommendation: ?- Discharge patient to home (ambulatory). ? - Patient has a contact number available for ? emergencies. The signs and symptoms of potential ? delayed complications were discussed with the ? patient. Return to normal activities tomorrow. ? Written discharge instructions were provided to ? the patient. ? - Resume previous diet. ? - Continue present medications. ? - Await pathology results. ? - Repeat colonoscopy date to be determined after ? pending pathology results are reviewed for ? screening purposes. Procedure Code(s): ? --- Professional --- ? 18698, Colonoscopy, flexible; with removal of ? tumor(s), polyp(s), or other lesion(s) by snare ? technique Diagnosis Code(s): ? --- Professional --- ? Z12.11, Encounter for screening for malignant ? neoplasm of colon ? K62.1, Rectal polyp ? K63.5, Polyp of colon CPT copyright 2020 [employer]. All rights reserved. The codes documented in this report are preliminary and upon tracer lathe set up operator review may be revised to meet current compliance requirements. MD IMMANUEL Burr MD 08/14/2020 9:55:55 AM This report has been signed electronically. Number of Addenda: 0 Note Initiated On: 08/14/2020 8:46 AM Authorizing ProviderResult TypeResult StatusImmanuel Bae MDGI/MOON PROCEDURE ORDERABLESFinal Result from Last 3 Months or Most Recently Relevant to Health Maintenance Insurance Care Teams Team MemberRelationshipSpecialtyStart DateEnd Date Hernán Kline MD [facility] - [facility]20
--- OUTSIDE RECORDS SUMMARY | 2025-02-21 08:12 | XMS_ITS | CCD ---
Author Organization [facility] Team Providers Care Automotive Teacher Name Role Phone JAYE, RAGHEB Admitting Unavailable ABIGAIL MCKENZIE Referring Unavailable MIMI SMITH Primary Care Unavailable DHAVAL THOMPSON Unavailable HI Procedure Practitioner Unavailab le UNKNOWN, PROVIDER Surgeon Unavailable HI Procedure Practitioner Unavailab le JAYE, RAGHEB Surgeon Unavailable Todd Rothman Unavailable Unavailable Mimi Smith Unavailable Unavailable Mimi Smith Primary Care Provider [phone] Mimi Smith MD Primary Care Provider [phone] Mimi Smith MD Primary Care Provider [phone] Mimi Smith MD Primary Care Provider [phone] REQUEST, NONE LISTED Primary Care Unavaila ABIGAIL Verduzco Attending Unavailable ABIGAIL MCKENZIE Consulting Unavailable ABIGAIL MCKENZIE Admitting Unavailable Dhaval Farr MD Primary Care Provider Hadley Teageu MD Attending Provider Sondra Salgado APRN Primary Care Provider Sondra Salgado APRN Attending Provider [phone] Keke Maria DO Attending Provider [phone] Saul Jaquez DO Attending Provider [phone] Hadley Teague Attending Unavailab Hadley Cohen Admitting Unavailab Dhaval Barros Primary Care Unavailable Allergies Allergy ClassificationReported Allergen(s)Allergy TypeDate of OnsetReaction(s) FacilityAngiotensin Converting Enzyme (MAIKOL) Inhibitors (5 sources)LisinoprilDrug Wyuiami65-62-0196BpscfQjnnh [facility] Benzodiazepines (5 sources)MidazolamDrug Xnygsow48-10-5802Zvvgxnzsqn [facility] cow milk allergenic extract (5 sources)cow milk allergenic extractDrug Gjkhccu98-74-3311Vlleb [facility] (7 sources)Amino AcidsDrug Xrzpxzr71-52-0523Anstlqw ReactionThe [facility] Repository (1 source)egg extractDrug Ptdluls84-47-2495Nig [facility] Repository (4 sources)MilkDrug allergy (disorder)30-11-5770Tgvwnmg ReactionThe [facility] RepositoryComment on above:NECK/THROAT SWELLING (9 sources)cow milk allergenic extractDrug Jdhotbu35-66-4431Uzwvs [facility] (9 sources)LisinoprilDrug Cdyazzi85-02-1740EdznbSgnsf Health System (9 sources)MidazolamDrug Zywwckw84-71-3591Fwudgidxyq [facility] (14 sources)Eggs Or Egg-Derived ProductsPropensity to adverse reactions to drug 77-50-8197DmlticneJxlpjCleveland Clinic Foundation (4 sources)egg extract; Translations: [egg]Drug Ykqlycs42-43-2897Qctgdhkaxir [facility] (4 sources)Egg Derived; Translations: [Egg Derived]Allergy to substance 89-30-1870Jdukogc ReactionUniversity Hospitals Parma Medical CenterComment on above: NECK/THROAT SWELLING (1 source)LisinoprilDrug Impdhwd52-37-0629EbxolgqlbUniversity Hospitals [facility] Repository (1 source)MilkDrug allergy (disorder)70-26-9976RwxssdaggUniversity Hospitals [facility] Repository Medications Current Medications MedicationDrug Class(es)DatesSig (Normalized)Sig (Original)albuterol 108 (90 Base) MCG/ACT Aero Soln inhaler (6 sources)take 2 puff(s) by inhalation every six hours as neededalbuterol 108 (90 Base) MCG/ACT Aero Soln inhaler Inhale 2 puffs Every 6 hours as needed. 0 ActiveB Complex Vitamins (VITAMIN B COMPLEX PO) (13 sources)take 1 tablet by mouth once dailyB Complex Vitamins (VITAMIN B COMPLEX PO) Take 1 tablet by mouth daily. 0 Activebisacodyl 5 mg delayed release oral tablet (1 source)Stimulant LaxativeStart: 06-27-2020 End: 48-78-2474iepb 4 tablets by mouth oncebisacodyl (Dulcolax) [address] Take 4 tablets by mouth once for 1 dose. 4 tablet 0 06/27/2020 06/27/2020 Pzxvnf02 actuat budesonide 0.16 mg/actuat / formoterol fumarate 0.0045 mg/actuat metered dose inhaler (18 sources)Corticosteroid, beta2-Adrenergic AgonistStart: 87-72-7086zpuaghckjz- formoterol 160-4.5 mcg/puff Aerosol inhaler INHALE 2 PUFFS TWICE DAILY*RINSE AFTER USE* 0 05/22/2020 ActiveStart: 09-24-2018 End: 18-91-8765oibu 1 puff(s) by inhalation twice dailyBudesonide-Formoterol (Symbicort) 160-4.5 mcg/actuation Hfa Aerosol Inhaler Discontinued 2 PUFF INHA LATION Twice daily September 24, 2018 12:00am October 03, 2018 12:07pmSymbicort 160- 4.5 MCG/ACT Inhalation Aerosol Refills: 0 DO Activecholecalciferol 1.25 mg oral capsule (1 source)Vitamin DStart: 45-42-3902xjcv 1 capsule by mouth every week Cholecalciferol 1.25 MG (39890 UT) capsule Take 1 capsule by mouth once a week. 4 capsule 0 09/11/2020 Nnqhkm31 hr desvenlafaxine succinate 50 mg extended release oral tablet (3 sources)Serotonin and Norepinephrine Reuptake InhibitorStart: 23-35-7301gcak 1 tablet by mouth once dailyDesvenlafaxine Succinate 50 mg tablet extended release 24 hr Active 50 MG PO daily April 16, 2024 1:00am Complies with drug therapyHERBAL PRODUCT (11 sources)take 2 drop(s) by mouth once dailyHERBAL PRODUCT Take 2 drops by mouth daily. Lanie Liver. A liquid added to water for liver support and function. 0 ActivehydrOXYzine hydrochloride 25 mg oral tablet (20 sources)AntihistamineStart: 06-15-2020 End: 41-40-0724hhvq 1 tablet by mouth once daily at bedtimehydrOXYzine HCl 25 MG tablet TAKE 1 TABLET BY MOUTH EVERYDAY AT BEDTIME 0 06/15/2020 ActiveStart: 96-32-5814krwf 1 capsule by mouth three times dailyHydroxyzine Pamoate 25 mg Capsule Active 25 MG PO TID@,,1700 October 03, 2018 12:00am Complieswith drug therapyStart: 10-03-2018 End: 22-72-2088egkl 1 capsule by mouth once daily at bedtimeHydroxyzine Pamoate 50 mg Capsule Discontinued 50 MG PO Daily at bedtime October 03, 2018 12:00am D ec2023 11:36amStart: 09-24-2018 End: 39-40-4316ouqp 1 tablet by mouth three times dailyHydroxyzine Hcl 25 mg Tablet Discontinued 25 MG PO TID@,,1700 September 24, 2018 12:00am October 03 12:07pmStart: 09-24-2018 End: 95-17-9588xdyy 1 tablet by mouth once daily at bedtimeHydroxyzine Hcl 50 mg Tablet Discontinued 50 MG PO Daily at bedtime September 24, 2018 12:00am October 03, 2018 12:07pmhydrOXYzine HCl - 25 MG Oral Tablet Refills: 0 DO ActivelamoTRIgine 200 mg oral tablet (3 sources)Mood Stabilizer, Anti-epileptic AgentStart: 76-53-9823trvb 1 tablet by mouth once dailyLamotrigine 200 mg tablet Active 200 MG PO Daily April 16, 2024 1:00am Complies with drug therapylumateperone 42 mg oral capsule (3 sources)Start: 09-29-5614Hlycsdnxisqo (Caplyta) 42 mg capsule Active MG PO April 16, 2024 1:00am Complies with drug therapymagnesium citrate 58.2 mg/ml oral solution (1 source)Start: 06-27-2020 End: 71-25-8559nbwhxltsy citrate Solution Take 296 mL by mouth once for 1 dose. Drink one bottle in the morning onthe day before your colonoscopy and follow with a glass of water. 1 Bottle 0 06/27/2020 06/27/2020 Activemagnesium sulfate 0.0277 meq/ml / potassium sulfate 0.0374 meq/ml / sodium sulfate 0.257 meq/ml oral solution (1 source)Start: 06-27-2020 End: 97-02-2303fvsjft sulfate-potassium sulfate (Suprep Bowel Prep Kit) 17.5-3.13-1.6 GM/177ML Solution oral solution Take 177 mL by mouth once as directed for up to 2 days. Use as directed 2 Bottle 0 06/27/2020 06/29/2020 ActiveMultiple Vitamins-Minerals (Multi For Her 50+) tablet (2 sources)Multiple Vitamins-Minerals (Multi For Her 50+) tablet 1 tablet 0 Activeomeprazole 20 mg delayed release oral capsule (5 sources)Proton Pump InhibitorStart: 37-89-6484mxtn 1 capsule by mouth once dailyOmeprazole 20 mg Capsule,Delayed Release(Dr/Ec) Active 20 MG PO Daily October 03, 2018 12:00am Complies with drug therapy Completed/Discontinued Medications MedicationDrug Class(es)DatesSig (Normalized)Sig (Original)acetaminophen 32 mg/ml oral solution (11 sources)Start: 12-11-2020 End: 18-09-0908fcss 650 mg by mouth every six eunmv148 mg, Oral, EVERY 6 HOURS NON-STANDARD, First dose on Fri12/11/20 at 1300, Until Discontinued Post -op/Post-ProcStart: 29-97-3498hvfeljyxehauo (OFIRMEV) IVPB 1,000 mgStart: 67-65-8307bvdooktgyskvq (TYLENOL) tablet 1,000 mgStart: 93-33-0547xuqs 640 mg by mouth every six hours as neededacetaminophen 160 MG/5ML Suspension Take 20 mL by mouth every 6 hours as needed for Pain. 500 mL 1 11/17/2020 ActiveStart: 10-03-2018 End: 73-82-7456zfqw 2 tablets by mouth every four hours as needed for pain Acetaminophen 325 mg Tablet Discontinued 650 MG PO Q4H as needed for Pain 0 October 03, 2018 12:00am April 16, 2024 11:35amStart: 10-03-2018 End: 17-02-1751jokx 1 tablet by mouth every four hours as needed for pain Acetaminophen 325 mg Tablet Discontinued 325 MG PO Q4H as needed for Pain 100 October 03, 2018 12:00am April 16, 2024 11:81wiirg376521 200 actuat albuterol 0.09 mg/actuat metered dose inhaler (11 sources)beta2-Adrenergic AgonistStart: 12-11-2020 End: 78-32-5585bovc 2 puff(s) by inhalation every six hours as needed for wheezing2 puff, Inhalation, EVERY 6 HOURS NEEDED, Starting on Fri12/11/20 at 1221, Until Fri12/12/20 at 1750, Shortness of Breath, Wheezing Wait at least one(1) full minute between inhalations Post-op/Post-ProcStart: 48-77-3138ppax 2.5 mg by inhalation three times daily as needed for congestionAlbuterol Sulfate 2.5 mg /3 mL (0.083 %) Solution For Nebulization Active 2.5 MG INHALATION Three times daily as needed for Lung wheezings/congestion October 03, 2018 12:00am Complies with drug therapyalbuterol 0.833 mg/ml / ipratropium bromide 0.167 mg/ml inhalation solution (3 sources)Anticholinergic, beta2-Adrenergic AgonistStart: 09-24-2018 End: 27-78-1151nqep 1 mL by inhalation every six hoursIpratropium-Albuterol 0.5 mg-3 mg(2.5 mg base)/3 mL Solution For Nebulization Discontinued 3 ML INHALATION Q6H September 24, 2018 12:00am October 03, 2018 12:07pm WAALPRAZolam 0.25 mg oral tablet (6 sources)BenzodiazepineStart: 10-03-2018 End: 22-82-4760fgob 1 tablet by mouth three times daily as needed for anxiety Alprazolam 0.25 mg Tablet Discontinued 0.25 MG PO Three times daily as needed for Anxiety 30 October 03, 2018 12:00am April 16, 2024 11:35amStart: 09-24-2018 End: 76-21-1705amrs 1 tablet by mouth once daily as needed for anxietyAlprazolam (Xanax) 0.25 mg Tablet Discontinued 0.25 MG PO Daily as needed for Anxiety September 24, 2018 12:00am October 03, 2018 12:07pmaspirin 81 mg delayed release oral tablet (3 sources)Platelet Aggregation Inhibitor, Nonsteroidal Anti-inflammatory Drug Start: 10-03-2018 End: 59-03-7940ahju 1 tablet by mouth once dailyAspirin 81 mg Tablet,Delayed Release (Dr/Ec) Discontinued 81 MG PO Daily October 03, 2018 12:00am April 16, 2024 11:35ambupivacaine (MARCAINE) 30 mL, bupivacaine LIPOSOME (EXPAREL) 20 mL in sodium chloride 0.9% 200 mL (1 source)Start: 12-11-2020 End: 85-79-0281flmohklbwud (MARCAINE) 30 mL, bupivacaine LIPOSOME (EXPAREL) 20 mL in sodium chloride 0.9% 200 mLbusPIRone hydrochloride 5 mg oral tablet (20 sources)Start: 12-12-2020 End: 18-49-4042ognf 30 mg by mouth twice daily30 mg, Oral, 2 TIMES DAILY, First dose on Fri12/12/20 at 0900, Until DiscontinuedStart: 41-16-3236liln 1 tablet by mouth twice dailybusPIRone HCl 30 MG tablet Take 30 mg by mouth 2 times daily. 0 06/10/2020 ActiveStart: 09-24-2018 End: 18-29-0353jepf 1 tablet by mouth twice dailyBuspirone 15 mg Tablet Active 15 MG PO Twice daily 60 October 03, 2018 12:00am Complies with drug therapyBuSpar TABS Refills: 0 DO ActiveBuSpar TABS Refills: 0 Activecalcium chloride 0.0014 meq/ml / potassium chloride 0.004 meq/ml / sodium chloride 0.103 meq/ml / sodium lactate 0.028 meq/ml injectable solution (2 sources)Start: 12-11-2020 End: 05-69-2672ruozddpk ringers IV solutionStart: 08-14-2020 End: 95-72-5709cdwktyhy ringers IV solutioncelecoxib 200 mg oral capsule (1 source)Nonsteroidal Anti-inflammatory DrugStart: 12-11-2020 End: 19-43-2343flycsmcfs (CELEBREX) capsule 400 mg2 ml enalaprilat 1.25 mg/ml injection (1 source)Angiotensin Converting Enzyme InhibitorStart: 12-11-2020 End: .25 mg, Intravenous, EVERY 6 HOURS NEEDED, Starting on Fri12/11/20 at 1221, Until Fri12/12/20 at 1750, for SBP greater than 150 mm/Hg, Post-op/Post-Proc0.4 ml enoxaparin sodium 100 mg/ml prefilled syringe (1 source)Low Molecular Weight HeparinStart: 12-11-2020 End: 02-76-5514yrxige 40 mg by subcutaneous injection every twelve hours40 mg, Subcutaneous, EVERY 12 HOURS NON-STANDARD, First dose on Fri12/11/20 at 1800, Until Discontinued, Indications: DVT/PE prophylaxis, Post-op/Post-ProcfentaNYL (2 sources)Opioid AgonistfentaNYL PT72 Refills: 0 DO ActivefentaNYL PT72 Refills: 0 ActiveFLUoxetine 20 mg oral capsule (6 sources)Serotonin Reuptake InhibitorStart: 10-03-2018 End: 45-80-4981wqeo 3 capsules by mouth once dailyFluoxetine 20 mg Capsule Discontinued 60 MG PO Daily October 03, 2018 12:00am April 16, 2024 1 1:36amStart: 09-24-2018 End: 36-50-9018Mkfvsvbukp (Prozac) 40 mg Capsule Discontinued 60 MG PO Daily September 24, 2018 12:00am October 03, 201812:86ht466 actuat fluticasone propionate 0.115 mg/actuat / salmeterol 0.021 mg/actuat metered dose inhaler (4 sources)Corticosteroid, beta2-Adrenergic AgonistStart: 12-11-2020 End: 61-50-9864ejta 2 puff(s) by inhalation twice daily2 puff, Inhalation, 2 TIMES DAILY, First dose on Fri12/11/20 at 1700, Until Discontinued, Post-op/Po st-ProcStart: 58-81-4814ornf 1 puff(s) by inhalation twice dailyStart: 83-32-8051sklw 1 puff(s) by inhalation twice dailyFluticasone Propion-Salmeterol (Advair Hfa) 115-21 mcg/actuation Hfa Aerosol Inhaler Active 2 PUFF INHALATION Twice daily October 03, 2018 12:00am Complies with drug therapygabapentin 300 mg oral capsule (1 source)Anti-epileptic AgentStart: 12-11-2020 End: 12-89-9473xnnaicaepw (NEURONTIN) capsule 600 mg1 ml heparin sodium, porcine 5000 unt/ml prefilled syringe (1 source)Unfractionated Heparin, Anti-coagulantStart: 12-11-2020 End: 10-60-5957umgzjod injection 5,000 Units1 ml HYDROmorphone hydrochloride 1 mg/ml cartridge (1 source)Opioid AgonistStart: 12-11-2020 End: .5 mg, Intravenous, EVERY 4 HOURS NEEDED, Starting on Fri12/11/20 at 1044, Until Fri12/12/20 hw0153, Other, Increase in reported pain to moderate or severe between available doses of PO oxycodone, Post-op/Post-Proc ibuprofen 600 mg oral tablet (12 sources)Nonsteroidal Anti-inflammatory Drug End: 33-11-4308xffe 1 tablet by mouth every six hours as neededibuprofen 600 MG tablet Take 600 mg by mouth Every 6 hours as needed. 0 12/12/2020 Discontinued (Stop Taking at Discharge)ipratropium bromide 0.2 mg/ml inhalation solution (3 sources)AnticholinergicStart: 10-03-2018 End: 63-20-2631awiq 0.5 mg by inhalation three times daily as needed for congestionIpratropium Byron 0.02 % Solution Discontinued 0.5 MG INHALATION Three times daily as needed for lung congestion October 03, 2018 12:00am April 16, 2024 11:36am1 ml ketorolac tromethamine 15 mg/ml cartridge (1 source)Nonsteroidal Anti-inflammatory Drug, Cyclooxygenase InhibitorStart: 12-11-2020 End: mg, Intravenous, EVERY 6 HOURS, 8 doses, First dose on Fri12/11/20 at 1900, Last dose on Fri12/13/20 at 1200, Post-op/Post-Proclactated ringers 1,000 mL with potassium chloride 20 mEq IV solution (1 source)Start: 12-11-2020 End: 48-48-9550Cjutjpjhyzc, CONTINUOUS, Starting on Fri12/11/20 at 1230, Until Fri12/12/20 at 0828, Post-op/Post-Procmagnesium oxide 400 mg oral tablet (1 source)Start: 12-12-2020 End: 53-33-9360jvclppedj oxide (MAX-OX) tablet 800 mg2 ml ondansetron 2 mg/ml injection (3 sources)Serotonin-3 Receptor AntagonistStart: 12-11-2020 End: mg, Intravenous, EVERY 6 HOURS NON-STANDARD, First dose on Fri12/11/20 at 1530, Until Discontinued, Post-op/Post-ProcStart: 82-60-2625avhg 1 tablet by mouth every six hours as neededondansetron 4 MG Tab Dispersible tablet Take 1 tablet by mouth every 6 hours as needed. 15 tablet Active oxyCODONE hydrochloride 1 mg/ml oral solution (4 sources)Opioid AgonistStart: 12-11-2020 End: 47-95-2733uzcc 10 mg by mouth every four hours as needed for pain10 mg, Oral, EVERY 4 HOURS NEEDED, Starting on Fri12/11/20 at 1221, Until Fri12/12/20 at 1750, Severe Pain, Post-op/Post-ProcStart: 12-11-2020 End: 94-25-3636klnd 5 mg by mouth every four hours as needed for pain5 mg, Oral, EVERY 4 HOURS NEEDED, Starting on Fri12/11/20 at 1221, Until Fri12/12/20 at 1750, Moderate Pain, Post-op/Post-ProcStart: 07-20-1061azop 5 mL by mouth every six hours as needed for painoxyCODONE 5 MG/5ML Solution oral solution Indications: S/P laparoscopic sleeve gastrectomy Take 5 mL by mouth every 6 hours as needed for Moderate Pain or Severe Pain for up to 6 days. 120 mL 0 11/17/2020 Activepantoprazole 40 mg injection (1 source)Proton Pump InhibitorStart: 12-11-2020 End: 58-29-144149 mg, Intravenous, DAILY, First dose on Fri12/11/20 at 1230, Until Discontinued Dilute each 40 mg vial with 10 mL of NS. All bolus doses, whether 40 mg or 80 mg, should be administered over at least two minutes. Indications: Inpt Stress Ulcer Prophylaxis, Post-op/Post-ProcpredniSONE 10 mg oral tablet (3 sources)Start: 10-03-2018 End: 35-61-6266reml 3 tablets by mouth once dailyPrednisone 10 mg Tablet Discontinued 30 MG PO [...] contact the information source for Taper Schedule details.promethazine (PHENERGAN) 12.5 mg in sodium chloride 0.9%, with overfill 60.5 mL (total volume) IVPB (1 source)Start: 12-11-2020 End: 16-45-338483.5 mg, Intravenous, at 121-242 mL/hr, Administer over 15-30 Minutes, EVERY 6 HOURS NEEDED, Starting on Fri12/11/20 at 1044, Until Fri12/12/20 at 1750, Other, Nausea/Vomiting (2nd Line) Extravasation Risk Post-op/Post-Proc72 hr scopolamine 0.0139 mg/hr transdermal system (1 source)AnticholinergicStart: 12-11-2020 End: 36-47-7377dlchrngeepq (TRANSDERM-SCOP) patch 1 patchsertraline 50 mg oral tablet (16 sources)Serotonin Reuptake InhibitorStart: 12-12-2020 End: 00-71-0165qegn 100 mg by mouth once mg, Oral, DAILY, First dose on Fri12/12/20 at 0900, Until Discontinued, Post-op/Post-ProcStart: 87-23-7263wylp 1 tablet by mouth once dailysertraline 100 MG tablet Take 100 mg by mouth daily. 0 06/15/2020 ActiveSertraline HCl - 20 MG/ML Oral Concentrate Refills: 0 DO Activesimethicone 80 mg chewable tablet (1 source)Start: 12-11-2020 End: 00-61-303372 mg, Oral, EVERY 4 HOURS NEEDED, Starting on Fri12/11/20 at 1221, Until Fri12/12/20 at 1750, Gas, Post-op/Post-Fflr4533 ml sodium chloride 9 mg/ml injection (2 sources)Start: 12-12-2020 End: 09-09-6691elaqjg chloride 0.9% IV solutionStart: 08-14-2020 End: 03-41-7495stzian chloride (PF) 0.9 % injection 5 mL Problems Active Problems Problem ClassificationProblemDateDocumented DateEpisodic/Chronic Administrative/social admission (12 sources)Patient encounter status; Translations: [Dietary counseling and surveillance]EpisodicAnxiety disorders (20 sources)Mixed anxiety and depressive disorder; Translations: [Generalized anxiety disorder]Onset: 198408-73-0552RsgptnjIzjgeg (20 sources)Uncomplicated moderate persistent asthma; Translations: [Moderate persistent asthma, uncomplicated]Onset: 349656-47-2932YcpgpjwGchiqwsfvz and other anemia (1 source)Anemia; Translations: [Anemia, unspecified type]EpisodicEsophageal disorders (19 sources)Gastroesophageal reflux disease; Translations: [Gastro-esophageal reflux disease without esophagitis]Onset: 760748-25-8049HopowbgNvwqwbjh disorders (20 sources)Sarcoidosis; Translations: [Sarcoidosis, unspecified]Onset: 260672-11-4140EaffdnlNstzmka and fatigue (6 sources)Asthenia; Translations: [Weakness]94-11-2847XbtyrnccOzecncipxzsiw mental health disorders (2 sources)Binge eating disorder; Translations: [Binge eating disorder]Chronic Mood disorders (5 sources)Recurrent major depression in partial remission; Translations: [Recurrent major depression in full remission]ChronicNutritional deficiencies (1 source)Vitamin D deficiency; Translations: [Vitamin D deficiency]ChronicOther circulatory disease (3 sources)Orthostatic hypotension; Translations: [Orthostatic hypotension] 15-01-2802QcskixnlZlrol connective tissue disease (6 sources)Pain of bilateral hands; Translations: [Pain in right hand]11-11-2024 EpisodicOther connective tissue disease (5 sources)Ganglion cyst of left volar wrist; Translations: [Ganglion, left wrist]63-33-2617ZwajbndmPliwi eye disorders (4 sources)Drusen of optic disc, bilateral; Translations: [Drusen of optic disc, bilateral]ChronicOther gastrointestinal disorders (1 source)Malabsorption syndrome; Translations: [Other intestinal malabsorption] ChronicOther lower respiratory disease (1 source)Wheezing; Translations: [WHEEZING]Onset: 77-40-2641AewlhwaoLaqnc nervous system disorders (3 sources)Bilateral carpal tunnel syndrome; Translations: [Carpal tunnel syndrome, bilateral upper limbs]54-89-4399KfetquuYqyny nervous system disorders (6 sources)Paresthesia of skin; Translations: [Paresthesia of both hands] 30-37-9738NlsyhwenHlttv nutritional; endocrine; and metabolic disorders (20 sources)Morbid obesity; Translations: [Morbid (severe) obesity due to excess calories]Onset: 032211-71-6178WubmbxxVehbt screening for suspected conditions (not mental disorders or infectious disease) (13 sources)Viral screening status; Translations: [Patient encounter status] Onset: 54-76-8348DupizgqqFtlzlwxbm (except that caused by tuberculosis or sexually transmitted disease) (3 sources)Pneumonia; Translations: [Pneumonia, unspecified organism]09-25-2018 EpisodicResidual codes; unclassified (18 sources)Obstructive sleep apnea syndrome; Translations: [Obstructive sleep apnea (adult) (pediatric)]Onset: 722499-72-7035CmjdpgaCzvnyypcfjz failure; insufficiency; arrest (adult) (3 sources)Respiratory failure; Translations: [Respiratory failure, unspecified, unspecified whether with hypoxia or hypercapnia]02-74-2982ZpvrrxwqVaikvpfwwve; intervertebral disc disorders; other back problems (3 sources)Low back pain; Translations: [Radiculopathy, lumbar region]04-16-2024 EpisodicUnclassified (10 sources)Patient encounter status; Translations: [Nutritional counseling] Onset: 067221-13-9595Monlgjbxnjib (3 sources)CONTACT W/AND (SUSP) EXPOS COVID-19; Translations: [CONTACT W/AND (SUSP) EXPOS COVID-19]Onset: 77-80-7737Vnivrdtjpcmn (1 source)M79.641 - Pain in right hand,M79.642 - Pain in left hand,R20.2 - Paresthesia of skinUnclassified (2 sources)M67.432 - Ganglion, left wrist,R20.2 - Paresthesia of skin,M79.641 - Pain in right hand,M79.642 - Pain in left handUnclassified (2 sources)D86.0 - Sarcoidosis of lung Past or Other Problems Problem ClassificationProblemDateDocumented DateEpisodic/ChronicCardiac dysrhythmias (17 sources)Palpitations; Translations: [Palpitations]Onset: 06-27-2020 35-31-5326QlhlwekdJwiwgzfvo hypertension (16 sources)Essential hypertension; Translations: [Essential (primary) hypertension]Onset: 06-27-2020 Resolved: 837852-24-0441GznqaqwDtifr gastrointestinal disorders (2 sources)History of sleeve gastrectomy; Translations: [Bariatric surgery status]EpisodicOther lower respiratory disease (2 sources)H/O: asthma; Translations: [History of asthma]EpisodicOther skin disorders (4 sources)Swelling of structure of eye; Translations: [Optic nerve edema] EpisodicResidual codes; unclassified (2 sources)H/O: Disorder; Translations: [History of sarcoidosis]Episodic Screening and history of mental health and substance abuse codes (2 sources)H/O: depression; Translations: [History of depression]Episodic Unclassified (1 source)CONTACT W/AND (SUSP) EXPOS COVID-19; Translations: [CONTACT W/AND (SUSP) EXPOS COVID-19]Onset: 82-98-9082VAIVUKM: Highlighted row has not occurred!Residual codes; unclassified (2 sources)DiseaseEpisodic Results Test NameValueInterpretationReference RangeFacilityCovid-19 PCR (CVDTB)on 82-54-9151RPDY-CoV-2 (COVID-19) RNA BOZENA+probe Ql (Unsp spec)Not detectedNormal NOT DETECTEDThe [facility] OhioComment on above:Result Comment: This test is not yet approved or cleared by the [place] FDA. When there are no FDA- approved or cleared tests available, and other criteria are met, FDA can make tests available under an emergency access mechanism called an Emergency Use Authorization (EUA). The EUA for this test is supported by the [place] of Health and Human Service's (HHS's) declaration [...] of clinical signs and symptoms consistent with SARS-CoV-2.Performed By: #### CVDTB #### [facility] [place] [facility] [address] [place] [address] Dr. Emory Rivers METABOLIC PANELon 01-83-5385Tllvg gap [Moles/Vol]8 mmol/L [facility] Parametric SystemCalcium [Mass/Vol]9.3 mg/dLAvita Parametric SystemChloride [Moles/Vol]102 mmol/LAvita Health SystemComment on above:Please note: Triglyceride levels of 600mg/dL or higher may positively bias chloride results by approximately 2.1 mmolCO2 [Moles/Vol]27 mmol/Vibr[facility] Energyita Health SystemCreatinine [Mass/Vol]0.71 mg/dLAvita Parametric SystemGFR COMMENTAverage GFR for 50-59 years old = 93.[facility] Parametric SystemComment on above:Chronic Kidney disease, GFR = <60. Kidney failure, GFR = <15. The GFR estimate is not adjusted for extreme body surface area or acute process, nor has it been validated for women or ethnic groups other than and . GFR/1.73 sq M.predicted among blacks MDRD (S/P/Bld) [Vol rate/Area] mL/min/{1.73_m2}ml/min/1.73sq.mAvita Health SystemGFR/1.73 sq M.predicted among non-blacks MDRD (S/P/Bld) [Vol rate/Area]mL/min/{1.73_m2}ml/min/1.73sq.mAvita Health SystemGlucose post fast [Mass/Vol]135 mg/dLHighConejos County Hospitalta Parametric SystemComment on above: NORMAL <100 mg/dL PREDIABETES 101-126 mg/dL DIABETES 126 mg/dL or higher Interpretation and review of laboratory resultsAbnormalAvita Parametric System Potassium [Moles/Vol]4.5 mmol/LAvita Health SystemSodium [Moles/Vol]137 mmol/L [facility] HospitalUrea nitrogen [Mass/Vol]9 mg/dLOhio State Harding HospitalBMP FASTING on 41-13-8059Dcmna gap [Moles/Vol]8 mmol/LNormal8-16[facility] Calcium [Mass/Vol]9.3 mg/dLNormal8.4-10.2AQuinlan Eye Surgery & Laser CenterChloride [Moles/Vol]102 mmol/ORzqtps00-794VutjlWamego Health CenterComment on above:Result Comment: Please note: Triglyceride levels of 600mg/dL or higher may positively bias chlorideresults by approximately 2.1 mmolCO2 [Moles/Vol]27 mmol/LNormal 22-30[facility] CenterCreatinine [Mass/Vol]0.71 mg/dLNormal0.7-1.2AFlint Hills Community Health Center. GFR,>60NormalAQuinlan Eye Surgery & Laser CenterEST. GFR,Non >60NormMetroHealth Parma Medical CenterGFR InformationAverage GFR for 50-59 years old = 93.NormalWamego Health CenterComment on above:Result Comment: Chronic Kidney disease, GFR = <60. Kidney failure, GFR = <15. The GFR estimate is not adjusted for extreme body surface area or acute process, nor has it been validated for women or ethnic groups other than and .Glucose [Mass/Vol]135 mg/zPPpaj52-270YyzbvWamego Health CenterComment on above:Result Comment: NORMAL <100 mg/dL PREDIABETES 101-126 mg/dL DIABETES 126 mg/dL or higherPotassium [Moles/Vol]4.5 mmol/LNormal3.5-5.1AVirtua Voorhees HospitalSodium [Moles/Vol]137 mmol/YPdqmvc506-110ZporpWamego Health Center Urea nitrogen [Mass/Vol]9 mg/dLNormal7-20[facility] CenterCBC(NO DIFF)on 91-92-8456Mkahqwqmpzz distribution width (RBC) [Ratio]14.7 %High11.5-14.5AQuinlan Eye Surgery & Laser CenterHematocrit (Bld) [Volume fraction]39.2 %Bckmah50.0-48.0[facility] CenterHemoglobin (Bld) [Mass/Vol]13.1 g/fYWwoxad17.0-16.0[facility] (RBC) [Entitic mass]28.7 wpDuwfte35.0-35.0[facility] MCH (RBC) [Mass/Vol]33.4 g/zXDpjxqb72.0-37.0[facility] HospitalV (RBC) [Entitic vol]86.0 gCSekxsp49.0-100.0[facility] CenterPlatelet mean volume (Bld) [Entitic vol]8.1 fLNormal7.4-11.0[facility] CenterPlatelets (Bld) [#/Vol]335 10*3/rBZijfmv004.0-400.0[facility] (Bld) [#/Vol]4.56 10*6/uLNormal4.0-5.4ASmith County Memorial HospitalBC (Bld) [#/Vol]16.6 10*3/uLHigh 3.6-11.0[facility],PLATELETSon 76-38-8336Judcbcpigyt distribution width (RBC) [Ratio]14.7 %High11.5 - 14.5 %[facility] HospitalHematocrit (Bld) [Volume fraction]39.2 %36.0 - 48.0 %[facility] HospitalHemoglobin (Bld) [Mass/Vol]13.1 g/dLOhio State Harding HospitalInterpretation and review of laboratory resultsAbnormalAMemorial Health System [facility] (RBC) [Entitic mass]28.7 pg26.0 - 35.0 PG [facility] FoundationHC (RBC) [Mass/Vol]33.4 g/dLCleveland Clinic FoundationV (RBC) [Entitic vol]86.0 [facility] CenterPlatelet mean volume (Bld) [Entitic vol] 8.1 [facility] CenterPlatelets (Bld) [#/Vol]335 10*3/uL130.0 - 400.0 10*3/uL [facility] (Bld) [#/Vol]4.56 10*6/uL4.0 - 5.4 10*6/[facility] CenterWBC (Bld) [#/Vol]16.6 10*3/uLHigh3.6 - 11.0 10*3/[facility] Elizabeth HospitalMAGNESIUMon 75-59-6721Qjyezjxgb [Mass/Vol]1.8 mg/dLNormal 1.6-2.3AQuinlan Eye Surgery & Laser CenterMagnesium [Mass/Vol]1.8 mg/dLOhio State Harding Hospital MRSA SCREENon 55-16-5314RKXK DNA BOZENA+probe Ql (Unsp spec)Not detectedNormalNOT DETECTEDWamego Health CenterComment on above:Performed By: #### MRSAST #### Testing performed at [address] [address]IDVTL AUREUS SCREENNot detectedNormalNOT DETECTEDWamego Health CenterComment on above:Result Comment: Testing performed at [place] [address]Performed By: #### MRSAST #### Testing performed at [address] [address]Ho Panel Informationon 61-06-0190CynurMercy Health St. Vincent Medical CenterPHOSPHATE, INORGANICon 56-63-4460Adcqlpmof [Mass/Vol]4.2 mg/dLOhio State Harding Hospital PHOSPHOROUSon 83-84-8880NCUDZGMOVMN7.2 MG/DLNormal2.5-4.5AQuinlan Eye Surgery & Laser Center GLUCOSE RANDOMon 07-24-4595Jdqkigs [Mass/Vol]225 mg/uAZywl42-827Izhqg68 Jimenez StreetGLUCOSE (POC DEVICE)on 71-10-4468DqcvjMercy Health St. Vincent Medical CenterGLUCOSE, POINT OF OGHG145CwkqDcarbMiami Valley HospitalInterpretation and review of laboratory results AbnormalOhio State Harding HospitalIyvujlEjpmvanp510243AtawcPike Community Hospital GLUCOSE RANDOMon 20-99-8786Fodbocu [Mass/Vol]225 mg/dLMiami Valley Hospital Interpretation and review of laboratory resultsAbnormalAPike Community HospitalHCG ( test) Ql (U)on 19-02-0372CrhduMercy Health St. Vincent Medical CenterHCG QUALITATIVE, URINEon 23-75-3754UBM ( test) Ql (U)NegativeOhio State Harding HospitalPOCT GLUCOSEon 85-44-7985Rvmuhbz [Mass/Vol]225 mg/lPTqnu84-716JunlpWamego Health CenterDbvnocdnKJDLWRTR158619XwgorkMqzzl [facility] HospitalREPEAT ABO/RHon 65-90-0835JSLZIP ABO/RHPositiveNormEastern Plumas District Hospital HospitalREPEAT ABO/RH (D) TYPINGon 04-58-3455AGA and Rh group Nom (Bld )PositiveMarion HospitalCREEN: MRSA ONLY, NARES (ISOLATION SCREEN)on 55-44-0321MBVC isol Org specific cx Ql (Nose)Not detectedNOT DETECTEDOhio State Harding Hospital STAPHYOCOCCUS AUREUS BY PCRNot detectedNOT [facility] CampusComment on above:Testing performed at [place], [place] [address]IzgtzOhio State Harding HospitalURINE HCG QUALon 49-17-9513Ggxb HCG ( test) Ql (U)Negative NormalSt. Elizabeth Hospital CORONAVIRUSon 35-77-4459KDFMCSJQKPmyf test was performed using isothermal BOZENA and has been approved as Emergency Use Authorization (EUA) for the qualitative detection mtABEH-TtO-8 nucleic acid. [facility] CenterComment on above:Performed By: #### COVID #### Testing performed at [address] [address]UMCP-WwA-0 (COVID-19) RNA BOZENA+probe Ql (Unsp spec)Not detected NormalNOT Christ HospitalComment on above:Result Comment: Negative results do not preclude SARS-CoV-2 infection and should not be used as thesole basis for treatment or other patient management [...] the patient is critically ill or clinically deteriorating.Performed By: #### COVID #### Testing performed at [address] [address]UOEY AND SCREEN CROSSMATCH CONVERTIBLEon 15-79-6290TXOL AND SCREEN CROSSMATCH CONVERTIBLEWORKUP EXPIRES 12/14/2020,2359 ABO/RH(D) O POSITIVE ANTIBODY SCREEN NEGATIVE ARM BAND NUMBER [id number] Jewish HospitalComment on above:Performed By: #### TSCC ####Testing performed at [address] [address]QTV FASTINGon 54-24-1156Ehinn gap [Moles/Vol]10 mmol/L Normal8-16[facility] HospitalComment on above:Performed By: #### PTT, PT, HEMOG, BMPF #### Testing performed at [address] [address]Hcewcfy [Mass/Vol]9.7 mg/dLNormal8.4-10.2AEast Orange General Hospital Comment on above:Performed By: #### PTT, PT, HEMOG, BMPF #### Testing performed at [address] [address]Bftpahsm [Moles/Vol]100 mmol/XOldxxs59-689AbpekEast Mountain HospitalComment on above:Performed By: #### PTT, PT, HEMOG, BMPF #### Testing performed at [address] [address]AY4 [Moles/Vol]26 mmol/VYjasox33-72JtmybEast Mountain Hospital Comment on above:Performed By: #### PTT, PT, HEMOG, BMPF #### Testing performed at [address] [address]Sprusowgkn [Mass/Vol]0.69 mg/dLNormal0.52-1.04[facility] HospitalComment on above:Performed By: #### PTT, PT, HEMOG, BMPF #### Testing performed at [address] [address]WMP. GFR,>60NormDzilth-Na-O-Dith-Hle Health CenterComment on above:Performed By: #### PTT, PT, HEMOG, BMPF #### Testing performed at [address] [address]WGI. GFR,Non >60NormDzilth-Na-O-Dith-Hle Health Center Comment on above:Performed By: #### PTT, PT, HEMOG, BMPF #### Testing performed at [address] [address]PFP InformationAverage GFR for 50-59 years old = 93.[facility] CenterComment on above:Result Comment: Chronic Kidney disease, GFR = <60. Kidney failure, GFR = <15. The GFR estimate is not adjusted for extreme body surface area or acute process, nor has it been validated for women or ethnic groups other than and .Performed By: #### PTT, PT, HEMOG, BMPF #### Testing performed at [address] [address]Dygqipn [Mass/Vol]120 mg/dYCtoh84-022VtgeoEast Mountain Hospital Comment on above:Result Comment: NORMAL <100 mg/dL PREDIABETES 101-126 mg/dL DIABETES 126 mg/dL or higherPerformed By: #### PTT, PT, HEMOG, BMPF #### Testing performed at [address] [address]Rlgpddbyw [Moles/Vol]4.3 mmol/LNormal3.5-5.1AEast Orange General HospitalComment on above:Performed By: #### PTT, PT, HEMOG, BMPF #### Testing performed at [address] [address]Moycus [Moles/Vol]136 mmol/JTafzng988-597BuntvEast Mountain Hospital Comment on above:Performed By: #### PTT, PT, HEMOG, BMPF #### Testing performed at [address] [address]Aqdp nitrogen [Mass/Vol]9 mg/dLNormal7-20[facility] Comment on above:Performed By: #### PTT, PT, HEMOG, BMPF #### Testing performed at [address] [address]RAW(NO DIFF)on 12-64-7800Fbbjktffuie distribution width (RBC) [Ratio]14.4 %Iijtjm54.5-14.5[facility] Saskatchewan HospitalComment on above:Performed By: #### PTT, PT, HEMOG, BMPF #### Testing performed at [address] [address]Mvxswktubm (Bld) [Volume fraction]45.9 %Ockpgv55.0-48.0[facility] HospitalComment on above:Performed By: #### PTT, PT, HEMOG, BMPF #### Testing performed at [address] [address]Zpnftknzzw (Bld) [Mass/Vol]15.3 g/zPZctxup08.0-16.0[facility] HospitalComment on above:Performed By: #### PTT, PT, HEMOG, BMPF #### Testing performed at [address] [address]ICC (RBC) [Entitic mass]28.2 bkTtgrwl64.0-35.0[facility] HospitalComment on above:Performed By: #### PTT, PT, HEMOG, BMPF #### Testing performed at [address] [address]UHEO (RBC) [Mass/Vol]33.3 g/vUZcldur39.0-37.0[facility] HospitalComment on above:Performed By: #### PTT, PT, HEMOG, BMPF #### Testing performed at [address] [address]LNO (RBC) [Entitic vol]84.6 fJTzcgbn30.0-100.0[facility] HospitalComment on above:Performed By: #### PTT, PT, HEMOG, BMPF #### Testing performed at [address] [address]Kbcgdkfn mean volume (Bld) [Entitic vol]8.1 fLNormal7.4-11.0 [facility] HospitalFreeman Health System on above:Performed By: #### PTT, PT, HEMOG, BMPF #### Testing performed at [address] [address]Gyqjymmdz (Bld) [#/Vol]339 10*3/sMAxckyb174.0-400.0[facility] HospitalComment on above:Performed By: #### PTT, PT, HEMOG, BMPF #### Testing performed at [address] [address]VSD (Bld) [#/Vol]5.42 10*6/uLHigh4.0-5.4AEast Orange General Hospital Comment on above:Performed By: #### PTT, PT, HEMOG, BMPF #### Testing performed at [address] [address]CYB (Bld) [#/Vol]11.1 10*3/uLHigh3.6-11.0[facility] Comment on above:Performed By: #### PTT, PT, HEMOG, BMPF #### Testing performed at [address] [address]ULZVUFJhm 77-56-9140XDV Coag (PPP) [Relative time]0.97 {INR} Normal0.85-1.10AEast Orange General HospitalComment on above:Result Comment: 2.0-3.0 THERAPEUTIC RANGE 2.5-3.5 MECHANICAL VALVE RANGEPerformed By: #### PTT, PT, HEMOG, BMPF #### Testing performed at [address] [address]WG Coag (PPP) [Time]13.1 iScmrlw43.8-14.4AEast [facility] Hospital Comment on above:Performed By: #### PTT, PT, HEMOG, BMPF #### Testing performed at [address] [address]YPGih 60-68-1881qGGR Coag (Bld) [Time]29.8 yGdgyjc82.4-34.7 [facility] HospitalComment on above:Result Comment: CARDIAC AND PE/DVT THERAPUTIC RANGE 69-97 SEC VASCULAR/THREATENED LIMB THERAPUTIC RANGE 80-112 SECPerformed By: #### PTT, PT, HEMOG, BMPF #### Testing performed at [address] [address]KMJHUMKA QUANT, SERUMon 61-37-4774HCZMJZTP4.3NormDzilth-Na-O-Dith-Hle Health CenterComment on above:Result Comment: Unit: ng/mL (NOTE) This test was developed and its performance characteristics determined by [facility]. It has not been cleared or approved by the Food and Drug Administration. Cotinine levels greater than 20.0 are consistent with the use of tobacco or tobacco cessation products. [facility] AT [facility]ENTERPerformed By: #### LNICB #### [facility]E<1.0[facility] Comment on above:Result Comment: Unit: ng/mL (NOTE) This test was developed and its performance characteristics determined by [facility]. It has not been cleared or approved by the Food and Drug Administration. Nicotine levels greater than 2.0 are consistent with the use of tobacco or tobacco cessation products.Performed By: #### LNICB #### Testing performed at [facility] TOX SCREEN,URINEon 10-05-2020 AMPHETAMINENegativeNormalNEGATIVEEast Mountain HospitalComment on above:Result Comment: <500 ng/ml CUTOFFPerformed By: #### COVID #### Testing performed at [address] [address]KSECXTXBJBHFVuejcctxBiceqvCXBHCXVFXzels Ontario HospitalComment on above:Result Comment: <200 ng/ml CUTOFFPerformed By: #### COVID #### Testing performed at [address] [address]ZFELYPHROLBFSMOGfpkpsokKiyotrQWWBKPTBUppiw [facility] Comment on above:Result Comment: <150 ng/ml CUTOFFPerformed By: #### COVID #### Testing performed at [address] [address]IYQSFLJZPQZOONuxjypqiWaisfxLDCYSUMJHtztm [facility] Comment on above:Result Comment: <10 ng/ml CUTOFFPerformed By: #### COVID #### Testing performed at [address] [address]KMEOLHMQGJQMXkkbpuiqKtktyyZRLRXEUMGdeci [facility] HospitalComselect specialty hospital on above:Result Comment: <50 ng/ml CUTOFFPerformed By: #### COVID #### Testing performed at [address] [address]XRPZWRWDeenefiyHsyymaPOWEEEVEMgqwl [facility] HospitalComment on above:Result Comment: <150 ng/ml CUTOFFPerformed By: #### COVID #### Testing performed at [address] [place] [address]CRIAAQPCLFkfzkukeRnnjplXGWMAAVGBngzo [facility] HospitalComselect specialty hospital on above:Result Comment: <200 ng/ml CUTOFFPerformed By: #### COVID #### Testing performed at [address] [address]GQKAVLFGXTRFMXYQgfcmhmtXjcigkLEIJRRZBShsbk [facility] Comment on above:Result Comment: <500 ng/ml CUTOFFPerformed By: #### COVID #### Testing performed at [address] [place] [address]SNPJJGOEuthtqvjLtmwgdTOOIUQEDMlpnq [facility] HospitalComment on above:Result Comment: <100 ng/ml CUTOFFPerformed By: #### COVID #### Testing performed at [address] [address]BNNQJKTKXAvktekkwCfljraRNIKGWPNNvnpy [facility] HospitalComment on above:Result Comment: <100 ng/ml CUTOFFPerformed By: #### COVID #### Testing performed at [address] [place] [address]IIFSOVDWIBPZSFtarhncmKfnjseWDGZBFMNUjzsp [facility] Comment on above:Result Comment: <25 ng/ml CUTOFFPerformed By: #### COVID #### Testing performed at [address] [place] [address]LXAUYLJUTIUMDwoacmhjZymwlfQZEPNVTOEjezj [facility] HospitalComselect specialty hospital on above:Result Comment: <300 ng/ml CUTOFFPerformed By: #### COVID #### Testing performed at [address] [place] [address]YWZXBTQAM ANTIDEPRESSANTSNegativeNormalNEGHampton Behavioral Health CenterComselect specialty hospital on above:Result Comment: <300 ng/ml CUTOFFPerformed By: #### COVID #### Testing performed at [address], [place] [address]SCS.B1 THIAMINE-BLDon 19-99-7557MJM.B1 THIAMINE-UKZ524.2HHolyoke Medical CenterComment on above:Result Comment: Reference range: 66.5 to 200.0 Unit: nmol/L (NOTE) This test was developed and its performance characteristics determined by [facility]. It has not been cleared or approved by the Food and Drug Administration. [facility]FORMED AT [facility]ENTERPerformed By: #### LVB1 #### [facility] MilwaukeeVAN ZINCon 02-83-2178YDWINK ZINC89 NormalOhioHealth Grove City Methodist Hospital on above:Result Comment: Reference range: 44 to 115 Unit: ug/dL (NOTE) This test was developed and its performance characteristics determined by [facility]. It has not been cleared or approved by the Food and Drug Administration. Detection Limit = 5 Please note reference interval change PERFORMED AT Doctors Hospitalformed By: #### COVID #### Testing performed at [address] [id number] 0H VITAMIN D LEVELon 38-90-563730 0H VITAMIN D LEVEL27.1 NG/MLLow>30[facility] on above:Result Comment: DEFICIENT <20 NG/ML INSUFFICIENT 20-<30 NG/ML SUFFICIENT 30-100 NG/ML POTENTIAL TOXICITY >100 NG/MLPerformed By: #### COVID #### Testing performed at [address] [address] FOLATEon 51-39-2943Iuheiveas (Vitamin B12) [Mass/Vol]542 pg/mPVmalxk864-402ZkuqdAshtabula County Medical Center on above:Performed By: #### COVID #### Testing performed at [address] [address]ITYBJD41.1 NG/MLNormal>5.9AAshtabula County Medical Center on above:Performed By: #### COVID #### Testing performed at [address] [address]OOKri 33-97-2751YLHJZTJE BAS0.1 10*3/uLNormal0.0-0.2AAshtabula County Medical Center on above:Performed By: #### ACBC, LIP2, FEPRO, CMPF #### Testing performed at [address] [address] #### LZN #### [facility] MilwaukeeABSOLUTE EOS0.50 10*3/uLNormal0.0-0.7 [facility] on above:Performed By: #### ACBC, LIP2, FEPRO, CMPF #### [place] [address] #### LZN #### Testing performed at [facility] NEUTROPHIL COUNT6.5 10*3/uL Normal1.4-6.5AAshtabula County Medical Center on above:Performed By: #### ACBC, LIP2, FEPRO, CMPF #### [place] [address] #### LZN #### [facility] MilwaukeeBasophils/100 WBC (Bld)1.0 %Normal 0.0-2.0[facility] on above:Performed By: #### ACBC, LIP2, FEPRO, CMPF #### [place] [address] #### LZN #### Testing performed [facility] MilwaukeeDTYPEAUTO DIFFNormalAAshtabula County Medical Center on above:Performed By: #### ACBC, LIP2, FEPRO, CMPF #### [place] [address] #### LZN #### Testing performed [facility] MilwaukeeEosinophils/100 WBC (Bld)5.1 %Normal 0.0-11.0[facility] on above:Performed By: #### ACBC, LIP2, FEPRO, CMPF #### [place] [address] #### LZN #### Testing [facility] MilwaukeeLymphocytes (Bld) [#/Vol]2.50 10*3/uL Normal1.2-3.4AAshtabula County Medical Center on above:Performed By: #### ACBC, LIP2, FEPRO, CMPF #### [place] [address] #### LZN #### Testing performed [facility] MilwaukeeLymphocytes/100 WBC (Bld)23.6 %Normal 20.0-55.0[facility] on above:Performed By: #### ACBC, LIP2, FEPRO, CMPF #### [place] [address] #### LZN #### Testing [facility] MilwaukeeMonocytes (Bld) [#/Vol]0.9 10*3/uLHigh 0.0-0.7AAshtabula County Medical Center on above:Performed By: #### ACBC, LIP2, FEPRO, CMPF #### [place] [address] #### LZN #### Testing performed [facility] MilwaukeeMonocytes/100 WBC (Bld)8.2 %Normal 0.0-10.0[facility] on above:Performed By: #### ACBC, LIP2, FEPRO, CMPF #### [place] [address] #### LZN #### Testing performed [facility] MilwaukeeNeutrophils/100 WBC (Bld)62.1 %Normal 37.0-75.0[facility] on above:Performed By: #### ACBC, LIP2, FEPRO, CMPF #### [place] [address] #### LZN #### Testing performed [facility] MilwaukeeErythrocyte distribution width (RBC) [Ratio]14.3 %Tiirdm64.5-14.5AAshtabula County Medical Center on above:Performed By: #### ACBC, LIP2, FEPRO, CMPF #### [place] [address] #### LZN #### [facility] MilwaukeeHematocrit (Bld) [Volume fraction]45.2 % Kvfhgg39.0-48.0[facility] HospitalComment on above:Performed By: #### ACBC, LIP2, FEPRO, CMPF #### [place] [address] #### LZN #### Testing performed [facility] MilwaukeeHemoglobin (Bld) [Mass/Vol]15.0 g/dL Ywvstm01.0-16.0[facility] HospitalComment on above:Performed By: #### ACBC, LIP2, FEPRO, CMPF #### [place] [address] #### LZN #### Testing performed at [facility] (RBC) [Entitic mass]28.6 pgNormal 26.0-35.0[facility] HospitalComment on above:Performed By: #### ACBC, LIP2, FEPRO, CMPF #### [place] [address] #### LZN #### Testing performed at [facility] (RBC) [Mass/Vol]33.1 g/dLNormal 27.0-37.0[facility] HospitalComment on above:Performed By: #### ACBC, LIP2, FEPRO, CMPF #### [place] [address] #### LZN #### Testing performed at [facility] (RBC) [Entitic vol]86.3 fLNormal 80.0-100.0[facility] HospitalFreeman Health System on above:Performed By: #### ACBC, LIP2, FEPRO, CMPF #### [place] [address] #### LZN #### Testing performed at [facility] mean volume (Bld) [Entitic vol] 8.2 fLNormal7.4-11.0[facility] HospitalComment on above:Performed By: #### ACBC, LIP2, FEPRO, CMPF #### Testing performed at [address] [place] [address] #### LZN #### Testing performed at [facility] ([facility]) [#/Vol]334 10*3/uLNormal 130.0-400.0[facility] HospitalComment on above:Performed By: #### ACBC, LIP2, FEPRO, CMPF #### Testing performed at [address] [address] #### LZN #### Testing performed at [facility] ([facility]) [#/Vol]5.23 10*6/uLNormal 4.0-5.4AJefferson Stratford Hospital ([facility]) HospitalComment on above:Performed By: #### ACBC, LIP2, FEPRO, CMPF #### Testing performed at [address] [address] #### LZN #### Testing performed at [facility] ([facility]) [#/Vol]10.5 10*3/uLNormal 3.6-11.0[facility] HospitalComment on above:Performed By: #### ACBC, LIP2, FEPRO, CMPF #### Testing performed at [address] [address] #### LZN #### Testing performed at [facility] FASTINGon 1A:G RATIO1.3 RATIONormal1.3-2.2AJefferson Stratford Hospital ([facility]) HospitalComment on above:Performed By: #### COVID #### Testing performed at [address] [address]CJLAJTW1.5 G/dlNormal3.5-5.0[facility] HospitalComment on above:Performed By: #### COVID #### Testing performed at [address] [address]FCU [Catalytic activity/Vol]82 U/OSeysxg23-054Ymuzr [facility] HospitalComment on above:Performed By: #### COVID #### Testing performed at [address] [address]VJC [Catalytic activity/Vol]39 U/EKpbiut67-97OcsteUniversity Hospitalment on above:Performed By: #### COVID #### Testing performed at [address] [address]SRE [Catalytic activity/Vol]27 U/HUqnbtk85-17YnmzgOhioHealth Grove City Methodist Hospital on above:Performed By: #### COVID #### Testing performed at [address] [address]Mfymhcvwb [Mass/Vol]0.5 mg/dLNormal0.2-1.2AEast Orange General HospitalComment on above:Performed By: #### COVID #### Testing performed at [address] [address]Ewoxckhkzq [Mass/Vol]0.66 mg/dLNormal0.52-1.04[facility] on above:Performed By: #### COVID #### Testing performed at [address] [address]DKP. GFR,>60NormDzilth-Na-O-Dith-Hle Health CenterComment on above:Performed By: #### COVID #### Testing performed at [address] [address]CVA. GFR,Non >60NoNor-Lea General Hospital Comment on above:Performed By: #### COVID #### Testing performed at [address] [address]AQS InformationAverage GFR for 50-59 years old = 93.NormalEast Mountain HospitalComselect specialty hospital on above:Result Comment: Chronic Kidney disease, GFR = <60. Kidney failure, GFR = <15. The GFR estimate is not adjusted for extreme body surface area or acute process, nor has it been validated for women or ethnic groups other than and .Performed By: #### COVID #### Testing performed at [address] [address]Aoymtbu [Mass/Vol]7.9 g/dLNormal6.3-8.2AEast Orange General Hospital Comment on above:Performed By: #### COVID #### Testing performed at [address] [address]Gdny nitrogen [Mass/Vol]10 mg/dLNormal7-20East Mountain HospitalComment on above:Performed By: #### COVID #### Testing performed at [address] [address]Iukmhrh [Mass/Vol]9.7 mg/dLNormal8.4-10.2AEast [facility] General Hospital Comment on above:Performed By: #### COVID #### Testing performed at [address] [address]Hswbafaa [Moles/Vol]100 mmol/ZWmxupl57-633OkbttEast Mountain HospitalComment on above:Performed By: #### COVID #### Testing performed at [address] [address]MH2 [Moles/Vol]23 mmol/DRtislz36-61TwntzEast Mountain Hospital Comment on above:Performed By: #### COVID #### Testing performed at [address] [address]Cyziokz [Mass/Vol]148 mg/bWAunv92-839QywyjEast Mountain Hospital Comment on above:Result Comment: NORMAL <100 mg/dL PREDIABETES 101-126 mg/dL DIABETES 126 mg/dL or higherPerformed By: #### COVID #### Testing performed at [address] [address]Yqwmmkxcu [Moles/Vol]4.2 mmol/LNormal3.5-5.1AEast Orange General HospitalComment on above:Performed By: #### COVID #### Testing performed at [address] [address]Lamxvw [Moles/Vol]135 mmol/RZuw163-403SehokEast Mountain Hospital Comment on above:Performed By: #### COVID #### Testing performed at [address] [address]SXPY PROFILEon 24-05-7469Eacz [Mass/Vol]65 ug/aQWjtwqm10-388 [facility] HospitalComselect specialty hospital on above:Performed By: #### COVID #### Testing performed at [address] [address]CAQO MUAXSRC175 UG/QIBqihpj519-365NoaulEast Mountain HospitalComment on above:Performed By: #### COVID #### Testing performed at [address] [address]ZDFGOXHTKTU SATURATION,LOELUQYFGS83 %[facility] CenterComselect specialty hospital on above:Performed By: #### COVID #### Testing performed at [address] [address]BVZLG PROFILEon 89-12-9020Kahkspikrpg [Mass/Vol]238 mg/dLHigh 100-199East Mountain HospitalComselect specialty hospital on above:Performed By: #### COVID #### Testing performed at [address] [address]Xstottpxepa in HDL [Mass/Vol]49 mg/vPGgyjzq05-18HhajcOhioHealth Grove City Methodist Hospital on above:Performed By: #### COVID #### Testing performed at [address] [address]Nfltdsavfsz in LDL [Mass/Vol]161 mg/dLHigh0-100East [facility] HospitalComselect specialty hospital on above:Performed By: #### COVID #### Testing performed at [address] [address]Uvsjmdjmczb in VLDL [Mass/Vol]28 mg/dLHigh5.0-25.0East Mountain HospitalComselect specialty hospital on above:Performed By: #### COVID #### Testing performed at [address] [address]Pkweosuguzg.total/Cholesterol in HDL [Mass ratio]4.86 {ratio} [facility] on above:Result Comment: RISK TOTAL/HDL RATIO MEN WOMEN 1/2 AVERAGE 3.43 3.27 AVERAGE 4.97 4.44 2X AVERAGE 9.55 7.05 3X AVERAGE 23.99 11.04Performed By: #### COVID #### Testing performed at [address] [address]Utyygfhazmcd [Mass/Vol]139 mg/dLNormal<150East Mountain HospitalComselect specialty hospital on above:Performed By: #### COVID #### Testing performed at [address] [address]YEAhe 26-21-1736EXY6.267 uIU/MLNormal0.45-5.33East Mountain HospitalComment on above:Performed By: #### COVID #### Testing performed at [facility] [address] [place], [place] [address]JB CHEST PA AND LATERALon 88-62-4891LV CHEST PA AND LATERAL EXAMINATION: XR CHEST PA AND LATERAL HISTORY: preop COMPARISON: Chest CT 08/01/2020, chest x-ray 07/03/2019. FINDINGS: Two views are submitted. The lungs and pleural spaces are clear. Pulmonary vascular markings are normal. The cardiomediastinal silhouette is within normal limits. No bony lesions are shown. IMPRESSION: No acute cardiopulmonary abnormality.NormalEast Mountain HospitalXR CHEST PA AND LATERALOrdered By: Emmett Montero on 22-06-3131KZLHVIXHQV: No acute cardiopulmonary abnormality.[facility] HospitalEXAMINATION: XR CHEST PA AND LATERAL HISTORY: preop COMPARISON: Chest CT 08/01/2020, chest x-ray 07/03/2019. FINDINGS: Two views are submitted. The lungs and pleural spaces are clear. Pulmonary vascular markings are normal. The cardiomediastinal silhouette is within normal limits. No bony lesions are shown.[facility] HospitalUser, [facility] - 09/11/2020 12:31 PM EDT EXAMINATION: XR CHEST PA AND LATERAL HISTORY: preop COMPARISON: Chest CT 08/01/2020, chest x-ray 07/03/2019. FINDINGS: Two views are submitted. The lungs and pleural spaces are clear. Pulmonary vascular markings are normal. The cardiomediastinal silhouette is within normal limits. No bony lesions are shown. IMPRESSION IMPRESSION: No acute cardiopulmonary abnormality. [facility] Medical CenterVIT.B1 THIAMINE-BLDon 07-16-6734WWV.B1 THIAMINE-FAC772.4HMercy Health Allen HospitalComment on above:Result Comment: Reference range: 66.5 to 200.0 Unit: nmol/L (NOTE) This test was developed and its performance characteristics determined by [employer]. It has not been cleared or approved by the Food and Drug Administration. PERFORMED AT Tier 1 PerformanceFREEMAN HEALTH SYSTEMPerformed By: #### LVB1 #### Testing performed at [facility] GLUCOSEon 27-38-2759Qxnfzdu [Mass/Vol]153 mg/kIPzqw12-987PdwucWamego Health CenterVqoatuspMOMNYVWK996167DyygzwYihgj [place] Eppmpyfo26 0H VITAMIN D LEVELon 0H VITAMIN D LEVEL28.3 NG/MLNormalWamego Health CenterComment on above:Result Comment: DEFICIENT <20 NG/ML INSUFFICIENT 20-<30 NG/ML SUFFICIENT 30-100 NG/ML POTENTIAL TOXICITY >100 NG/MLCBCon 21-48-9781DLPTTBSZ BAS0.1 10*3/uLNormal 0.0-0.2AQuinlan Eye Surgery & Laser CenterABSOLUTE EOS0.40 10*3/uLNormal0.0-0.7AQuinlan Eye Surgery & Laser CenterABSOLUTE NEUTROPHIL COUNT9.8 10*3/uLHigh1.4-6.5AQuinlan Eye Surgery & Laser Center Basophils/100 WBC (Bld)0.4 %Normal0.0-2.0W[facility] Health CenterDTYPEAUTO DIFF NormalWamego Health CenterEosinophils/100 WBC (Bld)3.2 %Normal0.0-11.0[facility] Health CenterLymphocytes (Bld) [#/Vol]2.60 10*3/uLNormal1.2-3.4AQuinlan Eye Surgery & Laser CenterLymphocytes/100 WBC (Bld)19.0 %Low20.0-55.0[facility] Monocytes (Bld) [#/Vol]0.9 10*3/uLHigh0.0-0.7AQuinlan Eye Surgery & Laser CenterMonocytes/100 WBC (Bld)6.3 %Normal0.0-10.0[facility] CenterNeutrophils/100 WBC (Bld)71.1 %Ynrijz35.0-75.0[facility] CenterErythrocyte distribution width (RBC) [Ratio]14.6 %High11.5-14.5AQuinlan Eye Surgery & Laser CenterHematocrit (Bld) [Volume fraction]48.4 %High36.0-48.0[facility] Health CenterHemoglobin (Bld) [Mass/Vol] 16.6 g/aBSafr97.0-16.0[facility] Psychiatric CenterH (RBC) [Entitic mass]29.1 pg Vsbrey32.0-35.0[facility] HospitalHC (RBC) [Mass/Vol]34.4 g/dLNormal 27.0-37.0[facility] Memorial HospitalV (RBC) [Entitic vol]84.7 lGPemshk75.0-100.0 [facility] CenterPlatelet mean volume (Bld) [Entitic vol]7.7 fLNormal 7.4-11.0[facility] CenterPlatelets (Bld) [#/Vol]384 10*3/uLNormal 130.0-400.0[facility] Health CenterRBC (Bld) [#/Vol]5.71 10*6/uLHigh4.0-5.4AviBrooklyn Hospital CenterWBC (Bld) [#/Vol]13.8 10*3/uLHigh3.6-11.0[facility] CBC, EDIF, PLATELETOrdered By: Emmett Montero on 41-86-6372JWZAIUQI BASOPHIL COUNT 0.1 10*3/uL0.0 - 0.2 10*3/uLOhio State Harding HospitalBasophils/100 WBC (Bld)0.4 %0.0 - 2.0 %[facility] HospitalDifferential cell count method Nom (Bld)AUTO DIFF%[facility] HospitalEosinophils (Bld) [#/Vol]0.40 10*3/uL0.0 - 0.7 10*3/uLOhio State Harding HospitalEosinophils/100 WBC (Bld)3.2 %0.0 - 11.0 %[facility] HospitalErythrocyte distribution width (RBC) [Ratio]14.6 %High11.5 - 14.5 %[facility] Hematocrit (Bld) [Volume fraction]48.4 %High36.0 - 48.0 %[facility] Hemoglobin (Bld) [Mass/Vol]16.6 g/dLMiami Valley HospitalInterpretation and review of laboratory resultsAbnormGenesis HospitalLymphocytes (Bld) [#/Vol] 2.60 10*3/uL1.2 - 3.4 10*3/[facility] CenterLymphocytes/100 WBC (Bld)19.0 % Low20.0 - 55.0 %[facility] HospitalMCH (RBC) [Entitic mass]29.1 pg26.0 - 35.0 PG [facility] HospitalMCHC (RBC) [Mass/Vol]34.4 g/dLOhio State Harding HospitalMCV (RBC) [Entitic vol]84.7 [facility] CenterMonocytes (Bld) [#/Vol]0.9 10*3/uLHigh0.0 - 0.7 10*3/[facility] CenterMonocytes/100 WBC (Bld)6.3 %0.0 - 10.0 %[facility] HospitalNeutrophils (Bld) [#/Vol]9.8 10*3/uLHigh1.4 - 6.5 10*3/[facility] CenterNeutrophils/100 WBC (Bld)71.1 %37.0 - 75.0 %[facility] Platelet mean volume (Bld) [Entitic vol]7.7 [facility] CenterPlatelets (Bld) [#/Vol]384 10*3/uL130.0 - 400.0 10*3/[facility] CenterRBC (Bld) [#/Vol]5.71 10*6/uLHigh4.0 - 5.4 10*6/[facility] CenterWBC (Bld) [#/Vol]13.8 10*3/uLHigh 3.6 - 11.0 10*3/[facility] GeneralColonoscopyOrdered By: Emmett Montero on 15-13-6391HveomtiSt. Mary's Medical Center Gastroenterology Patient Name: Katalina Tapia Procedure Date: 08/14/2020 8:46AM Date of : 1965 Admit Type: Outpatient Age: 55 Room: OR3 Gender: FemaleNote Status: Finalized Attending MD: EMMETT MONTERO MD Instrument Name: [id number] Procedure: Colonoscopy Indications: Screening for colorectal malignant neoplasm Providers: EMMETT MONTERO MD, Justo James RN, Tam Gonzalez, Tour Actor, Kwasi Otero CRNA (Anesthesia Staff) Complications: No immediate complications. Estimated blood loss: Minimal. Procedure: After I obtained informed consent,the scope was passed under direct vision. Throughout the procedure, the patient's blood pressure, pulse, and oxygen saturations were monitored continuously. The [id number] S/N [id number] colonoscope wasintroduced through the anus and advanced to the cecum, identified by the appendiceal orifice. The colonoscopy was performed with ease. The patient tolerated the procedure well. The quality of the bowel preparation was good. Findings: The perianal and digital rectal examinations were normal. Pertinent negatives include no palpable rectal lesions. Five semi- pedunculated polyps were found in the rectum, transverse colon and hepatic flexure. The polyps were small in size. These polyps were removedwith a cold snare. Resection and retrieval were complete. Estimated blood loss was minimal. The exam was otherwise without abnormality on direct and retroflexion views. Impression: - Five small polyps in the rectum, in the transverse colon and at the hepatic flexure, removed with a cold snare. Resected and retrieved. - The examination was otherwise normal on direct and retroflexion views. Recommen dation: - Discharge patient to home (ambulatory). - Patient has a contact number available for emergencies. The signs and symptoms of potential delayed complications were discussed with the patient. Return to normal activities tomorrow. Written discharge instructions were provided to the patient. -Resume previous diet. - Continue present medications. - Await pathology results. - Repeat colonoscopy date to be determined after pending pathology results are reviewed for screening purposes. Procedure Code(s): --- Professional --- 82477, Colonoscopy, flexible; with removal of tumor(s), polyp(s), or other lesion(s) by snare technique Diagnosis Code(s): --- Professional --- Z12.11, Encounter for s creening for malignant neoplasm of colon K62.1, Rectal polyp K63.5, Polyp of colon CPT copyright 2020 [employer]. All rights reserved. The codes documented in this report are preliminary and upon thermodynamicist review may be revised to meet current compliance requirements. DARLING Burr MD 08/14/2020 9:55:55 AM This report has been signed electronically. Number of Addenda: 0 Note Initiated On: 08/14/2020 8:46 AMUniversity Hospitals Beachwood Medical CenterLIPID PANEL W CALCULATED LDLOrdered By: Emmett Montero on 08-14-2020 Cholesterol [Mass/Vol]234 mg/dLMiami Valley HospitalCholesterol in HDL [Mass/Vol]44 mg/dLOhio State Harding HospitalCholesterol in LDL [Mass/Vol]154 mg/dLMG/DL [facility] HospitalCholesterol in VLDL [Mass/Vol]36 mg/dLMiami Valley Hospital Cholesterol.total/Cholesterol in HDL [Mass ratio]5.32 {ratio}RATIOOhio State Harding HospitalComment on above:RISK TOTAL/HDL RATIO MEN WOMEN 1/2 AVERAGE 3.43 3.27 AVERAGE 4.97 4.44 2X AVERAGE 9.55 7.05 3X AVERAGE 23.99 11.04 Interpretation and review of laboratory resultsAbSt. Anthony's Hospital Triglyceride [Mass/Vol]180 mg/dLSCL Health Community Hospital - WestminsterLIPID PROFILEon 07-57-4562Syfhlpblnup [Mass/Vol]234 mg/sPOmsz527-981Oywva [facility]-Presbyterian HospitalCholesterol in HDL [Mass/Vol]44 mg/qIHvukyl44-20OtytsWamego Health Center Cholesterol in LDL [Mass/Vol]154 mg/dLNoAvita Health System Ontario HospitalCholesterol in VLDL [Mass/Vol]36 mg/dLHigh5.0-25[facility] Cholesterol.total/Cholesterol in HDL [Mass ratio]5.32 {ratio}NormalWamego Health CenterComment on above:Result Comment: RISK TOTAL/HDL RATIO MEN WOMEN 1/2 AVERAGE 3.43 3.27 AVERAGE 4.97 4.44 2X AVERAGE 9.55 7.05 3X AVERAGE 23.99 11.04Triglyceride [Mass/Vol]180 mg/dLHigh0-150Wamego Health CenterUPPER ENDOSCOPYOrdered By: Emmett Montero on 90-57-4705WmgsatcSt. Mary's Medical Center Gastroenterology Patient Name: Katalina Tapia Procedure Date: 08/14/2020 8:46AM Date of : 1965 Admit Type: Outpatient Age: 55 Room: OR3 Gender: FemaleNote Status: Finalized Attending MD: EMMETT MONTERO MD Instrument Name: [id number] Procedure: Upper GI endoscopy Indications: Gastro- esophageal reflux disease Providers: EMMETT MONTERO MD, Justo James RN, Tam Gonzalez, Tour Actor, Kwasi Otero CRNA (Anesthesia Staff) Complications: No immediate complications. Estimated blood loss: Minimal. Procedure: After obtaining informed consent, the endoscope was passed under direct vision. Throughout the procedure, the patient's blood pressure, pulse, and oxygen saturations were monitored continuously. The GIF-H180 S/N [id number] endscope was introduced through the mouth, and [...] patient. Return to normal activities tomorrow. Written dischargeinstructions were provided to the patient. - Resume previous diet. - Continue present medications.- Await pathology results. - Repeat upper endoscopy is not recommended. Procedure Code(s): --- Professional --- 52178, Esophagogastroduodenoscopy, flexible, transoral; with biopsy, single or multipleDiagnosis Code(s): --- Professional --- K21.9, Gastro-esophageal reflux disease without esophagitis CPT copyright 2020 [employer]. All rights reserved. The codes documented in thisreport are preliminary and upon thermodynamicist review may be revised to meet current compliance requirements. MD EMMETT Burr MD 08/14/2020 9:51:55 AM This report has been signed electronically. Number of Addenda: 0 Note Initiated On: 08/14/2020 8:46 AMUniversity Hospitals Beachwood Medical CenterVITAMIN D (25-HYDROXY,TOTAL)Ordered By: Emmett Montero on [id number]-hmfyglyrtobvev D [Mass/Vol]28.3NG/MLOhio State Harding HospitalComment on above: DEFICIENT <20 NG/ML INSUFFICIENT 20-<30 NG/ML SUFFICIENT 30-100 NG/ML POTENTIAL TOXICITY >100 NG/ML [facility] CORONAVIRUSon 67-88-1184MLVPCHQZETimt test was performed using isothermal BOZENA and has been approved as Emergency Use Authorization (EUA) for the qualitative detection snOUNR-WaU-6 nucleic acid. NormalEast Mountain HospitalComment on above:Performed By: #### COVID #### Testing performed at [address] [address]QVMN-CfU-0 (COVID-19) RNA BOZENA+probe Ql (Unsp spec)Not detected NormalNOT DETECTEDEast Mountain HospitalComment on above:Result Comment: Negative results do not preclude SARS-CoV-2 infection and should not be used as thesole basis for treatment or other patient management [...] the patient is critically ill or clinically deteriorating.Performed By: #### COVID #### Testing performed at [address] [address]Kirrltymrx Eye [place] 96-75-0361Nxvdybbzkj Eye ExamDOCUMENT REVIEWED BY: Todd Rothman MD DOCUMENT SIGNED ELECTRONICALLY BY Todd Rothman MD ON 02/15/2020 04:59:31 PM [place] [address] [place], [address] [phone] THIS DOCUMENT WAS CREATED ON: 02/15/2020 04:59:25 PM BY: Todd Kerr performed AQOPH-Luhi-oa Exam Date: Saturday, February 15, 2020 PATIENT NAME: KATALINA TAPIA DATE: 1965 AGE: 54 GENDER: Female RACE: REFERRING DOCTOR: mat PRIMARY CARE PHYSICIAN: Mimi Smith History Chief Complaint/Reason For Visit: fEP 3 months FV (Optic nerve edema/ optic nerve drusen/ Uvieitis)- Problem-Pt is here for FV. Pt states that she has not had any changes in her vision. Pt feels HUSAIN`sis about the same as well, has not [...] high intraocular pressure after Kenalog injection and considerationof evaluation for granulomatous inflammation ow CT chest and possible treatment with immunosuppression. She had multiple kenalog injections from 06/17/1999 to 10/18/2006. She also had pulsed PO prednisone at some points. Dr. George Carrillo 05/20/2006 dictated for PPV, membrane stripping and retinal cryotherapy along withfluid gas exchange and sub-Tenon injection. She notes great flucutations in vision, but overall, vision has not been much different. Headaches are all the time. The patient reports the following regarding associated symptoms: headaches: yes,pulsatile tinnitus: no, transient visual obscurations: no, AND diplopia: no. HISTORY OF PRESENT ILLNESS: PROBLEM: Pt is here for FV. Pt states that she has not had any changes in her vision. Pt feels HUSAIN'sis about the same as well, has not had any more then usual. Denies any diplopia. HPI was performed by Dr. 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 PROCEDURES : Cataract extraction OU Intravitrous injections OCULAR SIGNIFICANT: Hypertension,Sarcoidosis ILLNESSES: History of sarcoidosis; History of asthma; [...] PRESSURES: 20 21 DATE-TIME: 03:42 PM 03:42 YOUTH DEVELOPMENT SPECIALIST: jose a naranjo CONFRONTATION VF full to [...] DISC: 0.1 .15 OPTIC DISC: nasal elevation [place] and sharp VITREOUS: Clear Clear MACULA: Normal [...] which I personally reviewed previously, shows mild scatteredbihemispheric white matter changes on FLAIR that are [...] MD -16.89 AND OS generalized depression MD illegible.(best interpretation given not completely legible) 06/04/2016 HVF [...] elevation that I think are attributable to opticdisc drusen given the stability over time. I [...] for:Todd Rothman MD,PhD Feb 15 2020 4:59PM [place] Standard Time NormalUH TouchworksOphthalmic Letteron 20-77-2618Fhkkcsbqas LetterDOCUMENT REVIEWED BY: Todd Rothman MD DOCUMENT SIGNED [...] high intraocular pressure after Kenalog injection and considerationof evaluation for granulomatous inflammation ow CT chest and possible treatment with immunosuppression. She had multiple kenalog injections from 06/17/1999 to 10/18/2006. She also had pulsed PO prednisone at some points. Dr. George Carrillo 05/20/2006 dictated for PPV, membrane stripping and retinal cryotherapy along withfluid gas exchange and sub-Tenon injection. She notes great flucutations in vision, but overall, vision has not been much different. Headaches are all the time. The patient reports the following regarding associated symptoms: headaches: yes,pulsatile tinnitus: no, transient visual obscurations: no, AND [...] which I personally reviewed previously, shows mild scatteredbihemispheric white matter changes on FLAIR that are [...] 07/13/2019 HVF 24-2 OD fovea 19, [place] 05/12, FP 3%, FN 0%, generalized depression MD -21.90 AND OS fovea 6, FL 05/12, FP 0%, FN N/A, generalized depression MD -24.44. 02/03/2019 HVF 24-2 OD generalized depression MD -16.89 AND OS generalized depression MD illegible.(best interpretation given not completely legible) 06/04/2016 HVF [...] elevation that I think are attributable to opticdisc drusen given the stability over time. I [...] share in her care with you. Please donot hesitate to contact me with any questions regarding this patient, nor to consult me whenever I can be of help to another of your patients with neuro-ophthalmological problems. Sincerely, Todd Rothman M.D., Ph.D. Neuro-Ophthalmology Service [facility] [address] [place] [address] Email: [email or web address] Received for:Todd Rothman MD,PhD Feb 15 2020 4:59PM Eastern Standard Time Normal TouchworksVIT B1-THIAMINE WHOLE BLDon 78-76-8338XUM B1-THIAMINE WHOLE YKS766 nmol/PYwtn79-923HAAnn Klein Forensic CenterComment on above:Result Comment: INTERPRETIVE INFORMATION: Vitamin B1, Whole Blood This assay measures the concentration of thiamine diphosphate (TDP), the primary active form of vitamin B1. Approximately 90 percent of vitamin B1 present in whole blood is TDP. Thiamine and thiamine monophosphate, which comprise the remaining 10 percent, are not measured. Test developed and characteristics determined by [employer]. See Compliance Statement B: [employer] Performed By: [employer] [address] [place] [address] It Architecture Consultant: Rodolfo Salazar MD, MSPerformed By: #### VTB1W #### [employer] [address] [place], [place] [address]GNXUKAPDFQD CONV ENZYMEon 07-49-3440LIDIFZDKZYH CONV ZUHZHB82 U/L Twcyqz29-86BOAnn Klein Forensic CenterComment on above:Performed By: #### MAIKOL #### [facility] [address] [place], [place] [id number]-IODU TBon 01-85-8311JDT[NEG]CONTROL SPOT COUNTPassedNormal Ann Klein Forensic CenterComment on above:Performed By: #### TSPOT #### [facility] [address] [place], [place] [address]PANEL A SPOT AIPJU2PsroipVNGood Samaritan Medical CenterComment on above:Performed By: #### TSPOT #### [facility] [address] [place], [place] [address]KJDTI B SPOT XNSIG6MeuzwdABLongmont United HospitalComment on above:Performed By: #### TSPOT #### [employer] [address] [place], [place] [address]POS CONTROL SPOT COUNTPassAustin Hospital and Clinic Comment on above:Performed By: #### TSPOT #### [facility] [address] [place], [place] [address]B-XJYO.TB INTERPNegativeNormalNormal Value: NegativeAnn Klein Forensic CenterComment on above:Result Comment: A negative test result does not exclude the possibility [...] should not be interpreted as a quantitative test.Performed By: #### TSPOT #### [employer] [address] [place], [place] [address]LBKLSUUGYJjh 68-01-2091Yloczztfdy [Mass/Vol]mg/dLNormal>60Ann Klein Forensic CenterComment on above:Performed By: #### CREAT #### [facility] [address] [place], [place] [address]Crkqow Comment: CALCULATIONS OF ESTIMATED GFR ARE PERFORMED USING THE MDRD STUDY EQUATION FOR THE IDMS-TRACEABLE CREATININE METHODS. CLIN CHEM 2007;53:766-72Creatinine [Mass/Vol]0.72 mg/dLNormal0.50 - 1.05Ann Klein Forensic CenterComment on above:Performed By: #### CREAT #### [facility] [address] [place], [place] [address]YRKTLP, SERUMon 23-22-9810Zqfgds [Mass/Vol]15.2 ng/mLNormal >5.0Ann Klein Forensic CenterComment on above:Result Comment: Low <3.4 Borderline 3.4-5.0 Normal >5.0 . Biotin interference may cause falsely elevated results. Patients taking a Biotin dose of up to 5 mg/day should refrain from taking Biotin for 24 hours before sample collection. Providers may contact their local laboratory for further information.Performed By: #### FOLA2 #### [facility] [address] [place], [place] [address]QEMNIDHC SCREENING WITH REFLEXon [id number] TOTAL AB NONREACTIVENormalNONREACTIVEAnn Klein Forensic CenterComment on above:Result Comment: No significant level of Treponema pallidum antibody detected. Repeat testing in 2 to 4 weeks may be considered if early infection or incubating syphilis infection is suspected.Performed By: #### SYPHR #### [facility] [address] [place], [place] [address]VMXG NITROGENon 96-12-3220Makn nitrogen [Mass/Vol]8 mg/dL Normal6 - 23Ann Klein Forensic CenterComment on above:Performed By: #### UREA #### [facility] [address] [place], [place] [address]EEZXMEI B12on 01-63-8071Sxhlpbdvq (Vitamin B12) [Mass/Vol]552 pg/qYSmdvmq200 - 911UH Yu Medical CenterComment on above:Performed By: #### VTB12 #### [facility] [address] [place], [place] [address]Edynz Urea Nitrogen, Serumon 95-62-2076Hqbj nitrogen [Mass/Vol]8 mg/dL6 - 46HK-Zxonytmhdioje-Fscub [place] Work Phone: Creatinine, Serumon 69-49-8503Iezwoqdtdj [Mass/Vol] 0.72 mg/dLSee CyobpAW-Trmoivaddxdzy-Revcl [place] Work Phone: Comment on above:Reference Range: 0.50 - 1.05 Creatinine [Mass/Vol]mg/dL>84UO-Mdulnximefoks-Hwkll [place] Work Phone: Comment on above:CALCULATIONS OF ESTIMATED GFR ARE PERFORMED USING THE MDRD STUDY EQUATION FOR THE IDMS-TRACEABLE CREATININE METHODS. CLIN CHEM 2007;53:766-72Folate, Serumon 26-47-5324Qollxt [Mass/Vol]15.2 ng/mL>5.8US-Bkpgoktqvhgzy-Qbtmq [facility] Work Phone: Comment on above:Low <3.4Borderline 3.4-5.0Normal >5.0. Biotin interference may cause falsely elevated results. Patients taking a Biotin dose of up to 5 mg/day should refrain from taking Biotin for 24 hours before sample collection. Providers may contact their local laboratory for further information.Ophthalmic Eye Examon [id number] Eye ExamDOCUMENT REVIEWED BY: Todd Rothman MD DOCUMENT SIGNED ELECTRONICALLY BY Todd Rothman MD ON 11/02/2019 04:27:56 PM [place] [address], [address] [place], [address] [phone] THIS DOCUMENT WAS CREATED ON: 11/02/2019 04:27:50 PM BY: Todd Alva performed JEJMT-Ytui-tn VIKTOR Sanabria performed START-WORKGATEWAY Exam Date: Saturday, November 02, 2019 PATIENT NAME: KATALINA TAPIA DATE: 1965 AGE: 54 GENDER: Female RACE: REFERRING DOCTOR: mat PRIMARY CARE PHYSICIAN: Marcie, george History Chief Complaint/Reason For Visit: Here for FUV ( Optic nerve edema/ optic nerve drusen/ Uvieitis ) Pt sts vision has been decreased x 20 years and has received many retinal injections OU and 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 Pt sts no further retinal injections Pt sts vision isabout same but flucuates + headaches are about the same wonders if allergy Pt sts headache everydayusing Ibruprofen and relieves Pt sts has records [...] Cataract extraction OU Intravitrous injections OCULAR SIGNIFICANT: Hypertension,Sarcoidosis ILLNESSES: History of sarcoidosis; History of asthma; [...] PRESSURES: 19 19 DATE-TIME: 03:07 PM 03:07 YOUTH DEVELOPMENT SPECIALIST: Agustin Velez CONFRONTATION VF Full to count [...] DISC: 0.1 .15 OPTIC DISC: nasal elevation [place] and sharp VITREOUS: Clear Clear MACULA: Normal [...] MD -16.89 AND OS generalized depression MD illegible.(best interpretation given not completely legible) 06/04/2016 HVF [...] nerve elevation with drusen, but possibly also opticdisc edema. As before, there is a possibilty [...] antibody, T-SPOT AND MAIKOL. Obtain records from experimental electronics developer. Follow up in 3 months with HVF AND OCT. created by:Todd Rothman MD Todd Rothman MD DOCUMENT CREATE DATE: 11/02/2019 04:27:50 PM Received for:Todd Rothman Nov 02 2019 4:27PM [facility]NoPrem[facility] [place] [facility] TouchworksOphthalmic Letteron [id number] LetterDOCUMENT REVIEWED BY: Todd Rothman MD DOCUMENT SIGNED [...] ) Pt sts vision has been decreased x20 years and has received many retinal injections [...] MD -16.89 AND OS generalized depression MD illegible.(best interpretation given not completely legible) 06/04/2016 HVF [...] nerve elevation with drusen, but possibly also opticdisc edema. As before, there is a possibilty [...] antibody, T-SPOT AND MAIKOL. Obtain records from experimental electronics developer. Follow up in 3 months with HVF AND OCT. I appreciate the opportunity to see KATALINA TAPIA today and to share in her care with you. Please donot hesitate to contact me with any questions regarding this patient, nor to consult me whenever I can be of help to another of your patients with neuro-ophthalmological problems. Sincerely, Todd Rothman M.D., Ph.D. Neuro-Ophthalmology Service [address], [place] [address] Email: [email or web address] Received for:Todd Rothman Nov 02 2019 4:27PM Eastern Standard TimeNormCleveland Clinic [facility] TouchworksSYPHILIS SCREENING WITH REFLEXon [id number] Specimen SourceNormalUHudson County Meadowview HospitalComment on above:Performed By: #### SYPHR #### [address] [place], [place] [address]T. pallidum IgG+IgM IA Ql (S)NONREACTIVESee Below WP-Jelzvvdafcnfu-Odyhk [place] Work Phone: Comment on above:SOURCE: Reference Range: NONREACTIVENo significant level of Treponema pallidum antibody detected. Repeat testing in 2 to 4 weeks may be considered if early infection or incubating syphilis infection is suspected.Vitamin B12, Serumon 25-59-5421Rfzmicrlm (Vitamin B12) [Mass/Vol]552 pg/mL211 - 270ZB-Fxcvxbwosrcch-Ainng [place] Work Phone: Ophthalmic Eye Examon [id number] Eye Exam DOCUMENT SIGNED ELECTRONICALLY BY Todd Rothman MD ON 07/13/2019 10:25:36 [place] [address] [place], [address] [phone] THIS DOCUMENT WAS CREATED ON: 07/13/2019 10:25:30 AM BY: VIKTOR Nevarez MD GPJQR-Apet-yj Exam Date: Saturday, July 13, 2019 PATIENT [...] ocular sarcodosis, 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 After 9 months, shesought care that she reports was diagnosed with uveitis with referral to Dr. Everett and then david Carrillo. SHe reports some control by 2002. [...] a ventilator. She reports biopsies in the pastwith conflicting opinions on whether she has sarcoidosis. SHe reports a few days of corticosteroids. She denies any prolonged treatment with corticosteroids. She denies prior rheumatolotgy evaluation. She has been seeing a experimental electronics developer Dr. Abigail Mckenzie. She also reports prior consultation with uveitis specialist oncology coordinator Dr. Savana Joe. HISTORY OF PRESENT ILLNESS: [...] Cataract extraction OU Intravitrous injections OCULAR SIGNIFICANT: Hypertension,Sarcoidosis ILLNESSES: History of sarcoidosis; History of asthma; [...] 18 19 DATE-TIME: 09:04 AM 09:04 AM QUALITY REVIEWER: Agustin Velez CONFRONTATION VF see HVF, superior [...] DISC: 0.1 .15 OPTIC DISC: nasal elevation [place] and sharp VITREOUS: Clear Clear MACULA: Normal [...] MD -16.89 AND OS generalized depression MD illegible.(best interpretation given not completely legible) 06/04/2016 HVF [...] possibility is that all findings are related toprior uveitis and retina damage. Records will be helpful in determining her history of possible sarocoidosis. Obtain prior head imaging. Check MRI brain AND orbits with contrast if not done. Obtain records from retina specialist and experimental electronics developer. Follow up in 2-3 months with HVF AND OCT. created by:Todd Rothman MD Todd Rothman MD DOCUMENT CREATE DATE: 07/13/2019 10:25:32 AM Received for:Todd Rothman Mar 2019 10:25AM [facility] TimeNormCleveland Clinic [facility] TouchworksOphthalmic Letteron [id number] LetterDOCUMENT SIGNED ELECTRONICALLY BY Todd Rothman MD ON [...] pain worse at night. After 9 months, shesought care that she reports was diagnosed with uveitis with referral to Dr. Everett and then toretijayshree Carrillo. SHe reports some control by 2002. [...] a ventilator. She reports biopsies in the pastwith conflicting opinions on whether she has sarcoidosis. SHe reports a few days of corticosteroids. She denies any prolonged treatment with corticosteroids. She denies prior rheumatolotgy evaluation. She has been seeing a experimental electronics developer Dr. Abigail Mckenzie. She also reports prior consultation with uveitis specialist oncology coordinator Dr. Savana Joe. Diagnoses 377.21 Drusen of [...] MD -16.89 AND OS generalized depression MD illegible.(best interpretation given not completely legible) 06/04/2016 HVF [...] possibility is that all findings are related toprior uveitis and retina damage. Records will be helpful in determining her history of possible sarocoidosis. Obtain prior head imaging. Check MRI brain AND orbits with contrast if not done. Obtain records from retina specialist and experimental electronics developer. Follow up in 2-3 months with HVF AND OCT. I appreciate the opportunity to see KATALINA TAPIA today and to share in her care with you. Please donot hesitate to contact me with any questions regarding this patient, nor to consult me whenever I can be of help to another of your patients with neuro-ophthalmological problems. PLEASE NOTE. I particularly would appreciate information about recent visits with you and the precise nature of this possible sarcoidosis diagnosis and whether there has been tissue confirmation. Sincerely, Todd Rothman M.D., Ph.D. Neuro-Ophthalmology Service [facility] [place] [address] Email: [email or web address] Received for:Todd Rothman Jul 13 2019 10:24AM [facility] TimeNormCleveland Clinic [facility] TouchworksOphthalmic LetterDOCUMENT SIGNED ELECTRONICALLY BY Todd Rothman MD ON [...] pain worse at night. After 9 months, shesought care that she reports was diagnosed with uveitis with referral to Dr. Everett and then toretina Dr. George Carrillo. SHe reports some control [...] a ventilator. She reports biopsies in the pastwith conflicting opinions on whether she has sarcoidosis. SHe reports a few days of corticosteroids. She denies any prolonged treatment with corticosteroids. She denies prior rheumatolotgy evaluation. She has been seeing a experimental electronics developer Dr. Abigail Mckenzie. She also reports prior consultation with uveitis specialist oncology coordinator Dr. Savana Joe. Diagnoses 377.21 Drusen of [...] MD -16.89 AND OS generalized depression MD illegible.(best interpretation given not completely legible) 06/04/2016 HVF [...] possibility is that all findings are related toprior uveitis and retina damage. Records will be helpful in determining her history of possible sarocoidosis. Obtain prior head imaging. Check MRI brain AND orbits with contrast if not done. Obtain records from retina specialist and experimental electronics developer. Follow up in 2-3 months with HVF AND OCT. I appreciate the opportunity to see KATALINA TAPIA today and to share in her care with you. Please donot hesitate to contact me with any questions regarding this patient, nor to consult me whenever I can be of help to another of your patients with neuro-ophthalmological problems. Sincerely, Todd Rothman M.D., Ph.D. Neuro-Ophthalmology Service [facility] [place] [address] Email: [email or web address] Received for:Todd Rothman Jul 13 2019 10:23AM [place] Standard TimeNormalUH TouchworksOphthalmic LetterDOCUMENT SIGNED ELECTRONICALLY BY Todd Rothman MD ON 07/13/2019 10:25:22 07/13/2019 Patient Name: KATALINA TAPIA Birthdate: 1965 Gender: female Dear Dr. George Carrlilo: I am writing to share my findings [...] pain worse at night. After 9 months, shesought care that she reports was diagnosed with uveitis with referral to Dr. Everett and then toretina Dr. George Carrillo. SHe reports some control [...] a ventilator. She reports biopsies in the pastwith conflicting opinions on whether she has sarcoidosis. SHe reports a few days of corticosteroids. She denies any prolonged treatment with corticosteroids. She denies prior rheumatolotgy evaluation. She has been seeing a experimental electronics developer Dr. Abigail Mckenzie. She also reports prior consultation with uveitis specialist oncology coordinator Dr. Savana Joe. Diagnoses 377.21 Drusen of [...] MD -21.90 AND OS fovea 6, FL 05/12, FP 0%, FN N/A, generalized depression MD -24.44. 02/03/2019 HVF 24-2 OD generalized depression MD -16.89 AND OS generalized depression MD illegible.(best interpretation given not completely legible) 06/04/2016 HVF [...] possibility is that all findings are related toprior uveitis and retina damage. Records will be helpful in determining her history of possible sarocoidosis. Obtain prior head imaging. Check MRI brain AND orbits with contrast if not done. Obtain records from retina specialist and experimental electronics developer. Follow up in 2-3 months with HVF AND OCT. I appreciate the opportunity to see KATALINA TAPIA today and to share in her care with you. Please donot hesitate to contact me with any questions regarding this patient, nor to consult me whenever I can be of help to another of your patients with neuro-ophthalmological problems. PLEASE NOTE. I particularly would appreciate information about prior appearance of her optic nervesand whether these findings have been present for a long time as well as the nature of prior uveitisattacks. Sincerely, Todd Rothman M.D., Ph.D. Neuro-Ophthalmology Service [facility] [place] [address] Email: [email or web address] Received for:Todd Rothman Jul 13 2019 10:25AM Eastern Standard TimeNormalUH TouchworksBASIC METABOLIC PANELon 22-48-8067Mqppxpu [Mass/Vol]8.7 mg/dLNormal 8.6-10.3The Veterans Health AdministrationComment on above:Order Comment: No: Do not add to previous drawPerformed By: #### 81086, 86284, 33492, 91850, 17463, 56818, 55513, 84079 #### [facility] [address] [place] [address], USAChloride [Moles/Vol]102 mmol/PBbpvue12-187Dxj Veterans Health AdministrationComment on above:Order Comment: No: Do not add to previous drawPerformed By: #### 18102, 14263, 93035, 59973, 50325, 54947, 49816, 02655 #### [facility] [address] [place] [address], USACO2 [Moles/Vol]27 mmol/VArvykm00-70Ucr [facility] Health AdministrationComment on above:Order Comment: No: Do not add to previous draw Performed By: #### 84212, 98330, 29419, 28652, 75695, 90135, 09016, 61894 #### [facility] [address] [place] [address], USACreatinine [Mass/Vol]0.49 mg/dLLow0.60-1.20The Veterans Health AdministrationComment on above:Order Comment: No: Do not add to previous drawPerformed By: #### 06430, 63440, 64416, 56727, 15360, 76973, 74315, 69146 #### [facility] [address] [place] [address], USAGFR/1.73 sq M predicted among blacks MDRD (S/P/Bld) [Vol rate/Area]mL/min/{1.73_m2}Normal>60The [facility] Comment on above:Order Comment: No: Do not add to previous drawPerformed By: #### 69945, 70571, 88960, 83698, 13450, 79477, 83720, 97833 #### [facility] [address] [place] [address], USAGFR/1.73 sq M predicted among non-blacks MDRD (S/P/Bld) [Vol rate/Area]mL/min/{1.73_m2}Normal>60The [facility] Comment on above:Order Comment: No: Do not add to previous drawPerformed By: #### 82480, 44968, 85492, 21904, 17725, 20918, 27663, 56069 #### [facility] [address] [place] [address], USAGlucose [Mass/Vol]84 mg/wJIhmkih52-779Wbh [facility] Health AdministrationComment on above:Order Comment: No: Do not add to previous drawPerformed By: #### 25458, 58638, 96982, 40641, 00198, 11586, 26027, 74119 #### [facility] [address] [place] [address], USAPotassium [Moles/Vol]3.4 mmol/LLow3.5-5.1The Veterans Health AdministrationComment on above:Order Comment: No: Do not add to previous drawPerformed By: #### 33228, 67581, 72868, 09427, 13937, 08436, 12813, 66090 #### [facility] [address] [place] [address], USASodium [Moles/Vol]137 mmol/KIaetbr855-509Rgw [facility] Health AdministrationComment on above:Order Comment: No: Do not add to previous drawPerformed By: #### 39645, 25355, 87213, 49903, 02182, 66882, 70581, 86152 #### [facility] [address] [place] [address], USAUrea nitrogen [Mass/Vol]12 mg/dLNormal7-25The [facility] Health AdministrationComment on above:Order Comment: No: Do not add to previous drawPerformed By: #### 02485, 94242, 14776, 47840, 41474, 04015, 82220, 52169 #### [facility] [address] [facility] [place] [address], [facility] HOSPITALCBC W/DIFFon 15-42-1656MPY BASOPHILS0.0 10*3/uLNormal 0.0-0.2The [facility] Health AdministrationComment on above:Order Comment: No: Do not add to previous drawPerformed By: #### 90882, 52275, 23598, 40988, 32437, 70820, 93864, 17596 #### [facility] [address] [facility] [place] [address], [facility] BAPTIST HOSPITALABS IMM GRANS0.2 10*3/uLNormal0.0-0.2The [facility] Health AdministrationComment on above:Order Comment: No: Do not add to previous drawPerformed By: #### 95836, 55016, 38286, 64105, 39435, 86244, 04581, 86448 #### [facility] [address] [facility] [place] [place] [address], [facility]IST HOSPITALABS NEUTROPHILS5.7 10*3/uLNormal1.6-7.6The Veterans Health AdministrationComment on above:Order Comment: No: Do not add to previous drawPerformed By: #### 98161, 39612, 16463, 28420, 93188, 07115, 05108, 17574 #### [facility] [address] [facility] [place] [address], USABasophils/100 WBC (Bld)0.3 %Normal0.0-1.0The Veterans Health AdministrationComment on above:Order Comment: No: Do not add to previous drawPerformed By: #### 86439, 87561, 07776, 97377, 47359, 75306, 47934, 41297 #### [facility] [address] [facility] [place] [address], USAEosinophils (Bld) [#/Vol]0.1 10*3/uLNormal0.0-0.5The [facility] Health AdministrationComment on above:Order Comment: No: Do not add to previous drawPerformed By: #### 03876, 72984, 88445, 67286, 76819, 80228, 15286, 97147 #### [facility] [address] [place] [address], USAEosinophils/100 WBC (Bld)1.1 %Normal0.0-6.0The [facility] Health AdministrationComment on above:Order Comment: No: Do not add to previous drawPerformed By: #### 94407, 85178, 77141, 98648, 49414, 59505, 10356, 28404 #### [facility] [address] [place] [address], USAErythrocyte distribution width (RBC) [Ratio]14.3 %Normal 11.5-15.0The [facility] Health AdministrationComment on above:Order Comment: No: Do not add to previous drawPerformed By: #### 16739, 48147, 36847, 17019, 13855, 20805, 12299, 69025 #### [facility] [address] [place] [address], USAHematocrit (Bld) [Volume fraction]39.0 %Zjodhw41.0-45.0The Veterans Health AdministrationComment on above:Order Comment: No: Do not add to previous drawPerformed By: #### 02102, 86626, 94888, 43939, 49942, 81042, 98426, 18957 #### [facility] [address] [place] [address], USAHemoglobin (Bld) [Mass/Vol]12.4 g/dUJapjzp27.0-15.0The [facility] Health AdministrationComment on above:Order Comment: No: Do not add to previous drawPerformed By: #### 53346, 13779, 87621, 23028, 82858, 15268, 38057, 43596 #### [facility] [address] [place] [address], USAIMMATURE GRANS1.7 %High0.0-1.0The Veterans Health AdministrationComment on above:Order Comment: No: Do not add to previous draw Performed By: #### 67563, 66003, 75377, 07006, 92737, 95622, 41829, 57915 #### [facility] [address] [place] [address], USALymphocytes (Bld) [#/Vol]2.2 10*3/uLNormal1.2-4.0The [facility] Health AdministrationComment on above:Order Comment: No: Do not add to previous drawPerformed By: #### 17902, 97452, 29243, 76756, 85799, 05413, 77379, 61185 #### [facility] [address] [facility] [place] [address], USALymphocytes/100 WBC (Bld)24.5 %Zrszmy96.0-45.0The [facility] Health AdministrationComment on above:Order Comment: No: Do not add to previous drawPerformed By: #### 72225, 54554, 55261, 88251, 36803, 51701, 25131, 97070 #### [facility] [address] [place] [address], [facility]H (RBC) [Entitic mass]27.9 xxXdnsbt53.0-33.0The [facility] Health AdministrationComment on above:Order Comment: No: Do not add to previous drawPerformed By: #### 47221, 74334, 02811, 04155, 68732, 08060, 78595, 84299 #### [facility] [address] [place] [address], [facility]HC (RBC) [Mass/Vol]31.8 g/dLLow32.0-35.0The [facility] Health AdministrationComment on above:Order Comment: No: Do not add to previous drawPerformed By: #### 54670, 52748, 94681, 18938, 76100, 19706, 90368, 54546 #### [facility] [address] [place] [address], USAMCV (RBC) [Entitic vol]87.6 pEGiwyzk87.0-98.0The [facility] Health AdministrationComment on above:Order Comment: No: Do not add to previous drawPerformed By: #### 58304, 30327, 25901, 07698, 06173, 16556, 09421, 93652 #### [facility] [address] [place] [address], USAMonocytes (Bld) [#/Vol]0.8 10*3/uLNormal0.1-1.0The [facility] Health AdministrationComment on above:Order Comment: No: Do not add to previous drawPerformed By: #### 12478, 51496, 37291, 89130, 62820, 33934, 26616, 93033 #### [facility] [address] [place] [address], USAMONOS9.2 %Normal5.0-12.0The [facility] Health AdministrationComment on above:Order Comment: No: Do not add to previous drawPerformed By: #### 11405, 81842, 43278, 92923, 77046, 14385, 90339, 95423 #### [facility] [address] [place] [address], USANeutrophils/100 WBC (Bld)63.2 %Zpvxad90.0-72.0The Veterans Health AdministrationComment on above:Order Comment: No: Do not add to previous drawPerformed By: #### 73679, 65179, 79229, 33377, 18193, 00505, 82604, 42485 #### [facility] [address] [facility] [place] [address], USANucleated RBC/100 WBC (Bld) [Ratio]0 %Normal0-0The Veterans Health AdministrationComment on above:Order Comment: No: Do not add to previous drawPerformed By: #### 41537, 66999, 08215, 69444, 13454, 77144, 64455, 90503 #### [facility] [address] [place] [address], USAPLAT AXB714 10*3/qKCdiqlz790-800Lop [facility] Health AdministrationComment on above:Order Comment: No: Do not add to previous draw Performed By: #### 95111, 61318, 74322, 75594, 41005, 75318, 99798, 55427 #### [facility] [address] [place] [address], [facility] HOSPITALRBC (Bld) [#/Vol]4.45 10*6/uLNormal3.80-5.00The Veterans Health AdministrationComment on above:Order Comment: No: Do not add to previous drawPerformed By: #### 09894, 74846, 12083, 24727, 87143, 65119, 38870, 90239 #### [facility] [address] [place] [address], USAWBC (Bld) [#/Vol]8.94 10*3/uLNormal4.00-10.60The Veterans Health AdministrationComment on above:Order Comment: No: Do not add to previous drawPerformed By: #### 68269, 37341, 66129, 25416, 09329, 86506, 96483, 36344 #### [facility] [address] [place] [address], USABASIC METABOLIC PANELon 98-48-4609Qvlrbef [Mass/Vol]8.8 mg/dLNormal8.6-10.3The Veterans Health AdministrationComment on above:Order Comment: No: Do not add to previous drawPerformed By: #### 59203, 79451, 92175, 71298, 27563, 11836, 54490, 22172 #### [facility] [address] [address] [place] [address], USAChloride [Moles/Vol]102 mmol/JTracsh14-427Lor Veterans Health AdministrationComment on above:Order Comment: No: Do not add to previous drawPerformed By: #### 09178, 96850, 34334, 49487, 48643, 67038, 57040, 78470 #### [facility] [address] [place] [address], USACO2 [Moles/Vol]27 mmol/XNufwzp27-76Vjz [facility] AdministrationComment on above:Order Comment: No: Do not add to previous draw Performed By: #### 62991, 11122, 32086, 47472, 13992, 67395, 80778, 04660 #### [facility] [address] [place] [address], USACreatinine [Mass/Vol]0.54 mg/dLLow0.60-1.20The [facility] Health AdministrationComment on above:Order Comment: No: Do not add to previous drawPerformed By: #### 14708, 36816, 71780, 54691, 36910, 09054, 49414, 18411 #### [facility] [address] [place] [address], USAGFR/1.73 sq M predicted among blacks MDRD (S/P/Bld) [Vol rate/Area]mL/min/{1.73_m2}Normal>60The [facility] Comment on above:Order Comment: No: Do not add to previous drawPerformed By: #### 79278, 03913, 38184, 63013, 63087, 17556, 01908, 43257 #### [facility] [address] [place] [address], USAGFR/1.73 sq M predicted among non-blacks MDRD (S/P/Bld) [Vol rate/Area]mL/min/{1.73_m2}Normal>60The [facility] Comment on above:Order Comment: No: Do not add to previous drawPerformed By: #### 29026, 11928, 69889, 96646, 51517, 13303, 46481, 13813 #### [facility] [address] [place] [address], USAGlucose [Mass/Vol]71 mg/aWFbzjtf31-792Qyb [facility] AdministrationComment on above:Order Comment: No: Do not add to previous drawPerformed By: #### 30773, 79058, 56344, 14075, 82059, 06614, 83517, 93683 #### [facility] [address] [place] [address], USAPotassium [Moles/Vol]3.6 mmol/LNormal3.5-5.1The [facility] Health AdministrationComment on above:Order Comment: No: Do not add to previous drawPerformed By: #### 06335, 32518, 51980, 18174, 24645, 61791, 20603, 61613 #### [facility] [address] [facility] [place] [address], USASodium [Moles/Vol]137 mmol/QCqmhhk392-786Kgt [facility] AdministrationComment on above:Order Comment: No: Do not add to previous drawPerformed By: #### 75609, 91252, 42321, 91990, 98623, 59074, 82278, 05789 #### [facility] [address] [facility] [place] [address], USAUrea nitrogen [Mass/Vol]14 mg/dLNormal7-25The [facility] Health AdministrationComment on above:Order Comment: No: Do not add to previous drawPerformed By: #### 79476, 89989, 82297, 06237, 19459, 34722, 53694, 13575 #### [facility] [address] [facility] [place] [address], USACBC W/DIFFon 17-02-1725VVL BASOPHILS0.1 10*3/uLNormal 0.0-0.2The [facility] Health AdministrationComment on above:Order Comment: No: Do not add to previous drawPerformed By: #### 74364, 39059, 65589, 25055, 09413, 90955, 91103, 29289 #### [facility] [address] [place] [address], USAABS IMM GRANS0.3 10*3/uLHigh0.0-0.2The [facility] Health AdministrationComment on above:Order Comment: No: Do not add to previous draw Performed By: #### 78117, 56980, 52981, 89744, 24698, 27406, 70707, 15268 #### [facility] [address] [place] [address], USAABS NEUTROPHILS8.0 10*3/uLHigh1.6-7.6The [facility] Health AdministrationComment on above:Order Comment: No: Do not add to previous drawPerformed By: #### 76034, 47015, 25682, 17161, 04944, 95341, 37877, 16396 #### [facility] [address] [place] [address], USABasophils/100 WBC (Bld)0.5 %Normal0.0-1.0The [facility] Health AdministrationComment on above:Order Comment: No: Do not add to previous drawPerformed By: #### 26969, 21919, 54853, 68521, 47921, 99627, 84321, 33695 #### [facility] [address] [place] [address], USAEosinophils (Bld) [#/Vol]0.1 10*3/uLNormal0.0-0.5The [facility] Health AdministrationComment on above:Order Comment: No: Do not add to previous drawPerformed By: #### 82861, 29106, 35047, 83302, 13336, 76554, 33567, 27333 #### [facility] [address] [place] [address], USAEosinophils/100 WBC (Bld)0.6 %Normal0.0-6.0The [facility] Medical CenterComment on above:Order Comment: No: Do not add to previous drawPerformed By: #### 42723, 13438, 32374, 39344, 65428, 84914, 34091, 96733 #### [facility] [address] [place] [address], USAErythrocyte distribution width (RBC) [Ratio]14.3 %Normal 11.5-15.0The [facility] Health AdministrationComment on above:Order Comment: No: Do not add to previous drawPerformed By: #### 20491, 79034, 13982, 27316, 47872, 26025, 19362, 90973 #### [facility] [address] [place] [address], USAHematocrit (Bld) [Volume fraction]39.9 %Aphibt55.0-45.0The [facility] Health AdministrationComment on above:Order Comment: No: Do not add to previous drawPerformed By: #### 29930, 13873, 73918, 65388, 30645, 58783, 81291, 40165 #### [facility] [address] [place] [address], USAHemoglobin (Bld) [Mass/Vol]12.7 g/eJFcqzkf22.0-15.0The [facility] Health AdministrationComment on above:Order Comment: No: Do not add to previous drawPerformed By: #### 58640, 66434, 00000, 46994, 28570, 98638, 57584, 47604 #### [facility] [address] [place] [address], USAIMMATURE GRANS2.8 %High0.0-1.0The [facility] Health AdministrationComment on above:Order Comment: No: Do not add to previous draw Performed By: #### 15046, 60488, 27232, 09156, 77481, 07444, 28618, 17310 #### [facility] [address] [place] [address], USALymphocytes (Bld) [#/Vol]2.5 10*3/uLNormal1.2-4.0The [facility] AdministrationComment on above:Order Comment: No: Do not add to previous drawPerformed By: #### 09658, 73184, 67731, 37762, 20971, 80971, 12821, 25383 #### [facility] [address] [place] [address], [facility] HOSPITALLymphocytes/100 WBC (Bld)20.4 %Wilogw37.0-45.0The [facility] Health AdministrationComment on above:Order Comment: No: Do not add to previous drawPerformed By: #### 92081, 35130, 36314, 18044, 35852, 68750, 70271, 00722 #### [facility] [address] [place] [address], [facility] (RBC) [Entitic mass]27.4 pdIifesr26.0-33.0The [facility] AdministrationComment on above:Order Comment: No: Do not add to previous drawPerformed By: #### 32850, 59777, 65842, 73346, 55665, 63212, 04125, 78125 #### [facility] [address] [place] [address], [facility] (RBC) [Mass/Vol]31.8 g/dLLow32.0-35.0The [facility] Health AdministrationComment on above:Order Comment: No: Do not add to previous drawPerformed By: #### 48421, 37399, 93876, 88882, 07917, 71631, 55836, 69700 #### [facility] [address] [place] [address], [facility] (RBC) [Entitic vol]86.0 xKXiwtvz37.0-98.0The [facility] Health AdministrationComment on above:Order Comment: No: Do not add to previous drawPerformed By: #### 37277, 62745, 83085, 73383, 74581, 23272, 71757, 00753 #### [facility] [address] [place] [address], USAMonocytes (Bld) [#/Vol]1.1 10*3/uLHigh0.1-1.0The [facility] Health AdministrationComment on above:Order Comment: No: Do not add to previous drawPerformed By: #### 89598, 83427, 63333, 09051, 38469, 29342, 06317, 69529 #### [facility] [address] [place] [address], USAMONOS9.4 %Normal5.0-12.0The [facility] Health AdministrationComment on above:Order Comment: No: Do not add to previous drawPerformed By: #### 88765, 59698, 92923, 66188, 50599, 27203, 14185, 34264 #### [facility] [address] [place] [address], USANeutrophils/100 WBC (Bld)66.3 %Hikkvf06.0-72.0The [facility] Health AdministrationComment on above:Order Comment: No: Do not add to previous drawPerformed By: #### 70863, 85742, 51984, 45969, 23337, 65690, 92726, 18922 #### [facility] [address] [place] [address], USANucleated RBC/100 WBC (Bld) [Ratio]0 %Normal0-0The [facility] AdministrationComment on above:Order Comment: No: Do not add to previous drawPerformed By: #### 19068, 60607, 19467, 87668, 59737, 13588, 00443, 13719 #### [facility] [address] [place] [address], USAPLAT NUT260 10*3/pPOvjjfd097-540Jpc [facility] AdministrationComment on above:Order Comment: No: Do not add to previous draw Performed By: #### 05280, 94807, 98252, 28749, 12378, 66237, 07667, 34575 #### [facility] [address] [place] [address], USARBC (Bld) [#/Vol]4.64 10*6/uLNormal3.80-5.00The [facility] AdministrationComment on above:Order Comment: No: Do not add to previous drawPerformed By: #### 28352, 15210, 13360, 33961, 52548, 12768, 43561, 90002 #### [facility] [address] [place] [address], USAWBC (Bld) [#/Vol]12.12 10*3/uLHigh4.00-10.60The [facility] AdministrationComment on above:Order Comment: No: Do not add to previous drawPerformed By: #### 24113, 95594, 91011, 70539, 80458, 27155, 11808, 14074 #### [facility] [address] [place] [address], USABASIC METABOLIC PANELon 04-64-7190Xbbsgtq [Mass/Vol]8.8 mg/dLNormal8.6-10.3The [facility] AdministrationComment on above:Order Comment: No: Do not add to previous drawPerformed By: #### 81875, 64919, 43869, 91430, 45241, 73090, 51437, 28857 #### [facility] [address] [place] [address], USAChloride [Moles/Vol]102 mmol/PDaiohf42-886Jkh [facility] AdministrationComment on above:Order Comment: No: Do not add to previous drawPerformed By: #### 44883, 36724, 64457, 86425, 33071, 08204, 20889, 24656 #### [facility] [address] [place] [address], USACO2 [Moles/Vol]28 mmol/VRkorrr22-19Rli [facility] AdministrationComment on above:Order Comment: No: Do not add to previous draw Performed By: #### 98639, 60178, 94378, 78206, 15327, 93049, 92655, 76427 #### [facility] [address] [place] [address], USACreatinine [Mass/Vol]0.48 mg/dLLow0.60-1.20The [facility] AdministrationComment on above:Order Comment: No: Do not add to previous drawPerformed By: #### 97037, 64751, 58002, 74152, 68592, 82187, 61066, 61233 #### [facility] [address] [place] [address], USAGFR/1.73 sq M predicted among blacks MDRD (S/P/Bld) [Vol rate/Area]mL/min/{1.73_m2}Normal>60The [facility] Comment on above:Order Comment: No: Do not add to previous drawPerformed By: #### 82625, 37865, 98065, 04671, 11214, 52054, 73184, 33753 #### [facility] [address] [place] [address], USAGFR/1.73 sq M predicted among non-blacks MDRD (S/P/Bld) [Vol rate/Area]mL/min/{1.73_m2}Normal>60The [facility] Comment on above:Order Comment: No: Do not add to previous drawPerformed By: #### 60454, 67891, 06605, 60964, 11491, 91578, 81682, 82165 #### [facility] [address] [place] [address], USAGlucose [Mass/Vol]85 mg/rBHbydkh96-616Vpw [facility] AdministrationComment on above:Order Comment: No: Do not add to previous drawPerformed By: #### 79982, 43050, 72010, 21522, 11497, 70796, 83395, 95742 #### [facility] [address] [place] [address], USAPotassium [Moles/Vol]3.6 mmol/LNormal3.5-5.1The [facility] Health AdministrationComment on above:Order Comment: No: Do not add to previous drawPerformed By: #### 81211, 06850, 97126, 87719, 06080, 22832, 13169, 45593 #### [facility] [address] [place] [address], USASodium [Moles/Vol]135 mmol/CXyc793-296Jbz [facility] AdministrationComment on above:Order Comment: No: Do not add to previous drawPerformed By: #### 56521, 25004, 02289, 04029, 64508, 63516, 22882, 71667 #### [facility] [address] [place] [address], USAUrea nitrogen [Mass/Vol]16 mg/dLNormal7-25The [facility] AdministrationComment on above:Order Comment: No: Do not add to previous drawPerformed By: #### 52867, 96842, 80377, 40543, 33473, 09078, 20289, 80801 #### [facility] [address] [facility] [place] [address], [facility] HOSPITALCB W/DIFFon 89-19-1116NDP BASOPHILS0.0 10*3/uLNormal 0.0-0.2The [facility] Health AdministrationComment on above:Order Comment: No: Do not add to previous drawPerformed By: #### 33757, 09808, 94980, 98620, 96223, 68938, 72186, 16505 #### [facility] [address] [facility] [place] [address], [facility] HOSPITALABS UOSJJXJAMGX51.2 10*3/uLHigh1.6-7.6The [facility] Health AdministrationComment on above:Order Comment: No: Do not add to previous drawPerformed By: #### 88854, 89378, 91281, 42469, 93336, 85590, 83301, 68739 #### [facility] [address] [place] [address], USABasophils/100 WBC (Bld)0.0 %Normal0.0-1.0The [facility] Health AdministrationComment on above:Order Comment: No: Do not add to previous drawPerformed By: #### 48414, 67652, 35910, 37314, 07363, 58199, 15744, 81104 #### [facility] [address] [facility] [place] [address], USAEosinophils (Bld) [#/Vol]0.3 10*3/uLNormal0.0-0.5The [facility] Health AdministrationComment on above:Order Comment: No: Do not add to previous drawPerformed By: #### 55039, 52846, 46969, 44420, 04631, 62124, 40584, 06551 #### [facility] [address] [facility] [place] [address], USAEosinophils/100 WBC (Bld)1.8 %Normal0.0-6.0The [facility] Health AdministrationComment on above:Order Comment: No: Do not add to previous drawPerformed By: #### 05035, 82376, 67917, 20284, 13592, 05557, 46684, 84098 #### [facility] [address] [facility] [place] [address], USAErythrocyte distribution width (RBC) [Ratio]14.0 %Normal 11.5-15.0The [facility] Health AdministrationComment on above:Order Comment: No: Do not add to previous drawPerformed By: #### 17858, 06627, 46434, 03159, 27690, 79001, 33617, 16807 #### [facility] [address] [facility] [place] [address], USAGIANT PLATELETSPresentNormalThe Veterans Health AdministrationComment on above:Order Comment: No: Do not add to previous draw Performed By: #### 73049, 14660, 44295, 76798, 14501, 46966, 08966, 56883 #### [facility] [address] [place] [address], USAHematocrit (Bld) [Volume fraction]40.5 %Szvohe26.0-45.0The [facility] Health AdministrationComment on above:Order Comment: No: Do not add to previous drawPerformed By: #### 69041, 17129, 84978, 22519, 69666, 92303, 44838, 64274 #### [facility] [address] [place] [address], USAHemoglobin (Bld) [Mass/Vol]12.6 g/wWJbsqdu07.0-15.0The [facility] AdministrationComment on above:Order Comment: No: Do not add to previous drawPerformed By: #### 34612, 78261, 09958, 31379, 91340, 26288, 93486, 64575 #### [facility] [address] [place] [address], USALymphocytes (Bld) [#/Vol]3.5 10*3/uLNormal1.2-4.0The [facility] AdministrationComment on above:Order Comment: No: Do not add to previous drawPerformed By: #### 22446, 76871, 86889, 55341, 25209, 51726, 92880, 44508 #### [facility] [address] [place] [address], USALymphocytes/100 WBC (Bld)18.5 %Low20.0-45.0The [facility] AdministrationComment on above:Order Comment: No: Do not add to previous drawPerformed By: #### 00209, 01493, 99676, 11495, 05422, 69322, 53912, 62203 #### [facility] [address] [place] [address], USAMCH (RBC) [Entitic mass]27.3 aaKbzxcx72.0-33.0The [facility] Health AdministrationComment on above:Order Comment: No: Do not add to previous drawPerformed By: #### 59220, 99276, 06955, 48745, 79817, 37533, 49995, 58110 #### [facility] [address] [place] [address], USAMCHC (RBC) [Mass/Vol]31.1 g/dLLow32.0-35.0The [facility] Health AdministrationComment on above:Order Comment: No: Do not add to previous drawPerformed By: #### 22040, 10558, 73443, 59326, 18003, 65645, 33751, 23188 #### [facility] [address] [place] [address], USAMCV (RBC) [Entitic vol]87.7 sOUirkvd11.0-98.0The [facility] AdministrationComment on above:Order Comment: No: Do not add to previous drawPerformed By: #### 60913, 13814, 91803, 95810, 45393, 25345, 69661, 61179 #### [facility] [address] [place] [address], USAMonocytes (Bld) [#/Vol]1.1 10*3/uLHigh0.1-1.0The [facility] AdministrationComment on above:Order Comment: No: Do not add to previous drawPerformed By: #### 60945, 63159, 28254, 98167, 25708, 59243, 64600, 81982 #### [facility] [address] [place] [address], USAMONOS5.6 %Normal5.0-12.0The [facility] AdministrationComment on above:Order Comment: No: Do not add to previous drawPerformed By: #### 82131, 20737, 83259, 32386, 88605, 17881, 82986, 34485 #### [facility] [address] [place] [address], USANeutrophils/100 WBC (Bld)74.1 %High40.0-72.0The [facility] Health AdministrationComment on above:Order Comment: No: Do not add to previous drawPerformed By: #### 79402, 31167, 51439, 29406, 11391, 91815, 29427, 23544 #### [facility] [address] [place] [address], USANucleated RBC/100 WBC (Bld) [Ratio]0 %Normal0-0The [facility] Health AdministrationComment on above:Order Comment: No: Do not add to previous drawPerformed By: #### 57563, 70881, 80807, 25703, 17396, 92605, 97963, 76084 #### [facility] [address] [place] [address], USAPLAT CTP462 10*3/gWIynrwn413-380Fcl [facility] AdministrationComment on above:Order Comment: No: Do not add to previous draw Performed By: #### 72513, 70389, 57701, 29615, 09538, 33669, 38435, 82921 #### [facility] [address] [place] [address], USARBC (Bld) [#/Vol]4.62 10*6/uLNormal3.80-5.00The [facility] Health AdministrationComment on above:Order Comment: No: Do not add to previous drawPerformed By: #### 49220, 29833, 56236, 89104, 67024, 50732, 98158, 21009 #### [facility] [address] [place] [address], USAWBC (Bld) [#/Vol]19.16 10*3/uLHigh4.00-10.60The [facility] AdministrationComment on above:Order Comment: No: Do not add to previous drawPerformed By: #### 35377, 97170, 17135, 90035, 39710, 01954, 65553, 92209 #### [facility] [address] [facility] [place] [place] [address], USAMAGNESIUM BLOODon 49-96-2118Uqgctwtdn [Mass/Vol]2.1 mg/dL Normal1.9-2.7The [facility] Health AdministrationComment on above:Order Comment: No: Do not add to previous drawPerformed By: #### 86901, 56571, 65914, 50662, 20038, 75116, 65118, 37442 #### [facility] [address] [facility] [place] [address], USAPHOSPHORUS BLOODon 68-66-7289Nrlxlasfg [Mass/Vol]3.3 mg/dL Normal2.5-5.0The [facility] Health AdministrationComment on above:Order Comment: No: Do not add to previous drawPerformed By: #### 12409, 01770, 41062, 97683, 12451, 06336, 43385, 77818 #### [facility] [address] [facility] [place] [place] [address], [facility]OSPITALCBC W/DIFFon 90-96-2721KIM BASOPHILS0.0 10*3/uLNormal 0.0-0.2The [facility] Health AdministrationComment on above:Order Comment: No: Do not add to previous drawPerformed By: #### 25316, 19632, 56273, 48332, 07983, 51854, 29569, 89656 #### [facility] [address] [place] [address], [facility] HOSPITALABS EGUPKFAHFMN92.5 10*3/uLHigh1.6-7.6The [facility] Health AdministrationComment on above:Order Comment: No: Do not add to previous drawPerformed By: #### 21819, 40948, 15593, 53115, 29866, 10314, 09317, 77364 #### [facility] [address] [place] [address], USABasophils/100 WBC (Bld)0.0 %Normal0.0-1.0The [facility] Health AdministrationComment on above:Order Comment: No: Do not add to previous drawPerformed By: #### 56522, 50684, 39784, 91466, 89837, 70544, 40962, 59737 #### [facility] [address] [place] [address], USAEosinophils (Bld) [#/Vol]0.0 10*3/uLNormal0.0-0.5The [facility] Health AdministrationComment on above:Order Comment: No: Do not add to previous drawPerformed By: #### 64452, 30633, 74824, 92677, 85208, 19663, 60056, 58923 #### [facility] [address] [place] [address], USAEosinophils/100 WBC (Bld)0.0 %Normal0.0-6.0The [facility] Health AdministrationComment on above:Order Comment: No: Do not add to previous drawPerformed By: #### 25498, 39798, 48457, 87111, 25243, 39173, 10490, 48994 #### [facility] [address] [facility] [place] [address], USAErythrocyte distribution width (RBC) [Ratio]13.7 %Normal 11.5-15.0The [facility] Health AdministrationComment on above:Order Comment: No: Do not add to previous drawPerformed By: #### 69902, 82523, 88236, 03710, 61230, 96432, 09978, 41137 #### [facility] [address] [facility] [place] [address], USAGIANT PLATELETSPresentNormalThe Veterans Health AdministrationComment on above:Order Comment: No: Do not add to previous draw Performed By: #### 20517, 91915, 37482, 07226, 83568, 08742, 08344, 31943 #### [facility] [address] [place] [address], USAHematocrit (Bld) [Volume fraction]37.8 %Ptvrgk12.0-45.0The [facility] Health AdministrationComment on above:Order Comment: No: Do not add to previous drawPerformed By: #### 57583, 63447, 37851, 57912, 02362, 90799, 85179, 73574 #### [facility] [address] [place] [address], USAHemoglobin (Bld) [Mass/Vol]12.2 g/oWNvweoe43.0-15.0The [facility] Health AdministrationComment on above:Order Comment: No: Do not add to previous drawPerformed By: #### 20307, 36550, 89672, 45324, 72615, 88048, 32770, 58469 #### [facility] [address] [place] [address], USALymphocytes (Bld) [#/Vol]0.4 10*3/uLLow1.2-4.0The [facility] Health AdministrationComment on above:Order Comment: No: Do not add to previous drawPerformed By: #### 84740, 84354, 74524, 93532, 15712, 87484, 26530, 74381 #### [facility] [address] [place] [address], USALymphocytes/100 WBC (Bld)1.8 %Low20.0-45.0The [facility] Health AdministrationComment on above:Order Comment: No: Do not add to previous drawPerformed By: #### 16265, 02699, 00057, 32512, 62445, 74206, 28036, 57441 #### [facility] [address] [place] [address], USAMCH (RBC) [Entitic mass]27.4 wtPmzlxg89.0-33.0The [facility] Health AdministrationComment on above:Order Comment: No: Do not add to previous drawPerformed By: #### 86826, 07936, 87532, 68859, 30439, 19218, 18827, 21659 #### [facility] [address] [place] [address], [facility] (RBC) [Mass/Vol]32.3 g/fSBsdgzr34.0-35.0The [facility] Health AdministrationComment on above:Order Comment: No: Do not add to previous drawPerformed By: #### 69022, 05371, 21890, 85952, 52964, 86996, 83087, 64709 #### [facility] [address] [place] [address], [facility] (RBC) [Entitic vol]84.9 wZCsiupr91.0-98.0The [facility] Health AdministrationComment on above:Order Comment: No: Do not add to previous drawPerformed By: #### 24271, 44594, 44997, 53015, 87871, 42499, 67007, 96761 #### [facility] [address] [place] [address], USAMonocytes (Bld) [#/Vol]0.9 10*3/uLNormal0.1-1.0The [facility] AdministrationComment on above:Order Comment: No: Do not add to previous drawPerformed By: #### 44737, 33173, 49466, 47737, 24633, 71284, 51167, 93308 #### [facility] [address] [place] [address], USAMONOS4.6 %Low5.0-12.0The [facility] AdministrationComment on above:Order Comment: No: Do not add to previous drawPerformed By: #### 04116, 45476, 53410, 00098, 25535, 56327, 56512, 58881 #### [facility] [address] [place] [address], USAMYELOS1.8 %High.0-.0[facility] Comment on above:Order Comment: No: Do not add to previous drawPerformed By: #### 22410, 30859, 78936, 47522, 95102, 58406, 94396, 69671 #### [facility] [address] [place] [address], USANeutrophils/100 WBC (Bld)91.8 %High40.0-72.0The Veterans Health AdministrationComment on above:Order Comment: No: Do not add to previous drawPerformed By: #### 38988, 70304, 86024, 10440, 46190, 49387, 61241, 17053 #### [facility] [address] [place] [address], USANucleated RBC/100 WBC (Bld) [Ratio]0 %Normal0-0The Veterans Health AdministrationComment on above:Order Comment: No: Do not add to previous drawPerformed By: #### 31823, 51319, 28629, 33412, 12995, 85403, 63220, 38339 #### [facility] [address] [place] [address], USAPLAT EZO367 10*3/tDDvmale150-839Bhg [facility] Health AdministrationComment on above:Order Comment: No: Do not add to previous draw Performed By: #### 91204, 18135, 82716, 00137, 17613, 98335, 76882, 60094 #### [facility] [address] [place] [address], USARBC (Bld) [#/Vol]4.45 10*6/uLNormal3.80-5.00The [facility] Health AdministrationComment on above:Order Comment: No: Do not add to previous drawPerformed By: #### 84471, 68510, 19520, 14048, 95304, 95579, 18787, 81578 #### [facility] [address] [place] [address], USAWBC (Bld) [#/Vol]20.14 10*3/uLHigh4.00-10.60The [facility] Health AdministrationComment on above:Order Comment: No: Do not add to previous drawPerformed By: #### 07183, 66107, 60996, 65100, 59364, 09064, 58540, 94831 #### [facility] [address] [place] [address], USACOMP METABOLIC PANELon 78-31-7903Qjywpah [Mass/Vol]3.3 g/dL Low3.5-5.7The Veterans Health AdministrationComment on above:Order Comment: No: Do not add to previous drawPerformed By: #### 05725, 28371, 44331, 01542, 30861, 97404, 71442, 89279 #### [facility] [address] [place] [address], USAALKALINE DSQVCE46 IU/AQhsipd31-981Mor [facility] Health AdministrationComment on above:Order Comment: No: Do not add to previous draw Performed By: #### 55077, 77604, 54416, 10677, 70959, 67850, 68574, 62214 #### [facility] [address] [place] [address], USAALT [Catalytic activity/Vol]38 U/LNormal7-52The [facility] Health AdministrationComment on above:Order Comment: No: Do not add to previous drawPerformed By: #### 04938, 84452, 78433, 02338, 15117, 94342, 31910, 06665 #### [facility] [address] [place] [address], USAAST [Catalytic activity/Vol]17 U/HGybcdt70-99Zyz [facility] AdministrationComment on above:Order Comment: No: Do not add to previous drawPerformed By: #### 20140, 14584, 06093, 88080, 22285, 48489, 01342, 15065 #### [facility] [address] [place] [address], USABilirubin [Mass/Vol]0.5 mg/dLNormal0.3-1.0The [facility] Health AdministrationComment on above:Order Comment: No: Do not add to previous drawPerformed By: #### 92382, 11009, 91530, 50766, 08181, 98569, 31192, 13837 #### [facility] [address] [place] [address], USACalcium [Mass/Vol]8.6 mg/dLNormal8.6-10.3The [facility] Health AdministrationComment on above:Order Comment: No: Do not add to previous drawPerformed By: #### 70976, 06705, 26205, 20314, 70922, 19207, 56612, 12899 #### [facility] [address] [place] [address], USAChloride [Moles/Vol]102 mmol/EIcxlam78-395Rqc [facility] AdministrationComment on above:Order Comment: No: Do not add to previous drawPerformed By: #### 83666, 56268, 97723, 94636, 08280, 19632, 16524, 51141 #### [facility] [address] [place] [address], USACO2 [Moles/Vol]31 mmol/TCgtggr83-12Ref [facility] AdministrationComment on above:Order Comment: No: Do not add to previous draw Performed By: #### 98759, 79173, 62918, 96254, 52447, 53391, 53146, 49719 #### [facility] [address] [place] [address], USACreatinine [Mass/Vol]0.38 mg/dLLow0.60-1.20The [facility] Health AdministrationComment on above:Order Comment: No: Do not add to previous drawPerformed By: #### 10087, 57634, 13885, 60205, 33144, 54566, 38976, 05728 #### [facility] [address] [place] [address], USAGFR/1.73 sq M predicted among blacks MDRD (S/P/Bld) [Vol rate/Area]mL/min/{1.73_m2}Normal>60The [facility] Comment on above:Order Comment: No: Do not add to previous drawPerformed By: #### 68093, 69187, 69247, 40865, 43255, 57498, 75883, 91389 #### [facility] [address] [place] [address], USAGFR/1.73 sq M predicted among non-blacks MDRD (S/P/Bld) [Vol rate/Area]mL/min/{1.73_m2}Normal>60The [facility] Comment on above:Order Comment: No: Do not add to previous drawPerformed By: #### 96757, 80155, 83964, 00942, 08442, 52059, 56232, 95101 #### [facility] [address] [place] [address], USAGlucose [Mass/Vol]126 mg/kMMiih79-087Vfd [facility] AdministrationComment on above:Order Comment: No: Do not add to previous drawPerformed By: #### 77038, 98610, 81992, 03537, 95484, 31643, 08782, 87939 #### [facility] [address] [place] [address], USAPotassium [Moles/Vol]3.9 mmol/LNormal3.5-5.1The [facility] Health AdministrationComment on above:Order Comment: No: Do not add to previous drawPerformed By: #### 44275, 91309, 08984, 26320, 42923, 98519, 29782, 91320 #### [facility] [address] [place] [address], USAProtein [Mass/Vol]5.7 g/dLLow6.0-8.3The [facility] Health AdministrationComment on above:Order Comment: No: Do not add to previous drawPerformed By: #### 98616, 01308, 51065, 27173, 55661, 93039, 51332, 61323 #### [facility] [address] [place] [address], USASodium [Moles/Vol]136 mmol/CYkngzf148-230Kte [facility] AdministrationComment on above:Order Comment: No: Do not add to previous drawPerformed By: #### 54840, 66303, 30253, 54461, 11401, 11091, 95059, 40590 #### [facility] [address] [place] [address], USAUrea nitrogen [Mass/Vol]13 mg/dLNormal7-25The [facility] Health AdministrationComment on above:Order Comment: No: Do not add to previous drawPerformed By: #### 12527, 21533, 09429, 68452, 83092, 08649, 02527, 59694 #### [facility] [address] [place] [address], USAMAGNESIUM BLOODon 83-57-4450Kolladali [Mass/Vol]2.1 mg/dL Normal1.9-2.7The [facility] Health AdministrationComment on above:Order Comment: No: Do not add to previous drawPerformed By: #### 30068, 59642, 35149, 82924, 76481, 36433, 46150, 32737 #### [facility] [address] [place] [address], USAPHOSPHORUS BLOODon 22-66-1852Eweivyrer [Mass/Vol]3.6 mg/dL Normal2.5-5.0The [facility] Health AdministrationComment on above:Order Comment: No: Do not add to previous drawPerformed By: #### 16617, 06418, 60773, 77187, 10589, 14023, 02226, 98407 #### [facility] [address] [place] [address], USAPOC GLUCOSE LABon 59-67-9356Cjwtgow [Mass/Vol]193 mg/dLHigh 70-100The [facility] Health AdministrationComment on above:Performed By: #### 46665, 13940, 78268, 97454, 94442, 64349, 79308, 67061 #### [facility] [address] [place] [address], USAPORTABLE CHEST 1 VIEWon 53-68-4639RXBTIERQ CHEST 1 VIEW [facility] Department [facility] [address] [place] [id number] Patient Name: KATALINA TAPIA : 1965 Sex: F Age: Race: White Pt. Location: [place] [address] Patient Status: I Ordered Date: 09/21/2018 6:00:00 [...] findings. Electronically signed by:Duke Holm. Transcribed by: [email or web address], User Resident: BELA LIMON Electronically Signed by: DUKE HOLM @ 09/22/2018 07:34 PM I personally read this/these film(s) with this residentAdena Pike Medical CenterComment on above:Order Comment: No: Do not add to previous drawAMMONIA BLOODon 71-47-0827Qnesueb (P) [Mass/Vol]50 umol/DDklekt27-81Rqy [facility] AdministrationComment on above:Order Comment: No: Do not add to previous drawPerformed By: #### 20727, 70205, 78967, 41538, 76153, 20205, 81770, 89880 #### [facility] [address] [place] [address], USABASIC METABOLIC PANELon 71-81-8908Rafwsrx [Mass/Vol]8.3 mg/dLLow8.6-10.3The [facility] Health AdministrationComment on above:Order Comment: No: Do not add to previous drawPerformed By: #### 36231, 08247, 96087, 15470, 03816, 17774, 21990, 60517 #### [facility] [address] [place] [address], USAChloride [Moles/Vol]104 mmol/AZqilcr43-805Mim [facility] AdministrationComment on above:Order Comment: No: Do not add to previous drawPerformed By: #### 18805, 05817, 98931, 65189, 68459, 25545, 67585, 59431 #### [facility] [address] [place] [address], USACO2 [Moles/Vol]27 mmol/FRtqytm05-03Xec [facility] AdministrationComment on above:Order Comment: No: Do not add to previous draw Performed By: #### 30786, 08429, 87113, 74339, 67931, 96913, 75334, 03734 #### [facility] [address] [place] [address], USACreatinine [Mass/Vol]0.39 mg/dLLow0.60-1.20The [facility] Health AdministrationComment on above:Order Comment: No: Do not add to previous drawPerformed By: #### 24294, 85454, 14939, 68831, 30059, 00939, 96913, 71898 #### [facility] [address] [place] [address], USAGFR/1.73 sq M predicted among blacks MDRD (S/P/Bld) [Vol rate/Area]mL/min/{1.73_m2}Normal>60The [facility] Comment on above:Order Comment: No: Do not add to previous drawPerformed By: #### 41226, 88091, 24486, 52157, 22741, 29212, 89501, 23590 #### [facility] [address] [place] [address], USAGFR/1.73 sq M predicted among non-blacks MDRD (S/P/Bld) [Vol rate/Area]mL/min/{1.73_m2}Normal>60The [facility] Comment on above:Order Comment: No: Do not add to previous drawPerformed By: #### 91948, 15052, 48115, 38739, 96170, 19935, 80195, 67350 #### [facility] [address] [place] [address], USAGlucose [Mass/Vol]80 mg/kLKlenlw10-826Gha [facility] AdministrationComment on above:Order Comment: No: Do not add to previous drawPerformed By: #### 61370, 95766, 68947, 57915, 30457, 85977, 90412, 23972 #### [facility] [address] [place] [place] [address], USAPotassium [Moles/Vol]3.5 mmol/LNormal3.5-5.1The [facility] Health AdministrationComment on above:Order Comment: No: Do not add to previous drawPerformed By: #### 86311, 22762, 16697, 64973, 00531, 08184, 44949, 18807 #### [facility] [address] [place] [address], USASodium [Moles/Vol]137 mmol/SVnfplc402-418Tgz [facility] AdministrationComment on above:Order Comment: No: Do not add to previous drawPerformed By: #### 48222, 54226, 59771, 29790, 04931, 53568, 74292, 01655 #### [facility] [address] [facility] [place] [address], USAUrea nitrogen [Mass/Vol]15 mg/dLNormal7-25The [facility] Health AdministrationComment on above:Order Comment: No: Do not add to previous drawPerformed By: #### 77707, 13250, 85953, 52520, 04357, 97226, 11979, 14623 #### [facility] [address] [facility] [facility] [place] [address], [facility] HOSPITALCB W/DIFFon 47-86-7666QMB BASOPHILS0.0 10*3/uLNormal 0.0-0.2The [facility] Health AdministrationComment on above:Order Comment: No: Do not add to previous drawPerformed By: #### 09207, 34761, 65051, 61169, 69573, 25160, 55627, 00828 #### [facility] [address] [facility] [facility] [place] [address], CL[facility] BAPTIST HOSPITALABS DNHEFYSLORJ80.2 10*3/uLHigh1.6-7.6The [facility] Health AdministrationComment on above:Order Comment: No: Do not add to previous drawPerformed By: #### 27273, 77152, 47740, 03597, 18625, 04872, 51506, 96138 #### [facility] [address] [place] [address], USABasophils/100 WBC (Bld)0.0 %Normal0.0-1.0The [facility] Health AdministrationComment on above:Order Comment: No: Do not add to previous drawPerformed By: #### 16817, 22438, 50449, 39918, 37210, 31488, 80160, 48261 #### [facility] [address] [place] [address], USAEosinophils (Bld) [#/Vol]0.0 10*3/uLNormal0.0-0.5The [facility] Health AdministrationComment on above:Order Comment: No: Do not add to previous drawPerformed By: #### 45419, 26208, 36008, 32411, 44726, 71352, 88178, 91458 #### [facility] [address] [place] [address], USAEosinophils/100 WBC (Bld)0.0 %Normal0.0-6.0The [facility] Health AdministrationComment on above:Order Comment: No: Do not add to previous drawPerformed By: #### 20556, 53618, 41357, 95991, 88437, 05544, 61897, 07486 #### [facility] [address] [place] [address], USAErythrocyte distribution width (RBC) [Ratio]13.8 %Normal 11.5-15.0The [facility] Health AdministrationComment on above:Order Comment: No: Do not add to previous drawPerformed By: #### 29796, 06084, 46525, 15660, 48149, 84616, 13062, 88535 #### [facility] [address] [place] [address], USAGIANT PLATELETSPresentNormalThe Veterans Health AdministrationComment on above:Order Comment: No: Do not add to previous draw Performed By: #### 84602, 78115, 46879, 51706, 92817, 90362, 34839, 01412 #### [facility] [address] [place] [address], USAHematocrit (Bld) [Volume fraction]36.9 %Ftnqlm04.0-45.0The [facility] Health AdministrationComment on above:Order Comment: No: Do not add to previous drawPerformed By: #### 94352, 29731, 85279, 06685, 42295, 59007, 86094, 08967 #### [facility] [address] [place] [address], USAHemoglobin (Bld) [Mass/Vol]11.9 g/dLLow12.0-15.0The [facility] Health AdministrationComment on above:Order Comment: No: Do not add to previous drawPerformed By: #### 00295, 94456, 94282, 37475, 14831, 53740, 39515, 91432 #### [facility] [address] [facility] [place] [address], USALymphocytes (Bld) [#/Vol]1.8 10*3/uLNormal1.2-4.0The [facility] Health AdministrationComment on above:Order Comment: No: Do not add to previous drawPerformed By: #### 91555, 62733, 12611, 19410, 71941, 46566, 78812, 86413 #### [facility] [address] [facility] [place] [address], USALymphocytes/100 WBC (Bld)9.1 %Low20.0-45.0The [facility] Health AdministrationComment on above:Order Comment: No: Do not add to previous drawPerformed By: #### 41276, 21580, 60262, 67521, 81172, 78900, 79625, 39162 #### [facility] [address] [facility] [place] [address], USAMCH (RBC) [Entitic mass]27.7 opNlgiql31.0-33.0The [facility] Health AdministrationComment on above:Order Comment: No: Do not add to previous drawPerformed By: #### 77107, 54057, 34417, 85139, 42918, 06366, 27653, 12112 #### [facility] [address] [place] [address], [facility]ANDHC (RBC) [Mass/Vol]32.2 g/zNTofxze74.0-35.0The [facility] Health AdministrationComment on above:Order Comment: No: Do not add to previous drawPerformed By: #### 31050, 77610, 28931, 70370, 03672, 25427, 77817, 80141 #### [facility] [address] [place] [address], [facility] (RBC) [Entitic vol]85.8 kXRkutws71.0-98.0The [facility] Health AdministrationComment on above:Order Comment: No: Do not add to previous drawPerformed By: #### 88421, 68116, 02219, 29635, 59136, 96924, 02218, 84739 #### [facility] [address] [place] [address], USAMETAMYELO1.8 %High0.0-0.0The [facility] Health AdministrationComment on above:Order Comment: No: Do not add to previous drawPerformed By: #### 45819, 54497, 86043, 20580, 20252, 29170, 12915, 68686 #### [facility] [address] [place] [address], USAMonocytes (Bld) [#/Vol]0.7 10*3/uLNormal0.1-1.0The [facility] Health AdministrationComment on above:Order Comment: No: Do not add to previous drawPerformed By: #### 50170, 23266, 07541, 82002, 78056, 31540, 66341, 31442 #### [facility] [address] [place] [address], USAMONOS3.6 %Low5.0-12.0The [facility] Health AdministrationComment on above:Order Comment: No: Do not add to previous drawPerformed By: #### 23729, 75747, 05915, 20953, 95096, 89685, 83087, 57568 #### [facility] [address] [place] [address], USAMYELOS1.8 %High.0-.0The [facility] Comment on above:Order Comment: No: Do not add to previous drawPerformed By: #### 96332, 97423, 37389, 51713, 59880, 04684, 81565, 92001 #### [facility] [address] [place] [address], USANeutrophils/100 WBC (Bld)83.7 %High40.0-72.0The [facility] Health AdministrationComment on above:Order Comment: No: Do not add to previous drawPerformed By: #### 84384, 84412, 00713, 99398, 34678, 97914, 19093, 84303 #### [facility] [address] [place] [address], USANucleated RBC/100 WBC (Bld) [Ratio]0 %Normal0-0The [facility] Health AdministrationComment on above:Order Comment: No: Do not add to previous drawPerformed By: #### 10776, 35718, 86412, 78405, 97904, 05757, 51001, 94342 #### [facility] [address] [place] [address], USAPLAT MXI314 10*3/hWPdtvdi011-781Fik [facility] AdministrationComment on above:Order Comment: No: Do not add to previous draw Performed By: #### 62980, 97245, 03031, 42754, 55890, 19228, 32102, 70960 #### [facility] [address] [place] [address], USARBC (Bld) [#/Vol]4.30 10*6/uLNormal3.80-5.00The [facility] Health AdministrationComment on above:Order Comment: No: Do not add to previous drawPerformed By: #### 64212, 03576, 17810, 18865, 68254, 79600, 36679, 73580 #### [facility] [address] [facility] [place] [address], USAWBC (Bld) [#/Vol]19.41 10*3/uLHigh4.00-10.60The [facility] Health AdministrationComment on above:Order Comment: No: Do not add to previous drawPerformed By: #### 98499, 06019, 09037, 77972, 61337, 70840, 70083, 39145 #### [facility] [address] [facility] [place] [address], USAMAGNESIUM BLOODon 72-41-9746Kynverejd [Mass/Vol]2.0 mg/dL Normal1.9-2.7The [facility] Health AdministrationComment on above:Order Comment: No: Do not add to previous drawPerformed By: #### 64343, 46265, 38287, 94178, 61408, 78413, 47170, 84806 #### [facility] [address] [facility] [place] [address], USAPHOSPHORUS BLOODon 13-14-9988Eluxjvwsu [Mass/Vol]2.6 mg/dL Normal2.5-5.0The [facility] Health AdministrationComment on above:Order Comment: No: Do not add to previous drawPerformed By: #### 74481, 17664, 77317, 35277, 75616, 82528, 33274, 72283 #### [facility] [address] [facility] [place] [address], USAPORTABLE CHEST 1 VIEWon 09-45-4473QTNZPAUH CHEST 1 VIEW [facility] Department of Radiology [address] [place] [id number] Patient Name: KATALINA TAPIA : 1965 Sex: F Age: Race: White Pt. Location: [place] [address] Patient Status: I Ordered Date: 09/20/2018 6:00:00 AM Completed Date: 09/20/2018 07:54 AM Requesting Provider: BIENVENIDO LOZDAA Attending Provider: FRANKLIN CEE Report Copy To: [...] by:Dilma Acharya on 09/20/2018 7:59 AM EDT. I, Duke Holm, have reviewed the images and report and concur with these findings. Electronically signed by:Duke Holm. Transcribed by: [email or web address], User Resident: DILMA ACHARYA Electronically Signed by: UDKE HOLM @ 09/20/2018 12:42 PM I personally read this/these film(s) with this [facility] HospitalComment on above:Order Comment: No: Do not add to previous drawARTERIAL BLOOD GAS WITH ICAon 03-51-5773XDHB EXCESS6 mmol/HNugb-0-4Gjb [facility] AdministrationComment on above:Performed By: #### 49269, 22038, 11960, 39041, 88818, 42232, 16060, 11728 #### [facility] [address] [place] [address], USADELIVERY SYSTEMSMVAdena Pike Medical CenterComment on above:Performed By: #### 79887, 72411, 32267, 44939, 68339, 48633, 64020, 99193 #### [facility] [address] [place] [address], MFOPRJ716 %NormalThe [facility] Comment on above:Performed By: #### 69143, 44612, 08136, 48785, 33428, 63944, 80334, 43789 #### [facility] [address] [place] [address], USAHCO3 (Bld) [Moles/Vol]31 mmol/LCritically omih03-60Zbz [facility] AdministrationComment on above:Performed By: #### 16090, 55422, 42881, 74781, 17653, 74149, 97469, 52551 #### [facility] [address] [place] [address], USAIONIZED CALCIUM1.14 mmol/LNormal1.13-1.32The [facility] AdministrationComment on above:Performed By: #### 91772, 55314, 65115, 32309, 00652, 70568, 15491, 95664 #### [facility] [address] [place] [address], USAMIN VOLUME9.5NoWhite [facility] Comment on above:Performed By: #### 27918, 90756, 75328, 94960, 19764, 83071, 40037, 95859 #### [facility] [address] [place] [address], USAMODALITYACNoMorrow County Hospitalo [facility] Comment on above:Performed By: #### 62014, 65193, 68748, 93761, 01795, 62599, 64740, 87623 #### [facility] [address] [place] [address], USAOxygen (Bld) [Partial pressure]142 mm[Hg]Critically high 83-108The [facility] Health AdministrationComment on above:Performed By: #### 88756, 90690, 65587, 87916, 83052, 67020, 04115, 64069 #### [facility] [address] [place] [address], USAOxygen saturation in Blood96.0 %Xpfalx48.0-97.0The [facility] Health AdministrationComment on above:Performed By: #### 03018, 38470, 88829, 11564, 00942, 53354, 99914, 71437 #### [facility] [address] [place] [address], DZJRKN984 unJnJwhl36-19Vdn [facility] Comment on above:Performed By: #### 92396, 07635, 81462, 50778, 77525, 77086, 22587, 95490 #### [facility] [address] [place] [address], USAPEEP8.0 ZRU33QsxenlRdwAdena Pike Medical Center Comment on above:Performed By: #### 14567, 45242, 70706, 33476, 00079, 59647, 65528, 65036 #### [facility] [address] [place] [address], USApH (Bld)7.44 [pH]Normal7.35-7.45The [facility] Health AdministrationComment on above:Result Comment: PLEASE NOTE: Effective 06/30/18, reference ranges for Respiratory GEM analyzers running arterial blood have been updated to reflect the steam fitter helper's published reference ranges.Performed By: #### 36026, 99530, 98061, 07986, 24650, 92570, 58052, 88249 #### [facility] [address] [place] [address], USATIDAL VOLUME (VT) CC500 ccNormalThe [facility] Health AdministrationComment on above:Performed By: #### 99895, 56499, 52208, 39959, 18761, 23268, 54722, 15710 #### [facility] [address] [place] [address], USABASIC METABOLIC PANELon 38-15-8980Iwzgsdw [Mass/Vol]8.2 mg/dLLow8.6-10.3The [facility] Health AdministrationComment on above:Order Comment: No: Do not add to previous drawPerformed By: #### 69043, 11190, 34674, 94568, 54169, 26303, 88197, 41478 #### [facility] [address] [place] [address], USAChloride [Moles/Vol]105 mmol/HAmdgad13-286Phn [facility] Health AdministrationComment on above:Order Comment: No: Do not add to previous drawPerformed By: #### 25310, 28395, 11605, 61154, 16341, 25504, 50931, 95186 #### [facility] [address] [place] [address], USACO2 [Moles/Vol]28 mmol/HDtpmdh96-87Lkp [facility] Health AdministrationComment on above:Order Comment: No: Do not add to previous draw Performed By: #### 62308, 28204, 57512, 27947, 08792, 22147, 17979, 74111 #### [facility] [address] [place] [address], USACreatinine [Mass/Vol]0.44 mg/dLLow0.60-1.20The Veterans Health AdministrationComment on above:Order Comment: No: Do not add to previous drawPerformed By: #### 51526, 16644, 18489, 34521, 54692, 33213, 06944, 93160 #### [facility] [address] [place] [address], USAGFR/1.73 sq M predicted among blacks MDRD (S/P/Bld) [Vol rate/Area]mL/min/{1.73_m2}Normal>60The [facility] Comment on above:Order Comment: No: Do not add to previous drawPerformed By: #### 00479, 46886, 04297, 05402, 72754, 82070, 94538, 35123 #### [facility] [address] [place] [address], USAGFR/1.73 sq M predicted among non-blacks MDRD (S/P/Bld) [Vol rate/Area]mL/min/{1.73_m2}Normal>60[facility] Comment on above:Order Comment: No: Do not add to previous drawPerformed By: #### 90957, 08274, 75361, 56591, 92000, 62433, 05024, 01701 #### [facility] [address] [place] [address], USAGlucose [Mass/Vol]137 mg/cXSxgj53-605Fkz [facility] AdministrationComment on above:Order Comment: No: Do not add to previous drawPerformed By: #### 01872, 45125, 26233, 14202, 09854, 80657, 77681, 11203 #### [facility] [address] [place] [address], USAPotassium [Moles/Vol]4.0 mmol/LNormal3.5-5.1The [facility] AdministrationComment on above:Order Comment: No: Do not add to previous drawPerformed By: #### 56464, 13920, 26297, 79151, 71676, 47835, 32297, 19836 #### [facility] [address] [place] [address], USASodium [Moles/Vol]141 mmol/ZMvtglf631-199Usz [facility] AdministrationComment on above:Order Comment: No: Do not add to previous drawPerformed By: #### 76694, 76694, 09227, 49000, 94368, 92090, 54216, 67933 #### [facility] [address] [facility] [place] [address], USAUrea nitrogen [Mass/Vol]19 mg/dLNormal7-25The [facility] AdministrationComment on above:Order Comment: No: Do not add to previous drawPerformed By: #### 98999, 59125, 37988, 32559, 50041, 23277, 90055, 78741 #### [facility] [address] [facility] [place] [address], [facility]OSPITALCBC W/DIFFon 66-18-5140DIA BASOPHILS0.0 10*3/uLNormal 0.0-0.2The [facility] AdministrationComment on above:Order Comment: No: Do not add to previous drawPerformed By: #### 30549, 65222, 97719, 86893, 04819, 61913, 51646, 42507 #### [facility] [address] [facility] [place] [address], USAABS UGUHILEUQAY93.0 10*3/uLHigh1.6-7.6The [facility] AdministrationComment on above:Order Comment: No: Do not add to previous drawPerformed By: #### 73805, 14023, 46131, 37011, 68417, 36679, 08884, 45526 #### [facility] [address] [facility] [place] [address], USABasophils/100 WBC (Bld)0.0 %Normal0.0-1.0The [facility] AdministrationComment on above:Order Comment: No: Do not add to previous drawPerformed By: #### 74984, 94703, 93315, 65038, 81336, 27504, 58406, 80622 #### [facility] [address] [facility] [place] [address], USAEosinophils (Bld) [#/Vol]0.1 10*3/uLNormal0.0-0.5The [facility] AdministrationComment on above:Order Comment: No: Do not add to previous drawPerformed By: #### 55553, 58604, 14385, 59595, 23004, 28087, 97059, 51095 #### [facility] [address] [place] [address], USAEosinophils/100 WBC (Bld)0.9 %Normal0.0-6.0The [facility] AdministrationComment on above:Order Comment: No: Do not add to previous drawPerformed By: #### 37872, 58215, 13685, 03922, 50758, 35070, 43359, 89158 #### [facility] [address] [place] [address], USAErythrocyte distribution width (RBC) [Ratio]14.0 %Normal 11.5-15.0The [facility] AdministrationComment on above:Order Comment: No: Do not add to previous drawPerformed By: #### 26143, 28913, 18533, 23288, 18253, 58012, 78886, 97328 #### [facility] [address] [facility] [place] [place] [address], USAGIANT PLATELETSPresentNormalThe [facility] Health AdministrationComment on above:Order Comment: No: Do not add to previous draw Performed By: #### 03475, 04021, 96935, 05978, 36318, 66191, 92035, 15112 #### [facility] [address] [place] [address], USAHematocrit (Bld) [Volume fraction]38.6 %Ptxskb92.0-45.0The [facility] AdministrationComment on above:Order Comment: No: Do not add to previous drawPerformed By: #### 30794, 01769, 43436, 53548, 85138, 44163, 71220, 74424 #### [facility] [address] [place] [address], USAHemoglobin (Bld) [Mass/Vol]11.9 g/dLLow12.0-15.0The [facility] AdministrationComment on above:Order Comment: No: Do not add to previous drawPerformed By: #### 04004, 33620, 65835, 57439, 34102, 26011, 60201, 86064 #### [facility] [address] [place] [address], USALymphocytes (Bld) [#/Vol]0.5 10*3/uLLow1.2-4.0The [facility] AdministrationComment on above:Order Comment: No: Do not add to previous drawPerformed By: #### 44304, 24317, 71876, 27467, 38401, 10722, 13314, 70557 #### [facility] [address] [facility] [place] [address], USALymphocytes/100 WBC (Bld)3.7 %Low20.0-45.0The [facility] AdministrationComment on above:Order Comment: No: Do not add to previous drawPerformed By: #### 88758, 96063, 87847, 48347, 47966, 35055, 42574, 69567 #### [facility] [address] [facility] [place] [address], [facility] (RBC) [Entitic mass]27.5 gaJpmusw54.0-33.0The [facility] AdministrationComment on above:Order Comment: No: Do not add to previous drawPerformed By: #### 17637, 20173, 19487, 83349, 31350, 07092, 25332, 32013 #### [facility] [address] [facility] [place] [address], [facility]TIST HOSPITALMCHC (RBC) [Mass/Vol]30.8 g/dLLow32.0-35.0The [facility] AdministrationComment on above:Order Comment: No: Do not add to previous drawPerformed By: #### 66973, 44619, 51640, 71061, 77667, 34222, 94680, 98551 #### [facility] [address] [place] [address], USAMCV (RBC) [Entitic vol]89.1 sBMzlfdv69.0-98.0The [facility] AdministrationComment on above:Order Comment: No: Do not add to previous drawPerformed By: #### 30274, 06862, 98107, 69853, 39889, 29500, 30660, 33272 #### [facility] [address] [place] [address], USAMETAMYELO2.7 %High0.0-0.0The [facility] AdministrationComment on above:Order Comment: No: Do not add to previous drawPerformed By: #### 47009, 82046, 91747, 34935, 74702, 12230, 46498, 49995 #### [facility] [address] [place] [address], USAMonocytes (Bld) [#/Vol]0.7 10*3/uLNormal0.1-1.0The [facility] AdministrationComment on above:Order Comment: No: Do not add to previous drawPerformed By: #### 85207, 34652, 51248, 16114, 93028, 55957, 05111, 59695 #### [facility] [address] [place] [address], USAMONOS4.6 %Low5.0-12.0The [facility] AdministrationComment on above:Order Comment: No: Do not add to previous drawPerformed By: #### 39259, 85068, 70018, 49886, 32613, 42356, 23222, 97494 #### [facility] [address] [place] [address], USAMYELOS3.7 %High.0-.0The [facility] Comment on above:Order Comment: No: Do not add to previous drawPerformed By: #### 82037, 89330, 41130, 89251, 21370, 86944, 04624, 72401 #### [facility] [address] [place] [address], USANeutrophils/100 WBC (Bld)84.4 %High40.0-72.0The [facility] AdministrationComment on above:Order Comment: No: Do not add to previous drawPerformed By: #### 10957, 69476, 91487, 37920, 47768, 90198, 10261, 39451 #### [facility] [address] [place] [address], USANucleated RBC/100 WBC (Bld) [Ratio]0 %Normal0-0The [facility] AdministrationComment on above:Order Comment: No: Do not add to previous drawPerformed By: #### 89473, 74867, 27150, 92101, 50120, 07185, 77163, 64949 #### [facility] [address] [place] [address], USAPLAT SAY159 10*3/xACoojtq130-441Tcx [facility] AdministrationComment on above:Order Comment: No: Do not add to previous draw Performed By: #### 50185, 66811, 72067, 25051, 51199, 42695, 08683, 50469 #### [facility] [address] [place] [address], USARBC (Bld) [#/Vol]4.33 10*6/uLNormal3.80-5.00The [facility] AdministrationComment on above:Order Comment: No: Do not add to previous drawPerformed By: #### 79172, 23219, 95052, 74455, 30279, 33478, 70851, 99824 #### [facility] [address] [place] [address], USAWBC (Bld) [#/Vol]14.24 10*3/uLHigh4.00-10.60The [facility] AdministrationComment on above:Order Comment: No: Do not add to previous drawPerformed By: #### 18301, 55012, 53471, 93892, 59285, 18197, 53480, 62308 #### [facility] [address] [place] [address], [facility] HOSPITALHIV COMBO 4Gon 27-40-4403ULA COMBONegativeNormalNEGATIVEThe [facility] AdministrationComment on above:Performed By: #### 22998, 38966, 35983, 69772, 36645, 21488, 74754, 53382 #### [facility] [address] [place] [address], [facility]IST HOSPITALMAGNESIUM BLOODon 55-04-3892Napcizgfa [Mass/Vol]2.2 mg/dL Normal1.9-2.7The [facility] AdministrationComment on above:Order Comment: No: Do not add to previous drawPerformed By: #### 20862, 61408, 79222, 49691, 29467, 17737, 89671, 55883 #### [facility] [address] [place] [address], [facility]TIST HOSPITALPHOSPHORUS BLOODon 26-08-7908Peejgwyin [Mass/Vol]3.9 mg/dL Normal2.5-5.0The [facility] AdministrationComment on above:Order Comment: No: Do not add to previous drawPerformed By: #### 18076, 89645, 52389, 96384, 48582, 73026, 18064, 74948 #### [facility] [address] [place] [address], [facility]*AFB CULTUREon 09-18-2018*AFB CULTUREClinical Report: (D) Specimen/Source: RESPIRATORY/BRONCHEAL ALVEOLAR LAVAGE Collected: 09/18/2018 13:35 Status: Final Last Updated: 11/02/2018 15:55 AFB (Final) No Acid Fast Bacilli Seen CULT RES (Final) No growth after 42 days of incubationAdena Pike Medical CenterComment on above:Performed By: #### 23954, 64797, 63663, 76859, 85864, 91378, 58011, 45501 #### [facility] [address]*FUNGAL CULTUREon 09-18-2018*FUNGAL CULTUREClinical Report: (D) Specimen/Source: RESPIRATORY/BRONCHEAL ALVEOLAR LAVAGE Collected: 09/18/2018 13:35 Status: Final Last Updated: 10/19/2018 15:09 FS (Final) No Yeast or Fungal Elements Seen CULT RES (Final) Culture negative for fungusNoWhite HospitalComment on above:Performed By: #### 11126, 16257, 93886, 87187, 16967, 50783, 44434, 59923 #### [facility] [address]*RESPIRATORY CULTUREon 09-18-2018*RESPIRATORY CULTURE Clinical Report: (D) Specimen/Source: RESPIRATORY/BRONCHEAL ALVEOLAR LAVAGE Collected: 09/18/2018 13:35 Status: Final Last Updated: 09/23/2018 09:07 GRAM (Final) Polys Present No Bacteria Seen CYTOSPUN (Final) This Gram Stain was done on a cytocentrifuged specimen CULT RES (Final) No Growth Day 5NoWhite HospitalComment on above: Performed By: #### 15871, 26392, 62724, 59762, 84216, 63288, 24535, 16424 #### [facility] [address] [place] [address], [facility] BAPTIST HOSPITALAMMONIA BLOODon 12-74-1808Uewjjqd (P) [Mass/Vol]86 umol/L Ssgl47-22Lli [facility] AdministrationComment on above:Order Comment: No: Do not add to previous drawPerformed By: #### 86878, 95504, 36632, 85513, 54203, 00030, 12660, 49676 #### [facility] [address] [place] [address], CL[facility] BAPTIST HOSPITALARTERIAL BLOOD GAS WITH ICAon 86-73-0787LBFF EXCESS9 mmol/L High-2-3The [facility] AdministrationComment on above:Performed By: #### 34645, 20335, 49018, 95356, 20857, 20334, 99407, 84693 #### [facility] [address] [place] [address], USADELIVERY SYSTEMSMVNoWhite HospitalComment on above:Performed By: #### 74555, 04171, 22941, 79173, 43296, 56915, 28821, 15313 #### [facility] [address] [place] [address], QYXOXD118 %NormalThe [facility] Comment on above:Performed By: #### 75379, 74281, 62784, 02685, 25585, 79576, 17188, 61744 #### [facility] [address] [place] [address], USAHCO3 (Bld) [Moles/Vol]34 mmol/LCritically wlmk44-08Ntj [facility] AdministrationComment on above:Performed By: #### 63989, 39267, 66586, 11243, 52906, 23237, 74948, 18196 #### [facility] [address] [place] [address], USAIONIZED CALCIUM1.15 mmol/LNormal1.13-1.32The [facility] AdministrationComment on above:Performed By: #### 54758, 73320, 48248, 43227, 25581, 16877, 34967, 87553 #### [facility] [address] [place] [address], USAMIN VOLUME7.2NormalThe [facility] Comment on above:Performed By: #### 73847, 18693, 22139, 80575, 02125, 37681, 05680, 70636 #### [facility] [address] [place] [address], USAMODALITYACNoWhite Hospital Comment on above:Performed By: #### 81114, 25078, 38779, 15392, 14406, 63011, 59962, 78607 #### [facility] [address] [place] [address], USAOxygen (Bld) [Partial pressure]116 mm[Hg]Critically high 83-108The [facility] AdministrationComment on above:Performed By: #### 67900, 68090, 30922, 39213, 24449, 48057, 94114, 35909 #### [facility] [address] [place] [address], USAOxygen saturation in Blood95.5 %Oepjov86.0-97.0The [facility] AdministrationComment on above:Performed By: #### 10125, 38478, 00176, 10963, 61586, 17666, 06872, 86508 #### [facility] [address] [place] [address], MREQCP543 eaFqFhnp47-81Pfn [facility] Comment on above:Performed By: #### 73568, 97573, 39562, 91270, 09723, 27218, 29253, 04027 #### [facility] [address] [place] [address], USAPEEP8.0 HBN03FehuvdLtk [facility] Comment on above:Performed By: #### 04844, 09136, 44539, 44360, 18474, 01142, 89602, 54567 #### [facility] [address] [place] [address], USApH (Bld)7.46 [pH]High7.35-7.45The [facility] Health AdministrationComment on above:Result Comment: PLEASE NOTE: Effective 06/30/18, reference ranges for Respiratory GEM analyzers running arterial blood have been updated to reflect the steam fitter helper's published reference ranges.Performed By: #### 41063, 44770, 93977, 20128, 31252, 70718, 78922, 33944 #### [facility] [address] [place] [address], USATIDAL VOLUME (VT) CC500 ccNormalThe [facility] Health AdministrationComment on above:Performed By: #### 40693, 33257, 85258, 07497, 61929, 51269, 01493, 09791 #### [facility] [address] [facility] [place] [address], USACBC W/DIFFon 68-70-3534GOO BASOPHILS0.0 10*3/uLNormal 0.0-0.2The [facility] Health AdministrationComment on above:Order Comment: No: Do not add to previous drawPerformed By: #### 08350, 64155, 26398, 51146, 29571, 85589, 13654, 15740 #### [facility] [address] [facility] [place] [address], USAABS NEUTROPHILS9.5 10*3/uLHigh1.6-7.6The [facility] AdministrationComment on above:Order Comment: No: Do not add to previous drawPerformed By: #### 64095, 91003, 87486, 09122, 14183, 80867, 05111, 74604 #### [facility] [address] [facility] [place] [address], USABasophils/100 WBC (Bld)0.0 %Normal0.0-1.0The [facility] AdministrationComment on above:Order Comment: No: Do not add to previous drawPerformed By: #### 67612, 98514, 51802, 88894, 75601, 13528, 46305, 32831 #### [facility] [address] [facility] [place] [address], USAEosinophils (Bld) [#/Vol]0.1 10*3/uLNormal0.0-0.5The [facility] AdministrationComment on above:Order Comment: No: Do not add to previous drawPerformed By: #### 27491, 04343, 86248, 06358, 83852, 26838, 04766, 68969 #### [facility] [address] [facility] [place] [address], USAEosinophils/100 WBC (Bld)0.9 %Normal0.0-6.0The [facility] AdministrationComment on above:Order Comment: No: Do not add to previous drawPerformed By: #### 77982, 62901, 30788, 84588, 92137, 52453, 41193, 40182 #### [facility] [address] [place] [address], USAErythrocyte distribution width (RBC) [Ratio]14.3 %Normal 11.5-15.0The [facility] AdministrationComment on above:Order Comment: No: Do not add to previous drawPerformed By: #### 94937, 12825, 34531, 28155, 05917, 51129, 86812, 41160 #### [facility] [address] [place] [address], USAGIANT PLATELETSPresentNormalThe [facility] Health AdministrationComment on above:Order Comment: No: Do not add to previous draw Performed By: #### 58134, 06596, 25266, 95358, 81253, 37502, 62173, 27059 #### [facility] [address] [place] [address], USAHematocrit (Bld) [Volume fraction]38.5 %Phkyam01.0-45.0The [facility] AdministrationComment on above:Order Comment: No: Do not add to previous drawPerformed By: #### 46596, 44974, 63212, 62608, 74778, 34166, 12590, 94852 #### [facility] [address] [place] [address], USAHemoglobin (Bld) [Mass/Vol]11.9 g/dLLow12.0-15.0The [facility] AdministrationComment on above:Order Comment: No: Do not add to previous drawPerformed By: #### 76655, 64963, 23686, 00580, 22258, 81662, 00285, 43543 #### [facility] [address] [place] [address], USALymphocytes (Bld) [#/Vol]1.8 10*3/uLNormal1.2-4.0The [facility] AdministrationComment on above:Order Comment: No: Do not add to previous drawPerformed By: #### 22166, 94954, 06504, 73067, 90173, 02026, 95542, 57216 #### [facility] [address] [place] [address], [facility] HOSPITALLymphocytes/100 WBC (Bld)14.0 %Low20.0-45.0The [facility] AdministrationComment on above:Order Comment: No: Do not add to previous drawPerformed By: #### 70780, 32815, 07907, 16790, 88098, 98684, 24690, 00254 #### [facility] [address] [place] [address], [facility] (RBC) [Entitic mass]27.3 ooInvelg82.0-33.0The [facility] AdministrationComment on above:Order Comment: No: Do not add to previous drawPerformed By: #### 45349, 53330, 32674, 83112, 71403, 65072, 98725, 62575 #### [facility] [address] [facility] [place] [address], [facility] (RBC) [Mass/Vol]30.9 g/dLLow32.0-35.0The [facility] AdministrationComment on above:Order Comment: No: Do not add to previous drawPerformed By: #### 84813, 12933, 78579, 24787, 70601, 88355, 86976, 57838 #### [facility] [address] [facility] [place] [address], [facility] (RBC) [Entitic vol]88.3 nFXismci76.0-98.0The [facility] Health AdministrationComment on above:Order Comment: No: Do not add to previous drawPerformed By: #### 51199, 83718, 23295, 65003, 67679, 50297, 80166, 06161 #### [facility] [address] [place] [address], USAMETAMYELO2.8 %High0.0-0.0The [facility] Health AdministrationComment on above:Order Comment: No: Do not add to previous drawPerformed By: #### 08943, 58006, 50624, 74250, 95837, 40581, 44003, 94801 #### [facility] [address] [place] [address], USAMonocytes (Bld) [#/Vol]0.9 10*3/uLNormal0.1-1.0The [facility] AdministrationComment on above:Order Comment: No: Do not add to previous drawPerformed By: #### 48361, 92783, 29264, 74241, 05398, 15091, 39235, 15407 #### [facility] [address] [place] [address], USAMONOS6.6 %Normal5.0-12.0The [facility] Health AdministrationComment on above:Order Comment: No: Do not add to previous drawPerformed By: #### 21959, 79597, 97730, 93394, 10522, 53300, 85082, 61705 #### [facility] [address] [place] [address], USAMYELOS2.8 %High.0-.0The [facility] Comment on above:Order Comment: No: Do not add to previous drawPerformed By: #### 16277, 88640, 77836, 70233, 01565, 54564, 37193, 33647 #### [facility] [address] [facility] [place] [place] [address], USANeutrophils/100 WBC (Bld)72.9 %High40.0-72.0The [facility] Health AdministrationComment on above:Order Comment: No: Do not add to previous drawPerformed By: #### 26704, 21742, 68186, 96720, 67377, 96810, 46471, 57031 #### [facility] [address] [place] [address], USANRBC SCANPresentAdena Pike Medical CenterComment on above:Order Comment: No: Do not add to previous drawPerformed By: #### 50700, 97301, 07158, 10470, 04776, 26833, 30979, 38308 #### [facility] [address] [place] [address], USANucleated RBC/100 WBC (Bld) [Ratio]0 %Normal0-0The [facility] Health AdministrationComment on above:Order Comment: No: Do not add to previous drawPerformed By: #### 79318, 56103, 63726, 58713, 94068, 80696, 44561, 74591 #### [facility] [address] [place] [address], USAPLAT ESTIMATENormalNoWhite HospitalComment on above:Order Comment: No: Do not add to previous drawResult Comment: EDTA smear shows platelet clumping, see platelet estimatePerformed By: #### 36908, 80160, 87860, 48478, 19164, 64275, 78186, 04242 #### [facility] [address] [place] [address], USARBC (Bld) [#/Vol]4.36 10*6/uLNormal3.80-5.00The [facility] Health AdministrationComment on above:Order Comment: No: Do not add to previous drawPerformed By: #### 03013, 12408, 25922, 44611, 46926, 60959, 17317, 60187 #### [facility] [address] [place] [address], USAWBC (Bld) [#/Vol]12.97 10*3/uLHigh4.00-10.60The [facility] AdministrationComment on above:Order Comment: No: Do not add to previous drawPerformed By: #### 96852, 36563, 18313, 44159, 82575, 75653, 44494, 75720 #### [facility] [address] [place] [address], USACOMP METABOLIC PANELon 16-75-9702Ktyatme [Mass/Vol]3.1 g/dL Low3.5-5.7The [facility] Health AdministrationComment on above:Order Comment: No: Do not add to previous drawPerformed By: #### 41906, 39843, 41825, 69276, 18605, 02279, 40191, 78545 #### [facility] [address] [place] [address], USAALKALINE ILSFBV68 IU/YUjoseq96-536Spt [facility] AdministrationComment on above:Order Comment: No: Do not add to previous draw Performed By: #### 88202, 43989, 54470, 59939, 30198, 20075, 44132, 73708 #### [facility] [address] [place] [address], USAALT [Catalytic activity/Vol]33 U/LNormal7-52The [facility] AdministrationComment on above:Order Comment: No: Do not add to previous drawPerformed By: #### 57604, 96266, 77817, 24056, 09153, 11112, 51218, 55750 #### [facility] [address] [place] [address], USAAST [Catalytic activity/Vol]17 U/YVeynii07-62Ils [facility] AdministrationComment on above:Order Comment: No: Do not add to previous drawPerformed By: #### 87580, 79771, 63142, 98191, 46085, 78353, 32174, 41927 #### [facility] [address] [place] [address], USABilirubin [Mass/Vol]0.5 mg/dLNormal0.3-1.0The [facility] Health AdministrationComment on above:Order Comment: No: Do not add to previous drawPerformed By: #### 50491, 80252, 30014, 82314, 39029, 88176, 61295, 22690 #### [facility] [address] [place] [address], USACalcium [Mass/Vol]8.1 mg/dLLow8.6-10.3The [facility] Health AdministrationComment on above:Order Comment: No: Do not add to previous drawPerformed By: #### 56271, 07627, 75865, 03664, 91867, 74229, 14269, 30628 #### [facility] [address] [place] [place] [address], USAChloride [Moles/Vol]108 mmol/OHrmg24-817Uei [facility] AdministrationComment on above:Order Comment: No: Do not add to previous drawPerformed By: #### 98158, 86351, 85565, 00598, 26882, 61111, 25309, 26370 #### [facility] [address] [place] [address], USACO2 [Moles/Vol]30 mmol/CQttexo56-35Ifq [facility] AdministrationComment on above:Order Comment: No: Do not add to previous draw Performed By: #### 84356, 30317, 87778, 70205, 68875, 50752, 71167, 78439 #### [facility] [address] [place] [address], USACreatinine [Mass/Vol]0.44 mg/dLLow0.60-1.20The Veterans Health AdministrationComment on above:Order Comment: No: Do not add to previous drawPerformed By: #### 05669, 01361, 88756, 84467, 23336, 53261, 66997, 50220 #### [facility] [address] [place] [address], USAGFR/1.73 sq M predicted among blacks MDRD (S/P/Bld) [Vol rate/Area]mL/min/{1.73_m2}Normal>60[facility] Comment on above:Order Comment: No: Do not add to previous drawPerformed By: #### 52447, 88748, 91396, 22789, 74543, 77951, 62496, 67351 #### [facility] [address] [place] [address], USAGFR/1.73 sq M predicted among non-blacks MDRD (S/P/Bld) [Vol rate/Area]mL/min/{1.73_m2}Normal>60[facility] Comment on above:Order Comment: No: Do not add to previous drawPerformed By: #### 50867, 25992, 51694, 73823, 66372, 30131, 69343, 91651 #### [facility] [address] [place] [address], USAGlucose [Mass/Vol]136 mg/nBSwlj17-227Fbn [facility] AdministrationComment on above:Order Comment: No: Do not add to previous drawPerformed By: #### 41110, 99353, 15029, 09588, 54392, 94373, 32740, 14392 #### [facility] [address] [place] [address], USAPotassium [Moles/Vol]4.2 mmol/LNormal3.5-5.1The [facility] AdministrationComment on above:Order Comment: No: Do not add to previous drawPerformed By: #### 98457, 81944, 07784, 34038, 63647, 66099, 06188, 17941 #### [facility] [address] [place] [address], USAProtein [Mass/Vol]5.4 g/dLLow6.0-8.3The [facility] AdministrationComment on above:Order Comment: No: Do not add to previous drawPerformed By: #### 63715, 22569, 12572, 37165, 29638, 45755, 33795, 88182 #### [facility] [address] [place] [address], USASodium [Moles/Vol]144 mmol/TMbuaow423-371Kvx [facility] AdministrationComment on above:Order Comment: No: Do not add to previous drawPerformed By: #### 78279, 96916, 47388, 13604, 61732, 79159, 55211, 41034 #### [facility] [address] [place] [place] [address], USAUrea nitrogen [Mass/Vol]19 mg/dLNormal7-25The [facility] AdministrationComment on above:Order Comment: No: Do not add to previous drawPerformed By: #### 28990, 48889, 18026, 62286, 08222, 95756, 03530, 18283 #### [facility] [address] [place] [address], USAFLUID CELL COUNTon 62-07-5995Mjjpoqrogyi/100 WBC (Bld)23 % NormalThe [facility] AdministrationComment on above:Order Comment: No: Do not add to previous drawPerformed By: #### 59785, 10381, 34418, 98859, 61218, 81004, 23850, 66709 #### [facility] [address] [place] [address], USALymphocytes/100 WBC (Bld)14 %NormalThe [facility] AdministrationComment on above:Order Comment: No: Do not add to previous draw Performed By: #### 37229, 50075, 53140, 94651, 80733, 14758, 49213, 94830 #### [facility] [address] [place] [address], DTQHDUJYRRKIN88 %NormalThe [facility] Comment on above:Order Comment: No: Do not add to previous drawPerformed By: #### 90383, 88853, 44933, 00543, 48560, 84762, 43920, 33172 #### [facility] [address] [place] [address], USAOTHER F1Diff done by cytosMercy Health Defiance HospitalComment on above:Order Comment: No: Do not add to previous draw Performed By: #### 49400, 98517, 78344, 12920, 59872, 48392, 03317, 86317 #### [facility] [address] [place] [address], USAOTHER S3ZUHTA [facility] HospitalComment on above:Order Comment: No: Do not add to previous drawResult Comment: Result changed by OCREEGER on 09/21/2018 13:59. The previous value was Preliminary report; verified report to follow.Performed By: #### 80129, 07554, 66715, 61307, 92397, 15187, 03253, 34682 #### [facility] [address] [place] [address], USAOTHER S2Tdpfvgd by Wilfrido Mary M.D.NormalCleveland Clinic Akron GeneralComment on above:Order Comment: No: Do not add to previous drawPerformed By: #### 76493, 38275, 73906, 50307, 95002, 94605, 65816, 83519 #### [facility] [address] [place] [address], USARB (Bld) [#/Vol]492 [facility] Memorial HospitalComment on above:Order Comment: No: Do not add to previous draw Performed By: #### 37942, 80483, 48310, 23344, 41849, 63443, 78972, 11683 #### [facility] [address] [place] [address], SZAOWRC77 %NormalThe [facility] Comment on above:Order Comment: No: Do not add to previous drawPerformed By: #### 82523, 15521, 29132, 29656, 10887, 90545, 53607, 80120 #### [facility] [address] [place] [address], USASOProtestant Deaconess Hospital Comment on above:Order Comment: No: Do not add to previous drawPerformed By: #### 89715, 94887, 06584, 00502, 38884, 06082, 58690, 31922 #### [facility] [address] [place] [address], USATOTAL XJXYAC36 mlNormalThe [facility] AdministrationComment on above:Order Comment: No: Do not add to previous drawPerformed By: #### 98640, 96256, 07780, 01081, 01554, 47365, 28924, 44843 #### [facility] [address] [place] [address], USAWBC (Bld) [#/Vol]697 WBC/[facility]ale [facility] AdministrationComment on above:Order Comment: No: Do not add to previous draw Result Comment: Some reference interval(s) and other method performance specifications have not been established for analytes on this body fluid. The test result must be integrated into the clinical context for interpretation.Performed By: #### 90211, 99825, 65698, 88283, 93522, 35765, 77119, 78676 #### [facility] [address] [place] [address], USAMAGNESIUM BLOODon 30-14-6579Mcmkbcbzo [Mass/Vol]2.3 mg/dL Normal1.9-2.7The [facility] AdministrationComment on above:Order Comment: No: Do not add to previous drawPerformed By: #### 79945, 08101, 95711, 70317, 65870, 60515, 02938, 79518 #### [facility] [address] [place] [address], USAPHOSPHORUS BLOODon 42-70-8203Oqgtpejdq [Mass/Vol]3.7 mg/dL Normal2.5-5.0The [facility] AdministrationComment on above:Order Comment: No: Do not add to previous drawPerformed By: #### 55976, 31283, 89836, 28316, 38305, 13921, 84252, 56682 #### [address] [place] [address], USAPORTABLE CHEST 1 VIEWon 88-37-0311CSVIMYVW CHEST 1 VIEW [facility] Department of Radiology [address] [place] [id number] Patient Name: KATALINA TAPIA : 1965 Sex: F Age: Race: White Pt. Location: [place] [address] Patient Status: I Ordered Date: 09/18/2018 6:00:00 [...] Electronically signed by:Francisco Javier Harding. Transcribed by: [email or web address], User Resident: JESUSITA LINO Electronically Signed by: FRANCISCO JAVIER HARDING @ 09/19/2018 12:06 AM I personally read this/these film(s) with this residentAdena Pike Medical CenterComment on above:Order Comment: No: Do not add to previous drawVANCOMYCIN TROUGHon 42-47-4278KELJITBHRM TROU10.2 mcg/mLNormal5.0-20.0The [facility] AdministrationComment on above:Performed By: #### 67882, 32276, 08607, 88285, 25659, 59679, 63715, 81453 #### [facility] [address] [place] [address], USAt cell subset analysison 92-33-4015JS5 %95.83 %High 65.00-90.00The [facility] AdministrationComment on above:Order Comment: No: Do not add to previous drawPerformed By: #### 75609, 99386, 36509, 05243, 39894, 84412, 50071, 64102 #### [facility] [address] [place] [address], USACD3 QVSDDVYJ86 cells/re7Ujm448-2108Tdh [facility] AdministrationComment on above:Order Comment: No: Do not add to previous draw Performed By: #### 56302, 72976, 74880, 22947, 66329, 01505, 45906, 12401 #### [facility] [address] [place] [address], USACD4 %36.67 %Low40.00-70.00The [facility] AdministrationComment on above:Order Comment: No: Do not add to previous drawPerformed By: #### 75164, 01128, 66262, 11724, 86609, 71907, 68470, 22371 #### [facility] [address] [facility] [place] [address], USACD4 KMNRHPBP21 cells/np1Mel907-1564Ber [facility] AdministrationComment on above:Order Comment: No: Do not add to previous draw Performed By: #### 28972, 97495, 06669, 75392, 01510, 65485, 45525, 41109 #### [facility] [address] [place] [address], USACD4:CD8 RATIO0.63Low1.00-4.00The [facility] AdministrationComment on above:Order Comment: No: Do not add to previous draw Performed By: #### 39587, 17736, 99532, 63632, 03349, 28609, 34944, 18207 #### [facility] [address] [place] [address], USACD8 %58.33 %High15.00-40.00The [facility] AdministrationComment on above:Order Comment: No: Do not add to previous drawPerformed By: #### 22696, 80932, 81154, 70322, 99175, 98076, 72577, 41223 #### [facility] [address] [place] [address], USACD8 CLJAMKRO94 cells/ym3Bqg251-017Eve [facility] AdministrationComment on above:Order Comment: No: Do not add to previous draw Performed By: #### 87018, 18311, 39499, 38004, 60949, 31552, 24007, 25556 #### [facility] [address] [place] [address], [place]*MRSA/MSSA DNA NASALon 09-17-2018*MRSA/MSSA DNA NASAL Clinical Report: (D) Specimen: NASAL SWAB Collected: 09/17/2018 12:00 Status: Final Last Updated: 09/18/2018 13:07 MSSA DNA (Final) No Methicillin Susceptible Staphylococcus aureus DNA Detected MRSA DNA (Final) No Methicillin Resistant Staphylococcus aureus DNA DetectedNoWhite HospitalComment on above:Performed By: #### 88735, 84553, 00580, 29492, 31311, 39911, 11395, 51866 #### [facility] [address] [place] [address], USAARTERIAL BLOOD GAS WITH ICAon 77-69-5669VBSG FUOUHY90 mmol/BTxfl-6-5Bot [facility] AdministrationComment on above:Performed By: #### 20566 #### [facility] [address] [place] [address], USADELIVERY SYSTEMSMVNoWhite HospitalComment on above:Performed By: #### 14870 #### [facility] [address] [place] [address], TFBSQN373 %NormalThe [facility] Comment on above:Performed By: #### 33083 #### [facility] [address] [place] [address], USAHCO3 (Bld) [Moles/Vol]35 mmol/LCritically ywwn50-35Msg [facility] AdministrationComment on above:Performed By: #### 30956 #### [facility] [address] [place] [address], USAIONIZED CALCIUM1.17 mmol/LNormal1.13-1.32The [facility] AdministrationComment on above:Performed By: #### 61483 #### [facility] [address] [place] [address], USAMIN VOLUME7.1NormalThe [facility] Comment on above:Performed By: #### 59714 #### [facility] [address] [facility] [place] [place] [address], USAMODALITYACNoWhite Hospital Comment on above:Performed By: #### 05511 #### [facility] [address] [place] [address], USAOxygen (Bld) [Partial pressure]143 mm[Hg]Critically high 83-108The [facility] AdministrationComment on above:Performed By: #### 30234 #### [facility] [address] [place] [address], USAOxygen saturation in Blood94.9 %Msrfpd32.0-97.0The [facility] AdministrationComment on above:Performed By: #### 80196 #### [facility] [address] [place] [address], CRJBBX043 gpGuAjdq30-60Tid [facility] Comment on above:Performed By: #### 25789 #### [facility] [address] [place] [address], USAPEEP8.0 WQU32NyfxmqEkq [facility] Comment on above:Performed By: #### 96866 #### [facility] [address] [place] [address], USApH (Bld)7.44 [pH]Normal7.35-7.45The [facility] AdministrationComment on above:Result Comment: PLEASE NOTE: Effective 06/30/18, reference ranges for Respiratory GEM analyzers running arterial blood have been updated to reflect the steam fitter helper's published reference ranges.Performed By: #### 45891 #### [facility] [address] [place] [address], USATIDAL VOLUME (VT) CC500 ccNormalThe [facility] AdministrationComment on above:Performed By: #### 23683 #### [facility] [address] [place] [address], USABASIC METABOLIC PANELon 64-28-2663Qlrtcoe [Mass/Vol]8.2 mg/dLLow8.6-10.3The [facility] AdministrationComment on above:Order Comment: No: Do not add to previous drawPerformed By: #### 11883 #### [facility] [address] [place] [address], USAChloride [Moles/Vol]109 mmol/NXkbv10-581Frm [facility] AdministrationComment on above:Order Comment: No: Do not add to previous drawPerformed By: #### 63469 #### [facility] [address] [place] [address], USACO2 [Moles/Vol]34 mmol/CBufx12-45Ujz [facility] AdministrationComment on above:Order Comment: No: Do not add to previous draw Performed By: #### 28020 #### [facility] [address] [place] [address], USACreatinine [Mass/Vol]0.52 mg/dLLow0.60-1.20The [facility] AdministrationComment on above:Order Comment: No: Do not add to previous drawPerformed By: #### 19188 #### [facility] [address] [place] [address], USAGFR/1.73 sq M predicted among blacks MDRD (S/P/Bld) [Vol rate/Area]mL/min/{1.73_m2}Normal>60The [facility] Comment on above:Order Comment: No: Do not add to previous drawPerformed By: #### 42427 #### [facility] [address] [place] [address], USAGFR/1.73 sq M predicted among non-blacks MDRD (S/P/Bld) [Vol rate/Area]mL/min/{1.73_m2}Normal>60The [facility] Comment on above:Order Comment: No: Do not add to previous drawPerformed By: #### 34038 #### [facility] [address] [place] [address], USAGlucose [Mass/Vol]168 mg/nWUhtq36-359Xzl [facility] AdministrationComment on above:Order Comment: No: Do not add to previous drawPerformed By: #### 52518 #### [facility] [address] [place] [address], USAPotassium [Moles/Vol]4.1 mmol/LNormal3.5-5.1The [facility] AdministrationComment on above:Order Comment: No: Do not add to previous drawPerformed By: #### 15261 #### [facility] [address] [place] [address], USASodium [Moles/Vol]146 mmol/RXcci029-516Sty [facility] AdministrationComment on above:Order Comment: No: Do not add to previous drawPerformed By: #### 05560 #### [facility] [address] [place] [facility], USAUrea nitrogen [Mass/Vol]25 mg/dLNormal7-25The [facility] AdministrationComment on above:Order Comment: No: Do not add to previous drawPerformed By: #### 33265 #### [facility] [address] [place] [address], USACALCIUM URINE RANDOMon 80-02-4582Nasexxr [Mass/Vol]9.3 mg/dLNormalThe [facility] AdministrationComment on above:Order Comment: No: Do not add to previous drawResult Comment: There are no established reference values for random urine specimensPerformed By: #### 30800 #### [facility] [address] [facility]. [place] [id number], [facility] HOSPITALCBC W/DIFFon 35-62-5786JGS BASOPHILS0.0 10*3/uLNormal 0.0-0.2The [facility] AdministrationComment on above:Order Comment: No: Do not add to previous drawPerformed By: #### 85976 #### [facility] [address] [place] [address], USAABS HWYIPXYAOAZ62.6 10*3/uLHigh1.6-7.6The [facility] AdministrationComment on above:Order Comment: No: Do not add to previous drawPerformed By: #### 43635 #### [facility] [address] [facility] [place] [address], USABasophils/100 WBC (Bld)0.0 %Normal0.0-1.0The [facility] AdministrationComment on above:Order Comment: No: Do not add to previous drawPerformed By: #### 14430 #### [facility] [address] [place] [address], USAEosinophils (Bld) [#/Vol]0.0 10*3/uLNormal0.0-0.5The [facility] AdministrationComment on above:Order Comment: No: Do not add to previous drawPerformed By: #### 22627 #### [facility] [address] [place] [address], USAEosinophils/100 WBC (Bld)0.0 %Normal0.0-6.0The [facility] AdministrationComment on above:Order Comment: No: Do not add to previous drawPerformed By: #### 27613 #### [facility] [address] [place] [address], USAErythrocyte distribution width (RBC) [Ratio]14.7 %Normal 11.5-15.0The [facility] AdministrationComment on above:Order Comment: No: Do not add to previous drawPerformed By: #### 57171 #### [facility] [address] [facility] [place] [address], USAGIANT PLATELETSPresentNormalThe [facility] AdministrationComment on above:Order Comment: No: Do not add to previous draw Performed By: #### 76183 #### [facility] [address] [facility] [place] [address], USAHematocrit (Bld) [Volume fraction]38.9 %Odcave73.0-45.0The [facility] AdministrationComment on above:Order Comment: No: Do not add to previous drawPerformed By: #### 51982 #### [facility] [address] [facility] [place] [address], USAHemoglobin (Bld) [Mass/Vol]11.5 g/dLLow12.0-15.0The [facility] AdministrationComment on above:Order Comment: No: Do not add to previous drawPerformed By: #### 91320 #### [facility] [address] [place] [address], USALymphocytes (Bld) [#/Vol]0.4 10*3/uLLow1.2-4.0The [facility] AdministrationComment on above:Order Comment: No: Do not add to previous drawPerformed By: #### 55864 #### [facility] [address] [place] [address], USALymphocytes/100 WBC (Bld)2.8 %Low20.0-45.0The [facility] AdministrationComment on above:Order Comment: No: Do not add to previous drawPerformed By: #### 26114 #### [facility] [address] [place] [address], CL[facility]TIST HOSPITALMCH (RBC) [Entitic mass]27.2 diOggpnk46.0-33.0The [facility] AdministrationComment on above:Order Comment: No: Do not add to previous drawPerformed By: #### 81904 #### [facility] [address] [place] [address], CL[facility]IST HOSPITALMCHC (RBC) [Mass/Vol]29.6 g/dLLow32.0-35.0The [facility] AdministrationComment on above:Order Comment: No: Do not add to previous drawPerformed By: #### 40414 #### [facility] [address] [place] [address], CL[facility]APTIST HOSPITALMCV (RBC) [Entitic vol]92.0 xGEhyygz52.0-98.0The [facility] AdministrationComment on above:Order Comment: No: Do not add to previous drawPerformed By: #### 58313 #### [facility] [address] [place] [address], USAMETAMYELO1.8 %High0.0-0.0The [facility] AdministrationComment on above:Order Comment: No: Do not add to previous drawPerformed By: #### 40791 #### [facility] [address] [place] [address], USAMonocytes (Bld) [#/Vol]0.9 10*3/uLNormal0.1-1.0The [facility] AdministrationComment on above:Order Comment: No: Do not add to previous drawPerformed By: #### 68765 #### [facility] [address] [place] [address], USAMONOS6.4 %Normal5.0-12.0The [facility] AdministrationComment on above:Order Comment: No: Do not add to previous drawPerformed By: #### 25208 #### [facility] [address] [place] [address], USAMYELOS5.5 %High.0-.0The [facility] Comment on above:Order Comment: No: Do not add to previous drawPerformed By: #### 55940 #### [facility] [address] [place] [address], USANeutrophils/100 WBC (Bld)83.5 %High40.0-72.0The [facility] AdministrationComment on above:Order Comment: No: Do not add to previous drawPerformed By: #### 91515 #### [facility] [address] [place] [address], USANucleated RBC/100 WBC (Bld) [Ratio]0 %Normal0-0The [facility] AdministrationComment on above:Order Comment: No: Do not add to previous drawPerformed By: #### 30456 #### [facility] [address] [place] [address], USAPLAT MNR016 10*3/lOWkuzba521-008Rgx [facility] AdministrationComment on above:Order Comment: No: Do not add to previous draw Performed By: #### 62329 #### [facility] [address] [place] [address], USARBC (Bld) [#/Vol]4.23 10*6/uLNormal3.80-5.00The [facility] AdministrationComment on above:Order Comment: No: Do not add to previous drawPerformed By: #### 82876 #### [facility] [address] [place] [address], CL[facility] BAPTIST HOSPITALWBC (Bld) [#/Vol]13.93 10*3/uLHigh4.00-10.60The [facility] AdministrationComment on above:Order Comment: No: Do not add to previous drawPerformed By: #### 14184 #### [facility] [address] [place] [address], USACREATININE URINE RANDOMon 42-65-4263Xfxlatbqiq [Mass/Vol] 84.0 mg/dLNormalThe [facility] AdministrationComment on above:Order Comment: No: Do not add to previous drawResult Comment: There are no established reference values for random urine specimensPerformed By: #### 18722 #### [facility] [address] [place] [address], USAMAGNESIUM BLOODon 37-90-2869Oqxejglnu [Mass/Vol]2.4 mg/dL Normal1.9-2.7The [facility] AdministrationComment on above:Order Comment: No: Do not add to previous drawPerformed By: #### 56811 #### [facility] [address] [place] [address], USAPHOSPHORUS BLOODon 78-22-5005Ypfjgtlkg [Mass/Vol]3.9 mg/dL Normal2.5-5.0The [facility] AdministrationComment on above:Order Comment: No: Do not add to previous drawPerformed By: #### 30386 #### [facility] [address] [facility] [place] [address], USAT PROT UR Usha 84-64-3727Pkntdce [Mass/Vol]56.0 mg/dL NormalThe [facility] AdministrationComment on above:Order Comment: No: Do not add to previous drawResult Comment: There are no established reference values for random urine specimensPerformed By: #### 96608, 47718, 63431, 13944, 70887, 93586, 44992, 49595 #### [facility] [address] [facility] [place] [address], USAUS RENALon 80-17-0181ND RENALUnMiami Valley Hospital Department of Radiology [address] [place] [phone] Patient Name: KATALINA TAPIA : 1965 Sex: F Age: Race: White Pt. Location: [place] [address] Patient Status: I Ordered Date: 09/17/2018 12:00:00 [...] calculi. Electronically signed by:Ivonne Thurston. Transcribed by: [email or web address], User Resident: Electronically Signed by: IVONNE THURSTON @ 09/17/2018 03:16 PMNormalCleveland Clinic Akron GeneralComment on above:Order Comment: No: Do not add to previous draw*BLOOD CULTUREon 32-25-9367Iaijlepv identified Cx Nom (Bld) Clinical Report: (D) Specimen: BLOOD CULTURE Collected: 09/16/2018 14:40 Status: Final Last Updated: 09/22/2018 08:10 (1) Left ac 1430 ss CULT RES (Final) No Growth Day 5Adena Pike Medical CenterComment on above: Order Comment: No: Do not add to previous drawPerformed By: #### 75778 #### [facility] [address] [facility] [place] [address], CL[facility] BAPTIST HOSPITALBacteria identified Cx Nom (Bld)Clinical Report: (D) Specimen: BLOOD CULTURE Collected: 09/16/2018 14:40 Status: Final Last Updated: 09/22/2018 08:10 (1) Left forearm 1445 ss Correction.... Left hand 1445 as CULT RES (Final) No Growth Day 5Adena Pike Medical CenterComment on above: Order Comment: No: Do not add to previous drawPerformed By: #### 15557 #### [facility] [address] [facility] [place] [address], [facility]*RAPID FLU AANDB BY MOLECULARon 09-16-2018*RAPID FLU AANDB BY MOLECULARClinical Report: (D) Specimen: NASAL SWAB Collected: 09/16/2018 20:11 Status: Final Last Updated: 09/16/2018 21:13 FLUA RNA (Final) Negative FLUB RNA (Final) NegativeAdena Pike Medical CenterComment on above:Performed By: #### 17034 #### [facility] [address] [place] [address], USAAMMONIA BLOODon 51-28-6973Eygplzv (P) [Mass/Vol]94 umol/L Gblz06-65Kte [facility] AdministrationComment on above:Order Comment: No: Do not add to previous drawPerformed By: #### 46029 #### [facility] [address] [place] [address], USAARTERIAL BLOOD GAS WITH ICAon 95-72-8050BHBD EXCESS9 mmol/L High-2-3The Veterans Health AdministrationComment on above:Performed By: #### [id number] #### [facility] [address] [place] [address], USADELIVERY SYSTEMSVENTILATORNoWhite HospitalComment on above:Performed By: #### 43773 #### [facility] [address] [place] [address], HIKLKW094 %NormalThe [facility] Comment on above:Performed By: #### 71301 #### [facility] [address] [place] [address], USAHCO3 (Bld) [Moles/Vol]32 mmol/LCritically fgml88-50Gon Veterans Health AdministrationComment on above:Performed By: #### 41379 #### [facility] [address] [place] [address], USAIONIZED CALCIUM1.15 mmol/LNormal1.13-1.32The Veterans Health AdministrationComment on above:Performed By: #### 61758 #### [facility] [address] [place] [address], USAMIN TBYIBK73.3NormalThLakeHealth Beachwood Medical Center Comment on above:Performed By: #### 33424 #### [facility] [address] [place] [address], USAMODALITYAC-ASSIST CONTROLNoWhite HospitalComment on above:Performed By: #### 75045 #### [facility] [address] [place] [address], USAOxygen (Bld) [Partial pressure]109 mm[Hg]Critically high 83-108The Veterans Health AdministrationComment on above:Performed By: #### 81396 #### [facility] [address] [place] [address], USAOxygen saturation in Blood95.2 %Mnzmuu83.0-97.0The Veterans Health AdministrationComment on above:Performed By: #### 34356 #### [facility] [address] [place] [address], TWCXVK990 yuFoQdxaxk96-56Luk Veterans Health AdministrationComment on above:Performed By: #### 58350 #### [facility] [address] [place] [address], USAPEEP5.0 AED73FdmovcMraWhite Hospital Comment on above:Performed By: #### 99461 #### [facility] [address] [place] [address], USAPF CJPUJ678 mmHgNoWhite HospitalComment on above:Performed By: #### 74315 #### [facility] [address] [place] [address], USApH (Bld)7.55 [pH]High7.35-7.45The Veterans Health AdministrationComment on above:Result Comment: PLEASE NOTE: Effective 06/30/18, reference ranges for Respiratory GEM analyzers running arterial blood have been updated to reflect the steam fitter helper's published reference ranges.Performed By: #### 53749 #### [facility] [address] [place] [address], USATIDAL VOLUME (VT) CC500 ccNormalThe Veterans Health AdministrationComment on above:Performed By: #### 79532 #### [facility] [address] [place] [address], USABLOOD STOOL GUAIACon 61-45-0576JBS STOOL GUAIACNegative NormalNEGATIVEThe Veterans Health AdministrationComment on above:Order Comment: No: Do not add to previous drawPerformed By: #### 68501 #### [facility] [address] [place] [address], USABNP (B-TYPE NATRIURETIC PEPTIDE)on 90-68-1774Ibjgxnadfsg peptide B (Bld) [Mass/Vol]78 pg/mLNormal0-100The [facility] Health AdministrationComment on above:Order Comment: No: Do not add to previous drawResult Comment: Given the appropriate clinical setting a BNP result of >100 pg/mL indicates congestive heart failure.Performed By: #### 36155 #### [facility] [address] [place] [address], [facility] HOSPITALCBC W/DIFFon 90-65-0601PLN BASOPHILS0.0 10*3/uLNormal 0.0-0.2The [facility] Health AdministrationComment on above:Order Comment: No: Do not add to previous drawPerformed By: #### 94728 #### [facility] [address] [facility] [place] [address], USAABS YMBEVTAQYOF44.8 10*3/uLHigh1.6-7.6The [facility] Health AdministrationComment on above:Order Comment: No: Do not add to previous drawPerformed By: #### 19164 #### [facility] [address] [facility] [place] [place] [address], USABasophils/100 WBC (Bld)0.0 %Normal0.0-1.0The [facility] Health AdministrationComment on above:Order Comment: No: Do not add to previous drawPerformed By: #### 93395 #### [facility] [address] [place] [address], USAEosinophils (Bld) [#/Vol]0.0 10*3/uLNormal0.0-0.5The [facility] Health AdministrationComment on above:Order Comment: No: Do not add to previous drawPerformed By: #### 34969 #### [facility] [address] [place] [address], USAEosinophils/100 WBC (Bld)0.0 %Normal0.0-6.0The [facility] Health AdministrationComment on above:Order Comment: No: Do not add to previous drawPerformed By: #### 09374 #### [facility] [address] [place] [address], USAErythrocyte distribution width (RBC) [Ratio]14.6 %Normal 11.5-15.0The Veterans Health AdministrationComment on above:Order Comment: No: Do not add to previous drawPerformed By: #### 61063 #### [facility] [address] [place] [address], USAGIANT PLATELETSPresentNormalThe Veterans Health AdministrationComment on above:Order Comment: No: Do not add to previous draw Performed By: #### 59650 #### [facility] [address] [place] [address], USAHematocrit (Bld) [Volume fraction]38.2 %Ajttkt84.0-45.0The [facility] Health AdministrationComment on above:Order Comment: No: Do not add to previous drawPerformed By: #### 50380 #### [facility] [address] [place] [address], USAHemoglobin (Bld) [Mass/Vol]11.9 g/dLLow12.0-15.0The [facility] Health AdministrationComment on above:Order Comment: No: Do not add to previous drawPerformed By: #### 17323 #### [facility] [address] [place] [address], USALymphocytes (Bld) [#/Vol]0.7 10*3/uLLow1.2-4.0The Veterans Health AdministrationComment on above:Order Comment: No: Do not add to previous drawPerformed By: #### 37161 #### [facility] [address] [place] [address], USALymphocytes/100 WBC (Bld)4.6 %Low20.0-45.0The [facility] Health AdministrationComment on above:Order Comment: No: Do not add to previous drawPerformed By: #### 79728 #### [facility] [address] [facility] [place] [address], [facility]H (RBC) [Entitic mass]27.5 evNxzqaw90.0-33.0The [facility] Health AdministrationComment on above:Order Comment: No: Do not add to previous drawPerformed By: #### 60898 #### [facility] [address] [place] [address], CL[facility] BAPTIST HOSPITALMCHC (RBC) [Mass/Vol]31.2 g/dLLow32.0-35.0The [facility] Health AdministrationComment on above:Order Comment: No: Do not add to previous drawPerformed By: #### 37872 #### [facility] [address] [facility] [place] [address], [facility]V (RBC) [Entitic vol]88.2 cRLkghxb09.0-98.0The [facility] Health AdministrationComment on above:Order Comment: No: Do not add to previous drawPerformed By: #### 54336 #### [facility] [address] [place] [address], USAMETAMYELO0.9 %High0.0-0.0The [facility] Health AdministrationComment on above:Order Comment: No: Do not add to previous drawPerformed By: #### 75353 #### [facility] [address] [place] [place] [address], USAMonocytes (Bld) [#/Vol]1.0 10*3/uLNormal0.1-1.0The [facility] Health AdministrationComment on above:Order Comment: No: Do not add to previous drawPerformed By: #### 03818 #### [facility] [address] [place] [address], USAMONOS6.4 %Normal5.0-12.0The [facility] Health AdministrationComment on above:Order Comment: No: Do not add to previous drawPerformed By: #### 19655 #### [facility] [address] [place] [address], USAMYELOS1.8 %High.0-.0The [facility] Comment on above:Order Comment: No: Do not add to previous drawPerformed By: #### 68731 #### [facility] [address] [place] [address], USANeutrophils/100 WBC (Bld)86.3 %High40.0-72.0The [facility] Health AdministrationComment on above:Order Comment: No: Do not add to previous drawPerformed By: #### 58381 #### [facility] [address] [place] [address], USANucleated RBC/100 WBC (Bld) [Ratio]0 %Normal0-0The [facility] Health AdministrationComment on above:Order Comment: No: Do not add to previous drawPerformed By: #### 08878 #### [facility] [address] [place] [address], USAPLAT MJT524 10*3/fSHrhwuy940-023Oxa [facility] Health AdministrationComment on above:Order Comment: No: Do not add to previous draw Performed By: #### 58933 #### [facility] [address] [place] [address], USARBC (Bld) [#/Vol]4.33 10*6/uLNormal3.80-5.00The [facility] Health AdministrationComment on above:Order Comment: No: Do not add to previous drawPerformed By: #### 40927 #### [facility] [address] [place] [address], USAWBC (Bld) [#/Vol]15.95 10*3/uLHigh4.00-10.60The [facility] Health AdministrationComment on above:Order Comment: No: Do not add to previous drawPerformed By: #### 28808 #### [facility] [address] [place] [address], USACOMP METABOLIC PANELon 36-62-3395Unrcgye [Mass/Vol]3.1 g/dL Low3.5-5.7The [facility] Health AdministrationComment on above:Order Comment: No: Do not add to previous drawPerformed By: #### 52806, 12788, 58922, 00263, 72126, 60642, 21642, 69638 #### [facility] [address] [place] [address], USAALKALINE BSFNUW58 IU/URtapbm17-291Csg [facility] AdministrationComment on above:Order Comment: No: Do not add to previous draw Performed By: #### 83352, 94956, 19218, 27994, 01877, 32813, 14533, 17391 #### [facility] [address] [place] [address], USAALT [Catalytic activity/Vol]42 U/LNormal7-52The [facility] Health AdministrationComment on above:Order Comment: No: Do not add to previous drawPerformed By: #### 08374, 78456, 44958, 01620, 83298, 59702, 29430, 19305 #### [facility] [address] [place] [address], USAAST [Catalytic activity/Vol]20 U/NQegzty97-95Pxp [facility] AdministrationComment on above:Order Comment: No: Do not add to previous drawPerformed By: #### 15992, 11455, 51172, 71257, 30384, 24646, 63743, 19005 #### [facility] [address] [place] [address], USABilirubin [Mass/Vol]0.5 mg/dLNormal0.3-1.0The [facility] Health AdministrationComment on above:Order Comment: No: Do not add to previous drawPerformed By: #### 35622, 84265, 31606, 35747, 92342, 84704, 50031, 98420 #### [facility] [address] [place] [address], USACalcium [Mass/Vol]8.4 mg/dLLow8.6-10.3The [facility] Health AdministrationComment on above:Order Comment: No: Do not add to previous drawPerformed By: #### 45139, 52034, 46399, 12618, 02050, 80818, 94427, 58667 #### [facility] [address] [place] [address], USAChloride [Moles/Vol]109 mmol/WBokr78-128Wmf [facility] AdministrationComment on above:Order Comment: No: Do not add to previous drawPerformed By: #### 92538, 76804, 27756, 44049, 13844, 81916, 38591, 03677 #### [facility] [address] [place] [address], USACO2 [Moles/Vol]32 mmol/TQfsv71-99Ppv [facility] AdministrationComment on above:Order Comment: No: Do not add to previous draw Performed By: #### 58788, 88712, 10467, 86500, 70379, 75985, 07068, 56818 #### [facility] [address] [place] [address], USACreatinine [Mass/Vol]0.50 mg/dLLow0.60-1.20The [facility] Health AdministrationComment on above:Order Comment: No: Do not add to previous drawPerformed By: #### 08025, 58031, 77776, 11177, 54023, 38483, 92293, 62096 #### [facility] [address] [place] [address], USAGFR/1.73 sq M predicted among blacks MDRD (S/P/Bld) [Vol rate/Area]mL/min/{1.73_m2}Normal>60The [facility] Comment on above:Order Comment: No: Do not add to previous drawPerformed By: #### 47560, 88636, 46687, 30084, 92552, 35222, 27549, 70348 #### [facility] [address] [place] [address], USAGFR/1.73 sq M predicted among non-blacks MDRD (S/P/Bld) [Vol rate/Area]mL/min/{1.73_m2}Normal>60The [facility] Comment on above:Order Comment: No: Do not add to previous drawPerformed By: #### 20388, 91377, 56739, 10480, 66918, 95076, 37688, 36196 #### [facility] [address] [place] [address], USAGlucose [Mass/Vol]134 mg/uOIcle89-959Eru [facility] AdministrationComment on above:Order Comment: No: Do not add to previous drawPerformed By: #### 74318, 61131, 59380, 04033, 71089, 95928, 75167, 70353 #### [facility] [address] [place] [address], USAPotassium [Moles/Vol]3.8 mmol/LNormal3.5-5.1The [facility] Health AdministrationComment on above:Order Comment: No: Do not add to previous drawPerformed By: #### 06821, 34052, 33567, 15598, 61485, 22884, 98737, 30967 #### [facility] [address] [facility] [place] [address], USAProtein [Mass/Vol]5.4 g/dLLow6.0-8.3The [facility] Health AdministrationComment on above:Order Comment: No: Do not add to previous drawPerformed By: #### 45941, 04290, 07234, 22194, 34260, 29908, 17775, 94763 #### [facility] [address] [facility] [place] [address], USASodium [Moles/Vol]148 mmol/QPquj894-648Ngr [facility] AdministrationComment on above:Order Comment: No: Do not add to previous drawPerformed By: #### 20936, 35064, 37170, 05137, 94153, 09713, 32929, 55982 #### [facility] [address] [facility] [place] [address], USAUrea nitrogen [Mass/Vol]25 mg/dLNormal7-25The [facility] Health AdministrationComment on above:Order Comment: No: Do not add to previous drawPerformed By: #### 15489, 17607, 61606, 53423, 96235, 32912, 60882, 77338 #### [facility] [address] [facility] [place] [address], USACT CHEST WO CONTRASTon [id number] CHEST WO CONTRAST [facility] Department of Radiology [address] [place] [id number] Patient Name: KATALINA TAPIA : 1965 Sex: F Age: Race: White Pt. Location: [place] [address] Patient Status: I Ordered Date: 09/16/2018 2:35:00 [...] reviewed to further define anatomy and possible pathology.Appropriate CT dose lowering techniques were utilized. COMPARISON: [...] pneumonia. Electronically signed by:Linda Tapia. Transcribed by: [email or web address], User Resident: Electronically Signed by: LINDA TAPIA @ 09/16/2018 04:32 PMNormalCleveland Clinic Akron GeneralComment on above:Order Comment: No: Do not add to previous drawDIRECT BILIon 89-70-0719Vabjrmwzl.direct [Mass/Vol]0.2 mg/dL Normal0.0-0.2The Veterans Health AdministrationComment on above:Order Comment: Liver Battery conflicts with Comprehensive Metabolic Panel. Liver Battery canceled and Direct Bilirubin added.Performed By: #### 02484, 49954, 36791, 96090, 29786, 14997, 54730, 35595 #### [facility] [address] [place] [address], USALACTATE BLOODon 91-96-7969Zseodwv [Moles/Vol]0.8 mmol/L Normal0.5-2.2The [facility] Health AdministrationComment on above:Order Comment: No: Do not add to previous drawPerformed By: #### 04311 #### [facility] [address] [place] [address], USALIPASE BLOODon 96-47-1510Ayfqwx [Catalytic activity/Vol]10 Units/BHwy01-53Uxs [facility] AdministrationComment on above:Order Comment: No: Do not add to previous drawPerformed By: #### 90825, 09885, 06574, 23058, 63011, 32287, 11413, 24029 #### [facility] [address] [place] [address], USAMAGNESIUM BLOODon 49-86-1439Tzysifmfx [Mass/Vol]2.5 mg/dL Normal1.9-2.7The [facility] Health AdministrationComment on above:Order Comment: No: Do not add to previous drawPerformed By: #### 67960, 75548, 88688, 10074, 41728, 47861, 40126, 69158 #### [facility] [address] [place] [address], USAOSMOLALITY BLOODon 86-64-7967Dmtsqdaxor [Osmolality]313 mOsm/dbLfrn087-242Aqs [facility] AdministrationComment on above:Order Comment: No: Do not add to previous drawPerformed By: #### 98508 #### [facility] [address] [place] [address], USAPHOSPHORUS BLOODon 15-82-5948Cnmbpwors [Mass/Vol]1.9 mg/dL Low2.5-5.0The [facility] Health AdministrationComment on above:Order Comment: No: Do not add to previous drawPerformed By: #### 37982, 21633, 03707, 34632, 53716, 92601, 14092, 87153 #### [facility] [address] [place] [address], USAPROCALCITONINon 69-06-2941MHDQXWFFHDCXH9.02 ng/mLNormal 0.00-0.10The [facility] Health AdministrationComment on above:Order Comment: No: Do not add to previous drawResult Comment: Suspected Lower Respiratory Tract Infection: 0.1-0.25ng/mL- Low likelihood for bacterial infection;Antibiotics discouraged.* >0.25ng/mL- Increased likelihood bacterial infection;Antibiotics encouraged. Suspected Sepsis: Strongly consider initiating antibiotics in all unstable patients. 0.1-0.5ng/mL- Low likelihood for sepsis; Antibiotics discouraged.* >0.5ng/mL- Increased likelihood sepsis; Antibiotics encouraged. >2.0ng/mL- High risk of sepsis/septic shock; Antibiotics strongly encouraged. *Recommend retesting PCT within 6-12hours if clinically indicated and initial PCT<0.5ng/mLPerformed By: #### 81418 #### [facility] [address] [place] [address], USAPROTHROMBIN TIMEon 19-31-9528GQO Coag (PPP) [Relative time] 1.12 {INR}Normal0.91-1.16The [facility] Health AdministrationComment on above:Order Comment: No: Do not add to previous drawResult Comment: ACCCP RECOMMENDED INR FOR WARFARIN THERAPY ------- CONDITION INR PROPHYLAXIS OF VENOUS THROMBOSIS 2-3 (HIGH-RISK SURGERY) TREATMENT OF VENOUS THROMBOSIS 2-3 TREATMENT OF PULMONARY EMBOLISM 2-3 PREVENTION OF SYSTEMIC EMBOLISM: 2-3 ACUTE MYOCARDIAL INFARCTION TISSUE HEART VALVES VALVULAR HEART DISEASE ATRIAL FIBRILLATION RECURRENT SYSTEMIC EMBOLISM MECHANICAL HEART VALVE 2.5-3.5 FROM: ORAL ANTICOAGULANTS. MECHANISM OF ACTION, CLINICAL EFFECTIVENESS, AND OPTIMAL THERAPEUTIC RANGE. CHEST 1995;108:231S-246S.Performed By: #### 75343 #### [facility] [address] [place] [address], USAPT Coag (PPP) [Time]14.4 cEhpwoz29.3-14.8The [facility] Health AdministrationComment on above:Order Comment: No: Do not add to previous drawResult Comment: ALL RESULTS MUST BE INTERPRETED WITH RESPECT TO BLOOD DRAWING ARTIFACT OR DILUTION ERROR OF ANTICOAGULANT AT THE TIME OF SAMPLING.Performed By: #### 92246 #### [facility] [address] [place] [address], USATOX PANEL URINEon THCNegativeNormalNEGATIVEThe Veterans Health AdministrationComment on above:Order Comment: No: Do not add to previous drawPerformed By: #### 37952 #### [facility] [address] [place] [address], USABARBITURATESNegativeNormalNEGATIVEThe [facility] Health AdministrationComment on above:Order Comment: No: Do not add to previous draw Performed By: #### 09299 #### [facility] [address] [place] [address], USABenzodiazepines Ql (U)PositiveAbnormalNEGATIVEThe Veterans Health AdministrationComment on above:Order Comment: No: Do not add to previous drawPerformed By: #### 90180 #### [facility] [address] [place] [address], USACocaine Ql (U)NegativeNormalNEGATIVEThe [facility] Health AdministrationComment on above:Order Comment: No: Do not add to previous drawPerformed By: #### 71390 #### [facility] [address] [place] [address], USAMethadone Ql (U)NegativeNormalNEGATIVEThe [facility] Health AdministrationComment on above:Order Comment: No: Do not add to previous drawPerformed By: #### 92231 #### [facility] [address] [place] [address], USAMONO AMPHETNegativeNormalNEGATIVEThe [facility] Health AdministrationComment on above:Order Comment: No: Do not add to previous draw Performed By: #### 26084 #### [facility] [address] [place] [address], USAOpiates Ql (U)PositiveAbnormalNEGATIVEThe [facility] Health AdministrationComment on above:Order Comment: No: Do not add to previous drawPerformed By: #### 59917 #### [facility] [address] [place] [address], USAPhencyclidine Ql (U)NegativeNormalNEGATIVEThe [facility] Health AdministrationComment on above:Order Comment: No: Do not add to previous drawPerformed By: #### 47460 #### [facility] [address] [place] [address], USAPROPOXYPHENENegativeNormalNEGATIVEThe [facility] Health AdministrationComment on above:Order Comment: No: Do not add to previous draw Performed By: #### 97569 #### [facility] [address] [place] [address], USATRICYCLICSNegativeNormalNEGATIVEThe [facility] Health AdministrationComment on above:Order Comment: No: Do not add to previous draw Performed By: #### 73428 #### [facility] [address] [place] [address], PRZATN5sz 27-94-3583CFH 3RD GENERATION0.50 uIU/mLNormal 0.34-5.60The [facility] Health AdministrationComment on above:Order Comment: No: Do not add to previous drawPerformed By: #### 24371, 04472, 79894, 69147, 60423, 59144, 87454, 71648 #### [facility] [address] [place] [address], USAURINALYSIS REFLEXon 55-11-4588Povxbdhbwp (U)TURBIDAbnormal CLEARThe [facility] Health AdministrationComment on above:Order Comment: No: Do not add to previous drawPerformed By: #### 56259 #### [facility] [address] [place] [address], USABilirubin [Mass/Vol]NegativeNormalNEGATIVEThe [facility] Health AdministrationComment on above:Order Comment: No: Do not add to previous drawPerformed By: #### 25381 #### [facility] [address] [place] [address], USABLOODLARGEAbnormalNEGATIVEThe [facility] Health AdministrationComment on above:Order Comment: No: Do not add to previous drawPerformed By: #### 08133 #### [facility] [address] [place] [address], USAColor (U)DK YELLOWAbnormalYELLOWThe [facility] Health AdministrationComment on above:Order Comment: No: Do not add to previous draw Performed By: #### 35943 #### [facility] [address] [place] [address], USAEPISNONE SEENNormalFEW,OCC,NONE SEENThe [facility] Health AdministrationComment on above:Order Comment: No: Do not add to previous drawPerformed By: #### 54479 #### [facility] [address] [place] [address], USAGlucose [Mass/Vol]NegativeNormalNEGATIVEThe [facility] Health AdministrationComment on above:Order Comment: No: Do not add to previous drawPerformed By: #### 29259 #### [facility] [address] [place] [address], USAKETONETRACEAbnormalNEGATIVEThe [facility] Health AdministrationComment on above:Order Comment: No: Do not add to previous drawPerformed By: #### 33692 #### [facility] [address] [place] [address], USALEUK ESTERTRACEAbnormalNEGATIVEThe Veterans Health AdministrationComment on above:Order Comment: No: Do not add to previous draw Performed By: #### 15860 #### [facility] [address] [place] [address], USANitrite Ql (U)PositiveAbnormalNEGATIVEThe [facility] Health AdministrationComment on above:Order Comment: No: Do not add to previous drawPerformed By: #### 68242 #### [facility] [address] [place] [address], USApH (Bld)7.5Qhjrel1.0-8.0The [facility] Health AdministrationComment on above:Order Comment: No: Do not add to previous drawPerformed By: #### 02892 #### [facility] [address] [place] [address], USAProtein (U) [Mass/Vol]100 mg/dLAbnormalNEGATIVEThe [facility] Health AdministrationComment on above:Order Comment: No: Do not add to previous drawPerformed By: #### 68846 #### [facility] [address] [place] [address], USARBC (U) [#/Vol]/uLAbnormalNONE SEENThe [facility] Health AdministrationComment on above:Order Comment: No: Do not add to previous draw Performed By: #### 39589 #### [facility] [address] [place] [address], USASPEC GRAV1.480Fgnt8.015-1.020The Veterans Health AdministrationComment on above:Order Comment: No: Do not add to previous draw Performed By: #### 93353 #### [facility] [address] [place] [address], USAUA COMMENT 2MICROSCOPIC UNCENTRIFUGED; LESS THAN 3ML RECEIVEDNormalThe Veterans Health AdministrationComment on above:Order Comment: No: Do not add to previous drawPerformed By: #### [id number] #### [facility] [address] [place] [address], [facility] HOSPITALWBC UA6-10AbnormalNONE SEENThe Veterans Health AdministrationComment on above:Order Comment: No: Do not add to previous drawPerformed By: #### [id number] #### [facility] [address] [place] [address], USAVANCOMYCIN TIMEDon 63-56-8733FHWYGYJTGG TIMED13.0 mcg/mL NormalThe Veterans Health AdministrationComment on above:Performed By: #### [id number], 18175, 84161, 90309, 57293, 94086, 08285, 45844 #### [facility] [address] [place] [address], [facility] Vital Signs Date TimeVital SignValuePerforming NsecfuawuQupppxvf27-69-6060 12:15-0400Body wbiwzf968.48 cmSondra Salgado TILE SPRAYER Work Phone: [facility]08-18-2025 12:15-0400 Body mass index (BMI) [Ratio]26.9 kg/e6VofqeeknSondra Salgado TILE SPRAYER Work Phone: [facility]08-18-2025 12:15-0400 Body afrvzv92.67 kgJejyothi Salgado TILE SPRAYER Work Phone: [facility]07-17-2025 10:26-0400 Body cojicx820.48 cmDhaval Farr MD Work Phone: [phone]07-17-2025 10:26-0400 Body mass index (BMI) [Ratio]27.1 kg/b1CinbpDhaval Farr MD Work Phone: [phone]47[facility]07-17-2025 10:26-0400 Body wcyrxnrmxsu63.8 [degF]Dhaval Farr MD Work Phone: [phone]76[facility]07-17-2025 10:26-0400 Body bdbybc11.13 kgDhaval Farr MD Work Phone: [phone]07-17-2025 10:26-0400 Diastolic blood mm[Hg]Dhaval Farr MD Work Phone: [phone]07-17-2025 10:26-0400 Heart rate73 /Chang Farr MD Work Phone: [phone]07-17-2025 10:26-0400 SaO2% (BldA) [Mass fraction]96 %Dhaval Farr MD Work Phone: [phone]07-17-2025 10:26-0400 Systolic blood zazgqoju723 mm[Hg]Dhaval Farr MD Work Phone: [phone]08-26-2021 08:51-0400 Body ofhgfw428.9 cmTiffany Lopez CNP Work Phone: [phone]08-26-2021 08:51-0400Body mass index (BMI) [Ratio]46.55 kg/x4WpojflTiffany Lopez BIOMEDICAL SERVICE ENGINEER Work Phone: [phone] [place], [place] 5842508-26-2021 08:51-0400Body duzdmilsugp52 [degF]Tiffany Lopez BIOMEDICAL SERVICE ENGINEER Work Phone: [phone] [place], [place] 5842508-26-2021 08:51-0400Body weight 111.75 kgTiffany Lopez BIOMEDICAL SERVICE ENGINEER Work Phone: [phone] [place], [place] 5842508-26-2021 08:51-0400Diastolic blood omjmuyhc58 mm[Hg]Tiffany Lopez BIOMEDICAL SERVICE ENGINEER Work Phone: [phone])[address] [place], [place] 5842508-26-2021 08:51-0400Heart rate92 /minDminna Lopez [facility] Work Phone: [phone] [place], [place] 5842508-26-2021 08:51-5020TtT3% (BldA) [Mass fraction]94 %Tiffany Lopez [facility] Work Phone: [phone] [place], [place] 5842508-26-2021 08:51-0400Systolic blood uzycbkgn063 mm[Hg]Tiffany Lopez [facility] Work Phone: [phone] [place], [place] 5842508-17-2021 11:00-0400Body icyracaazve72.49 [degF]Emmett Montero MD Work Phone: [phone])[address] [place], [place] 1650308-17-2021 11:00-0400Diastolic blood mm[Hg]Emmett Montero MD Work Phone: [phone])[address] [place], [place] 1650308-17-2021 11:00-0400Heart rate78 /Marco A Montero MD Work Phone: [phone])[address] [place], [place] 1650308-17-2021 11:00-0400Respiratory rate20 /Marco A Montero MD Work Phone: [phone])[address] [place], [place] 1650308-17-2021 11:00-4518EfY3% (BldA) [Mass fraction]95 %Emmett Montero MD Work Phone: [phone] [place], [place] 3733208-17-2021 11:00-0400Systolic blood kkfsyuoz297 mm[Hg]Emmett Montero MD Work Phone: 1(689)[address] [place], [place] 1650308-16-2021 12:14-0400Body height 154.9 cmLgaurav Montero MD Work Phone: [phone])[address] [place], [place] 1650308-16-2021 12:14-0400Body mass index (BMI) [Ratio]48.75 kg/h9CliiegEmmett Montero MD Work Phone: [phone]08-16-2021 12:14-0400Body weight 117.03 kgEmmett Montero MD Work Phone: [phone])[address] [place], [place] 1650304-30-2021 16:08-0400Body mass index (BMI) [Ratio]48.48 kg/d6TaqsbSowmya Bee RD Work Phone: [phone]04-30-2021 16:08-0400Body weight 116.[address] Work Phone: [phone])[address] [place], [place] 5067504-26-2021 14:49-0400Body mass index (BMI) [Ratio]48.69 kg/r6IcnnzfShelia Sanchez RD Work Phone: [facility]04-26-2021 14:49-0400Body weight 116.[address] Work Phone: [phone] [place], [place] 4101404-19-2021 10:54-0400Diastolic blood mvdqkxes92 mm[Hg]Emmett Montero MD Work Phone: [phone]04-19-2021 10:54-0400Heart rate86 /Marco A Montero MD Work Phone: 1(694)[address] [place], [place] 1650304-19-2021 10:54-0400Respiratory rate18 /Marco A Montero MD Work Phone: [phone]04-19-2021 10:54-1207QgM2% (BldA) [Mass fraction]94 %Emmett Montero MD Work Phone: 1(168)[address] [place], [place] 1650304-19-2021 10:54-0400Systolic blood cwbfslod275 mm[Hg]Emmett Montero MD Work Phone: 1(589)[address] [place], [place] 1650304-19-2021 09:51-0400Body nlltziniayi97 [degF]Emmett Montero MD Work Phone: 1([phone])[address] [place], [place] 1650304-19-2021 07:20-0400Body height 154.9 cmLgaurav Montero MD Work Phone: [phone])[address] [place], [place] 1650304-19-2021 07:20-0400Body mass index (BMI) [Ratio]48.56 kg/l1LvypoyEmmett Montero MD Work Phone: 1(958)[address] [place], [place] 1650304-19-2021 07:20-0400Body weight 116.57 kgEmmett Montero MD Work Phone: 1(522)[address] [place], [place] 1650304-12-2021 16:06-0400BMI (Body Mass Index)48.92 kg/v2WtuidPaulding County Hospital04-12-2021 16:06-0400Body .44 kgPaulding [facility] Hospital04-02-2021 16:16-0400BMI (Body Mass Index)48.92 kg/h9HgssvPaulding County Hospital04-02-2021 16:16-0400Body sfwirl316.44 kgPaulding County Hospital03-26-2021 16:09-0400BMI (Body Mass Index)49.39 kg/j1ArserPaulding County Hospital03-26-2021 16:09-0400Body .57 kgPaulding County Hospital03-02-2021 14:43-0500BMI (Body Mass Index)48.6 kg/h6YawizhzyMercy Health St. [facility]03-02-2021 14:43-0500 Body [address]bihge345.[address] [facility]03-02-2021 14:43-0500 Mxxcvl974.9 cmC[facility]03-02-2021 13:45-0500BMI (Body Mass Index)48.6 kg/g0KtgsrzCleveland Clinic03-02-2021 13:45-0500Body .67 kg[facility]03-02-2021 13:45-0500BP Diastolic 85 mm[Hg][facility]03-02-2021 13:45-0500BP Vvvrfzcf165 mm[Hg][facility]03-02-2021 13:45-5461Tmgrnu648.9 cmLSCCI Hospital Lima03-02-2021 13:45-0500Pulse (Heart Rate)93 /minCleveland Clinic03-02-2021 13:45-0500Pulse Rlumyyba34 %[facility]05-25-2019 05:55-0400Respiratory rate14 /minRAGHEB ASSALYCleveland Clinic Akron GeneralComment on above:Performed By: #### 62436, 07832, 91631, 25910, 97852, 61325, 01074, 60131 #### [facility] [address] [place] [place] [address], [id number] 06:27-0400Respiratory rate14 /minRAGHEB ASSALY [facility] GeneralComment on above:Performed By: #### 18076, 73289, 90271, 12116, 04551, 96094, 48884, 35533 #### [facility] [address] [place] [address], [id number] 06:05-0400Respiratory rate14 /minRAGHEB ASSALY [facility] GeneralComment on above:Performed By: #### [id number] #### [facility] [address] [place] [address], [id number] 16:55-0400Respiratory rate20 /minRAGHEB ASSALY [facility] GeneralComment on above:Performed By: #### [id number] #### [facility] [place] [address], [facility] Encounters Encounter DateEncounter TypeCare ProviderFacilityStart: 70-61-3899ftkwyqeuvk Hadley TeagueFacility:[facility] Hospitaltart: 12-13-2024 End: 83-44-6426ooewybwhpoYoocivfx Rohrbacher APRN Work Phone: [facility] Work Phone: Start: 12-13-2024 End: 00-89-2976Iliitao encounter procedureJustteo Jaquez DO-[facility] [place] Work Phone: Start: 11-29-2024 End: 45-03-3381caxczijxddUrvhr N. Morris MD Work Phone: [facility] Work Phone: Start: 11-29-2024 End: 78-54-5385Pezfzko encounter procedureNicsoto Maria DO-[facility] [place] Work Phone: Start: 11-11-2024 End: 70-79-3091ofwlindsisHfoch N. Morris MD Work Phone: [facility] Work Phone: Start: 11-11-2024 End: 37-86-5887Cbopchu encounter procedureSondra Salgado APRN BIOMEDICAL SERVICE ENGINEER-FPG [facility] Work Phone: Start: 36-98-1363Dmhycotueo RecurringHadley Teague MDCONFLUENCE HEALTH CredibleStart: 37-10-0890Dwxnhfx encounter statusDhaval Farr MD Work Phone: [facility] Hospitaltart: 12-25-2021 End: 41-22-5078rjajlpfvddOO NONE LISTED REQUESTFacility:V4Miwim: 12-21-2020 End: 41-75-8621Mbperr follow up visit related to original Sudha Lopez [facility] Work Phone: [facility] Bariatric ClinicComment on above:Other intestinal malabsorption (Primary Dx); S/P laparoscopic sleeve gastrectomy; FARZANEH (obstructive sleep apnea); Uncomplicated asthma, unspecified asthma severity, unspecified whether persistent; SarcoidosisStart: 12-11-2020 End: 63-19-5583Uxaedgnsol and management of Jes Montero MD Work Phone: [facility] Med SurgComment on above:Obesity, morbid, BMI 40.0-49.9Start: 09-11-2020 End: 48-54-0806Ynolqgsvmn hospital visit by Jennifer Montero MD Work Phone: [facility] Diagnostic RadiologyComment on above: ArrivedStart: 09-11-2020 End: 27-49-5333Vkrthsk encounter procedureClifford Cobian PsyD Work Phone: [facility] PsychologyComment on above:Binge-eating disorder, in full remission, mild (Primary Dx); Recurrent major depressive disorder, in full remissionStart: 08-25-2020 End: 88-52-1260Imuksldsao hospital visit by Nas Bee RD Work Phone: [place] [facility] DieteticsComment on above:ArrivedStart: 08-21-2020 End: 40-61-6363Mhmdxdlrbg hospital visit by Guerline Sanchez RD Work Phone: [place] [facility] DieteticsComment on above:ArrivedStart: 08-14-2020 End: 33-14-8796Hpkakqybgz hospital visit by Jennifer Montero MD Work Phone: [facility] PeriopComment on above:GERD (gastroesophageal reflux disease)Start: 46-82-0500Wnkoajn encounter Afshan Montero MD Work Phone: [facility] Work Phone: Start: 08-07-2020 End: 03-18-1834Gylsohwlhe hospital visit by Nas Bee Work Phone: [place] [address] Nutrition and DieteticsComment on above:ArrivedStart: 07-31-2020 End: 62-50-1930Xrumsoghj encounterEmcherelle TinyUnityPoint Health-[facility] Comment on above:Other (Suprep Sample for COLO on 08/14/2020)Start: 07-28-2020 End: 87-96-6085Xcuhaimcnq hospital visit by Nas Bee Work Phone: [place] [facility] DieteticsComment on above:ArrivedStart: 07-21-2020 End: 72-92-2154Neljwhihkn hospital visit by Nas Bee Work Phone: [place] [facility] DieteticsComment on above:ArrivedStart: 06-27-2020 End: 75-81-8511Wqsnjc outpatient new 45 minutesEmmett Montero Work Phone: [facility] Bariatric ClinicComment on above:body mass index of 40.0-49.9 (Primary Dx); FARZANEH (obstructive sleep apnea); Moderate persistent asthma without complication; Essential hypertension; Sarcoidosis; Heart palpitations; Gastroesophageal reflux disease, unspecified whether esophagitis present; Anxiety and depression; Anemia, unspecified type; Vitamin D deficiency; Screening for viral diseaseStart: 06-27-2020 End: 64-90-2397Ukrokxaoju hospital visit by Estefanía Hickman Work Phone: [place] [facility] DieteticsStart: 27-67-4037Yllaioh encounter procedureSece SmithGlgqQO-Mmeevjdxvjzec-Mqxux [place] Work Phone: Start: 99-46-4013Cvwtlim encounter procedureScee SmithIlocEP-Mmyqzdbhkbmjw-Rjley [place] Work Phone: Start: 09-16-2018 End: 95-32-2746Rsljviyknd and management of inpatientRAGHEB ASSALYFacility:[facility] Procedures DateProcedureProcedure DetailPerforming ClinicianStart: 56-76-7185Iyshj metabolic panel calcium totalDeanna S John EARLY Work Phone: Start: 47-70-6383Nxvhir nuc acid amp prb cult/isolate ea Winter Montero MD Work Phone: Start: 12-11-2020 End: 32-53-8296Cert gstrc rstrictiv px longitudinal gastrectomyEmmett Montero MD Work Phone: Start: 67-84-5052Nmzwz group typing, RH phenotyping Emmett Montero MD Work Phone: Start: 12-11-2020 End: 33-20-8014Oqeqlsm quantitative blood xcpt reagent stripEmmett Montero MD Work Phone: Start: 83-61-9749Puqvz test visual color cmprsn methWild Montero MD Work Phone: Start: 42-72-4817Vssuihqoyx exam chest 2 viewsEmmett Montero MD Work Phone: Start: 63-50-2704Usuuz 1995 panel - Serum or Plasma Clifford Cobian PsyD Work Phone: Start: 43-25-9630Wcodmbztrhaanlmqonajbrapeu transoral diagnosticEmmett Montero MD Work Phone: Start: 60-10-1420RfrqbdkqpufSghgqw A Karas MD Work Phone: Start: 39-85-1649Cymtz of thiamine-vitamin b-1Lgaurav Montero MD Work Phone: Start: 39-45-0911Gnurdiax blood count with white cell differential, automatedEmmett Montero MD Work Phone: Start: 74-53-7800Ppwvo panelEmmett Montero MD Work Phone: Start: 42-70-3066Yicdl 1995 panel - Serum or Plasma Emmett Montero MD Work Phone: Start: 07-24-2020 End: 41-39-1549Jwrlhvxwfdo diagnostic evaluationBinge-eating disorder, Dread Cobian Work Phone: Comment on above:Binge-eating disorder, mild (Primary Dx); Recurrent major depressive disorder, in partial remission; SUZANNA (generalized anxiety disorder)Start: 26-55-8780Jysrmllloro i-converting enzymeMichael Carmelo StephanStart: 71-54-5471Uniob of folic acid serumMichael Carmelo Rothman Start: 69-41-8828Tvyjd of urea nitrogen quantitativeMichael L StephanStart: 12-01-0659Hqerxazuzw bloodMichael L StephanStart: 88-87-1621Reeekmlctdfbpf vitamin b-12Michael L StephanStart: 73-84-1717Mml brain brain stem w/o w/contrast materialMichael L StephanStart: 59-36-9613Ucy orbit face & neck w/o & w/contrast matrlMichael Carmelo StephanStart: 42-80-6026Bkxptvcasmosi tuberculosis stimulated gamma interferon [Interpretation] in Blood QualitativeMichael Carmelo StephanStart: 01-67-9425GQXMIBUJ SCREENING WITH REFLEXMichael Carmelo StephanStart: 70-56-0477Jmakzuu B1 - Thiamine, Whole BloodMichael Carmelo StephanStart: 02-47-0572YNYNCQGZN OF NONAUT GLOBULIN INTO PERIPH VEIN, PERC APPROACHDAWNRITESH WARNERStart: 09-18-2018 RESPIRATORY VENTILATION, 24-96 CONSECUTIVE HOURSRAGHEB ASSALYStart: 09-18-2018 DRAINAGE OF LEFT UPPER LUNG LOBE, ENDO, DIAGNRAGHEB ASSALYStart: 09-16-2018 MEASURE OF ARTERIAL SATURATION, PERIPHERAL, PERC APPROACHRAGHEB ASSALYCataract surgeryMichael Carmelo StephanH/O: surgeryHistory of gastric restrictive surgeryDhaval Farr MD Work Phone: Injection of drug into vitreousMichael Carmelo Stephan VitrectomyMichael Carmelo Stephan Plan of Treatment DateCare ActivityDetailAuthorStart: 71-25-7860Rkmsacg lipid profileLIPID SCREENINGKnox Community Hospital SystemStart: 92-97-7035Hyedjsw lipid profileLIPID SCREENINGKnox Community Hospital SystemStart: 95-13-4850Siypsvj referralGlenbeigh Hospital Work Phone: Start: 06-82-9782QfzbhbaaowuULUWKBHMWZ CANCER SCREENING DISCUSSIONKnox Community Hospital SystemStart: 01-16-2021 End: 75-80-6283Qqirnah encounter uytjcyoan21/21/2021 Office Visit General Surgery Emmett Montero MD [address] [place] [address] [facility] Bariatric ClinicStart: 01-11-2021 End: 49-11-1828Kayxkua encounter syudgtwjk86/16/2021 Appointment Nutrition and Dietetics Nasir Hickman, CARISSA [address] [place] [address] [facility] [facility] DieteticsStart: 12-27-2020 Influenza vaccinationSelect Medical [facility] - Dublintart: 12-19-2020 End: 90-28-7047Uhngzki encounter jofchuptk55/24/2021 Office Visit General Surgery Tiffany Lopez CNP [address] [place] [address] [facility] Bariatric ClinicStart: 09-11-2020 End: 41-17-0242Vpvmlu Visit09/11/2020 Office Visit Psychology Clifford Cobian, ChauyD [address] [place] [address] [facility] PsychologyStart: 08-30-2020 End: 13-64-7056Rmgoyme encounter iotrodijj53/05/2021 Appointment Nutrition and Dietetics Sowmya Bee, CARISSA [address] [place] [address] [facility] [facility] DieteticsStart: 08-25-2020 End: 69-18-1272Bwetfbj encounter /30/2021 Appointment Nutrition and Dietetics Sowmya Bee, CARISSA [address] [place] [address] [facility] [facility] DieteticsStart: 08-21-2020 End: 92-05-2161Jefjgtjppue29/26/2021 Appointment Nutrition and Dietetics Sowmya Bee RD [address] [place] [address] [place] [address] SjvwdCenterville Nutrition and DieteticsStart: 08-16-2020 End: 24-01-2777Nehcdcqezpy29/21/2021 Appointment Nutrition and Dietetics Sowmya Bee, CARISSA [address] [place] [address] [place] [address] AnszyCenterville Nutrition and DieteticsStart: 08-14-2020 End: 24-71-9004Irnaskgu EncounterAVI BUC PeriopComment on above:GERD (gastroesophageal reflux disease)EGD W/ BXStart: 08-09-2020 End: 37-91-9684Kjjzgr Visit08/09/2020 Office Visit Cardiovascular Medicine Jose Max MD [address] [place] [address] [phone] [facility] CardiologyStart: 08-07-2020 End: 27-68-6920Cfrnvporlar59/12/2021 Appointment Nutrition and Dietetics Sowmya Bee, CARISSA [address] [place] [address] [phone] Nutrition and DieteticsStart: 08-04-2020 End: 16-38-8300Qofjhexdxea50/09/2021 Appointment Nutrition and Dietetics Sowmya Bee, CARISSA [address] [place] [address] SuxxcCenterville Nutrition and DieteticsStart: 07-28-2020 End: 85-02-3993Hxxggdvvicr32/02/2021 Appointment Nutrition and Dietetics Sowmya Bee RD [address] [place] [address] [phone] Nutrition and DieteticsStart: 07-24-2020 End: 40-08-2584Hgvygy Visit07/24/2020 Office Visit Psychology Clifford Cobian, Brian [address] [place] [address] [facility] PsychologyStart: 07-21-2020 End: 12-02-6227Uxufkthbwpy67/26/2021 Appointment Nutrition and Dietetics Sowmya Bee, RD [address] [place] [address] [phone] Nutrition and DieteticsStart: 07-14-2020 End: 82-41-9835Aqblvljhcbw45/19/2021 Appointment Nutrition and Dietetics Sowmya Bee, RD [address] [place] [address] [facility] [facility] DieteticsStart: 06-27-2020 End: 56-85-0524Z78/folate uakntM30 & FOLATE Lab Routine FARZANEH (obstructive sleep apnea) Moderate persistent asthma without complication Essential hypertension body mass index of 40.0-49.9 Sarcoidosis Heart palpitations Gastroesophageal reflux disease, unspecified whether esophagitis present Anxiety and depression Expected: 06/27/2020, Expires: 06/27/2021[facility] CenterComment on above: Expected: 06/27/2020, Expires: 06/27/2021tart: 06-27-2020 End: 98-99-3545Mgosklny blood count with white cell differential, automatedCBC, EDIF, PLATELET Lab Routine FARZANEH (obstructive sleep apnea) Moderate persistent asthma without complication Essential hypertension body mass index of 40.0-49.9 Sarcoidosis Heart palpitations Gastroesophageal reflux disease, unspecified whether esophagitis present Anxiety and depression Expected: 06/27/2020, Expires: 06/27/2021[facility] CenterComment on above:Expected: 06/27/2020, Expires: 2Start: 06-27-2020 End: 80-28-6190Jvettlfjwskkt metabolic 2000 panelCOMPREHENSIVE METABOLIC PANEL Lab Routine FARZANEH (obstructive sleep apnea) Moderate persistent asthma without complication Essential hypertension body mass index of 40.0-49.9 Sarcoidosis Heart palpitations Gastroesophageal reflux disease, unspecified whether esophagitis present Anxiety and depression Expected: 06/27/2020, Expires: 06/27/2021[facility] CenterComment on above:Expected: 06/27/2020, Expires: 06/27/2021tart: 06-27-2020 End: 65-26-3676Obhwkkchzc radiography of chest, combined PA and lateralXR CHEST PA AND LATERAL Imaging Routine FARZANEH (obstructive sleep apnea) Moderate persistent asthma without complication Essential hypertension body mass index of 40.0-49.9 Sarcoidosis Heart palpitations Gastroesophageal reflux disease, unspecified whether esophagitis present Anxiety and depression Expected: 06/27/2020, Expires: 06/27/2021[facility] CenterComment on above:Expected: 06/27/2020, Expires: 06/27/2021tart: 06-27-2020 End: 20-59-5840FQEX/IRON BINDING/TRANSFERRINIRON/IRON BINDING/TRANSFERRIN Lab Routine FARZANEH (obstructive sleep apnea) Moderate persistent asthma without complication Essential hypertension body mass index of 40.0-49.9 Sarcoidosis Heart palpitations Gastroesophageal reflux disease, unspecified whether esophagitis present Anxiety and depression Anemia, unspecified type Expected: 06/27/2020, Expires: 06/27/2021[facility] CenterComment on above:Expected: 06/27/2020, Expires: 06/27/2021tart: 06-27-2020 End: 48-33-2410MMTTP PANEL W CALCULATED LDLLIPID PANEL W CALCULATED LDL Lab Routine FARZANEH (obstructive sleep apnea) Moderate persistent asthma without complication Essential hypertension body mass index of 40.0-49.9 Sarcoidosis Heart palpitations Gastroesophageal reflux disease, unspecified whether esophagitis present Anxiety and depression Expected: 06/27/2020, Expires: 06/27/2021[facility] CenterComment on above:Expected: 06/27/2020, Expires: 06/27/2021tart: 06-27-2020 End: 11-00-8299WVNFC CORONAVIRUS LAB 1 - NASOPHARYNGEALNOVEL CORONAVIRUS LAB 1 - NASOPHARYNGEAL Microbiology STAT Screening for viral disease Expected: 05/2020, Expires: 06/27/2021[facility] CenterComment on above:Expected: 06/27/2020, Expires: 06/27/2021tart: 06-27-2020 End: 54-52-6795Eaoiduxr ECGECG ECG Routine FARZANEH (obstructive sleep apnea) Moderate persistent asthma without complication Essential hypertension body mass index of 40.0-49.9 Sarcoidosis Heart palpitations Gastroesophageal reflux disease, unspecified whether esophagitis present Anxiety and depression Expected: 06/27/2020, Expires: 06/27/2021[facility] SystemComment on above: Expected: 06/27/2020, Expires: 06/27/2021tart: 06-27-2020 End: 58-08-0471DQG QnTSH Lab Routine FARZANEH (obstructive sleep apnea) Moderate persistent asthma without complication Essential hypertension body mass index of 40.0-49.9 Sarcoidosis Heart palpitations Gastroesophageal reflux disease, unspecified whether esophagitis present Anxiety and depression Expected: 06/27/2020, Expires: 06/27/2021[facility] CenterComment on above:Expected: 06/27/2020, Expires: 06/27/2021tart: 06-27-2020 End: 15-93-2137APZQYYA E2INKLYUQ B1 Lab Routine FARZANEH (obstructive sleep apnea) Moderate persistent asthma without complication Essential hypertension body mass index of 40.0-49.9 Sarcoidosis Heart palpitations Gastroesophageal reflux disease, unspecified whether esophagitis present Anxiety and depression Expected: 06/27/2020, Expires: 06/27/2021[facility] CenterComment on above: Expected: 06/27/2020, Expires: 06/27/2021tart: 06-27-2020 End: 68-37-8759NRCTUZP D (25-HYDROXY,TOTAL)VITAMIN D (25-HYDROXY,TOTAL) Lab Routine FARZANEH (obstructive sleep apnea) Moderate persistent asthma without complication Essential hypertension body mass index of 40.0-49.9 Sarcoidosis Heart palpitations Gastroesophageal reflux disease, unspecified whether esophagitis present Anxiety and depression Vitamin D deficiency Expected: 06/27/2020, Expires: 06/27/2021[facility] CenterComment on above:Expected: 06/27/2020, Expires: 06/27/2021tart: 06-27-2020 End: 04-92-5919AQAL, SERUMZINC, SERUM Lab Routine FARZANEH (obstructive sleep apnea) Moderate persistent asthma without complication Essential hypertension body mass index of 40.0-49.9 Sarcoidosis Heart palpitations Gastroesophageal reflux disease, unspecified whether esophagitis present Anxiety and depression Expected: 06/27/2020, Expires: 06/27/2021[facility]Comment [facility] above: Expected: 06/27/2020, Expires: 06/27/2021tart: 05-43-3014Xduevqzqf vaccination INFLUENZA VACCINE (#1)[facility]: 79-16-7927Lhm brain brain stem w/o w/contrast materialMRI Brain w/wo IegfzipyHM-Kwxvoultqalco-Mvirkvny B102 Work Phone: [phone]: 82-62-9066Xmr orbit face & neck w/o & w/contrast matrlMRI Orbits w/wo VvekohqtWJ-Zoufmotlqzcng-Mbqlncqn B102 Work Phone: Start: 65-03-3921UqshifjnikvIQZSIEXMJI CANCER SCREENING DISCUSSIONSelect Medical [facility]art: 30-74-5061Awzwuc vaccine hzv live for subcutaneous useZOSTER (SHINGLES) VACCINE (1 of 2)[facility]: 37-35-0284Toardlv lipid profileLIPID SCREENINGSelect Medical [facility]art: 67-94-0524Smkoslkeu mammographyMAMMOGRAM SCREENING DISCUSSIONOhio State Harding Hospital Start: 38-73-6847Grfppwltm for malignant neoplasm of cervixCERVICAL CANCER SCREENING DISCUSSIONSelect [facility]art: 96-23-2536Qvyzw diphtheria, tetanus and acellular pertussis (DTaP) vaccinationTDAP (ADULT)[facility]: 98-01-7273Vxioass vaccinationTETANUSAThe Christ Hospitaltart: 04-78-9924TAKEA-19 VACCINE (1)COVID-19 VACCINE (1)[facility]: 81-80-1707UXK screeningHIV SCREENING DISCUSSIONSelect Medical [facility]art: 83-13-6192EGA screeningHIV SCREENING DISCUSSIONSelect Medical [facility]art: 09-66-1197KLKZD-19 VACCINE (1)COVID-19 VACCINE (1)[facility]: 70-49-5478Bjducksfd C antibody, confirmatory testHEPATITIS C VIRUS SCREENING [facility] Work Phone: End: 92-30-1423Hyktjkso ECGECG ECG Routine body mass index of 40.0-49.9 1 Occurrences starting 07/21/[address] Vincent Medical CenterComment on above:1 Occurrences starting 07/21/2020 until 07/21/2020URGICAL PATHOLOGY REQUESTSURGICAL PATHOLOGY REQUEST Surg Path Routine GERD (gastroesophageal reflux disease) Screening for malignant neoplasm of colon Release Upon Ordering for 1 Occurrences starting 08/14/2020[facility] HospitalComment on above:Release Upon Ordering for 1 Occurrences starting 08/14/2020URGICAL PATHOLOGY REQUEST SURGICAL PATHOLOGY REQUEST Surg Path Routine Morbid obesity FARZANEH (obstructive sleep apnea) Asthma GERD (gastroesophageal reflux disease) Anxiety and depression Release Upon Ordering for 1 Occurrences starting 12/11/2020[facility] Work Phone: Comment on above:Release Upon Ordering for 1 Occurrences starting 12/11/2020VITAMIN V2KDALCDX B1 Lab Today 08/14/2020 7:20 AM [facility]XR [facility] 2 [facility] Hand - bilateral 3 [facility] HospitalZINC, SERUMZINC, SERUM Lab Today 08/14/2020 7:20 AM [facility] HospitalPersimmon Technologies [facility] HospitalRgjzobWH-Swghxngzeecsz-Obnbjbjn B102 Work Phone: [facility] CenterNEGATED: Highlighted row has been ruled out!Planned Goals not vhsljiagbhFW-Ognavnzhluvvp-Geuduwoz B102 Work Phone: Payers DatePayer CategoryPayerPolicy [id number]-[id number] [id number] 1960Medicare [id number]/HFA/FAP [id number] Social History DateTypeDetailFacilityStart: 06-27-2020 End: 85-02-2342Fqcygmf smoking status NHISFormer smokerOhio State Harding Hospital End: 05-17-9746Mtxgdsa of tobacco useCurrent smokerOhio State Harding Hospital End: 29-93-5520Dcqjqgd of tobacco useCigarette SmokerKnox Community Hospital SystemStart: 06-27-2020 End: 28-54-9009Wireaso use and exposureNever usedKnox Community Hospital SystemStart: 06-27-2020 End: 33-23-2491Vudwxgk intakeEx-drinker (finding)[facility] SystemStart: 55-77-3806Zgozkmv CommentPt will smoke 1-2 cigarettes with extreme stressKnox Community Hospital SystemStart: 98-81-2514Wog Assigned At BirthNot on fileKnox Community Hospital SystemExposure to SARS-CoV-2 (event)Not sureKnox Community Hospital SystemStart: 06-27-2020 Tobacco CommentPt will smoke 1-2 cigarettes with extreme stressKnox Community Hospital SystemStart: 04-16-2024 End: 43-24-6970Szavwzn smoking status NHISNever smoked tobacco (finding) [facility] HospitalexFemale (finding)[facility] Hospitaltart: 13-19-7731Zlr Assigned At BirthFeNorwalk Memorial HospitalNEGATED: Highlighted row--WS-Dlpgfmrkzechm-Jufdmfvr B102 Work Phone: Medical Equipment Procedure CodeEquipment CodeEquipment Original TextEquipment IdentifierDatesGore Seamguard Bioabsorbable [id number]_hvlDkfcb: 12-11-2020 Functional Status DateAssessmentResultFacilityNEGATED: Highlighted rowFunctional performance Functional status health issues are not documented Disease DI-Tsummmisxjzgd-Zitmiwrp B102 Work Phone: Mental Status DateAssessmentResultFacilityNEGATED: Highlighted rowCognitive function [Interpretation]Cognitive status health issues are not documented Disease YH-Cgwbdriwirlls-Bchijhzf B102 Work Phone: Clinical Notes 08-14-2020 to 11-11-2024 Note Date & SbucElmjUawoyunp17-24-5341 Evaluation note* Diagnosis Onset Date Resolution Status Admit Date Bilateral hand pain acuteJuly 2024 10:24amGanglion cyst of volar aspect of left wristacuteJuly 2024 10:24amParesthesia of hand, bilateralacuteJuly 2024 10:24am Pulmonary sarcoidosisacuteJuly 2024 10:24am [facility] Work Phone: 1(652) 123-517307-17-2025 Evaluation note* Diagnosis Onset Date Resolution Status Admit Date Bilateral hand pain acuteJuly 2024 10:24amGanglion cyst of volar aspect of left wristacuteJuly 2024 10:24amParesthesia of hand, bilateralacuteJuly 2024 10:24am Pulmonary sarcoidosisacuteJuly 2024 10:24amBilateral carpal tunnel syndromeacuteAugust 2024 3:16pmBilateral hand painacuteAugust 2024 3:16pmParesthesia of hand, bilateralacuteAugust 2024 3:16pmBilateral carpal tunnel syndromeacuteAugust 2024 11:42amBilateral hand painacuteAugust 2024 11:42amGanglion cyst of volar aspect of left wristacuteAugust 2024 11:42amParesthesia of hand, bilateralacuteAugust 2024 11:42am [facility] Work Phone: [phone]) 805-424808-26-2021 History of Present illness Narrative* Tiffany Lopez CNP - 12/21/2020 9:00 AM EDT BARIATRIC SURGERY CLINIC FOLLOW UP NOTE Clinic Date: 12/21/2020 Katalina Tapia, 55 y[address]o. [address] [facility] [address] Index Surgery Date of Surgery: 12/11/2020 Surgeon [...] Surgery 15 minutes spent with patient on pfzw-zi-wmyt interaction, history/documentation, education, and coordination of care. documented in this encounterOhio State Harding Hospital08-17-2021 Miscellaneous Notes* Nursing Notes - Domonique [...] DATE PERFORMED: 12/11/20 SURGEON: Emmett Montero MD ENZYME CHEMIST: Tiffany Lopez CNP PREOPERATIVE DIAGNOSES: Morbid obesity, [...] evaluated in a multidisciplinary fashion at [facility] and found to [...] bupivacaine, and saline by myself and the junior assistant manager. This mixture was also used to numb the locations of our trocar placements. The following trocars were then placed under direct visualization with the laparoscope by myself and the junior assistant manager. A 5 mm trocar was placed in [...] umbilicus. The camera was controlled by the junior assistant manager for the entire case. We then placed [...] we reached the angle of His. The junior assistant manager provided critical retraction during this portion of the procedure. We were careful to dissect away any posterior attachments both to the floppy fundus and we used funmi on some thin attachments on the posterior body of the stomach. The junior assistant manager mobilized the distal portion of the greater curvature to a level 5 cm proximal to the pylorus. We then placed a green load Endo stapler with a SeamGuard taking a small bite from the greater curvature of the stomach to begin creating our sleeve. With the help of the junior assistant manager, the stomach was tented up and anesthesia placed a 36-[place] Citizen bougie along the lesser curvature of the [...] completely transecting off the gastric fundus. The junior assistant manager provided necessary retraction during this process. We placed several clips on the distal staple line for hemostasis. We then placed a bowel clamp across the distal stomach and the junior assistant manager instilled sterile saline into the upper quadrant around our new sleeve. The endoscope was inserted through the oropharynx into the sleeve. We were able to visualize a straight staple line with no bleeding. Air was instilled into the stomach and submerged underneath the sterile saline in the abdominal cavity. There were no bubbles and thus the leak test was negative. The junior assistant manager then suctioned the air out of the [...] our hemostasis on throughout the Abdomen, the junior assistant manager helped to close the 15 mm trocar site with 0 Vicryl sutures using the Lorenzo-Ana device. We then desufflated the abdomen of CO2, removed the camera and the trocars. The 15 mm trocar site was copiously irrigated with sterile saline and then all the skin incisions were closed with 4-0 Monocryl subcuticular sutures and Dermabond by the junior assistant manager. The patient tolerated the procedure without difficulty, was extubated immediately postoperatively and was transferred to the PACU in good condition. This operation could not have been safely performed (without compromising the technical results or length of the procedure) without the assistance of a skilled surgical services assistant. A surgical services assistant was medically necessary for positioning, retraction and [...] 10:53 AM EDT POST OPERATIVE/PROCEDURE NOTE Katalina Willie ([id number]) SURGEON Surgeon(s) and Role: * Emmett Montero MD - Primary ENZYME CHEMIST Tiffany Lopez CNP ANESTHESIOLOGIST FITNESS AND WELLNESS DIRECTOR: Francisco Maldonado APRN-FITNESS AND WELLNESS DIRECTOR SURGICAL STAFF Structural Steel Detailer: Justo James RN Scrub Person: Sondra Jah PROCEDURE PERFORMED Procedure(s) (LRB): GASTRECTOMY LONGITUDINAL (SLEEVE) [...] 11, 2020 10:53 AM documented in this [facility]08-17-2021 Hospital Discharge instructions* Discharge Instr - Activity* Manuela Pham RN - 12/12/2020 1:04 PM EDT As Tolerated * Discharge Instr - Diet* Manuela Pham RN - 12/12/2020 1:05 PM EDT Diet prescribed by Dr. Montero * Additional Instructions* Emmett Montero MD - 12/12/2020 Katalinajohn Tapia 1965 Date of admission: 12/11/20 Date [...] up with Tiffany Lopez CNP in her [facility] office on 12/19/20 at 9:30 am. documented in this [facility]08-17-2021 Hospital course Narrative* Emmett Montero MD [...] Dept Phone 12/19/2020 9:30 AM Tiffany Lopez [facility] [phone] 01/11/2021 10:00 AM Nasir Hickman [facility] [phone] 01/16/2021 2:30 PM Emmett Montero [facility] [phone] documented in this [facility]08-17-2021 Consult note* Shelia Sanchez RD - 12/12/2020 12:41 PM EDT Consults: Consult for post-op nutrition education INPATIENT POST BARIATRIC SX NUTRITION ASSESSMENT Nutrition Assessment: Anthropometrics: Ht Readings from Last 1 Encounters: 12/11/20 1.549 m (5' 1 ) Wt Readings from Last 3 Encounters: 12/11/20 117 kg (258 lb) 11/17/20 117.1 kg (258 lb 1.6 oz) 08/30/20 116.1 kg (256 lb) [place] body weight: 47.8 kg (105 lb 6.1 [...] a 55 y.o. female was admitted to [facility] for: 1. FARZANEH (obstructive sleep apnea) 2. [...] minutes Shelia Sanchez RDN, LDN Registered Dietitian Middleware Systems Architect, Licensed Dietitian Middleware Systems Architect 12/12/20 documented in this [facility]08-17-2021 History of Present illness Narrative* Tulio Rascon, [...] Balance Skilled Intervention/Details Gait belt Rolling/Turning Mobility Alvin Level: Rolling/Turning not tested (DNT; pt sitting in chair) Scooting Bridging Mobility Alvin Level: Scooting/Bridging not tested (DNT; pt sitting in chair) Supine to Sit Mobility Alvin Level: Supine->Sit not tested (DNT; pt sitting in chair) Sit to Supine Mobility Alvin Level: Sit->Supine not tested (DNT; pt sitting in chair) Sit to Stand Transfer Alvin Level: Sit->Stand supervision Physical Assist: Sit->Stand other (see comments) (1 person assist) Assistive Device: Sit->Stand armed chair Stand to Sit Transfer Alvin Level: Stand->Sit supervision Physical Assist: Stand->Sit other (see comments) (1 person assist ) Assistive Device: Stand->Sit armed chair Gait Assessment Alvin Level: Gait stand-by assist Physical Assist: Gait other (see comments) (1 person assist ) Assistive Device: Gait gait belt Gait Distance (feet) 390' Gait Deviations Identified decreased ken;decreased gait speed Gait Skilled Rationale verbal;increase step length;increase step width Stairs Assessment Alvin Level: Stair Negotiation stand-by assist Physical Assist: Stair Negotiation other (see comments) (1 person assist ) Assistive Device: Stair Negotiation left rail (ascending) Number of stairs 2 PRIOR LEVEL [facility] Basic Mobility Inpatient Short Form Turning over in bed 4 - No Assistance Sitting/standing from chair 4 - No Assistance Moving from lying on back to sitting 4 - No Assistance Moving to and from bed to chair 4 - No Assistance Walk in hospital room 4 - No Assistance Climbing 3-5 steps with a railing 4 - No Assistance PRIOR LEVEL [facility] Mobility Raw Score 24 PRIOR LEVEL [facility] Mobility Functional Limitation/Modifier 0.00% Prior Functional Impairment in Basic Mobility CURRENT [facility] Basic Mobility Inpatient Short Form Turning over [...] railing 1 - Total Assistance (DNT) CURRENT [facility] Mobility Raw Score 15 CURRENT [facility] Mobility Functional Limitation/Modifier 57.70% Currently Impaired in [...] ambulating on uneven/dynamic surfaces;Limited ability to complete surveillance observer/maintenance;Limited standing tolerance;Limited ability to participate in Leisure/hobby [...] Goals: Patient will demonstrate bed mobility with Alvin to maximize independence and minimize caregiver burden for discharge home/ the next level of care. Patient will perform transfers with Alvin and use of the LRAD/no AD to [...] stay. Patient will DON/DOFF abdominal binder with Alvin for optimal use at home. Pt will sit in bedside chair at least 1 x a day to improve strength and activity tolerance for return to [facility]. Tulio Rascon, PT, DPT 12/12/2020 * JASON Alvarez - 12/12/2020 10:43 AM EDTSummary: Home Health Referral for HH sent to [facility]. Spoke with Rolanda with intake. Reports that they will not be able to accept as they are not comfortable with the HH orders as it does not qualify for home health. Spoke with Radha at [facility]. Out of service area. Call made to Sondra at [facility]. Reports that they will not be able [...] Date 12/12/20 0700 - 12/13/20 0659 Shift [id number] 1720-2750 5121-2208 24 Hour Total INTAKE P.O. [phone] [...] Minimally Invasive General Surgery * Dalton Serra [facility],PharmD - 12/09/2020 1:00 PM EDT AOP Patient [...] FOR MAX EFFECT Dalton Serra RPh, PharmD [facility] [phone] documented in this encounterOhio State Harding Hospital08-16-2021 Nurse Note* Justo James RN - 12/11/2020 10:30 AM EDT Patient transported to PACU per bed. Monitors attached. Report given to Yuliet Lopez RN. * Justo James RN - 12/11/2020 7:54 AM EDT OR 1 room temp 61.5 degrees F and humidity 48.5%. documented in this encounterOhio State Harding Hospital05-17-2021 History of Present illness Narrative* Clifford Cobian PsyD - 09/11/2020 9:30 AM EDT Bariatric Feedback Session Name: Katalina Willie Date: 09/11/2020 Time in: 09 Time out: 0955 Length of session: 31 minutes This psychological [...] perspective. Clifford Cobian PsyD documented in this encounterOhio State Harding Hospital04-30-2021 History of Present illness Narrative* CristalSowmya, RD - 08/25/2020 4:00 PM EDT OUTPATIENT BARIATRIC NUTRITION: PRE-OP Referring Provider: Emmett Montero MD Nutrition Assessment: Anthropometrics: Ht Readings from Last 1 Encounters: 08/14/20 1.549 m (5' 1 ) Wt Readings from Last 3 Encounters: 08/25/20 116.4 kg (256 lb 9.6 oz) 08/21/20 116.9 kg (257 lb 11.2 oz) 08/14/20 116.6 kg (257 lb) [place] body weight: 47.8 kg (105 lb 6.1 [...] minutes Sowmya Bee RDN, LDN Registered Dietitian Middleware Systems Architect, Licensed Dietitian Middleware Systems Architect 08/25/20 documented in this [facility]04-26-2021 History of Present illness Narrative* Shelia Sanchez [...] 08/09/20 117.8 kg (259 lb 9.6 oz) [place] body weight: 47.8 kg (105 lb 6.1 [...] cheese and a burbon ketchup sauce) 6 citizen of [place] fries Snack Piece of cheesecake with strawberries [...] on the following topics: Post-Surgery Diet and [place] to Successful Weight Loss and Maintenance. Discussed: [...] minutes Shelia Sanchez RDN, LDN Registered Dietitian Middleware Systems Architect, Licensed Dietitian Middleware Systems Architect 08/21/20 documented in this [facility]04-19-2021 Miscellaneous Notes* Nursing Notes - Margaret Maravilla RN - 08/14/2020 11:00 AM EDT Pt up and ambulated to bathroom and back to bed. Denies complaints of pain, nausea or other. Discharge instructions reviewed with pt and daughter. documented in this [facility]04-19-2021 History and physical note* Emmett Montero MD - 08/14/2020 9:08 AM EDT Bariatric/General Surgery H&P 08/14/2020 9:08 AM Katalina Tapia [id number] Katalina Tapia is a 55 y.o. year old female with morbid obesity and GERD. she presents today for endoscopic evaluation of GERD in preparation for bariatric surgery. PAST MEDICAL HISTORY: Past Medical History: Diagnosis Date Asthma Essential hypertension, benign GERD (gastroesophageal reflux disease) FARZANEH (obstructive sleep apnea) PAST SURGICAL HISTORY: Past Surgical History: Procedure Laterality Date LAP CHOLECYSTECTOMY 2017 EGD W/ BX 2017 BREAST LUMPECTOMY Bilateral 2010 x 3 VITRECTOMY [...] Minimally Invasive General Surgery [facility]* Diagnosis Screening for malignant neoplasm of colon Gastroesophageal reflux disease, unspecified whether esophagitis present Screening for colon cancer Special screening for malignant neoplasms, colon [facility]* Diagnosis Nutritional counseling- Primary body mass index of 40.0-49.9 documented in this encounter [facility] note* Diagnosis Nutritional counseling- Primary body mass index of 40.0-49.9 Follow up documented in this encounter [facility] note* Diagnosis Binge-eating disorder, in full remission, mild- Primary Recurrent major depressive disorder, in full remission documented in this encounter [facility] note* Diagnosis FARZANEH (obstructive sleep apnea) Obstructive sleep apnea (adult) (pediatric) Moderate persistent asthma without complication Unspecified asthma Essential hypertension Unspecified essential hypertension body mass index of 40.0-49.9 Sarcoidosis Heart palpitations Palpitations Gastroesophageal reflux disease, unspecified whether esophagitis present Anxiety and depression Dysthymic disorder documented in this encounter [facility] note* Diagnosis S/P laparoscopic sleeve gastrectomy- Primary FARZANEH (obstructive sleep apnea) Obstructive sleep apnea (adult) (pediatric) Moderate persistent asthma without complication Unspecified asthma Heart palpitations Palpitations body mass index of 40.0-49.9 Gastroesophageal reflux disease without esophagitis Esophageal reflux Sarcoidosis Anxiety and depression Dysthymic disorder Morbid obesity Asthma Unspecified asthma GERD (gastroesophageal reflux disease) Esophageal reflux documented in this encounter [facility] note* Diagnosis Other intestinal malabsorption- Primary S/P laparoscopic sleeve gastrectomy FARZANEH (obstructive sleep apnea) Obstructive sleep apnea (adult) (pediatric) Uncomplicated asthma, unspecified asthma severity, unspecified whether persistent Sarcoidosis documented in this encounter [facility] noteNo assessment information availableGlenbeigh Hospital Work Phone: Recmdh for referral (narrative)No reason for referral information availableGlenbeigh Hospital Work Phone: Reason for visit Narrative* Auth/CertSpecialty Diagnoses / ProceduresReferred By ContactReferred To Contact Diagnoses Morbid obesity [E66.01] FARZANEH (obstructive sleep apnea) [G47.33] Asthma [J45.909] GERD (gastroesophageal reflux disease) [K21.9] Anxiety and depression [F41.9, F32.9] Emmett Montero MD [address] [id number] Referral Viri DateExpiration DateVisits RequestedVisits [id number] [facility] Summary Purpose Family History No Family History Records Found Brother Name Dates Details Family history of retinal de tachment(V19.19, Z83.518) Status:Active Brother Name Dates Details Family history of retinal de tachment(V19.19, Z83.518) Status:Active Relationship Condition Age at Onset Recorded Date/T missy Not Specified Cimarron's disease Unknown fatherLymphomaUnknown Advance Directives No Advanced Directives Records Found Advance Directive Response Recorded Date/ Time Advance Directives No September 24 2:49pm Advance Directive Response Recorded Date/ Time Advance Directives No November 12 12:48pm Hospital Course Note MR#: [id number] [facility] Pt. Name: Katalina Tapia Admitted: 09/16/2018 [...] for pulmonary sarcoidosis, who was transferred from [facility] following presentations there for abrupt onset of dyspnea with fever. At that time, her chest x-ray was concerning for a pneumonia and she was initiated on Rocephin and azithromycin. She was initially treated for an acute asthma exacerbation with steroids and bronchodilators. However, she progressively deteriorated and required intubation. She had (more content not included)... Note MR#: [id number] [facility] Pt. Name: Katalina Tapia Surgery Date: 09/18/2018 Room #: [facility] [id number] Date of : 1965 PROCEDURE NOTE ATTENDING: [...] not included)... Procedure Findings Note MR#: [id number] [facility] Pt. Name: Katalina Tapia Surgery Date: 09/18/2018 Room #: [id number] Date of : 1965 PROCEDURE NOTE ATTENDING: [...] (more content not included)... Reason for Referral StatusReasonSpecialtyDiagnoses / ProceduresReferred By ContactReferred To ContactNew Request Diagnoses FARZANEH (obstructive sleep apnea) Moderate persistent asthma without complication Essential hypertension Obesity, morbid, BMI 40.0-49.9 Sarcoidosis Heart palpitations Gastroesophageal reflux disease, unspecified whether esophagitis present Anxiety and depression Procedures ECG Emmett Montero MD [address] [place] [id number] StatusReasonSpecialtyDiagnoses / ProceduresReferred By ContactReferred To ContactNew RequestPsychology Diagnoses FARZANEH (obstructive sleep apnea) Moderate persistent asthma without complication Essential hypertension Obesity, morbid, BMI 40.0-49.9 Sarcoidosis Heart palpitations Gastroesophageal reflux disease, unspecified whether esophagitis present Anxiety and depression Emmett Montero MD [address] [place], [place] [address] Clifford Cobian, PsyD [address] [place] [phone] StatusReasonSpecialtyDiagnoses / ProceduresReferred By ContactReferred To ContactNew RequestNutrition and Dietetics Diagnoses FARZANEH (obstructive sleep apnea) Moderate persistent asthma without complication Essential hypertension Obesity, morbid, BMI 40.0-49.9 Sarcoidosis Heart palpitations Gastroesophageal reflux disease, unspecified whether esophagitis present Anxiety and depression Emmett Montero MD [address] [place], [place] [address] StatusReasonSpecialtyDiagnoses / ProceduresReferred By ContactReferred To ContactNew RequestCardiovascular Medicine Diagnoses FARZANEH (obstructive sleep apnea) Moderate persistent asthma without complication Essential hypertension Obesity, morbid, BMI 40.0-49.9 Sarcoidosis Heart palpitations Gastroesophageal reflux disease, unspecified whether esophagitis present Anxiety and depression Emmett Montero MD [address] [place], [place] [address] Jaswant [facility]iology [place] [phone] Scheduling Instructions . StatusReasonSpecialtyDiagnoses / ProceduresReferred By ContactReferred To ContactNew Request Diagnoses Obesity, morbid, BMI 40.0-49.9 Procedures ECG Emmett Montero MD [address] [place], [place] [address] SpecialtyDiagnoses / ProceduresReferred By ContactReferred To ContactSocial Work Diagnoses S/P laparoscopic sleeve gastrectomy Emmett Montero MD [address] [place] [address] Referral IDStatSarahStart DateExpiration DateVisits RequestedVisits [id number] Request/[id number] / Procedures Referred By ContactReferred To Contact Tiffany Lopez CNP [address] [place] [address] Referral IDStaIra DateExpiration DateVisits RequestedVisits Authorized Assessments Diagnosis body mass index of [...] 06/27/20 116.7 kg (257 lb 3.2 oz) [place] body weight: 47.8 kg (105 lb 6.1 oz) Adjusted ideal body weight: 75.3 kg (166 lb 1.7 oz) % IBW: 244.7% Body mass index is 48.6 kg/m . Pt. Weight goal: Wants to feel healthy inside and out. Calorie goal for weight loss: 5358-9832 kcals/day (15-20 kcals/kg adj wt) Protein goal: [...] least 64 ounces of caffeine free fluid/day. Sole Stitcher Hand Nutrition Goals: 1. Eliminate: carbonation, caffeine, alcohol. [...] minutes Shelia Sanchez RDN, LDN Registered Dietitian Middleware Systems Architect, Licensed Dietitian Middleware Systems Architect 06/27/20 documented in this encounter* Sowmya Bee [...] 06/27/20 116.7 kg (257 lb 3.2 oz) [place] body weight: 47.8 kg (105 lb 6.1 oz) Adjusted ideal body weight: 76.1 kg (167 lb 12.6 oz) Body mass index is 49.39 kg/m . Ms. Katalina Tapia is a 55 y.o. female here in preparation for weight loss surgery. Diet Recall: (Obtained from questionnaire) Meal Time Food/Drink Breakfast 10:30 AM Regular coffee (8 oz) with cream Snack Lunch Snack Dinner 5:00-6:00 PM [employer] (deli meat usually ham with cheese and mustard on a flatbread) or leftovers such as a fajita from [employer] Snack 10:00 PM gets home at this time and eats with pt (double cheeseburger monroy and diet pop from [employer]) Current exercise: Pt is exercising using resistance [...] minutes Sowmya Bee RDN, LDN Registered Dietitian Middleware Systems Architect, Licensed Dietitian Middleware Systems Architect 07/21/20 documented in this encounter* Clifford Cboian, Brian - 07/24/2020 1:00 PM EDT Pre-Bariatric Surgery Psychological Evaluation Name: Katalina Tapia : 1965 Age: 55 y.o. Sex: female [address]: [address] [place] [address] Date of Evaluation: 07/24/2020 Examiner: Clifford Cobian PsyD Time of Diagnostic Evaluation: 1400 Psychological Codes Used 99231 Psychological Diagnostic Interview 48457 Test Administration and Scoring (1st 30 minutes) 32699 Test Administration and Scoring (additional 30 minutes) 35234 Psychological Testing Services (1st 60 minutes) 28544 Psychological Testing Services (additional 60 minutes) Psychological Testing Table Code Date Time Spent Units Billed 51155 07/24/2020 NA 1 28319 07/24/2020 30 1 09384 07/24/2020 184 6 41194 07/25/2020 60 1 This pt will be seen for a feedback session at a later date. That service will be billed under the code 44793 which will relate back to this psychological evaluation and testing. Reason for Referral: [facility] and Dr Montero or Dr Ambrosio have referred Katalina Willie for psychological evaluation to determine suitability for [...] Most Significant Weight Loss: 75 pounds, by staredmund self, 2000. Supervised Weight Loss Program at [...] Origin Pt was born and raised in [place]. Poor relationship with mom over the years, [...] impaired. Is on disability for this. works [employer] for last 22 years. * Current Stressors [...] counseling or psychotherapy? Yes Most recently at [facility], slowed down with covid when stopped doing face to face. * Have you ever been prescribed any psychotropic medications? Yes * Current psychotropic medications: Buspirone 30 mg bid Sertraline 100 mg every day Hydroxyzine 25 mg hs. This combination works well for her. Prescribed by her psychiatrist at [facility], Dr Carrillo. * Past psychotropic medications: prozac [...] manipulate others produce feelings of resentment in nursing home relationships. She is reporting anxiety, tension and [...] (generalized anxiety disorder) F41.1 Conclusions and Recommendations: Katalina Tapia was referred by [facility] for psychological evaluation [...] PsyD documented in this encounter* Sowmya Bee, CARISSA - 07/28/2020 3:00 PM EDT OUTPATIENT BARIATRIC NUTRITION EDUCATION: LESSON 2 Referring Provider: Emmett Montero MD Nutrition Assessment: Anthropometrics: Ht Readings from Last 1 Encounters: 06/27/20 1.549 m (5' 1 ) Wt Readings from Last 3 Encounters: 07/28/20 117.4 kg (258 lb 14.4 oz) 07/21/20 118.6 kg (261 lb 6.4 oz) 06/27/20 116.7 kg (257 lb 3.2 oz) [place] body weight: 47.8 kg (105 lb 6.1 [...] minutes Sowmya Bee RDN, LDN Registered Dietitian Middleware Systems Architect, Licensed Dietitian Middleware Systems Architect 07/28/20 documented in this encounter* Sowmya Bee [...] 07/21/20 118.6 kg (261 lb 6.4 oz) [place] body weight: 47.8 kg (105 lb 6.1 [...] Time spent with pt: 45 minutes Sowmya Bee RDN, LDN Registered Dietitian Middleware Systems Architect, Licensed Dietitian Middleware Systems Architect 08/07/20 documented in this encounter Instructions * Patient Instructions* Clifford Cobian, PsyD - 07/24/2020 1:00 PM EDT 1. [...] 2024 10:24am EMG BUE per Sondra Salgado [facility] st 2024 3:16pm Reason for Visit Admit Date Bilateral hand pain November 11, 2024 10:2 4am Ganglion cyst of volar aspect of left wr ist November 11, 2024 10:24am Paresthesia of hand, bilateral October 10:24am Pulmonary sarcoidosis November 11, 2024 10 :24am Chief Complaint Admit Date pain in hands, lump on wrist November 11, 2024 10:24am EMG BUE per Sondra Salgado [facility] 2024 3:16pm TB-CONSULT SONDRA SALGADO BILAT CT S AND December 13, 2024 11:42am Reason for Visit Admit Date Bilateral hand pain November 11, 2024 10:2 4am Ganglion cyst of volar aspect of left wr ist November 11, 2024 10:24am Paresthesia of hand, bilateral October 10:24am Pulmonary sarcoidosis November 11, 2024 10 :24am Bilateral carpal tunnel syndrome November 29, 2024 3:16pm Bilateral hand pain November 29, 2024 3:1 6pm Paresthesia of hand, bilateral November 3:16pm Bilateral carpal tunnel syndrome December 13, 2024 11:42am Bilateral hand pain December 13, 2024 11 :42am Ganglion cyst of volar aspect of left wr ist December 13, 2024 11:42am Paresthesia of hand, bilateral December 132024 11:42am Additional Source Comments INFORMATION SOURCE (unrecogn ized section and content) DATE CREATED AUTHOR 07/27/2019 [facility] DATE CREATED AUTHOR AUTHOR'S ORGANIZ ATION 02/15/2020 [facility] DATE CREATED AUTHOR AUTHOR'S ORGANIZ ATION 02/16/2020 [employer] DATE CREATED AUTHOR AUTHOR'S ORGANIZ ATION 01/17/2021 [facility] DATE CREATED AUTHOR AUTHOR'S ORGANIZ ATION 04/17/2021 [facility] DATE CREATED AUTHOR AUTHOR'S ORGANIZ ATION 02/27/2022 [facility] DATE CREATED AUTHOR AUTHOR'S ORGANIZ ATION 01/12/2025 [facility] Reason for Visit (unrecogniz ed section and content) ReasonCommentsConsultPatient interested in bariatric surgeryStatusReason SpecialtyDiagnoses / ProceduresReferred By ContactReferred To ContactNew Request Registered Dietitian / Nutrition and Dietetics Diagnoses Dr. Montero Initial Consult (medicare) Procedures NEW PATIENT - JASWANT Self, Self Nasir Hickman, RD [address] [place] [address] ReasonCommentsNutrition ConsultationStatusReasonSpecialtyDiagnoses / Procedures Referred By ContactReferred To ContactNew Request Diagnoses Obesity, morbid, BMI 40.0-49.9 Procedures ECG Emmett Montero MD [address] [place] [phone] ReasonCommentsNew PatientEating DisorderStatusReasonSpecialtyDiagnoses / ProceduresReferred By ContactReferred To ContactClosedPsychology Diagnoses FARZANEH (obstructive sleep apnea) Moderate persistent asthma without complication Essential hypertension Obesity, morbid, BMI 40.0-49.9 Sarcoidosis Heart palpitations Gastroesophageal reflux disease, unspecified whether esophagitis present Anxiety and depression Emmett Montero MD [address] [place] [phone] Clifford Cobian, PsyD [address] [place] [address] ReasonCommentsNutrition ConsultationStatusReasonSpecialtyDiagnoses / Procedures Referred By ContactReferred To ContactNew RequestNutrition and Dietetics Diagnoses FARZANEH (obstructive sleep apnea) Moderate persistent asthma without complication Essential hypertension Obesity, morbid, BMI 40.0-49.9 Sarcoidosis Heart palpitations Gastroesophageal reflux disease, unspecified whether esophagitis present Anxiety and depression Emmett Montero MD [address] [place] [id number] ReasonOnset PivrPyexnnyjRtnvq75/05/2021uprep Sample for COLO on 08/14/2020tatus ReasonSpecialtyDiagnoses / ProceduresReferred By ContactReferred To Contact Diagnoses GERD (gastroesophageal reflux disease) Screening for malignant neoplasm of colon GERD (gastroesophageal reflux disease) [K21.9] Screening for malignant neoplasm of colon [Z12.11] Procedures HI EGD TRANSORAL BIOPSY SINGLE/MULTIPLE HI COLON CA SCRN NOT HI RSK IND EGD W/ BX COLONOSCOPY FOR COLORECTAL CANCER SCREENING LOW/AVERAGE RISK INDIVIDUAL StatusReasonSpecialtyDiagnoses / ProceduresReferred By ContactReferred To ContactNew RequestNutrition and Dietetics Diagnoses FARZANEH (obstructive sleep apnea) Moderate persistent asthma without complication Essential hypertension Obesity, morbid, BMI 40.0-49.9 Sarcoidosis Heart palpitations Gastroesophageal reflux disease, unspecified whether esophagitis present Anxiety and depression Emmett Montero MD [address] [place] [phone] ReasonCommentsFollow-upEating DisorderReasonCommentsPost Op Visitone week Emmett Montero MD - 06/27/2020 2:00 [...] the past), heart palpitations, GERD (improved after cholecystectomy,not on regular meds), depression/anxiety (seeing a psychiatrist). [...] been explained to the patient and Katalina Willie has expressed understandingand acceptance of them. The increased risk of [...] become within 12-18 months following bariatric surgery. Shewas educated on the increased risks to mother and fetus associated with within 2 years ofbariatric surgery. She is menopausal. The benefits of the above surgeries including weight loss, improvement/resolution of associated medical and mental health conditions, improved mobility, and decreased mortality have been explained the the patient and Katalina Willie has expressed understanding and acceptance of them. [...] Notes (unrecog nized section and content) Suprep Lot#[id number] Expires 04/2022 qty 1 Suprep Sample for COLO on 08/14/2020 Patient cannot afford prep. Setting aside a sample of Suprep for patient in the office. Patient canpick up either 08/10 or 08/11. documented in this encounter Scheduled Active and Recently Administ ered Medications (unrecognized section and content) Medication Order12/10//// acetaminophen (OFIRMEV) IVPB 1,000 mg (COMPLETED) 1,000 mg, Intravenous, Administer over 15 Minutes, ONCE, 1 dose, On Fri12/11/20 at 1115 * 1136 ($$New Bag$$ - Provider: Jadyn Lopez, RN) * 1145 (Stopped - Provider: Jadyn Lopez, RN) acetaminophen (TYLENOL) oral solution 650 mg 650 mg, Oral, EVERY 6 HOURS NON-STANDARD, First dose on Fri12/11/20 at 1300, Until Discontinued, , Post-op/Post-Proc * 1351 (Given - Provider: Domonique Allen, GEMMA) * 1939 (Given - Provider: Khushbu Nixon, GEMMA) * 0107 (Given - Provider: Khushbu Nixon, GEMMA) * 0632 (Given - Provider: Khushbu Nixon, RN) * 1220 (Given - Provider: Domonique Allen, GEMMA) acetaminophen (TYLENOL) tablet 1,000 mg (COMPLETED) 1,000 mg, Oral, ONCE, 1 dose, On Fri12/11/20 at 0645, With a sip of water on arrival to [facility], Pre-op/Pre-Proc * 0701 (Given - Provider: Sandra Sanchez RN) bupivacaine (MARCAINE) 30 mL, bupivacaine LIPOSOME (EXPAREL) 20 mL in sodium chloride 0.9% 200 mL (COMPLETED) Injection, ONCE, 1 dose, On Fri12/11/20 at 0830, 200 mL, Intra-op/Intra-Proc * 0854 ($$New Bag$$ - Provider: Emmett Montero MD) busPIRone (BUSPAR) tablet 30 mg 30 mg, Oral, 2 TIMES DAILY, First dose on Fri12/12/20 at 0900, Until Discontinued * 0809 (Given - Provider: Domonique Allen, GEMMA) ceFAZolin (ANCEF) 3 g in sodium chloride 0.9%, with overfill 125 mL (total volume) IVPB (COMPLETED) 3 g, Intravenous, Administer over 30 Minutes, ONCE, 1 dose, On Fri12/11/20 at 0645, Administer in surgical area only - do not administer on the floor, Pre-op/Pre-Proc * 0818 ($$New Bag$$ - Provider: Francisco Maldonado APRN-FITNESS AND WELLNESS DIRECTOR) celecoxib (CELEBREX) capsule 400 mg (COMPLETED) 400 mg, Oral, ONCE, 1 dose, On Fri12/11/20 at 0645, With a sip of water on arrival to holding, Pre-op/Pre-Proc * 0701 (Given - Provider: Sandra Sanchez RN) enOXAParin (LOVENOX) injection 40 mg 40 mg, Subcutaneous, EVERY 12 HOURS NON-STANDARD, First dose on Fri12/11/20 at 1800, Until Discontinued, Indications: DVT/PE prophylaxis, Post-op/Post-Proc * 1828 (Given - Provider: Domonique Allen RN) * 0520 (Given - Provider: Khushbu Nixon RN) Fluticasone-Salmeterol (ADVAIR HFA) 115-21 MCG/ACT inhaler 2 puff 2 puff, Inhalation, 2 TIMES DAILY, First dose on Fri12/11/20 at 1700, Until Discontinued, Post-op/Post-Proc * 2104 (Given - Provider: Yeny Gastelum, ZAKIYA - Comment: Therapist busy.) * 0811 (Given - Provider: Vito Shah, ZAKIYA) gabapentin (NEURONTIN) capsule 600 mg (COMPLETED) 600 mg, Oral, ONCE, 1 dose, On Fri12/11/20 at 0645, With a sip of water on arrival to holding, Pre-op/Pre-Proc * 0701 (Given - Provider: Sandra Sanchez RN) heparin injection 5,000 Units (COMPLETED) 5,000 Units, Subcutaneous, ONCE, 1 dose, On Fri12/11/20 at 0645, Day of Surgery, Pre-op/Pre-Proc * 0701 (Given - Provider: Sandra Sanchez RN) hydrOXYzine HCl (ATARAX) tablet 25 mg 25 mg, Oral, DAILY AT BEDTIME, First dose on Fri12/11/20 at 2100, Until Discontinued, Post-op/Post-Proc * 2056 (Given - Provider: Khushbu Nixon RN) ketorolac (TORADOL) injection 15 mg 15 mg, Intravenous, EVERY 6 HOURS, 8 doses, First dose on Fri12/11/20 at 1900, Last dose on Fri12/13/20 at 1200, Post-op/Post-Proc * 1828 (Given - Provider: Domonique Allen RN) * 0021 (Given - Provider: Khushbu Nixon RN) * 0520 (Given - Provider: Khushbu Nixon RN) * 1218 (Given - Provider: Domonique Allen RN) magnesium oxide (MAX-OX) tablet 800 mg (COMPLETED) 800 mg, Oral, ONCE, 1 dose, On Fri12/12/20 at 0900 * 0902 (Given - Provider: Manuela Pham, GEMMA) ondansetron 4mg/2ml (ZOFRAN) injection 4 mg 4 mg, Intravenous, EVERY 6 HOURS NON-STANDARD, First dose on Fri12/11/20 at 1530, Until Discontinued, Post-op/Post-Proc * 1547 (Given - Provider: Domonique Allen RN) * 2056 (Given - Provider: Khushbu Nixon RN) * 0236 (Given - Provider: Khushbu Nixon RN) * 0809 (Given - Provider: Domonique Allen RN) * 1530 (Canceled Entry - Provider: System Discharge - Comment: Automatically canceled at discontinue of medication order) pantoprazole (PROTONIX) injection 40 mg 40 mg, Intravenous, DAILY, First dose on Fri12/11/20 at 1230, Until Discontinued, Dilute each 40 mgvial with 10 mL of NS. All bolus doses, whether 40 mg or 80 mg, should be administered over at least two minutes., Indications: Inpt Stress Ulcer Prophylaxis, Post-op/Post-Proc * 1352 (Given - Provider: Domonique Allen RN) * 0809 (Given - Provider: Domonique Allen RN) scopolamine (TRANSDERM-SCOP) patch 1 patch (CANCELED) 1 patch, Transdermal, ONCE, 1 dose, On Fri12/11/20 at 0645, Behind ear upon arrival to [facility], Pre-op/Pre-Proc * 0701 (Patch Applied - Provider: Sandra Sanchez RN) sertraline (ZOLOFT) tablet 100 mg 100 mg, Oral, DAILY, First dose on Fri12/12/20 at 0900, Until Discontinued, Post-op/Post-Proc * 0809 (Given - Provider: Domonique Allen RN) Medication Order// lactated ringers 1,000 mL with potassium chloride 20 mEq IV solution (CANCELED) Intravenous, CONTINUOUS, Starting on Fri12/11/20 at 1230, Until Fri12/12/20 at 0828, Post-op/Post-Proc * 1352 ($$New Bag$$ - Provider: Domonique Allen RN) * 0023 (Rate/Dose Verify - Provider: Khushbu Nixon RN) * 0236 ($$New Bag$$ - Provider: Khushbu Nixon, GEMMA) * 0810 (Rate/Dose Verify - Provider: Domonique Allen RN) lactated ringers IV solution (CANCELED) Intravenous, at 75 mL/hr, CONTINUOUS, Starting on Fri12/11/20 at 0645, Until Fri12/11/20 at 1201, Pre-op/Pre-Proc * 0724 ($$New Bag$$ - Provider: Sandra Sanchez RN) * 0845 (Paused - Provider: KENNETH Silva - Comment: Switch to gravity) * 0846 ($$New Bag$$ - Provider: JAMES SilvaFITNESS AND WELLNESS DIRECTOR) * 1001 ($$New Bag$$ - Provider: JAMES SilvaFITNESS AND WELLNESS DIRECTOR) * 2053 (Stopped - Provider: Khushbu Nixon RN) sodium chloride 0.9% IV solution Intravenous, at 75 mL/hr, CONTINUOUS, Starting on Fri12/12/20 at 0830, Until Fri12/12/20 at 1750 * 0902 ($$New Bag$$ - Provider: Manuela Pham RN) Medication Order// albuterol (VENTOLIN HFA) inhaler 2 puff 2 [...] Starting on Fri12/11/20 at 1044, Until Fri12/12/20 [id number], Other, Increase in reported pain to moderate or severe between available doses of PO oxycodone, Post-op/Post-Proc Oxidized Cellulose (SURGICEL) topical pad (CANCELED) NEEDED, Starting on Fri12/11/20 at 0941, Until Fri12/11/20 at 1201, Intra-op/Intra-Proc * 0941 (Given - Provider: Emmett Montero MD) oxyCODONE (ROXICODONE) oral solution 10 mg 10 mg, Oral, EVERY 4 HOURS NEEDED, Starting on Fri12/11/20 at 1221, Until Fri12/12/20 at 1750, Severe Pain, Post-op/Post-Proc oxyCODONE (ROXICODONE) oral solution 5 mg 5 mg, Oral, EVERY 4 HOURS NEEDED, Starting on Fri12/11/20 at 1221, Until Fri12/12/20 at 1750, Moderate Pain, Post-op/Post-Proc * 1419 (Given - Provider: Domonique Allen RN) * 2216 (Given - Provider: Khushbu Nixon RN) * 0808 (Given - Provider: Domonique Allen RN) promethazine (PHENERGAN) 12.5 mg in sodium chloride 0.9%, with overfill 60.5 mL (total volume) IVPB 12.5 mg, Intravenous, at 121-242 mL/hr, Administer over 15-30 Minutes, EVERY 6 HOURS NEEDED, Starting on Fri12/11/20 at 1044, Until Fri12/12/20 at 1750, Other, Nausea/Vomiting (2nd Line), Extravasation Risk, Post-op/Post-Proc * 1137 ($$New Bag$$ - Provider: Jadyn Lopez RN) * 1140 (Stopped - Provider: Jadyn Lopez RN) simethicone (MYLICON) chewable tablet 80 mg 80 mg, Oral, EVERY 4 HOURS NEEDED, Starting on Fri12/11/20 at 1221, Until Fri12/12/20 at 1750, Gas, Post-op/Post-Proc * 1939 (Given - Provider: Khushbu Nixon, RN) * 0809 (Given - Provider: Domonique Allen, RN) * 1224 (Given - Provider: Domonique Allen, RN) sodium chloride 0.9 % irrigation (CANCELED) NEEDED, Starting on Fri12/11/20 at 0851, Until Fri12/11/20 at 1201, Intra-op/Intra-Proc * 0851 (Given - Provider: Emmett Montero MD - Comment: on sterile field for use during case) * 0852 (Given - Provider: Emmett Montero MD - Comment: hanging to sterile for for use during case) sterile water irrigation (CANCELED) NEEDED, Starting on Fri12/11/20 at 0851, Until Fri12/11/20 at 1201, Intra-op/Intra-Proc * 0851 (Given - Provider: Emmett Montero MD - Comment: at scope tower for use during case) Care Teams (unrecognized sec tion and content) Team MemberRelationshipSpecialtyStart DateEnd Date Mimi Smith MD [address] [place] [address] [facility]/27/20Team MemberRelationshipSpecialtyStart DateEnd Date Mimi Smith MD [address] [place] [address] PCP - GeneralFami Medicine06/27/20 Team Status: Active Member Role Status Dates Sondra aSlgado APRN LABORER HEADING-C Primary Care Provider Active Team Status: Active Member Role Status Dates Dhaval Farr MD Primary Care Provider Active Start: September 07, 2024 Perez [facility] ProviderActiveStart: September 07, 2024 Team Status: Inactive Member Role Status Dates Sondra Salgado APRN LABORER HEADING-C Primary Care Provider Active Start: November 11, 2024 End: November 11, 2024Sondra Salgado ROSALIA LABORER HEADING-CAttending ProviderActive Start: November 11, 2024 End: November 11, 2024 Team Status: Inactive Member Role Status Dates Sondra WilliamsonROSALIA turner LABORER HEADING-C Primary Care Provider Active Start: November 29, 2024 End: November 29, 2024Alec Perez ProviderActiveStart: November 29, 2024 End: November 29, 2024 Team Status: Inactive Member Role Status Dates Sondra WilliamsonROSALIA turner LABORER HEADING-C Primary Care Provider Active Start: December 13, 2024 End: December 13, 2024JuAlec Lui ProviderActiveStart: December 13, 2024 End: December 13, 2024 Goals (unrecognized section and content) Goals may be documented in a n alternate sectionGoals may be documented in an alternate sectionGoals may be documented in an [...] BE BASED ON THE PRIMARY CLINICAL RECORDS. [facility]. provides no warranty or guarantee of the accuracy or completeness of information in this document.
--- NOTE | 2025-02-21 08:43 | XR_ITS ---
The [address] [address] Patient Name: KATALINA ONTIEVROS MRN: [id number] date: 1965 Sex: F [facility]igned [facility] Current Patient Location: [facility] Accession/Order Number: [id number] Exam Date: 02/21/2025 08:55 Report Date: 02/21/2025 09:38 At the request of: TERRA MARTIN DO Procedure: XR chest 2V PA AND LATERAL CHEST: CLINICAL HISTORY: Preoperative clearance. Former smoker. COMPARISON: CT 08/01/2020 and chest x-ray 07/03/2019 There is no focal parenchymal consolidation, effusion or pneumothorax. The cardiac, hilar and mediastinal silhouettes are within normal limits. There is no vascular congestion. The visualized bony thorax is intact. There is slight thoracolumbar dextroscoliotic curvature and endplate spurring. XR/XR chest 2V IMPRESSION: NO ACUTE CARDIOPULMONARY ABNORMALITY. Impression dictated by: Rolanda Lange M.D. 02/21/2025 9:38 AM Dictation Location: [place] [address] Electronically authenticated by: [id number] Y Date: 02/21/2025 09:38
--- NOTE | 2025-02-21 09:08 | PM.PRESUREVA ---
History of Present Illness History of Present Illness Chief complaint: right carpal tunnel syndrome Narrative: Patient presents for presurgical testing. The patient reports a long history of bilateral carpal tunnel syndrome that has worsened over the past 6 months. She states she feels her symptoms most likely began quite a long time ago, but she did not seek treatment. The patient states her pain is worse in the right hand especially at night. The patient takes ibuprofen on occasion and applies ice packs to help with her discomfort. She states she does have numbness and tingling in her middle and ring fingers on the right hand. Review of Systems ROS Narrative REVIEW OF SYSTEMS: Negative except as stated in HPI, ten or more systems reviewed. Constitutional: No fever, chills, weakness ENT: No sore throat or epistaxis Cardiovascular: No edema, chest pain, palpitations, or activity intolerance Respiratory: No shortness of breath, cough, or wheezing Gastrointestinal: No abdominal pain, constipation, diarrhea, or vomiting Genitourinary: No dysuria or hematuria Neurological: No numbness, tingling, weakness, or headache Psychiatric: No mood changes [facility] Medical History (Updated 02/21/25 @ 09:05 by Kathi Stanford NP) Pulmonary sarcoidosis (~2019) ?D86.0 - Sarcoidosis of lung (ICD-10) Arthritis ?M19.90 - Unspecified osteoarthritis, unspecified site (ICD-10) Carpal tunnel syndrome ?G56.00 - Carpal tunnel syndrome, unspecified upper limb (ICD-10) Sleep apnea ?G47.30 - Sleep apnea, unspecified (ICD-10) Bipolar disorder ?F31.9 - Bipolar disorder, unspecified (ICD-10) Depression ?F32.A - Depression, unspecified (ICD-10) Anxiety ?F41.9 - Anxiety disorder, unspecified (ICD-10) Panic attacks ?F41.0 - Panic disorder [episodic paroxysmal anxiety] (ICD-10) Sarcoidosis ?D86.9 - Sarcoidosis, unspecified (ICD-10) Pneumonia ?J18.9 - Pneumonia, unspecified organism (ICD-10) COVID-19 ?U07.1 - COVID-19 (ICD-10) Asthma ?J45.909 - Unspecified asthma, uncomplicated (ICD-10) Menopause ?Z78.0 - Asymptomatic menopausal state (ICD-10) GERD (gastroesophageal reflux disease) ?K21.9 - Gastro-esophageal reflux disease without esophagitis (ICD-10) Surgical History (Updated 02/21/25 @ 09:03 by Kathi Stanford NP) H/O tooth extraction ?K08.409 - Partial loss of teeth, unspecified cause, unspecified class (ICD-10) History of colonoscopy ?Z98.890 - Other specified postprocedural states (ICD-10) H/O gastric sleeve ?Z90.3 - Acquired absence of stomach [part of] (ICD-10) History of cholecystectomy ?Z90.49 - Acquired absence of other specified parts of digestive tract (ICD-10) H/O lumpectomy ?Z98.890 - Other specified postprocedural states (ICD-10) History of breast biopsy ?Z98.890 - Other specified postprocedural states (ICD-10) History of wisdom tooth extraction ?K08.409 - Partial loss of teeth, unspecified cause, unspecified class (ICD-10) S/P cataract extraction and insertion of intraocular lens ?Z98.49 - Cataract extraction status, unspecified eye (ICD-10) ?Z96.1 - Presence of intraocular lens (ICD-10) Family History (Updated 02/21/25 @ 08:37 by Kathi Stanford NP) Other Family history of cancer Family history of seizures Family history of stroke Social History (Updated 02/21/25 @ 08:33 by Kathi Stafnord NP) Within the past year, how often did you have a drink containing alcohol: monthly or less Smoking status: Former smoker Do you use any of these nicotine containing products: vaping products Non-prescribed substance use: denies use Previous occupational history: [employer] Highest level of school completed/degree received: high school graduate Meds Home Medications and Allergies Home Medications ?Medication ?Instructions ?Recorded ?Confirmed ?Type albuterol sulfate 90 mcg/actuation 2 inh inhalation QID PRN shortness 02/21/25 02/21/25 History aerosol inhaler of breath or wheezing buspirone 15 mg capsule (Bucapsol) 15 mg PO BID 02/21/25 02/21/25 History desvenlafaxine succinate 50 mg 50 mg PO Q24H 02/21/25 02/21/25 History tablet,extended release 24 hr fluticasone propionate 115 2 inh inhalation DAILY 02/21/25 02/21/25 History mcg-salmeterol 21 mcg/actuation HFA inhaler (Advair HFA) hydroxyzine HCl 25 mg tablet 25 mg PO Q6H PRN anxiety 02/21/25 02/21/25 History lumateperone 42 mg capsule 42 mg PO QPM 02/21/25 02/21/25 History (Caplyta) omeprazole 20 mg capsule,delayed 20 mg PO DAILY 02/21/25 02/21/25 History release Allergies Allergy/AdvReac Type Severity Reaction Status Date / Time lisinopril Allergy Cough Verified 02/21/25 08:23 Exam Narrative Exam Narrative: Constitutional: Awake, alert, comfortable, well-appearing, nontoxic, interactive, vital signs as charted Head: Normocephalic, atraumatic Neck: Supple, normal appearance, normal range of motion, no meningeal signs, no lymphadenopathy Respiratory: No respiratory distress, breath sounds clear Cardiovascular: Regular rate and rhythm, strong and regular heart tones Abdomen: Nontender, normal bowel sounds, soft, no CVA tenderness Musculoskeletal: Hand grasp strong and equal bilaterally. Full range of motion right hand, tenderness with palpation of the right thenar eminence with a positive Phalen's test, good capillary refill, sensation intact Skin: No rashes or induration, no lesions, only visible skin inspected Neuro: No neurological deficits, normal sensation Psychiatric: Oriented ?3, normal affect Assessment and Plan Assessment and Plan (1) Carpal tunnel syndrome: Plan Right carpal tunnel release scheduled with Dr. Jaquez February 28, 2025.
[2025-02-21 09:12] LABS: Hematocrit 41.3 % (36.0-48.0); Hemoglobin 13.4 g/dL (12.0-16.0); Immature Granulocytes Abs Auto 0.02 10^3/uL (0.00-0.03); Immature Granulocytes Pct Auto 0.3 % (0.0-0.5); Lymphocytes Absolute Auto 2.4 10^3/uL (1.2-3.8); Mean Corpuscular HGB Conc 32.4 g/dL (29.9-35.2); Mean Corpuscular Hemoglobin 28.9 pg (26.7-34.0); Mean Corpuscular Volume 89.2 fL (81.0-99.0); Platelet Count 300 10^3/uL (150-450); Red Blood Count 4.63 10^6/uL (4.20-5.40); White Blood Count 7.5 10^3/uL (4.0-11.0)
[2025-02-21 09:27] LABS: Alanine Aminotransferase 26 U/L (14-59); Albumin Globulin Ratio 1.2; Albumin Level 3.7 g/dL (3.4-5.0); Alkaline Phosphatase 73 U/L (46-116); Anion Gap 9.8; Aspartate Amino Transferase 19 U/L (15-37); Blood Urea Nitrogen 9.0 mg/dL (7.0-18.0); Calcium 8.9 mg/dL (8.5-10.1); Carbon Dioxide 30.6 mmol/L (21.0-32.0); Chloride 104 mmol/L (98-107); Estimated GFR (African America >60 (>=60 mL/min/1.73m^2); Estimated GFR (Non-African Ame >60 (>=60 mL/min/1.73m^2); Globulin 3.1 g/dL; Glucose 98 mg/dL (74-106); Potassium 4.4 mmol/L (3.5-5.1); Sodium 140 mmol/L (136-145); Total Protein 6.8 g/dL (6.4-8.2)
== END 2025-02-21 08:05 | disposition home or self-care (01) ==
PROVIDERS: Visit Provider Orthopaedic Surgery Orthopaedic Trauma
DX: Z01.810 Encounter for preprocedural cardiovascular examination (principal); Z01.812 Encounter for preprocedural laboratory examination; Z01.818 Encounter for other preprocedural examination; G56.01 Carpal tunnel syndrome, right upper limb
CPT/HCPCS: 71046; 80053; 85025; 93005; G0463

== ENCOUNTER 2025-02-28 11:16 | Day surgery (SDC) | payer MEDICARE, SELFPAY ==
--- OUTSIDE RECORDS SUMMARY | 2023-11-19 09:00 | XMS_ITS ---
Author Organization The [facility] in [place] Address [address] [place] [address] Care Team Providers Care Ad Compositor Name Role Phone Josephine AMOS, Primary Care Provider Jacinto Tejada Unavailable [phone] REASON FOR VISIT 1 YEAR-ASTHMA Encounters Encounter Location Date Provider Diagnosis Pulmonary Medicine [place] [address] [place] [address] 11/19/2023 Jacinto Sung Plan Of Treatment No Information Progress Notes * Dorie TAPIAB:1965 ([age] yo F)Acc No.[id number]:11/19/2023 UNLOCKED PROGRESS NOTE Follow Up Patient: Jenn PICKETT :?Jacinto Sung DODOB:1965???Age:58 Y ???Sex:FemaleDate:4Phone:[phone]:[place], [place]-[id number]:Shaikh Josephine MD Subjective: * Chief Complaints: * 1 . 1 YEAR-ASTHMA. * Medical History: Objective: * Vitals: Assessment: Plan: * Treatment: * * Electronic signature of Jacinto Sung DO on 02/28/2025 at 11:22 AM ESTSign off status: PendingVisit Status:?R/S (Rescheduled) * Provider: Melissa Sung DO Date: 0 11/19/2023 Generated for Printing/Faxing/eTransmitting on:?02/28/2025 11:22 AM EST
--- OUTSIDE RECORDS SUMMARY | 2023-12-02 08:00 | XMS_ITS ---
Author Organization The [facility] in [place] Address [address] [place] [address] Care Team Providers Care Web Ui Developer Name Role Phone Josephine AMOS, Primary Care Provider Jacinto Tejada Unavailable [phone] REASON FOR VISIT 1 YEAR-ASTHMA Encounters Encounter Location Date Provider Diagnosis Pulmonary Medicine [place] [address] [place] [address] 12/02/2023 Jacinto Sung Plan Of Treatment No Information Progress Notes * Dorie TAPIAB:1965 ([age] yo F)Acc No.[id number]:12/02/2023 UNLOCKED PROGRESS NOTE Follow Up Patient: Jenn PICKETT :?Jacinto Sung DODOB:1965???Age:58 Y ???Sex:FemaleDate:4Phone:[phone]:[place], [place]GK-[id number]:Shaikh Josephine MD Subjective: * Chief Complaints: * 1 . 1 YEAR-ASTHMA. * Medical History: Objective: * Vitals: Assessment: Plan: * Treatment: * * Electronic signature of Jacinto Sung DO on 02/28/2025 at 11:22 AM ESTSign off status: PendingVisit Status:?R/S (Rescheduled) * Provider: Melissa Sung DO Date: 0 12/02/2023 Generated for Printing/Faxing/eTransmitting on:?02/28/2025 11:22 AM EST
--- OUTSIDE RECORDS SUMMARY | 2024-02-17 04:00 | XMS_ITS ---
Author Organization The [facility] in [place] Address [address] [place] [address] Care Team Providers Care Water Team Leader Name Role Phone Josephine AMOS, Primary Care Provider Jacinto Tejada Unavailable [phone] REASON FOR VISIT 1 year Asthma Encounters Encounter Location Date Provider Diagnosis Pulmonary Medicine [place] [address] [place] [address] 02/17/2024 Jacinto Sung Plan Of Treatment No Information Progress Notes * Dorie TAPIAB:1965 ([age] yo F)Acc No.[id number]:02/17/2024 UNLOCKED PROGRESS NOTE Follow Up Patient: Jenn PICKETT :?Jacintokasia uSng DODOB:1965???Age:58 Y ???Sex:FemaleDate:4Phone:[phone]:CHRIS LEON [id number]:Shaikh Josephine MD Subjective: * Chief Complaints: * 1 . 1 year Asthma. * Medical History: Objective: * Vitals: Assessment: Plan: * Treatment: * * Electronic signature of Jacinto Sung DO on 02/28/2025 at 11:21 AM ESTSign off status: PendingVisit Status:?R/S (Rescheduled) * Provider: Melissa Sung DO Date: Generated for Printing/Faxing/eTransmitting on:?02/28/2025 11:21 AM EST
--- OUTSIDE RECORDS SUMMARY | 2024-05-11 04:00 | XMS_ITS ---
Author Organization The [facility] in [place] Address [address] [place] [address] Care Team Providers Care Lens Dotter Name Role Phone Josephine AMOS, Primary Care Provider Jacinto Tejada Unavailable [phone] REASON FOR VISIT 1 year Asthma Encounters Encounter Location Date Provider Diagnosis Pulmonary Medicine [place] [address] [place] [address] 05/11/2024 Jacinto Sung Plan Of Treatment No Information Progress Notes * Dorie TAPIAB:1965 ([age] yo F)Acc No.[id number]:05/11/2024 UNLOCKED PROGRESS NOTE Follow Up Patient: Jenn PICKETT :?Jacintokasia Sung DODOB:1965???Age:59 Y ???Sex:FemaleDate:05/11/2024Phone:[phone]:CHRIS LEON [id number]:Shaikh Josephine MD Subjective: * Chief Complaints: * 1 . 1 year Asthma. * Medical History: Objective: * Vitals: Assessment: Plan: * Treatment: * * Electronic signature of Jacinto Sung DO on 02/28/2025 at 11:21 AM ESTSign off status: PendingVisit Status:?R/S (Rescheduled) * Provider: Melissa Sung DO Date: 0 05/11/2024 Generated for Printing/Faxing/eTransmitting on:?02/28/2025 11:21 AM EST
--- OUTSIDE RECORDS SUMMARY | 2024-08-25 03:00 | XMS_ITS ---
Author Organization The [facility] in [place] Address [address] [place] [address] Care Team Providers Care Diesel Dinkey Engineer Name Role Phone Josephine AMOS, Primary Care Provider Jacinto Tejada Unavailable [phone] REASON FOR VISIT 1 year Asthma Encounters Encounter Location Date Provider Diagnosis Pulmonary Medicine [place] [address] [place] [address] 08/25/2024 Jacinto Sung Plan Of Treatment No Information Progress Notes * Dorie TAPIAB:1965 ([age] yo F)Acc No.[id number]:08/25/2024 UNLOCKED PROGRESS NOTE Follow Up Patient: Jenn PICKETT :?Jacintokasia Sung DODOB:1965???Age:59 Y ???Sex:FemaleDate:08/25/2024Phone:[phone]:CRHIS LEON JX-[id number]:Shaikh Josephine MD Subjective: * Chief Complaints: * 1 . 1 year Asthma. * Medical History: Objective: * Vitals: Assessment: Plan: * Treatment: * * Electronic signature of Jacinto Sung DO on 02/28/2025 at 11:22 AM ESTSign off status: PendingVisit Status:?CANC (Cancelled) * Provider: Melissa Sung DO Date: 0 08/25/2024 Generated for Printing/Faxing/eTransmitting on:?02/28/2025 11:22 AM EST
--- OUTSIDE RECORDS SUMMARY | 2025-02-21 04:50 | XMS_ITS | Continuity of Care Document ---
Author Organization [facility] Address [address] [place] [address] Phone Care Team Providers Care Vat Skimmer Name Role Phone Sondra Ramirez APRN Primary Care Provider Keke Maria DO Attending Provider Saul Jaquez DO Attending Provider [phone] Johnson Farr MD Primary Care Provider [phone] Hadley Teague MD Attending Provider Care Teams Patient Care Team Team Status: Active Member Role/Relationship Status Dates Sondra Ramirez APRN SHIPFITTER HELPER-C Primary Care Provider Active Visit Care Team Team Status: Inactive Member Role/Relationship Status Dates Sondra Ramirez APRN SHIPFITTER HELPER-C Primary Care Provider Active Start: November 29, 2024 End: November 29, 2024NicAlce Aldana ProviderActiveStart: November 29, 2024 End: November 29, 2024 Visit Care Team Team Status: Inactive Member Role/Relationship Status Dates Sondra Ramirez APRN SHIPFITTER HELPER-C Primary Care Provider Active Start: December 13, 2024 End: December 13, 2024Alec Hanna ProviderActiveStart: December 13, 2024 End: December 13, 2024 Visit Care Team Team Status: Active Member Role/Relationship Status Dates Johnson Farr MD Primary Care Provider Active Start: January 05, 2025 Hadley Teague MDAttkomal ProviderActiveStart: January 05, 2025 Patient Care Team Team Status: Inactive Member Role/Relationship Status Dates Sondra Ramirez APRN SHIPFITTER HELPER-C Primary Care Provider Active Start: January End: February 21, 2025JustWendy Lopezending ProviderActiveStart: February 21, 2025 End: February 21, 2025 Chief Complaint and Reason for Visit Chief Complaint Admit Date EMG BUE per 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 Augu 2024 3:16pm [facility]-CONSULT SONDRA RAMIREZ BILAT CT S AND December 13, 2024 11:42am BH January 05, 2025 11:47am H & P RIGHT CARPAL TUNNEL RELEASE February 21, 2025 9:10am Reason for Visit Admit Date Bilateral carpal tunnel syndrome November 29, 2024 3:16pm Bilateral hand pain November 29, 2024 3:1 6pm Paresthesia of hand, bilateral November 3:16pm Bilateral carpal tunnel syndrome December 13, 2024 11:42am Bilateral hand pain December 13, 2024 11 :42am Ganglion cyst of volar aspect of left wr ist December 13, 2024 11:42am Paresthesia of hand, bilateral December 132024 11:42am Bilateral carpal tunnel syndrome February 21, 2025 9:10am Bilateral hand pain February 21, 2025 9 :10am Ganglion cyst of volar aspect of left wr ist February 21, 2025 9:10am Paresthesia of hand, bilateral January 272024 9:10am Allergies, Adverse Reactions, Alerts Allergen Type Severity Reaction Last Updated Verified Status Comments egg Allergy Unknown Anaphylaxis November 11 10:25am Yes Active Egg DerivedAllergyUnknownUnknown ReactionJuly 2024 10:25amYesActive NECK/THROAT SWELLINGlisinoprilAllergyUnknownUnknown ReactionJuly 2024 10:25amYesActivemilkAllergyUnknownUnknown ReactionJuly 2024 10:25amYes ActiveNECK/THROAT SWELLING Social History Smoking Status Status Start Date End Date Date of Observa tion Never smoked tobacco (finding) November 12, 2024 12:48pm Observation Status Observation Response Date of Response Legal Sex Female (finding) Sex Assigned At BirthFemaleDecember 1964 Family History Relationship Condition Age at Onset Recorded Date/T missy Not Specified Alise's disease Unknown fatherLymphomaUnknown Problems Active Problems Problem Diagnosis/Recorded Date Onset Date Stat us Pulmonary sarcoidosis September 25, 2018 10:06am Unknown Active Anxiety September 25, 2018 10:07am Unknown Activ e Medication monitoring encounter April 16, 2024 12 :09pm Unknown Active Depression April 16, 2024 11:39am Unknown Active History of gastric restrictive surgery April 16, 2024 12:10pm Unknown Active Wellness examination April 16, 2024 12:08pm Unkno wn Active Impaired functional mobility , balance, and endurance September 25, 2018 10:05am Unknown Active Paresthesia of hand, bilateral November 11, 2024 10:55am Unknown Active Lumbar back pain with radicu lopathy affecting right lower extremity April 16, 2024 12:12pm Unknown Active Bilateral hand pain November 11, 2024 10:55am Unknown Active DVT prophylaxis September 25, 2018 10:07am Unknown Ac tive Generalized weakness September 25, 2018 10:07am Unknown Active Ganglion cyst of volar aspec t of left wrist November 11, 2024 10:54am Unknown Active Screening for breast cancer April 17, 2024 8:46pm Unknown Active Bilateral carpal tunnel syndrome November 29, 2024 4:37 pm Unknown Active Debility September 25, 2018 10:05am Unknown Activ e Asthma September 25, 2018 10:07am Unknown Activ e Inactive/Resolved Problems Problem Diagnosis/Recorded Date Onset Date Stat us Orthostatic hypotension September 29, 2018 10:06am Unknown Resolved Respiratory failure September 25, 2018 10:06am Unknown Resolved Pneumonia September 25, 2018 10:06am Unknown Resol luis Medications Medication Status Dose Units Route Directions Qty Days Refills S tart Date Stop Date End Date Reason(s) Instructions Adherence Fluoxetine (Prozac) 40 mg Capsule Discontinued 60 MG P O Daily September 24, 2018 12:00amJun2018 12:07pmIpratropium-Albuterol 0.5 mg-3 mg(2.5 mg base)/3 mL Solution For SqesvkovzevkWsgjhupdazwo7SXKIVSLJYDDYV9QPnk 2018 12:00amJun2018 12:07pmWAHydroxyzine Hcl 50 mg Tablet Grseoqbnajxk23VEEQGeavb at bedtimey 2018 12:2018 12:07pm Alprazolam (Xanax) 0.25 mg TabletDiscontinued0.25MGPODaily as needed for Anxiety September 24, 2018 12:2018 12:07pmHydroxyzine Hcl 25 mg Tablet Milsdamjtczs35UOICVDG@08,14,1700May 2018 12:00[facility]2018 12:07pm Buspirone 15 mg CarvhtOggwyqyxmniy19WTHZQpbvd dailySeptember 24, 2018 12:[facility]2018 12:07pmBudesonide-Formoterol (Symbicort) 160-4.5 mcg/actuation Hfa Aerosol NdrgsrnFoyvrvtuxzax7QLHHJNEUXOGQROYplnm dailySeptember 24, 2018 12:[facility]2018 12:07pmAcetaminophen 325 mg QuwqhgKlwxvkyvtexn031RCZEP9S as needed for Wyxx30Werq2018 12:002023 11:35amAcetaminophen 325 mg ZpvsdoKwbquiosjlyc723FGXDD7M as needed for Rrzo2401Rwkb2018 12:00am April 16, 2024 11:35amPrednisone 10 mg KtmbqbQgqjukejqrmx93PYRGOegtz Taper: Start: September 25, 2018 9:00am End: [...] Frequency: DAILY Days: 7 Hours: 0 Dose: 1000June 2018 12:002023 11:36amPlease contact the information source for Taper Schedule details.Albuterol Sulfate 2.5 mg /3 mL (0.083 %) Solution For NebulizationActive2.5MGINHALATIONThree times daily as needed for Lung wheezings/llutdnqokk144Javj 8th, 2019 12:00amUnknownHydroxyzine Pamoate 50 mg PotnzmfDpfzkvaczocw23HNOOScwzk at vxwders876Klbp 8th, 2019 12:00am April 16, 2024 11:36amAspirin 81 mg Tablet,Delayed Release (Dr/Ec) Jaiolexoucin79PSEWElxfe561Vnbt 8th, 2019 12:00am2023 11:35am Alprazolam 0.25 mg TabletDiscontinued0.25MGPOThree times daily as needed for Nnleypm96464Ctja 8th, 2019 12:002023 11:35amAnxiety Anxiety disorder, unspecifiedOmeprazole 20 mg Capsule,Delayed Release(Dr/Ec) Vftwsz52SMHGJggdr996Jcel 8th, 2019 12:00amUnknownFluoxetine 20 mg Capsule Qxxcgrnpkxkw27JJEETquif568Gxen 8th, 2019 12:002023 11:36am Ipratropium [place] 0.02 % SolutionDiscontinued0.5MGINHALATIONThree times daily as needed for lung uxthlsuekl200Cmvz 8th, 2019 12:00amApril 16, 2024 11:36amBuspirone 15 mg VpampxZyanxa92FSVNBqfya gttfn601NuxcOctober 03, 2018 12:00am UnknownHydroxyzine Pamoate 25 mg LpwpnctMcuevy95WBRQHZW@08,14,1019164Nxje 8th, 2019 12:00amUnknownFluticasone Propion-Salmeterol (Advair Hfa) 115-21 mcg/actuation Hfa Aerosol GyezxuuOuseih4MAAJITBVTUGEFPRsqkh yqnpk924HdweOctober 03, 2018 12:00amUnknownDesvenlafaxine Succinate 50 mg tablet extended release 24 hr Nmwzwi64KOJEsauwyDzcpdnqi 20th, 2024 1:00amUnknownLamotrigine 200 mg tablet Fjrkhq642SLSTDdjhxGqxlweve 20th, 2024 1:00amUnknownLumateperone (Caplyta) 42 mg capsuleActiveMGPODece2023 1:00amUnknown Relevant Diagnostic Tests and/or Laboratory Data Laboratory Results Test Collection Date/Time Result Date/Time Result Interpretation Reference Range Result Comment Performing Site Anion Gap February 21, 2025 8:55am February 21, 2025 8: 55am 9.8 Basophils # (Auto)February 21, 2025 8:55amOctober 2024 8:55am0.1 10 3/uL 0.0-0.1Albumin/Globulin RatioOct2024 8:55amOctober 2024 8:55am 1.2Basophils (%) (Auto)February 21, 2025 8:55amOctober 2024 8:55am0.9 % 0.2-2.0AlbuminOct2024 8:55amOctober 2024 8:55am3.7 g/dL3.4-5.0 Eosinophils # (Auto)February 21, 2025 8:55amOctober 2024 8:55am0.5 10 3/uL0.0-0.7Alkaline PhosphataseOct2024 8:55amOctober 2024 8:55am73 U/P29-671Jjqyjsouqnd (%) (Auto)February 21, 2025 8:55amOctober 2024 8:55am6.7 %0.9-7.0Alanine Aminotransferase (ALT/SGPT)February 21, 2025 8:55amOctober 2024 8:55am26 U/G22-78WvkpuoumurQsxuual 2024 8:55am February 21, 2025 8:55am41.3 %36.0-48.0Aspartate Amino Transf (AST/SGOT)February 21, 2025 8:55amOctober 2024 8:55am19 U/Q09-28HgxdevjglwVmgpvbq 27th, 2025 8:55amOctober 2024 8:55am13.4 g/dL12.0-16.0BUN/Creatinine Ratio February 21, 2025 8:55amOctober 2024 8:55am11.2Immature Granulocyte # (Auto)February 21, 2025 8:55amOctober 2024 8:55am0.02 10 3/uL0.00-0.03 Blood Urea NitrogenOctober 2024 8:55amOctober 2024 8:55am9.0 mg/dL 7.0-18.0Immature Granulocyte % (Auto)February 21, 2025 8:55amOctober 2024 8:55am0.3 %0.0-0.5Calcium LevelOctober 2024 8:55amOctober 2024 8:55am8.9 mg/dL8.5-10.1Lymphocytes # (Auto)February 21, 2025 8:55amOctober 2024 8:55am2.4 10 3/uL1.2-3.8Chloride LevelOctober 2024 8:55am February 21, 2025 8:66wh970 mmol/O71-532Goiqnaiyorp (%) (Auto)February 21, 2025 8:55amOctober 2024 8:55am32.4 %20.5-60.0Carbon Dioxide LevelOctober 2024 8:55amOctober 2024 8:55am30.6 mmol/L21.0-32.0Mean Corpuscular HemoglobinOctober 2024 8:55amOctober 2024 8:55am28.9 pg26.7-34.0 CreatinineOctober 2024 8:55amOctober 2024 8:55am0.80 mg/dL0.55-1.02 Mean Corpuscular Hemoglobin ConcentOctober 2024 8:55amOctober 2024 8:55am32.4 g/dL29.9-35.2Estimated GFR ()February 21, 2025 8:55amOctober 2024 8:55am>60>=60 mL/min/1.73m 2Mean Corpuscular Volume February 21, 2025 8:55amOctober 2024 8:55am89.2 fL81.0-99.0Estimated GFR (Non- AmericanOctober 2024 8:55amOctober 2024 8:55am>60>=60 mL/min/1.73m 2Monocytes # (Auto)February 21, 2025 8:55amOctober 2024 8:55am0.5 10 3/uL0.3-0.8GlobulinOctober 2024 8:55amOctober 2024 8:55am3.1 g/dLMonocytes (%) (Auto)February 21, 2025 8:55amOctober 2024 8:55am6.4 %1.7-12.0Glucose LevelOctober 2024 8:55amOctober 2024 8:55am98 mg/lU97-276Ndis Platelet VolumeOctober 2024 8:55amOctober 2024 8:55am9.7 fL9.5-13.5Potassium LevelOctober 2024 8:55amOctober 2024 8:55am4.4 mmol/L3.5-5.1Neutrophils # (Auto)February 21, 2025 8:55amOctober 2024 8:55am4.0 10 3/uL1.4-6.5Sodium LevelOctober 2024 8:55amOctober 2024 8:76ws240 mmol/F568-735Eerxufnnjjl (%) (Auto)February 21, 2025 8:55amOctober 2024 8:55am53.3 %43.0-75.0Total BilirubinOctober 2024 8:55amOctober 2024 8:55am0.4 mg/dL0.2-1.0Platelet CountOctober 2024 8:55amOctober 2024 8:64se550 10 3/gW535-774Burxw ProteinOctober 2024 8:55amOctober 2024 8:55am6.8 g/dL6.4-8.2Red Blood CountOctober 2024 8:55amOctober 2024 8:55am4.63 10 6/uL4.20-5.40Red Cell Distribution Width February 21, 2025 8:55amOctober 2024 8:55am13.3 %11.0-15.0Corrected White Blood CountOct2024 8:55amOctober 2024 8:55am7.5 10 3/uL4.0-11.0 Vital Signs Vital Reading Result Reference Range Collection Date/Time Height 62 [in_i] December 13, 2024 12:97exMayozj62.67 kgAugust 2024 12:15pmBMI (Body Mass Index)26.9 kg/x8Mgwsli 2024 12:15pm Advance Directives Advance Directive Response Recorded Date/ Time Advance Directives No November 12 12:48pm Insurance Providers Guarantor Jenn Pinon Willie Address [address] [place] [address]Xxxhefe Info.Home Phone: Coverage Status Update:2024 Payer Group Member ID Coverage Type Subscriber Relationship to Subscriber Effective Date Expiration Date Medicare [id number] G Lewis Id: [id number] [address] [place] [address] Home Phone: Email: [email or web address] Part A [id number] G Lewis Id: [id number] [address] [place] [address] Home Phone: Email: [email or web address] 100% THRU [address] [place] [address] Work Phone: [phone] G Lewis Id: [id number] [address] [place] [address] Home Phone: Email: [email or web address] Encounters Encounter Location(s) Arrival/Admit Date Discharge/Departure Date Discharge/Departure Disposition Provider(s) Departed Physician/ Provider Office Visit -[facility] Neurology [place] November 29, 2024 3:16pm November 29, 2024 4:32pm Discharged to home care or self care (routine discharge) Keke Maria DO Departed Physician/ Provider Office Visit -[facility] Orthopedics [place] December 13, 2024 11:42am December 13, 2024 12:45pm Discharged to home care or self care (routine discharge) Saul Jaquez DO Registered [facility] January 05, 2025 11:47am SIDNEY Zavalaeparted Physician/Provider Office Visit-[facility] Orthopedics [facility] 2024 9:10amOctober 2024 9:46amDischarged to home care or self care (routine discharge)Saul Jaquez DO Recent Diagnosis Onset Date Admit Date Bilateral carpal tunnel syndrome Unknown November 29, 2024 3:16pm Bilateral hand pain Unknown November 29, 2024 3:16pm Paresthesia of hand, bilateral Unknown A ugust 2024 3:16pm Bilateral carpal tunnel syndrome Unknown December 13, 2024 11:42am Bilateral hand pain Unknown December 13, 2024 11:42am Ganglion cyst of volar aspect of left wrist Unkn own December 13, 2024 11:42am Paresthesia of hand, bilateral Unknown A ugust 2024 11:42am Bilateral carpal tunnel syndrome Unknown February 21, 2025 9:10am Bilateral hand pain Unknown January 9:10am Ganglion cyst of volar aspect of left wrist Unkn own February 21, 2025 9:10am Paresthesia of hand, bilateral Unknown O ctober 2024 9:10am Assessments Diagnosis Onset Date Resolution Status Admit Date Bilateral carpal tunnel syndrome acuteAugust 2024 3:16pmBilateral hand painacuteAugust 2024 3:16pm Paresthesia of hand, bilateralacuteAugust 2024 3:16pmBilateral carpal tunnel syndromeacuteAugust 2024 11:42amBilateral hand painacuteAugust 2024 11:42amGanglion cyst of volar aspect of left wristacuteAugust 2024 11:42amParesthesia of hand, bilateralacuteAugust 2024 11:42am Bilateral carpal tunnel syndromeacuteOctober 2024 9:10amBilateral hand painacuteOctober 2024 9:10amGanglion cyst of volar aspect of left wrist acuteOctober 2024 9:10amParesthesia of hand, bilateralacuteOctober 2024 9:10am Plan of Treatment Author Zuri BlakelyWright-Patterson Medical CenterAuthoredAugust 2024 12:43pmDana presents with bilateral carpal tunnel syndrome, EMG positive moderate. At this juncture we have discussed the findings and diagnosis as well as personally reviewed appropriate imaging and performed interpretation of related testing and examination with the patient in office today. Prior medical notes from Sondra Ramirez , ROSALIA, SHIPFITTER HELPER-C and history have been reviewed. Findings and diagnosis of carpal tunnel syndrome have been discussed at length with the patient. We have discussed how it is the most common compressive neuropathy effects up to 10% of the population. Diagnostic evaluation including physical exam as well as electromyography and nerve conduction studies were discussed. Imaging and diagnostic studies have been reviewed with the patient. Nonoperative treatment including NSAIDs, night splints as well as activity modifications along with steroid injections have been discussed. We have discussed open surgical release of the transverse carpal ligament which is performed during carpal tunnel surgery. We have also discussed the outcomes involved in surgical release including the return of pinch strength in approximately 6 weeks, hat cleaner strength recovery at about 12 weeks, and the possibility of ongoing symptoms at 1 year and 20% of severe cases. Patient verbalized understanding of our discussion and would like to move forward with left carpal tunnel release, mass excision, basilar thumb injection at this time. At this juncture we have discussed the findings and diagnosis as well as reviewed appropriate imaging and performed interpretation of testing. Surgical intervention is recommended. Prior medical notes and history have been reviewed. Surgical versus non-operative management have been discussed in detail and non-operative management was given as an option. The risks of surgical intervention were given. Pre-operative optimization will be done prior to surgical procedure to limit darryl-operative risks. I have discussed the planned procedure, how and who performs the procedure, and the personnel involved. Cardiovascular, pulmonary, and other life threatening episodes can occur during surgery although there is a low risk of these happening. Surgical risks including bleeding, neurovascular injury, wound closure problems, clotting disorders including pulmoary embolism and infection were discussed. Darryl-operative risks including infection, bleeding, wound healing problems, and need for further surgery were discussed. It was discussed that there is a possibility of blood transfusion with any surgical procedure and the risks involved in receiving a blood transfusion. Possibility of, and need for, future bracing or DME use, physical or occupational therapy, mental therapy, rehabilitation, pain management and need for secondary procedures was discussed. I have warned against smoking and the use of tobacco products due to the risks associated with them, in particular, poor healing. I have advised against the shelter use of narcotic pain medication. I have advised to follow all post-operative instructions in order to obtain the best outcome. Informed consent has been verbally affirmed and signed as indicated. Will plan for operative treatment of the left wrist with left carpal tunnel release, mass excision of volar radial ganglion and basilar thumb injection with 1/1 cc Marcaine/Kenalog injection. 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 I feel that she will need about 3 weeks of limitations regarding her left hand recovery prior to returning. If she is doing well at that time she can return to work. She does have a right sided carpal tunnel syndrome and would like to address this in the future as well so we will see how quickly her recovery is for the left side The patient has been involved in our cooperative treatment plan and agrees to move forward with treatment at this time. Based on the patient's symptoms EMG and physical exam, it appears that they are suffering from carpal tunnel syndrome. Etiology of the symptoms were discussed with the patient. We discussed treatment options in the form of observation, night splints, corticosteroid injections, and surgery. We will proceed with left carpal tunnel release and excision of ganglion cyst. The risks, benefits, complications, procedure detail were discussed in length with the patient. We discussed risks including but not limited to infection, damage to nearby structures, wound healing problems, damage to vasculature, damage to nerves, risk with anesthesia. Patient wishes to proceed with surgery. Patient fitted in bilateral wrist braces. Patient is in need of a wrist brace due to their diagnosis of bilateral carpal tunnel. This is needed for aid in activities of daily living by increasing safety and stability. Patient will follow up after surgery. Note scribed by MIAH Menezes, reviewed and amended by myself Saul Jaquez D.O. Author Zuri Dutton [facility] HealthAuthoredOctephra[facility] 2024 9:41amDana presents with bilateral carpal tunnel syndrome, EMG positive moderate. At this juncture we have discussed the findings and diagnosis as well as personally reviewed appropriate imaging and performed interpretation of related testing and examination with the patient in office today. Prior medical notes from Sondra Ramirez , ROSALIA, SHIPFITTER HELPER-C and history have been reviewed. Findings and diagnosis of carpal tunnel syndrome have been discussed at length with the patient. We have discussed how it is the most common compressive neuropathy effects up to 10% of the population. Diagnostic evaluation including physical exam as well as electromyography and nerve conduction studies were discussed. Imaging and diagnostic studies have been reviewed with the patient. Nonoperative treatment including NSAIDs, night splints as well as activity modifications along with steroid injections have been discussed. We have discussed open surgical release of the transverse carpal ligament which is performed during carpal tunnel surgery. We have also discussed the outcomes involved in surgical release including the return of pinch strength in approximately 6 weeks, hat cleaner strength recovery at about 12 weeks, and the possibility of ongoing symptoms at 1 year and 20% of severe cases. Patient verbalized understanding of our discussion and would like to move forward with left carpal tunnel release, mass excision, basilar thumb injection at this time. At this juncture we have discussed the findings and diagnosis as well as reviewed appropriate imaging and performed interpretation of testing. Surgical intervention is recommended. Prior medical notes and history have been reviewed. Surgical versus non-operative management have been discussed in detail and non-operative management was given as an option. The risks of surgical intervention were given. Pre-operative optimization will be done prior to surgical procedure to limit darryl-operative risks. I have discussed the planned procedure, how and who performs the procedure, and the personnel involved. Cardiovascular, pulmonary, and other life threatening episodes can occur during surgery although there is a low risk of these happening. Surgical risks including bleeding, neurovascular injury, wound closure problems, clotting disorders including pulmoary embolism and infection were discussed. Darryl-operative risks including infection, bleeding, wound healing problems, and need for further surgery were discussed. It was discussed that there is a possibility of blood transfusion with any surgical procedure and the risks involved in receiving a blood transfusion. Possibility of, and need for, future bracing or DME use, physical or occupational therapy, mental therapy, rehabilitation, pain management and need for secondary procedures was discussed. I have warned against smoking and the use of tobacco products due to the risks associated with them, in particular, poor healing. I have advised against the terminal gauger supervisor use of narcotic pain medication. I have advised to follow all post-operative instructions in order to obtain the best outcome. Informed consent has been verbally affirmed and signed as indicated. Will plan for operative treatment of the left wrist with left carpal tunnel release, mass excision of volar radial ganglion and basilar thumb injection with 1/1 cc Marcaine/Kenalog injection. 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 I feel that she will need about 3 weeks of limitations regarding her left hand recovery prior to returning. If she is doing well at that time she can return to work. She does have a right sided carpal tunnel syndrome and would like to address this in the future as well so we will see how quickly her recovery is for the left side The patient has been involved in our cooperative treatment plan and agrees to move forward with treatment at this time. We will plan on right carpal tunnel release and left thumb [facility] cortisone injection.The patient has stated that they do not want to live in this condition any longer and would like to proceed with surgery. I feel that this is a reasonable option at this point and we may be able to improve function and decrease pain and numbness. We have discussed the process and procedure in detail including not eating or drinking 8 hrs prior to surgery, the need for anesthesia and associated respiratory, cardiac, and patient position complications (such as nerve traction and compression). We discussed that incisional pain and continued neurologic symptoms can persist for months after surgery. The complications of infection, persistent symptoms, sensory and motor nerve injury are well known problems that can require repeat surgeries. Patient is fully aware that this wrist may never be the same. We discussed that our team will do everything we can to help achieve the best outcome. Discussed patient is to be off work for 3 weeks, may call if she is able to return sooner. Patient is to follow up as scheduled after surgery, as scheduled. Note scribed by MIAH Menezes, reviewed and amended by myself Saul Jaquez D.O. Future Tests Future scheduled test information is unavailable Pending Tests Test Name Ordered Date Scheduled Date XR hand BI 3V December 09, 2024 1:00pm Future Visits Future appointment information is unavailable Future Procedures Future procedure information is unavailable Future Medications Future medication information is unavailable Patient Instructions Patient instructions are unavailable
[2025-02-21 08:59] VITALS: BP 128/80; PULSE 67; TEMP 36.3; O2SAT 100; BMI 27.6
--- OUTSIDE RECORDS SUMMARY | 2025-02-28 11:21 | XMS_ITS | Clinical Summary ---
Author Organization [facility] Address [address] [place] [address] Care Team Providers Care Window Shade Cutter Name Role Phone Unavailable Primary Care Provider Unavailabl e Source Comments The following information is NOT included in Care Everywhere downloads:Psychiatric notes, ECG results, Cardiac Rehab notes, Pulmonary Function notes, data from SmartForms (includes but not limited toPregnancy data,audiograms, eye exams, pre-surgical evaluation notes, well-child exam data).[facility] Immunizations ImmunizationAdministration DatesNext DueInfluenza, injectable, quadrivalent, preservative (FCI=987)02/16/2019,04/02/2014Influenza, injectable, quadrivalent, preservative free (FZJ=086)01/19/2021,03/04/2018,03/03/2017,01/26/2017Influenza, injectable, trivalent, preservative (BCJ=350)02/03/2013Influenza, injectable, trivalent, preservative free (UGB=318)02/25/2015Pfizer Monovalent (12+ yrs) SARS-COV-2 (COVID-19) vaccine, mRNA, spike protein, LNP, pres. free, 30mcg/0.3mL dose (KOO=023)08/24/2020,1Pneumococcal conjugate 13 valent (PCV13) (JWH=278)03/04/2018 Social History Tobacco UseTypesPacks/DayYears UsedDateSmoking Tobacco: Never Assessed CommentsUnknownSex and Gender InformationValueDate RecordedSex Assigned at Not on fileLegal OksBsiwvw04/22/2019 6:09 PM EDTGender IdentityNot on fileSexual OrientationNot on file Plan of Treatment Health MaintenanceDue DateLast QfymLcrmrgptQcwtvvfptzq1967HIV Test 1982Hepatitis C Zutzpvkm16/19/1985Tdap Tfhvghs9604/15/1985Hepatitis A (HAV) Vaccine (optional start 19+ years)1986Hepatitis B (HBV) Vaccine (1 of 3 - 19+ 3-dose series)1986Tetanus (Td or Tdap) Nhhdfhc7104/15/1986Pap Smear 04/15/19882459Clrikvjfazi33/19/2007nnual Wellness Visit (G0438)04/28/2007CRC Vfdmrvgds48/19/6678Vjanzfgqjpl88/19/2012Cologuard (Stool DNA)2012FIT 2012Shingles (RZV) Vaccine (1 of 2)2017Pneumococcal Vaccine(s) (50+ yrs) (2 of 2 - PPSV23)COVID-19 Vaccine (3 - season) /, 08/03/2020Influenza Vaccine (#1)509/, 02/16/2019, 03/04/2018, Additional history exists Insurance * Guarantor: Jenn Tapia TypeRelation to PatientDate of BirthPhone Billing ZztqyncYmossrojrsotpZqxy1965 [address] [place] [address]
--- OUTSIDE RECORDS SUMMARY | 2025-02-28 11:21 | XMS_ITS | Clinical Summary ---
Author Organization [facility] Address [address] [place] [address] Phone Care Team Providers Care Organ Fixer Name Role Phone Hernán Kline MD Primary Care Provider [phone] Social History Tobacco UseTypesPacks/DayYears UsedDateSmoking Tobacco: Never Assessed CommentsUnknownSex and Gender InformationValueDate RecordedSex Assigned at Not on fileLegal SbsRqlhgg55/26/2022 4:12 AM ESTGender IdentityNot on fileSexual OrientationNot on file Plan of Treatment Not on file Care Teams Team MemberRelationshipSpecialtyStart DateEnd Date Hernán Kline MD [address] [facility] [place] [address] PCP - General07/12/19
--- OUTSIDE RECORDS SUMMARY | 2025-02-28 11:22 | XMS_ITS | Clinical Summary ---
Author Organization Address [address] [place], [place] [address] Care Team Providers Care Nutrition Partner Name Role Phone Unavailable Primary Care Provider Unavailabl e Social History Tobacco UseTypesPacks/DayYears UsedDateSmoking Tobacco: Never Assessed CommentsUnknownSex and Gender InformationValueDate RecordedSex Assigned at Not on fileLegal TmyUtqoev37/02/2012 7:35 AM ESTGender IdentityNot on fileSexual OrientationNot on file Plan of Treatment Not on file Insurance
--- OUTSIDE RECORDS SUMMARY | 2025-02-28 11:22 | XMS_ITS | Clinical Summary ---
Author Organization [facility] Address [address] [place] [address] Care Team Providers Care Investigative Writer Name Role Phone Unavailable Primary Care Provider Unavailabl e Social History Tobacco UseTypesPacks/DayYears UsedDateSmoking Tobacco: Never Assessed CommentsUnknownSex and Gender InformationValueDate RecordedSex Assigned at Not on fileLegal TqlVcikcg38/15/2023 6:46 PM EDTGender IdentityNot on fileSexual OrientationNot on file Last Filed Vital Signs Vital SignReadingTime TakenCommentsBlood Zojhdelp691/7602 12:00 PM EST Pulse--Temperature--Respiratory Rate--Oxygen Saturation--Inhaled Oxygen Concentration--Qxfxgi257 kg (236 lb)06/02/2018 12:00 PM ZBHZbtapb636.2 cm (5' 1.5 )06/02/2018 12:00 PM ESTBody Mass Index43.8706/02/2018 12:00 PM EST Plan of Treatment Not on file Insurance * Guarantor: Jenn Tapiacoelizabeth TypeRelation to PatientDate of BirthPhone Billing AddressPersonal/KvvrhoMasw1965 [facility] [place] [address]
--- OUTSIDE RECORDS SUMMARY | 2025-02-28 11:22 | XMS_ITS | Patient Health Record ---
Author Organization [facility] [place] Address [address] [place] [address] Care Team Providers Care Turntable Man Name Role Phone Josephine AMOS, [facility] Primary Care Provider Jacinto Tejada Unavailable [phone] Allergies Allergen (clinical drug ingredient) Drug/Non Drug [...] Administration Date Status Comme nts Flu, Fluzone (69207) 6 mos+, single-dose syringe/vial (7364-6663) Unknown 01/19/2021 Administered Pneumococcal (Prevnar 13)Lzalazb5603/04/20182880IktfyzotrgggSBSV-AND-8 (COVID 19 Pfizer 30mcg/0.3mL)Guchzxi1908/24/2020dministered Social History Tobacco Use: Social History Observation Description Date Details (start date - stop date) Former Smoker NA - NA Tobacco Use/Smoking Question Answer Notes Patient is a former smoker Additional Findings: Tobacco Zto-LotmPv-bcplqfkq cigarette smoker (10-19/day) Problems Problem Type SNOMED Code ICD Code Onset Dates Problem Status W/U Status Risk Notes Problem Sarcoidosis of lung with sarcoidosis of lymph nodes (450941922) Sarcoidosis of lung with sarcoidosis of lymph nodes (D86.2) ActiveconfirmedProblemObesity (536716200)Obesity, unspecified (E66.9)Active confirmedProblemUncomplicated moderate persistent asthma (262059681)Moderate persistent asthma, uncomplicated (J45.40)ActiveconfirmedProblemLong-term current use of inhaled steroid (662321574)manager long term care (current) use of inhaled steroids (Z79.51)ActiveconfirmedProblemObstructive sleep apnea syndrome (74083549)FARZANEH (obstructive sleep apnea) (G47.33)ActiveconfirmedProblemAllergic rhinitis (44016771)Allergic rhinitis (J30.9)ActiveconfirmedProblemEx-tobacco user (finding) (811498112)History of tobacco abuse (Z87.891)ActiveconfirmedProblem Bruxism (650698409)Bruxism (F45.8)Activeconfirmed Encounters Encounter Location Date Provider Diagnosis [facility] [address] [place] [address] 05/10/2024 Jacinto Sung [facility] [address] [place] [address]/29/2025 Jacinto Sung Plan Of Treatment No Information Insurance Providers Payer Name Payer Address Payer Phone Subscriber Number Group Number Insured Name Patient Relationship to Insured Coverage Start Date Coverage End Date [place] [address] [place] [address] [id number] Gilberto Tapia - patient is the [id number] 2006MEDICAID [facility] [address] [facility], [place] [id number], DanaSelf - patient is the insured Medical [...] tobacco abuse Z87.891 Surgical History Surgery Date(Month/Year) EGD gastric bypasslumpectomy-bilateralcataract removal-bilateralCholecystectomy removal of vitreous fluid-left eye
--- OUTSIDE RECORDS SUMMARY | 2025-02-28 11:22 | XMS_ITS | Clinical Summary ---
Author Organization [facility] [facility] Address [id number] [address] [place] [address] Care Team Providers Care Superintendent Renting Managing Name Role Phone Sondra Salgado Primary Care Provid er Allergies Active AllergyReactionsCriticalityNoted TiusXqromhshWewfhueimjSuphy32/12/2018 Medications MedicationSigDispense QuantityRefillsLast FilledStart DateEnd DateStatus FLUoxetine [...] of Binge DrinkingNot on file01/07/2018ChildcareAnswerDate RecordedChildcareUnknown 10/07/2018EmploymentAnswerDate TjbxbujgNxbxyorlffFacffff84/12/2019Purpose - Life AnswerDate RecordedPurpose and direction in sudvBlgbqvt37/11/2021 CommentsNoSex and Gender InformationValueDate RecordedSex Assigned at BirthNot on fileLegal IoxYcnmrr00/04/2015 11:24 PM EDTGender IdentityNot on fileSexual OrientationNot on file Last Filed Vital Signs Vital SignReadingTime TakenCommentsBlood Ebqdbkua394/78001/20/2018 11:00 AM EDT Lfodn412401/20/2018 10:05 AM ODFBcebudjrznk06 ??C (96.8 ??F)01/20/2018 9:15 AM EDT Respiratory Fzie0766 10:05 AM EDTOxygen Juvxhdkjnb97%01/20/2018 11:00 AM EDTInhaled Oxygen Concentration--Poaovl029.7 kg (233 lb)01/20/2018 6:46 AM EDT Oxnxrb273.9 cm (5' 0.98 )01/20/2018 6:46 AM EDTBody Mass Index44.05001/20/2018 6:46 AM EDT Plan of Treatment Health MaintenanceDue DateLast DoneCommentsDepression Epcmmvpbp60/19/1979Tobacco Wwkowvaec68/19/1979Adult BMI Fnkzuoahh78/19/1985DTaP,Tdap and Td Vaccines (1 - Tdap)1986Pap Smear1988Zoster (Shingles) Vaccine (1 of 2)2017 Influenza Dvszpoo0912/27/2024 Medical Devices Not on file Insurance * Guarantor: Jenn Tapia TypeRelation to PatientDate of BirthPhone Billing AddressPersonal/KudowhNgzz1965 [facility] [place] [address] Care Teams Team MemberRelationshipSpecialtyStart DateEnd Date Sondra Salgado APRN-NP [address] [facility] [place] [address] PCP - GeneralNurse Practitioner12/11/17
[2025-02-28 11:30] VITALS: BP 150/98; PULSE 72; TEMP 36.4; O2SAT 98; BMI 28.3
[2025-02-28] MEDS: CEFAZOLIN SODIUM/DEXTROSE,ISO 2 GM/50 ML PIGGYBACK IV (12:36)
[2025-02-28] MEDS: BUPIVACAINE HCL 0.5% PF 50 MG/10 ML VIAL INJ (13:06)
[2025-02-28] MEDS: METHYLPREDNISOLONE ACETATE 40 MG/ML VIAL INJ (13:06)
[2025-02-28 13:13] VITALS: BP 137/69; PULSE 72; TEMP 36.6; O2SAT 96
[2025-02-28 13:28] VITALS: BP 153/78; PULSE 66; O2SAT 99
[2025-02-28 13:43] VITALS: BP 156/87; PULSE 66; O2SAT 95
--- NOTE | 2025-02-28 14:57 | W.PM.OPNOTE ---
Surgery Operative Note Operative Note Procedure Date: 02/28/25 Time Out Performed: yes Pre-op Diagnosis: Right carpal tunnel syndrome, left basilar thumb arthritis Post-op Diagnosis: same as pre-op Anesthesia: MAC and local Estimated blood loss (mL): 1 Detailed description of Procedure: OPERATIVE REPORT Jenn Tapia 1965 MRN MR [id number] Preoperative Diagnosis: 1) right carpal tunnel syndrome 2) left basilar thumb arthritis Postoperative Diagnosis: Same Procedure: 1) right carpal tunnel release, open 2) left thumb CMC cortisone injection Surgeon:Saul Jaquez DO Flat Grinder Operator: None OR Staff: See EMR Anesthesiologist: See EMR EBL: Minimal Complications: None Dispostion: PACU in stable condition Indications: Jenn is a 59-year-old female presenting with carpal tunnel syndrome recalcitrant to conservative measures. The procedure is indicated to minimize pain levels and prevent worsening of nerve-related symptoms. After thorough discussion of the risks, benefits, expected outcomes, and alternatives to surgical intervention, the patient agreed to proceed with surgical treatment. Specific risks discussed included, but were not limited to: superficial or deep infection, wound healing complications, DVT/PE, significant bleeding requiring transfusion, damage to named anatomic structures in the immediate area including named neurovascular structures, failure of pain relief, chronic wrist pain, and general risks of anesthesia. The patient voiced understanding and written as well as verbal consent was obtained by myself prior to the procedure. Findings: Hypertrophic transverse carpal ligament Procedure Note: The patient was brought back to the OR and placed supine on the OR table. After successful induction of anesthesia by anesthesia staff, the patient was positioned in the supine position and all bony prominences were padded appropriately. The surgical field was then provisionally cleansed and then prepped and draped in the usual sterile fashion. At this time a time-out was performed, with the correct patient, site, and procedure identified. The universal time out as well as sign your site protocols were followed. Preoperative antibiotics were verified as administered if needed. The anatomic landmarks about the wrist were drawn, and we made a standard mini-open incision in the volar proximal hand. We sharply dissected down to the transverse carpal ligament. Retractors were place and the ligament was fully visualized. The ligament was sharply sectioned and the median nerve visualized. The proximal and distal aspects were released and visualized for complete release. The incisions was then irrigated copiously and closed. The surgical sites were infiltrated using local anesthetic, and the wrist was sterilely cleansed and dressed. We then addressed the left thumb. The CMC joint was localized with palpation and injection site was marked. This was sterilely cleansed. We then injected a mixture of 1/1 cc Marcaine/Kenalog into the basilar thumb joint. Band-Aid was applied. The patient was then subsequently awoken and transferred to to PACU in a stable condition. All sponge and needle counts were correct at the end of the case. I was present and participated in all aspects of the procedure. Prognosis: The patient will allowed to WBAT on the wrist, and we will change the dressing in three days. They can do ROM as tolerated. No DVT prophylaxis is indicated for this procedure. Saul Jaquez, DO Attending Doc Confirm Attending Attestation: Yes
== END 2025-02-28 13:43 | disposition home or self-care (01) ==
PROVIDERS: Visit Provider Orthopaedic Surgery Orthopaedic Trauma
PROC: (CPT 20600; principal; 2025-02-28 12:30)
DX: G56.01 Carpal tunnel syndrome, right upper limb (principal); M18.12 Unilateral primary osteoarthritis of first carpometacarpal joint, left hand; Z87.891 Personal history of nicotine dependence; Z90.49 Acquired absence of other specified parts of digestive tract; Z98.84 Bariatric surgery status; G47.33 Obstructive sleep apnea (adult) (pediatric); D86.0 Sarcoidosis of lung; K21.9 Gastro-esophageal reflux disease without esophagitis; F41.9 Anxiety disorder, unspecified; F31.9 Bipolar disorder, unspecified
CPT/HCPCS: 20600; 64721; 36415; J0665; J0690; J1010; J1100; J1885; J2250; J2704; J3010